=== PATIENT | male | born 1955 | race Caucasian/White ===

== ENCOUNTER 2023-01-31 19:34 | Emergency (ER) | payer MEDICARE, OTHER, SELFPAY ==
[2023-01-31] VITALS (37 sets, daily range): BP systolic 128–192; BP diastolic 78–111; PULSE 66–100; RESP 10–28; O2SAT 94–98; BMI 28.9
--- NOTE | 2023-01-31 19:53 | XR_ITS ---
The [address] [address] Patient Name: TRAVIS CANALES MRN: [id number] date: 1955 Sex: M Assigned Patient Location: ER Current Patient Location: ED.MAIN Accession/Order Number: [id number] Exam Date: 01/31/2023 20:02 Report Date: 01/31/2023 20:52 At the request of: MAHESH MCRAE Procedure: XR chest 1V EXAM: XR chest 1V TECHNIQUE: Single AP view chest HISTORY: CP COMPARISON: None. FINDINGS: The heart and mediastinum are unremarkable. The lung roe are clear of any acute infiltrate, effusion or mass. No acute bony abnormality. XR/XR chest 1V IMPRESSION: No acute pulmonary disease. Electronically authenticated by: ROBERT BEAR Date: 01/31/2023 20:52
--- NOTE | 2023-01-31 19:53 | ECG_ITS ---
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
--- NOTE | 2023-01-31 19:54 | ED_ITS ---
HPI - Chest Pain General Chief Complaint: Chest Pain Stated Complaint: hypertension Time Seen by Provider: 01/31/23 19:39 Mode of arrival: walk-in History of Present Illness HPI narrative: 67-year-old male presents for tightness in his chest. He's had this for the past day or two and it comes and goes. He seems to worry about it and that makes it worse and when he stops thinking about it seems to go away. He Was at home but it didn't help and he takes an aspirin every day which he has already taken today. No trauma or fever complaints of shortness of breath. 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 Related Data Home Medications Medication Instructions Recorded Confirmed benazepril 20 mg tablet 20 mg PO DAILY 01/31/23 01/31/23 ezetimibe 10 mg tablet 10 mg PO BEDTIME 01/31/23 01/31/23 magnesium oxide 400 mg (241.3 mg 400 mg PO BID 01/31/23 01/31/23 magnesium) tablet metoprolol succinate 50 mg 50 mg PO DAILY 01/31/23 01/31/23 tablet,extended release 24 hr nitroglycerin 0.4 mg sublingual mg 01/31/23 tablet pantoprazole 20 mg tablet,delayed 20 mg PO DAILY 01/31/23 01/31/23 release pravastatin 40 mg tablet 40 mg PO DAILY 01/31/23 01/31/23 Allergies Allergy/AdvReac Type Severity Reaction Status Date / Time Mssmnkw-PWH-KtG Reductase Allergy Unknown Verified 01/31/23 19:47 Inhibitor Review of Systems ROS Narrative A ten point review of systems is negative except as noted above. PFSH PFSH Social History Smoking status: Never smoker Exam Narrative Exam Narrative: Nurses note and vital signs reviewed and patient is not hypoxic. General: The patient appears well and in no apparent distress. Patient is resting comfortably on cart. Skin: Warm, dry, no pallor noted. There is no rash noted. Head: Normocephalic, atraumatic Eye: Normal conjunctiva, no drainage Ears, Nose, Mouth, and Throat: oral mucosa is moist. Nares patent. Cardiovascular: Regular Rate and Rhythm; well healed sternotomy scar present. Respiratory: Patient is in no distress, no accessory muscle use, lungs are cl ear to auscultation, no wheezing, rales or rhonchi Back: non-tender GI: soft and nontender Musculoskeletal: The patient has no evidence of calf tenderness, no pitting edema, symmetrical pulses noted bilaterally Neurological: A&O, normal speech Psychiatric: Cooperative Constitutional Vital Signs, click to edit/add: Last Vital Signs Pulse 85 02/01/23 00:00 Resp 29 H 02/01/23 00:00 BP 137/82 02/01/23 00:00 Pulse Ox 96 02/01/23 00:00 O2 Del Method Room Air 01/31/23 19:40 Course Vital Signs Vital signs: Vital Signs Pulse Rate 73 01/31/23 19:40 Respiratory Rate 18 01/31/23 19:40 Blood Pressure 185/104 H 01/31/23 19:40 Pulse Oximetry 98 01/31/23 19:40 Oxygen Delivery Method Room Air 01/31/23 19:40 Pulse Rate 85 02/01/23 00:00 Respiratory Rate 29 H 02/01/23 00:00 Blood Pressure 137/82 02/01/23 00:00 Pulse Oximetry 96 02/01/23 00:00 Oxygen Delivery Method Room Air 01/31/23 19:40 MDM - Chest Pain MDM Narrative Medical decision making narrative: The patient presented with elevated blood pressure. He was given IV hydralazine without change and then he was given IV labetalol with appropriate decrease and he feels improved and is able to be discharged home. Two troponins were un changed. I've no clinical suspicion of acute coronary syndrome. 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 Treatment diagnosis and follow-up were discussed thoroughly with the patient and his . Differential Diagnosis Differential diagnosis: Likely pneumothorax, unstable angina pectoris, atypical chest pain, st elevation myocardial infarction, chest pain and other (hypertension) Lab Data Attestation: I reviewed the patient's lab results. Labs: Lab Results 01/31/23 01/31/23 Range/Units 19:51 21:49 WBC 8.2 (4.0-11.0) 10^3/uL RBC 4.72 (4.70-6.10) 10^6/uL Hgb 13.8 L (14.0-18.0) g/dL Hct 42.3 (42.0-54.0) % MCV 89.6 (80.0-94.0) fL MCH 29.2 (25.9-34.0) pg MCHC 32.6 (29.9-35.2) g/dL RDW 13.2 (11.0-15.0) % Plt Count 279 (150-450) 10^3/uL MPV 9.8 (9.5-13.5) fL Neut % (Auto) 64.3 (43.0-75.0) % Lymph % (Auto) 20.8 (20.5-60.0) % [place] % (Auto) 10.7 (1.7-12.0) % Eos % (Auto) 3.5 (0.9-7.0) % Baso % (Auto) 0.5 (0.2-2.0) % Neut # (Auto) 5.3 (1.4-6.5) 10^3/uL Lymph # (Auto) 1.7 (1.2-3.8) 10^3/uL [place] # (Auto) 0.9 H (0.3-0.8) 10^3/uL Eos # (Auto) 0.3 (0.0-0.7) 10^3/uL Baso # (Auto) 0.0 (0.0-0.1) 10^3/uL Abs Immat Gran (auto) 0.02 (0.00-0.03) 10^3/uL Imm/Tot Granulo (auto) 0.2 (0.0-0.5) % Sodium 139 (136-145) mmol/L Potassium 3.8 (3.5-5.1) mmol/L Chloride 103 (98-107) mmol/L Carbon Dioxide 26.0 (21.0-32.0) mmol/L Anion Gap 13.8 BUN 16.0 (7.0-18.0) mg/dL Creatinine 0.93 (0.70-1.30) mg/dL Est GFR ( Amer) >60 (>=60) Est GFR (Non-Af Amer) >60 (>=60) BUN/Creatinine Ratio 17.2 Glucose 106 (74-106) mg/dL Calcium 9.4 (8.5-10.1) mg/dL Troponin I High Sens 24.1 24.3 (4.0-76.1) pg/mL Imaging Data Chest x-ray: Radiologist's impression: Procedure: XR chest 1V EXAM: XR chest 1V TECHNIQUE: Single AP view chest HISTORY: CP COMPARISON: None. FINDINGS: The heart and mediastinum are unremarkable. The lung roe are clear of any acute infiltrate, effusion or mass. No acute bony abnormality. IMPRESSION: No acute pulmonary disease. Electronically authenticated by: ROBERT EBAR Date: 01/31/2023 20:52 ECG Data Attestation: I personally reviewed and interpreted this ECG as follows: (EKG on my interpretation shows normal sinus rhythm without acute ST segment change. Rate is 81.) Heart Score History: Slightly/Non-Suspicious ECG: Normal Age: >65 years Risk Factors: >3 Risk Factors/ HX of CAD:2 Troponin: <Normal Limit Total Heart Score Recommendations & Risks:: 4 Discharge Plan Discharge Chief Complaint: Chest Pain Clinical Impression: Hypertension Patient Disposition: Home, Self-Care Time of Disposition Decision: 00:06 Condition: Good Mode of Transportation: Private Vehicle Prescriptions / Home Meds: No Action benazepril 20 mg tablet 20 mg PO DAILY ezetimibe 10 mg tablet 10 mg PO BEDTIME magnesium oxide 400 mg (241.3 mg magnesium) tablet 400 mg PO BID metoprolol succinate 50 mg tablet extended release 24 hr 50 mg PO DAILY pantoprazole 20 mg tablet,delayed release (DR/EC) 20 mg PO DAILY nitroglycerin 0.4 mg tablet, sublingual pravastatin 40 mg tablet 40 mg PO DAILY Instructions: Hypertension (ED) Additional Instructions: call your watch hairspring assembler in the morning Stand Alone Forms: Portal Instructions Referrals: Margaret Harden MD [Primary Care Provider] - 1 week
[2023-01-31 20:15] LABS: Basophils Percent Auto 0.5 % (0.2-2.0); Eosinophils Absolute Auto 0.3 10^3/uL (0.0-0.7); Eosinophils Percent Auto 3.5 % (0.9-7.0); Hematocrit 42.3 % (42.0-54.0); Hemoglobin 13.8 g/dL (14.0-18.0); Immature Granulocytes Abs Auto 0.02 10^3/uL (0.00-0.03); Immature Granulocytes Pct Auto 0.2 % (0.0-0.5); Lymphocytes Absolute Auto 1.7 10^3/uL (1.2-3.8); Lymphocytes Percent Auto 20.8 % (20.5-60.0); Mean Corpuscular HGB Conc 32.6 g/dL (29.9-35.2); Mean Corpuscular Hemoglobin 29.2 pg (25.9-34.0); Mean Corpuscular Volume 89.6 fL (80.0-94.0); Mean Platelet Volume 9.8 fL (9.5-13.5); Monocytes Absolute Auto 0.9 10^3/uL (0.3-0.8); Monocytes Percent Auto 10.7 % (1.7-12.0); Neutrophils Absolute Auto 5.3 10^3/uL (1.4-6.5); Neutrophils Percent Auto 64.3 % (43.0-75.0); Platelet Count 279 10^3/uL (150-450); Red Blood Count 4.72 10^6/uL (4.70-6.10); Red Cell Distribution Width 13.2 % (11.0-15.0); White Blood Count 8.2 10^3/uL (4.0-11.0)
[2023-01-31 21:04] LABS: Anion Gap 13.8; BUN Creatinine Ratio 17.2; Calcium 9.4 mg/dL (8.5-10.1); Chloride 103 mmol/L (98-107); Estimated GFR (African America >60 (>=60); Estimated GFR (Non-African Ame >60 (>=60); Glucose 106 mg/dL (74-106); Potassium 3.8 mmol/L (3.5-5.1); Sodium 139 mmol/L (136-145); Troponin I High Sensitivity 24.1 pg/mL (4.0-76.1)
[2023-01-31] MEDS: HYDRALAZINE HCL 20 MG/ML VIAL 10 MG IVP ×2 (21:06→22:25)
[2023-01-31 22:11] LABS: Troponin I High Sensitivity 24.3 pg/mL (4.0-76.1)
[2023-01-31] MEDS: LABETALOL HCL 20 MG/4 ML SYRINGE 10 MG IVP (23:42)
[2023-02-01] VITALS: BP 137/82; PULSE 85; RESP 29; O2SAT 96
== END 2023-02-01 00:20 | disposition home or self-care (01) ==
PROVIDERS: Emergency Provider Emergency Medicine; PCP Family Medicine
DX: I10 Essential (primary) hypertension (principal); Z95.1 Presence of aortocoronary bypass graft; Z79.82 Long term (current) use of aspirin; Z79.899 Other long term (current) drug therapy
CPT/HCPCS: 36415; 71045; 80048; 84484; 85025; 93005; 96374; 96375; 96376; 99285

== ENCOUNTER 2023-02-15 09:20 | Emergency (ER) | payer MEDICARE, OTHER, SELFPAY ==
[2023-02-15 09:27] VITALS: BP 130/90; PULSE 108; RESP 20; TEMP 36.4; O2SAT 96; BMI 28.9
--- NOTE | 2023-02-15 09:33 | XR_ITS ---
The [address] [address] Patient Name: TRAVIS CANALES MRN: [id number] date: 1955 Sex: M Assigned Patient Location: ER Current Patient Location: ER Accession/Order Number: [id number] Exam Date: 02/15/2023 09:55 Report Date: 02/15/2023 10:46 At the request of: IAN PETIT Procedure: XR foot RT min 3V PROCEDURE: XR foot RT min 3V HISTORY: foot pain , gout COMPARISON: None. FINDINGS: BONES:Mild narrowing of the first metatarsophalangeal joint space; no bone erosions or significant marginal osteophytes. Degenerative enthesopathic spurring of the calcaneus. No fracture or dislocation. SOFT TISSUES:No visible soft tissue swelling. EFFUSION:None visible. OTHER: Negative. XR/XR foot RT min 3V IMPRESSION: 1. Mild degenerative changes at the first metatarsophalangeal joint, but no specific findings suggestive of advanced gout. Electronically authenticated by: BRYAN MEDINA Date: 02/15/2023 10:46
[2023-02-15 09:50] LABS: Basophils Percent Auto 0.2 % (0.2-2.0); Eosinophils Absolute Auto 0.1 10^3/uL (0.0-0.7); Hematocrit 44.4 % (42.0-54.0); Hemoglobin 14.7 g/dL (14.0-18.0); Immature Granulocytes Abs Auto 0.04 10^3/uL (0.00-0.03); Immature Granulocytes Pct Auto 0.4 % (0.0-0.5); Lymphocytes Absolute Auto 0.7 10^3/uL (1.2-3.8); Lymphocytes Percent Auto 7.4 % (20.5-60.0); Mean Corpuscular HGB Conc 33.1 g/dL (29.9-35.2); Mean Corpuscular Hemoglobin 29.4 pg (25.9-34.0); Mean Corpuscular Volume 88.8 fL (80.0-94.0); Mean Platelet Volume 9.9 fL (9.5-13.5); Monocytes Absolute Auto 0.9 10^3/uL (0.3-0.8); Monocytes Percent Auto 9.3 % (1.7-12.0); Neutrophils Absolute Auto 7.6 10^3/uL (1.4-6.5); Neutrophils Percent Auto 81.7 % (43.0-75.0); Platelet Count 242 10^3/uL (150-450); Red Cell Distribution Width 13.6 % (11.0-15.0); White Blood Count 9.3 10^3/uL (4.0-11.0)
[2023-02-15 09:55] LABS: Erythrocyte Sedimentation Rate 66 mm/hr (<=20)
[2023-02-15] MEDS: METHYLPREDNISOLONE SOD SUCC PF 125 MG/2 ML VIAL IM (10:05)
[2023-02-15 10:07] LABS: C Reactive Protein 2.4 mg/dL (<=1.0); Uric Acid 7.4 mg/dL (3.5-7.2)
--- NOTE | 2023-02-15 10:50 | ED.EXTPRO1 ---
HPI - Extremity Problem General Chief complaint: Extremity Problem, Nontraumatic Stated complaint: lower extremity pain right Time Seen by Provider: 02/15/23 09:33 Source: patient Mode of arrival: walk-in Limitations: no limitations History of Present Illness HPI Narrative: Patient with history of gout presents with pain, redness and swelling to the right 1st and 2nd toes and 1st MTP. No known injury. No systemic symptoms such as fever or chills, vomiting. Patient was supposed to be placed on allopurinol for prevention but his PCP has not called that in for him yet. He previously received Indocin for his last gout flare and it shot my blood pressure through the roof . Related Data Home Medications Medication Instructions Recorded Confirmed benazepril 20 mg tablet 40 mg PO DAILY 01/31/23 02/15/23 ezetimibe 10 mg tablet 10 mg PO BEDTIME 01/31/23 02/15/23 magnesium oxide 400 mg (241.3 mg 400 mg PO BID 01/31/23 02/15/23 magnesium) tablet metoprolol succinate 50 mg 100 mg PO DAILY 01/31/23 02/15/23 tablet,extended release 24 hr nitroglycerin 0.4 mg sublingual 0.4 mg sublingual Q5M PRN chest 01/31/23 02/15/23 tablet pain pantoprazole 20 mg tablet,delayed 20 mg PO DAILY 01/31/23 02/15/23 release pravastatin 40 mg tablet 40 mg PO DAILY 01/31/23 02/15/23 doxazosin 2 mg tablet 2 mg PO BEDTIME 02/15/23 02/15/23 Previous Rx's Medication Instructions Recorded probenecid 500 mg-colchicine 0.5 1 tab PO BID PRN gout #20 tabs 02/15/23 mg tablet Allergies Allergy/AdvReac Type Severity Reaction Status Date / Time Spymffi-UMT-KeT Reductase Allergy Unknown Verified 01/31/23 19:47 Inhibitor PFSH PFSH Social History Smoking status: Never smoker Exam Narrative Exam Narrative: Nurses notes and vital signs reviewed and patient is not hypoxic. afebrile General: Well-appearing and in no apparent distress. Skin: Warm, dry, no pallor noted. Cardiovascular: normal peripheral perfusion. Respiratory: No accessory muscle use or respiratory distress. Musculoskeletal: right foot: tenderness, swelling and erythema noted to the right 1st and 2nd toes and the 1st MTP joint. Right foot and ankle with normal ROM, no calf or popliteal tenderness, no lower leg edema/swelling, no right heel tenderness and no tenderness along the right 5th metatarsal or midfoot. Neurological: A&O x4. No cranial nerve dysfunction observed. No truncal ataxia. Moves all extremities. Sensation intact. Psychiatric: Cooperative and interactive. Normal mood and affect. Constitutional Vital Signs, click to edit/add: Last Vital Signs Temp 97.6 F 02/15/23 09:27 Pulse 108 H 02/15/23 09:27 Resp 20 02/15/23 09:27 BP 130/90 02/15/23 09:27 Pulse Ox 96 02/15/23 09:27 O2 Del Method Room Air 02/15/23 09:27 Course Vital Signs Vital signs: Vital Signs Temperature 97.6 F 02/15/23 09:27 Pulse Rate 108 H 02/15/23 09:27 Respiratory Rate 20 02/15/23 09:27 Blood Pressure 130/90 02/15/23 09:27 Pulse Oximetry 96 02/15/23 09:27 Oxygen Delivery Method Room Air 02/15/23 09:27 Temperature 97.6 F 02/15/23 09:27 Pulse Rate 108 H 02/15/23 09:27 Respiratory Rate 20 02/15/23 09:27 Blood Pressure 130/90 02/15/23 09:27 Pulse Oximetry 96 02/15/23 09:27 Oxygen Delivery Method Room Air 02/15/23 09:27 MDM - Extremity (Nontraumatic) MDM Narrative Medical decision making narrative: blood drawn and sent for testing including CRP, sedimentation rate and uric acid. X-rays of the right foot were obtained. With blood cell count is normal. Sedimentation rate, CRP and uric acid are all elevated. X-ray showed degenerative changes but no osteomyelitis or other worrisome findings including advanced gout. Patient received IM Cipro. He'll be discharged home with a combination colchicine and probenecid to take at home. I advised him that if his prescription for allopurinol is sent he is not to take that during an acute gout flare. Instead he will take that once this flareup settles. I recommended that he see his PCP for follow up. Lab Data Attestation: I reviewed the patient's lab results. Labs: Lab Results 02/15/23 Range/Units 09:42 WBC 9.3 (4.0-11.0) 10^3/uL RBC 5.00 (4.70-6.10) 10^6/uL Hgb 14.7 (14.0-18.0) g/dL Hct 44.4 (42.0-54.0) % MCV 88.8 (80.0-94.0) fL MCH 29.4 (25.9-34.0) pg MCHC 33.1 (29.9-35.2) g/dL RDW 13.6 (11.0-15.0) % Plt Count 242 (150-450) 10^3/uL MPV 9.9 (9.5-13.5) fL Neut % (Auto) 81.7 H (43.0-75.0) % Lymph % (Auto) 7.4 L (20.5-60.0) % [place] % (Auto) 9.3 (1.7-12.0) % Eos % (Auto) 1.0 (0.9-7.0) % Baso % (Auto) 0.2 (0.2-2.0) % Neut # (Auto) 7.6 H (1.4-6.5) 10^3/uL Lymph # (Auto) 0.7 L (1.2-3.8) 10^3/uL [place] # (Auto) 0.9 H (0.3-0.8) 10^3/uL Eos # (Auto) 0.1 (0.0-0.7) 10^3/uL Baso # (Auto) 0.0 (0.0-0.1) 10^3/uL Abs Immat Gran (auto) 0.04 H (0.00-0.03) 10^3/uL Imm/Tot Granulo (auto) 0.4 (0.0-0.5) % ESR 66 H (<=20) mm/hr Uric Acid 7.4 H (3.5-7.2) mg/dL C-Reactive Protein 2.4 H (<=1.0) mg/dL Imaging Data xr foot: Radiologist's impression: Patient Name: TRAVIS CANALES MRN: [id number] date: 1955 Sex: M Assigned Patient Location: ER Current Patient Location: ER Accession/Order Number: [id number] Exam Date: 02/15/2023 09:55 Report Date: 02/15/2023 10:46 At the request of: IAN PETIT Procedure: XR foot RT min 3V PROCEDURE: XR foot RT min 3V HISTORY: foot pain , gout COMPARISON: None. FINDINGS: BONES:Mild narrowing of the first metatarsophalangeal joint space; no bone erosions or significant marginal osteophytes. Degenerative enthesopathic spurring of the calcaneus. No fracture or dislocation. SOFT TISSUES:No visible soft tissue swelling. EFFUSION:None visible. OTHER: Negative. IMPRESSION: 1. Mild degenerative changes at the first metatarsophalangeal joint, but no specific findings suggestive of advanced gout. Electronically authenticated by: BRYAN MEDINA Date: 02/15/2023 10:46 Discharge Plan Discharge Chief Complaint: Extremity Problem, Nontraumatic Clinical Impression: Gout Patient Disposition: Home, Self-Care Time of Disposition Decision: 10:55 Prescriptions / Home Meds: New probenecid-colchicine 500-0.5 mg tablet 1 tab PO BID PRN (Reason: gout) Qty: 20 0RF No Action benazepril 20 mg tablet 40 mg PO DAILY ezetimibe 10 mg tablet 10 mg PO BEDTIME magnesium oxide 400 mg (241.3 mg magnesium) tablet 400 mg PO BID metoprolol succinate 50 mg tablet extended release 24 hr 100 mg PO DAILY pantoprazole 20 mg tablet,delayed release (DR/EC) 20 mg PO DAILY nitroglycerin 0.4 mg tablet, sublingual 0.4 mg sublingual Q5M PRN (Reason: chest pain) pravastatin 40 mg tablet 40 mg PO DAILY doxazosin 2 mg tablet 2 mg PO BEDTIME Instructions: Gout (ED) Stand Alone Forms: Portal Instructions Referrals: Margaret Harden MD [Primary Care Provider] - 1 week
[2023-02-15 11:21] VITALS: BP 111/74; PULSE 80; RESP 18; O2SAT 94
== END 2023-02-15 11:24 | disposition home or self-care (01) ==
PROVIDERS: Emergency Provider Emergency Medicine; PCP Family Medicine
DX: M10.9 Gout, unspecified (principal); Z79.899 Other long term (current) drug therapy
CPT/HCPCS: 36415; 73630; 84550; 85025; 85652; 86140; 96372; 99284; J2930

== ENCOUNTER 2023-03-11 14:59 | Outpatient (RCR) | payer MEDICARE, OTHER, SELFPAY ==
--- NOTE | 2022-12-08 15:20 | CR1_ITS ---
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
--- NOTE | 2023-01-04 14:29 | CR1_ITS ---
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
--- NOTE | 2023-01-31 15:27 | CR1_ITS ---
The 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
--- NOTE | 2023-03-02 12:31 | CR1_ITS ---
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
== END 2023-03-14 12:34 | disposition home or self-care (01) ==
LOC: CR 14:59
PROVIDERS: PCP Family Medicine; Visit Provider Internal Medicine Cardiovascular Disease
DX: I25.10 Atherosclerotic heart disease of native coronary artery without angina pectoris (principal); Z95.1 Presence of aortocoronary bypass graft
CPT/HCPCS: 93797; 93798

== ENCOUNTER 2023-07-27 12:53 | Outpatient (OUT) | payer MEDICARE, OTHER, SELFPAY ==
--- NOTE | 2023-07-27 13:02 | XR_ITS ---
The [address] [address] Patient Name: TRAVIS CANALES MRN: [id number] date: 1955 Sex: M Assigned Patient Location: [facility] Current Patient Location: Accession/Order Number: [id number] Exam Date: 07/27/2023 13:14 Report Date: 07/28/2023 07:06 At the request of: FARSHAD CAMARILLO Procedure: XR knee RT 4V PROCEDURE: XR tibia fibula RT 2V, XR knee RT 4V HISTORY: knee pain, lower leg pain COMPARISON: None. FINDINGS: BONES:No fracture, dislocation, bone lesion. Tiny degenerative osteophytes along the articular margins of all 3 compartments of the knee. Large calcaneal plantar spur. SOFT TISSUES:No visible soft tissue swelling. EFFUSION:None visible. OTHER: Negative. XR/XR knee RT 4V IMPRESSION: 1. No acute bone abnormality or specific findings to account for patient's symptoms. 2. Minimal degenerative changes. Electronically authenticated by: BRYAN MEDINA Date: 07/28/2023 07:06
--- NOTE | 2023-07-27 13:03 | XR_ITS ---
The [address] [address] Patient Name: TRAVIS CANALES MRN: [id number] date: 1955 Sex: M Assigned Patient Location: [facility] Current Patient Location: Accession/Order Number: [id number] Exam Date: 07/27/2023 13:14 Report Date: 07/28/2023 07:06 At the request of: FARSHAD CAMARILLO Procedure: XR tibia fibula RT 2V PROCEDURE: XR tibia fibula RT 2V, XR knee RT 4V HISTORY: knee pain, lower leg pain COMPARISON: None. FINDINGS: BONES:No fracture, dislocation, bone lesion. Tiny degenerative osteophytes along the articular margins of all 3 compartments of the knee. Large calcaneal plantar spur. SOFT TISSUES:No visible soft tissue swelling. EFFUSION:None visible. OTHER: Negative. XR/XR tibia fibula RT 2V IMPRESSION: 1. No acute bone abnormality or specific findings to account for patient's symptoms. 2. Minimal degenerative changes. Electronically authenticated by: BRYAN MEDINA Date: 07/28/2023 07:06
== END 2023-07-27 12:54 | disposition home or self-care (01) ==
LOC: RAD 12:56
PROVIDERS: PCP Family Medicine; Visit Provider Internal Medicine Rheumatology
DX: M79.604 Pain in right leg (principal); M25.561 Pain in right knee
CPT/HCPCS: 73564; 73590

== ENCOUNTER 2023-11-23 09:21 | Outpatient (OUT) | payer MEDICARE, OTHER, SELFPAY ==
--- NOTE | 2023-11-23 09:24 | VEIN_ITS ---
Patient Name: TRAVIS CANALES MR#: [id number] : 1955 Exam Date: 11/23/2023 Ordering Doctor: FLOR MONTENEGRO M.D. RADIOLOGY REPORT PROCEDURE: VC EXT VENOUS REFLUX SEVERIANO LMTD COMPARISON: None. INDICATIONS: M79.604 Right leg pain, M79.605 Left leg pain TECHNIQUE: Duplex imaging of the lower extremity to assess the deep and superficial venous system for the presence of deep or superficial venous incompetence and to document the location and severity of disease. The study includes evaluation of the great saphenous vein (GSV), anterior accessory saphenous vein (AASV) and small saphenous vein (SSV). Patient scanned in reverse Trendelenburg and standing. FINDINGS: RIGHT LOWER EXTREMITY: Saphenofemoral Junction Reflux: Yes 11.1mm 3.1 sec GSV: Diam (mm) Reflux/ Time (sec) Proximal Thigh 8.0 Yes 0.3 Mid Thigh N/A Distal Thigh 4.5 Yes 0.9 Prox Calf 4.8 Yes 3.6 Mid Calf 4.2 Yes 0.6 Saphenopopliteal Junction Reflux: 5.6mm Yes 2.7 SSV: Proximal Calf 5.5 Yes 0.8 Mid Calf 5.3 Yes 0.5 AASV: Proximal Thigh 4.4 Yes 0.5 Mid Thigh 3.5 Yes 0.6 Distal Thigh Thrombi: No acute or chronic thrombus. Compressibility: Normal. Flow: Minimal deep venous reflux. Preforator: Distal medial lower leg 3.5 mm with 4.4s reflux. Tech Note: Segment of right GSV previously removed for heart surgery. Fluid collection medial popliteal fossa measures 5.2 x 2.5 x 2.1 cm. Incompetent varicose vein distal medial lower leg measures 3.4 mm with 1.1s reflux. LEFT LOWER EXTREMITY: Saphenofemoral Junction Reflux: Yes 8.8 mm 0.8 sec GSV: Diam (mm) Reflux/Time (sec) Proximal Thigh 11.1 Yes 3.0 Mid Thigh 7.1 Yes 1.0 Distal Thigh 5.7 Yes 0.6 Prox Calf 4.4 Yes 2.1 Mid Calf 3.0 Yes 1.8 Saphenopopliteal Junction Relux: 3.4 mm Yes 0.3 SSV: Proximal Calf 3.4 Yes 4.8 Mid Calf 3.7 Yes 0.5 AASV: Proximal Thigh 3.6 Yes 0.3 Mid Thigh 2.6 No Distal Thigh Thrombi: No acute or chronic thrombus. Compressibility: Normal. Flow: Minimal deep venous reflux. Computer Tester: Distal medial lower leg 5.8 mm with 0.4s reflux. Tech Note: SSV has connection to GSV proximal/medial calf. Incompetent varicose vein distal medial lower leg measures 3.0 mm with 0.6s reflux. Varicose vein proximal medial lower leg measures 3.5 mm with 2.6s reflux. CONCLUSION: 1. Moderate to severe bilateral great saphenous vein venous insufficiency with dilatation and saphenofemoral junction reflux 2. Moderate right and severe left small saphenous vein venous insufficiency. There is dilatation of the right but not of the left 3. Mild venous insufficiency right anterior accessory saphenous vein 4. Minimal bilateral deep vein reflux 5. Bilateral incompetent varicose veins Dictated by: Riley Duran MD on 11/23/2023 at 11:11 Approved by: Riley Duran MD on 11/23/2023 at 11:42
--- OUTSIDE RECORDS SUMMARY | 2023-11-23 09:44 | XMS_ITS | CCD ---
Author Organization [facility] Care Team Providers Care Supervisor Gate Services Name Role Phone DR JOSELINE ALCAZAR Primary Care Unavailable DALY MOON Admitting Unavailable DALY MOON Consulting Unavailable DALY MOON Attending Unavailable SHAIKH Geri MARSH Admitting Unavailable SHAIKH Geri MARSH Attending Unavailable CAROL, DR BRYAN [place] Consulting Unavailable INGE, DR JOSELINE Martínez Primary Care Unavailable DALY MOON Consulting Unavailable SHAIKH Geri MARSH Consulting Unavailable SKINNER, MONSE Consulting Unavailable DEVAUGHN JASSO Consulting Unavailable INGE, DR JOSELINE Martínez Primary Care Unavailable MARISABEL, DR SOSA Admitting Unavailable HAY, DR SOSA Consulting Unavailable HAY, DR SOSA Attending Unavailable SINTIA, DR TOVAR Primary Care Unavailable HAY, DR SOSA Admitting Unavailable HAY, DR SOSA Consulting Unavailable HAY, DR SOSA Attending Unavailable BETTY MUHAMMAD Attending Unavailable DUANE SIMMONS Attending Unavailable Joseline Alcazar Unavailable Joseline Alcazar Unavailable Unavailable Unavailable Joseline Alcazar Unavailable Abiose, Juan Unavailable Carson Lane Unavailable Unavailable Jenna Saavedra Unavailable Unavailable Kristen Alegria Unavailable Sondra Elaine Unavailable Unavailable Catracho Garcia Unavailable Dr. Jenna Saavedra Attending Un available Inge, Dr. Joseline De Leon Primary Care Unav maidaable Inge, Dr. Joseline De Leon Primary Care Unav ailDr. Jenna Rivera Attending Un available Dr. Kristen Alegria Attending Unavailable Inge, Dr. Joseline De Leon Primary Care Unav KATIE Morales Attending Angélica Alcazar, Dr. Joseline De Leon Primary Care Unav ailable Alcazar, Dr. Joseline De Leon Attending Unav ailable Alcazar, Dr. Joseline De Leon Primary Care Unav ailable Raji, Dr. Peterson Admitting Unavailable Alegria, Dr. Peterson Attending Unavailable Alegria, Dr. Peterson Referring Unavailable Alcazar, Dr. Joseline De Leon Primary Care Unav ailable Alcazar, Dr. Joseline De Leon Primary Care Unav ailable Ruda Jessica, Dr. Jenna Elaine Admitting Un available Ruda Jessica, Dr. Jenna Elaine Attending Un available Alcazar, Dr. Joseline De Leon Referring Unav ailable Alcazar, Dr. Joseline De Leon Primary Care Unav ailable Raji, Dr. Peterson Attending Unavailable Alcazar, Dr. Joseline De Leon Primary Care Unav ailable Raji, Dr. Peterson Referring Unavailable Alcazar, Dr. Joseline De Leon Primary Care Unav ailable Alegria, Dr. Peterson Attending Unavailable Alegria, Dr. Peterson Referring Unavailable Alegria, Dr. Peterson Attending Unavailable Alcazar, Dr. Joseline De Leon Primary Care Unav ailable Alegria, Dr. Peterson Referring Unavailable Alegria, Dr. Peterson Attending Unavailable Alcazar, Dr. Joseline De Leon Primary Care Unav ailable Raji, Dr. Peterson Referring Unavailable MD Joseline Alcazar Primary Care Provider DO Brett Amanda Emergency Provider Joseline Alcazar MD Primary Care Provider Joseline Alcazar MD Primary Care Provider Unavailable Joseline Alcazar MD Primary Care Provider Kristen Alegria MD Unavailable KRISTEN ALEGRIA Attending Unavailable KRISTEN ALEGRIA Referring Unavailable JOSELINE ALCAZAR Primary Care Unavailable KRISTEN ALEGRIA Attending Unavailable KRISTEN ALEGRIA Referring Unavailable JOSELINE ALCAZAR Primary Care Unavailable Brett Amanda Attending Unavailable Brett Amanda Admitting Unavailable Joseline Alcazar Primary Care Unavailable FLOR MONTENEGRO Attending Unavailable BRUNO SCHMITZ Referring Unavailable BRUNO SCHMITZ Primary Care Unavailable Allergies Allergy Classification Reported Allergen(s) Allergy Type Date of Onset Reaction(s) Facility (7 sources) rosuvastatin; Translations: [ROSUVASTATIN] Drug Allergy 3 Headache, Myalgia [facility] Repository Comment on above: HEADACHES JOINT PAIN (8 sources) rosuvastatin Drug Allergy Myalgia, Headache [facility] 300 DO Work Phone: (9 sources) traMADol; Translations: [tramadol] Drug Allergy 3 Hallucinations [facility] 250 DO Work Phone: (4 sources) Doxazosin; Translations: [DOXAZOSIN] Drug Allergy 3 [facility] Work Phone: (1 source) traMADol Drug Allergy 3 [facility] Repository Medications Current Medications Medication Drug Class(es) Dates Sig (Normalized) Sig (Original) acetaminophen 325 mg oral tablet (4 sources) Start: 11-07-2022 take 2 tablets by mouth every six hours acetaminophen 325 mg oral tablet ; 2 tab(s) orally every 6 hours as needed for pain Quantity: 0 Refills: 0 Ordered: 07-Nov-2022 Calvin Escamilla Start: 07-Nov-2022 Generic Substitution Allowed take 1-2 tablets by mouth every six hours as needed Acetaminophen 325 MG Oral Tablet TAKE 1 TO 2 TABLETS EVERY 6 HOURS NEEDED. Quantity: 0 Refills: 0 Ordered: 09-Nov-2022 DO Active Acidophilus Probiotic 10 MG (4 sources) Acidophilus Prob iotic 10 MG as directed Orally Active allopurinol 100 mg oral tablet (6 sources) Xanthine Oxidase Inhibitor End: 4 take 1 tablet by mouth once daily allopurinol (Zyloprim) 100 mg tablet Take 1 tablet (100 mg) by mouth once daily. 0 05/30/2023 Discontinued (Dose adjustment) take 1 tablet by mouth once mansoor y allopurinol (Zyloprim) 300 mg tablet Take 1 tablet (300 mg) by mouth once daily. 0 Active amLODIPine 2.5 mg oral tablet (13 sources) Dihydropyridine Calcium Channel Mir Start: 09-28-2022 take 1 tablet by mouth once daily amLODIPine Besylate 5 MG Oral Tablet TAKE 1 TABLET DAILY. Quantity: 90 Refills: 1 Ordered: 28-Sep-2022 Kristen Alegria MD Start : 28-Sep-2022 Active Start: 06-28-2022 End: 05-29-2024 take 1 tablet by mouth once daily amLODIPine (Norvasc) 2.5 mg tablet Indications: S/P CABG x 3 , Status post coronary artery bypass graft , Resistant hypertension Take 1 tablet (2.5 mg) by mouth once daily. 90 tablet 3 05/30/2023 05/29/2024 Active aspirin 81 mg chewable tablet (17 sources) Platelet Aggregation Inhibitor, Nonsteroidal Anti-inflammatory Drug Start: 2022 aspirin 81 mg chewable tablet Chew 1 tablet (81 mg) once daily. 0 2022 Active Aspirin Adult Lo w Dose Not-Taking/PRN Aspirin Adult Lo w Dose Not-Taking take 1 tablet by mouth once aspi rin 81 mg oral delayed release tablet ; 1 tab(s) orally once a day(stopping as directed) Quantity: 0 Refills: 0 Ordered: 07-Oct-2022 Corinna Lizama Generic Substitution Allowed Aspirin Adult Lo w Dose Active benazepril hydrochloride 40 mg oral tablet (18 sources) Angiotensin Converting Enzyme Inhibitor Start: 05-30-2023 take 1 tablet by mouth once daily benazepril (Lotensin) 40 mg tablet Indications: Hypertensive heart disease with diastolic congestive heart failure, NYHA class 2 (CMS/HCC) Take 1 tablet (40 mg) by mouth once daily. 90 tablet 3 05/30/2023 Active Start: 02-03-2023 End: 05-30-2023 take 1 tablet by mouth once daily benazepril (Lotensin) 40 mg tablet Indications: Hypertensive heart disease with diastolic congestive heart failure, NYHA class 2 (CMS/HCC) Take 1 tablet (40 mg) by mouth once daily. 90 tablet 0 02/03/2023 05/30/2023 Discontinued (Reorder) Start: 2022 take 1 tablet by allison once daily Benazepril HCl - 20 MG Oral Tablet TAKE 1 TABLET DAILY. Quantity: 90 Refills: 3 Ordered: 29-Nov-2022 Kristen Alegria MD Start : 29-Nov-2022 Active new chondroitin sulfates 200 mg / glucosamine hydrochloride 250 mg oral tablet (16 sources) Start: 02-07-2023 take 2 tablets by mouth once daily Glucosamine-Chondroitin (Osteo Bi-Flex) 250-200 mg Tablet Active 2 TAB PO Daily February 07, 2023 12:00am Glucosamine-Tyrone droitin - as directed Orally Active take 1 tablet by mouth once mansoor y Osteo Bi-Flex 250 mg-200 mg oral tablet ; 1 tab(s) orally once a day Quantity: 0 Refills: 0 Ordered: 07-Oct-2022 Corinna Lizama Generic Substitution Allowed Osteo Bi-Flex On e Per Day TABS TAKE 1 TAB DAILY Quantity: 0 Refills: 0 Ordered: 28-Sep-2022 DO Active Osteo Bi-Flex On e Per Day TABS Quantity: 0 Refills: 0 Ordered: 13-Sep-2022 DO Active colchicine 0.6 mg oral tablet (2 sources) take 1 tablet by mouth twice daily as needed Colchicine 0.6 MG 1 tablet Orally bid prn for 15 days Active colchicine 0.5 mg / probenecid 500 mg oral tablet (4 sources) take 1 tablet by mouth twice daily probenecid-colchicine 500-0.5 mg tablet Take 1 tablet by mouth 2 times a day. 0 Active CoQ10 100 MG (4 sources) CoQ10 100 MG as directed Orally Active docusate sodium 100 mg oral capsule (6 sources) Start: 11-07-2022 take 1 capsule by mouth three times daily after mealtime docusate sodium 100 mg oral capsule ; 1 cap(s) orally 3 times a day (after meals) Quantity: 0 Refills: 0 Ordered: 07-Nov-2022 Calvin Escamilla Start: 07-Nov-2022 Generic Substitution Allowed Docusate Sodium 100 MG TABS TAKE 1 TABLET DAILY DIRECTED. Quantity: 0 Refills: 0 Ordered: 09-Nov-2022 DO Active doxazosin 2 mg oral tablet (4 sources) alpha-Adrenergic Mir Start: 02-10-2023 End: 02-10-2024 take 1 tablet by mouth once daily at bedtime doxazosin (Cardura) 2 mg tablet Indications: Hypertensive heart disease with diastolic congestive heart failure, NYHA class 2 (CMS/HCC) , Resistant hypertension Take 1 tablet (2 mg) by mouth once daily at bedtime. May take 1 extra tablet daily if BP running above 150 systolic 135 tablet 3 02/10/2023 05/30/2023 Discontinued (Side effects) doxylamine succinate 25 mg oral tablet (1 source) doxylamine (Unisom) 25 mg tablet Take 1 tablet (25 mg) by mouth as needed at bedtime for sleep. 0 Active ezetimibe 10 mg oral tablet (19 sources) Dietary Cholesterol Absorption Inhibitor Start: 11-07-2022 take 1 tablet by mouth once daily ezetimibe (Zetia) 10 mg tablet Take 1 tablet (10 mg) by mouth once daily. 0 01/17/2023 Active glucosamine/chondr shepherd A sod (OSTEO BI-FLEX ORAL) (2 sources) take 1 tablet by mouth once daily glucosamine/chond r shepherd A sod (OSTEO BI-FLEX ORAL) Take 1 tablet by mouth once daily. 0 Active indomethacin 50 mg oral capsule (6 sources) Nonsteroidal Anti-inflammatory Drug Start: 01-04-2023 End: 03-14-2023 take 1 capsule by mouth once daily indomethacin (Indocin) 50 mg capsule Take 1 capsule (50 mg) by mouth once daily. 0 01/04/2023 03/14/2023 Discontinued (Therapy completed) Start: 01-04-2023 take 1 capsule by mo [facility] every twelve hours Indomethacin 50 MG 1 capsule with food or milk Orally Twice a day for 30 day(s) Dec, Active Start: 12-02-2022 End: 12-06-2022 take 1 capsule by mouth three times daily at mealtime indomethacin 50 mg oral capsule ; 1 cap(s) orally 3 times a day Quantity: 15 Refills: 0 Ordered: 02-Dec-2022 Catracho Garcia Start: 02-Dec-2022 End: 06-Dec-2022 Generic Substitution Allowed Comments: Do not take aspirin or aspirin containing products without knowledge and consent of your physician.It is very important that you take or use this exactly as directed. Do not skip doses or discontinue unless directed by your doctor.May cause drowsiness or dizziness.Obtain medical advice before taking any non-prescription drugs as some may affect the action of this medication.Take with food or milk. take 1 capsule by mo uth once daily Indomethacin 25 MG Oral Capsule TAKE 1 CAPSULE Daily for gout flare Quantity: 0 Refills: 0 Ordered: 16-Dec-2022 DO Active Comment on above: Do not take aspirin or aspirin containing products without knowledge and consent of your physician.It is very important that you take or use this exactly as directed. Do not skip doses or discontinue unless directed by your doctor.May cause drowsiness or dizziness.Obtain medical advice before taking any non-prescription drugs as some may affect the action of this medication.Take with food or milk. Lactobacillus acidophilus (13 sources) End: 05-30-2023 Lactobacillus acidophilus (PROBIOTIC ACIDOPHILUS ORAL) Take by mouth. Take as directed 0 05/30/2023 Discontinued (Therapy completed) Lactobacillus ac idophilus (PROBIOTIC ACIDOPHILUS ORAL) Take by mouth. Take as directed 0 Active Acidophilus Prob iotic 10 MG Oral Capsule TAKE DIRECTED. Quantity: 0 Refills: 0 Ordered: 13-Sep-2022 DO Active take 1 capsule by mouth once kehinde ly Acidophilus oral capsule ; 1 cap(s) orally once a day Quantity: 0 Refills: 0 Ordered: 07-Oct-2022 Corinna Lizama Generic Substitution Allowed magnesium oxide 400 mg oral tablet (9 sources) Start: 12-16-2022 take 1 tablet by mouth twice daily magnesium oxide (Mag-Ox) 400 mg (241.3 mg magnesium) tablet Take 1 tablet (400 mg) by mouth 2 times a day. 0 12/21/2022 Active 24 hr metoprolol succinate 100 mg extended release oral tablet (20 sources) beta-Adrenergic Mir Start: 02-04-2023 End: 05-29-2024 take 1 tablet by mouth once daily metoprolol succinate XL (Toprol-XL) 100 mg 24 hr tablet Indications: Hypertensive heart disease with diastolic congestive heart failure, NYHA class 2 ([facility]) Take 1 tablet (100 mg) by mouth once daily. Do not crush or chew. 90 tablet 1 05/30/2023 05/29/2024 Active Start: 11-07-2022 End: 06-04-2023 take 1 tablet by mouth once daily Metoprolol Succinate ER 50 mg oral tablet, extended release ; 1 tab(s) orally once a day (pateint to take mornin of procedure with a sip of water) Quantity: 30 Refills: 6 Ordered: 07-Nov-2022 Calvin Escamilla Start: 07-Nov-2022 End: 04-Jun-2023 Generic Substitution Allowed take 1 tablet by allison th every twenty-four hours Metoprolol Succinate ER 25 MG 1 tablet Orally Once a day Active multivit-min/ferrous fumarat e (MULTI VITAMIN ORAL) (2 sources) take 1 tablet by mouth once daily multivit-min/ferrous fumarate (MULTI VITAMIN ORAL) Take 1 tablet by mouth once daily. 0 Active Multivitamin preparation (7 sources) Start: take 1 tablet by mouth once daily Multivitamin Active 1 TAB PO Daily February 07, 2023 12:00am take 1 tablet by mouth once mansoor y Multivitamin - 1 tablet Orally Once a day Active take 1 tablet by mouth once mansoor y Multiple Vitamins oral tablet ; 1 tab(s) orally once a day Quantity: 0 Refills: 0 Ordered: 07-Oct-2022 Corinna Lizama Generic Substitution Allowed nitroglycerin 0.4 mg sublingual tablet (2 sources) Nitrate Vasodilator Start: 10-08-2022 nitroglycerin (Nitrostat) 0.4 mg SL tablet DISSOLVE 1 TABLET UNDER THE TONGUE NEEDED FOR CHEST PAIN- MAY REPEAT EVERY 5 MINUTES IF NEEDED ( MAX 3 DOSES.- IF NO RELIEF CALL 911) 0 10/08/2022 Active pantoprazole 40 mg delayed release oral tablet (9 sources) Proton Pump Inhibitor Start: 02-07-2023 take 1 tablet by mouth once daily Pantoprazole (Protonix) 40 mg Tablet,Delayed Release (Dr/Ec) Active 40 MG PO Daily February 07, 2023 12:00am Start: 12-16-2022 End: 05-30-2023 take 1 tablet by mouth once daily pantoprazole (ProtoNix) 20 mg EC tablet Take 1 tablet (20 mg) by mouth once daily. 0 12/21/2022 05/30/2023 Discontinued (Therapy completed) polyethylene glycol 3350 82903 mg powder for oral solution (3 sources) Osmotic Laxative Start: 11-07-2022 polyethylene glycol 3350 oral powder for reconstitution ; 17 gram(s) orally 2 times a day Quantity: 0 Refills: 0 Ordered: 07-Nov-2022 Calvin Escamilla Start: 07-Nov-2022 Generic Substitution Allowed MiraLax 17 GM Or al Packet MIX 1 PACKET IN 8 OUNCES OF LIQUID AND DRINK TWICE DAILY. Quantity: 60 Refills: 3 Ordered: 09-Nov-2022 DO Active pravastatin sodium 40 mg oral tablet (18 sources) HMG-CoA Reductase Inhibitor Start: 09-27-2022 End: 05-29-2024 take 1 tablet by mouth once daily at bedtime pravastatin (Pravachol) 40 mg tablet Indications: Mixed hyperlipidemia Take 1 tablet (40 mg) by mouth once daily at bedtime. 90 tablet 3 05/30/2023 05/29/2024 Active predniSONE 50 mg oral tablet (1 source) Start: 12-02-2022 End: 12-06-2022 take 1 tablet by mouth once daily at mealtime predniSONE 50 mg oral tablet ; 1 tab(s) orally once a day Quantity: 5 Refills: 0 Ordered: 02-Dec-2022 Catracho Garcia Start: 02-Dec-2022 End: 06-Dec-2022 Generic Substitution Allowed Comments: It is very important that you take or use this exactly as directed. Do not skip doses or discontinue unless directed by your doctor.Obtain medical advice before taking any non-prescription drugs as some may affect the action of this medication.Take with food or milk. Comment on above: It is very important that you take or use this exactly as directed. Do not skip doses or discontinue unless directed by your doctor.Obtain medical advice before taking any non-prescription drugs as some may affect the action of this medication.Take with food or milk. ubiquinol 100 mg oral capsule (1 source) Start: 02-07-2023 take 100 mg by mouth once daily Coq10 (Ubiquinol) Active 100 MG PO Daily February 07, 2023 12:00am Completed/Discontinued Medications Medication Drug Class(es) Dates Sig (Normalized) Sig (Original) apixaban 5 mg oral tablet (2 sources) Factor Xa Inhibitor Start: 12-16-2022 take 1 tablet by mouth twice daily Eliquis 5 MG Oral Tablet Take 1 tablet twice daily Quantity: 90 Refills: 3 Ordered: 16-Dec-2022 Kristen Alegria MD Start : 16-Dec-2022 Active new start hydroCHLOROthiazide 25 mg / triamterene 37.5 mg oral tablet (6 sources) Potassium-spari ng Diuretic, Thiazide Diuretic Start: 09-13-2022 take 0.5 tablet by mouth once daily Triamterene-HCTZ 37.5-25 MG Oral Tablet TAKE 1/2 TABLET DAILY. Quantity: 45 Refills: 3 Ordered: 13-Sep-2022 Kristen Alegria MD Start : 13-Sep-2022 Active Multi Vitamin Oral Tablet (9 sources) take 1 tablet by mouth once daily Multi Vitamin Oral Tablet TAKE 1 TABLET DAILY. Quantity: 0 Refills: 0 Ordered: 13-Sep-2022 DO Active ondansetron 4 mg disintegrating oral tablet (3 sources) Serotonin-3 Receptor Antagonist Start: 11-07-2022 End: 11-13-2022 take 1 tablet by mouth every eight hours ondansetron 4 mg oral tablet, disintegrating ; 1 tab(s) orally every 8 hours Quantity: 21 Refills: 0 Ordered: 07-Nov-2022 Calvin Escamilla Start: 07-Nov-2022 End: 13-Nov-2022 Generic Substitution Allowed rosuvastatin calcium 20 mg oral tablet (1 source) HMG-CoA Reductase Inhibitor take 1 tablet by mouth once daily Rosuvastatin Calcium 20 MG Oral Tablet TAKE 1 TABLET DAILY. Quantity: 0 Refills: 0 Ordered: 13-Sep-2022 DO Active traMADol hydrochloride 50 mg oral tablet (3 sources) Opioid Agonist Start: 11-07-2022 End: 11-17-2022 take 1 tablet by mouth every six hours as needed traMADol 50 mg oral tablet ; 1 tab(s) orally every 6 hours, As needed, Pain - Mod (4-6) Quantity: 28 Refills: 0 Ordered: 11-Nov-2022 Calvin Escamilla Start: 11-Nov-2022 End: 17-Nov-2022 Generic Substitution Allowed ubidecarenone 100 mg oral capsule (12 sources) Start: 09-27-2022 take 1 capsule by mouth once daily Co Q-10 100 MG Oral Capsule TAKE 1 CAPSULE Daily Quantity: 1 Refills: 0 Ordered: 27-Sep-2022 Kristen Alegria MD Start : 27-Sep-2022 Active take 2 capsules by mouth once da [place] co-enzyme Q-10 50 mg capsule Take 2 capsules (100 mg) by mouth once daily. 0 Active Problems Active Problems Problem Classification Problem Date Documented Date Episodic/Chronic Acute posthemorrhagic anemia (1 source) Acute posthemorrhagic anemia; Translations: [Acute posthemorrhagic anemia] Onset: 07-16-202 3 Episodic Administrative/social admission (8 sources) Follow-up status; Translations: [Other specified counseling] Episodic Anxiety disorders (5 sources) Generalized anxiety disorder; Translations: [Generalized anxiety disorder] Chronic Aortic; peripheral; and visceral artery aneurysms (1 source) Aneurysm of ascending aorta; Translations: [Thoracic aneurysm without mention of rupture] Onset: 3 11-03-2022 Chronic Cardiac dysrhythmias (10 sources) Ventricular premature depolarization; Translations: [Unspecified atrial fibrillation] Onset: 2 03-14-2023 Chronic Coagulation and hemorrhagic disorders (1 source) Other secondary thrombocytopenia; Translations: [Other secondary thrombocytopenia] Onset: 3 Episodic Complication of device; implant or graft (3 sources) Arteriosclerosis of coronary artery bypass graft; Translations: [Atherosclerosis of coronary artery bypass graft(s) without angina pectoris] Onset: 3 05-30-2023 Chronic Conditions associated with dizziness or vertigo (9 sources) Dizziness and giddiness; Translations: [Benign paroxysmal positional vertigo] Onset: 2 Episodic Conduction disorders (1 source) Unspecified right bundle-branch block; Translations: [Unspecified right bundle-branch block] Onset: 3 Chronic Congestive heart failure; nonhypertensive (5 sources) Chronic diastolic (congestive) heart failure; Translations: [Unspecified diastolic (congestive) heart failure] Onset: 3 10-12-2022 Chronic Coronary atherosclerosis and other heart disease (20 sources) Angina pectoris; Translations: [Other and unspecified angina pectoris] Onset: 3 Chronic Coronary atherosclerosis and other heart disease (3 sources) Presence of aortocoronary bypass graft; Translations: [Presence of aortocoronary bypass graft] Onset: 3 Episodic Disorders of lipid metabolism (20 sources) Hyperlipidemia, unspecified; Translations: [Mixed hyperlipidemia] Onset: 2 Chronic Esophageal disorders (5 sources) Gastroesophageal reflux disease; Translations: [Esophageal reflux] Onset: 3 01-31-2023 Chronic Essential hypertension (20 sources) Essential (primary) hypertension; Translations: [Essential hypertension] Onset: 2 Chronic Gout and other crystal arthropathies (13 sources) Acute gout; Translations: [Acute gouty arthropathy] Onset: 3 12-02-2022 Chronic Hypertension with complications and secondary hypertension (17 sources) Hypertensive heart disease with congestive heart failure; Translations: [Unspecified hypertensive heart disease with heart failure] Onset: 3 Resolved: 4 03-14-2023 Chronic Nonspecific chest pain (9 sources) Chest pain, unspecified; Translations: [Chest pain] Onset: 2 Episodic Occlusion or stenosis of precerebral arteries (2 sources) Occlusion and stenosis of bilateral carotid arteries; Translations: [Bilateral carotid artery occlusion] Onset: 3 10-15-2022 Chronic Other aftercare (2 sources) extermination supervisor (current) use of aspirin; Translations: [GROUP HOME CURRENT USE OF ASPIRIN] Onset: 2 Episodic Other aftercare (4 sources) 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; Translations: [OTH RESEARCH HOME ECONOMIST CURRENT DRUG THERAPY] Onset: 2 Episodic Other aftercare (9 sources) Treatment changed; Translations: [Long-term (current) use of other medications] Episodic Other aftercare (2 sources) Drug therapy finding; Translations: [Long-term (current) use of other medications] Episodic Other aftercare (1 source) Long-term current use of aspirin; Translations: [extermination supervisor (current) use of aspirin] 10-12-2022 Episodic Other circulatory disease (1 source) Hypotension, unspecified; Translations: [Hypotension, unspecified] Onset: 3 Episodic Other circulatory disease (1 source) Elevated blood pressure; Translations: [Elevated blood-pressure reading, without diagnosis of hypertension] 02-07-2023 Episodic Other connective tissue disease (1 source) Other specified soft tissue disorders; Translations: [Other specified soft tissue disorders] Onset: 3 Episodic Other connective tissue disease (1 source) Pain in right foot; Translations: [Pain in right foot] Onset: 3 Episodic Other ear and sense organ disorders (3 sources) Unspecified hearing loss, left ear; Translations: [UNSPECIFIED HEARING LOSS LEFT EAR] Onset: 2 Chronic Other ear and sense organ disorders (1 source) Impacted cerumen, left ear; Translations: [IMPACTED CERUMEN LEFT EAR] Onset: 2 Episodic Other inflammatory condition of skin (1 source) Erythematous condition, unspecified; Translations: [Erythematous condition, unspecified] Onset: 3 Episodic Other lower respiratory disease (1 source) Hypoxemia; Translations: [Hypoxemia] Onset: 3 Episodic Other lower respiratory disease (1 source) Other abnormalities of breathing; Translations: [Other abnormalities of breathing] Onset: 3 Episodic Other non-traumatic joint disorders (5 sources) Arthralgia of the lower leg; Translations: [Pain in right knee] Episodic Other non-traumatic joint disorders (5 sources) Shoulder joint pain; Translations: [Pain in right shoulder] Episodic Other non-traumatic joint disorders (1 source) Pain in right knee Episodic Other nutritional; endocrine; and metabolic disorders (7 sources) Obesity; Translations: [Obesity, unspecified] 10-12-2022 Chronic Other nutritional; endocrine; and metabolic disorders (3 sources) Obesity, unspecified; Translations: [Obesity, unspecified] Onset: 3 Chronic Other nutritional; endocrine; and metabolic disorders (1 source) Body mass index (BMI) 30.0-30.9, adult; Translations: [Body mass index [BMI] 30.0-30.9, adult] Onset: 3 Chronic Other nutritional; endocrine; and metabolic disorders (1 source) Body mass index 30+ - obesity; Translations: [Body mass index (BMI) 30.0-30.9, adult] 10-12-2022 Chronic Other nutritional; endocrine; and metabolic disorders (2 sources) Obese class I; Translations: [Obesity, unspecified] Onset: 4 05-30-2023 Chronic Other screening for suspected conditions (not mental disorders or infectious disease) (20 sources) Electrocardiogram abnormal; Translations: [Abnormal electrocardiogram [ECG] [EKG]] Onset: 3 03-14-2023 Episodic [place]-; endo-; and myocarditis; cardiomyopathy (except that caused by tuberculosis or sexually transmitted disease) (1 source) Disease of pericardium, unspecified; Translations: [Disease of pericardium, unspecified] Onset: 3 Episodic Residual codes; unclassified (11 sources) Sleep apnea; Translations: [Unspecified sleep apnea] Onset: 3 01-31-2023 Chronic Residual codes; unclassified (3 sources) Obstructive sleep apnea (adult) (pediatric); Translations: [Obstructive sleep apnea (adult) (pediatric)] Onset: 3 Chronic Residual codes; unclassified (2 sources) Obstructive sleep apnea syndrome; Translations: [Obstructive sleep apnea (adult) (pediatric)] Onset: 3 05-30-2023 Chronic Residual codes; unclassified (5 sources) Tobacco user; Translations: [Tobacco use] Episodic Residual codes; unclassified (13 sources) Other specified health status; Translations: [Statin intolerance] Onset: 4 Resolved: 3 05-30-2023 Episodic Respiratory failure; insufficiency; arrest (adult) (2 sources) Acute respiratory failure; Translations: [Acute respiratory failure] 11-03-2022 Episodic Unclassified (1 source) CONTACT W/AND (SUSP) EXPOS COVID-19; Translations: [CONTACT W/AND (SUSP) EXPOS COVID-19] Onset: 2 Unclassified (2 sources) CORONARY ARTERY DISEASE ICD-10 ATHSCL HEART DISEASE OF [place] CORONARY ARTERY W/O ANG P/SEE SOARIAN 10-15-2022 Comment on above: CORONARY ARTERY DISE ASE ICD-10 ATHSCL HEART DISEASE OF [place] CORONARY ARTERY W/O ANG P/SEE SOARIAN Unclassified (2 sources) Primary hypertension 11-02-2022 Unclassified (1 source) 3M 09-13-2022 Comment on above: 3M Unclassified (1 source) POST OP CABG-NURSE VISIT 11-03-2022 Comment on above: POST OP CABG-NURSE V ISIT Unclassified (1 source) POST OP MIN8I CABG-NURSE VISIT 11-03-2022 Comment on above: POST OP MIN8I CABG-N URSE VISIT Unclassified (1 source) S/P CABG (coronary artery bypass graft) 11-02-2022 Unclassified (1 source) Ascending aortic aneurysm 11-03-2022 Unclassified (2 sources) RT FOOT GOUT LIKE PAIN 12-02-2022 Comment on above: RT FOOT GOUT LIKE PA IN Unclassified (1 source) 6M 2022 Comment on above: 6M Unclassified (1 source) S/P CABG-DOCTOR VISIT 12-02-2022 Comment on above: S/P CABG-DOCTOR VISI T Unclassified (1 source) Acute gout 12-02-2022 Unclassified (1 source) Aneurysm of the ascending aorta, without rupture; Translations: [Aneurysm of the ascending aorta, without rupture] Onset: 3 Unclassified (1 source) Resistant hypertension; Translations: [Resistant hypertension] Onset: 3 Past or Other Problems Problem Classification Problem Date Documented Date Episodic/Chronic Cancer of testis (1 source) Personal history of malignant neoplasm of testis; Translations: [PERSONAL HX MALIG NEOPLASM TESTIS] Onset: 2 Episodic E Codes: Adverse effects of medical drugs (11 sources) Adverse reaction caused by rosuvastatin; Translations: [Antilipemic and antiarteriosclerotic drugs causing adverse effects in therapeutic use] Onset: 3 01-31-2023 Episodic Other aftercare (4 sources) Taking high risk medication; Translations: [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] Onset: 3 Resolved: 4 03-14-2023 Episodic Other circulatory disease (3 sources) H/O: angina pectoris; Translations: [Personal history of other diseases of circulatory system] Resolved: 3 Episodic Other nutritional; endocrine; and metabolic disorders (6 sources) Overweight in adulthood with body mass index of 25 or more but less than 30; Translations: [Overweight] Onset: 3 Resolved: 4 02-09-2023 Episodic Residual codes; unclassified (4 sources) Contact with and (suspected) exposure to other hazardous, chiefly nonmedicinal, chemicals; Translations: [CONTACT AND EXPOS OTH HAZ NONMED CHEM] Onset: 2 Episodic Residual codes; unclassified (2 sources) Other specified personal risk factors, not elsewhere classified; Translations: [Other specified personal risk factors, not elsewhere classified] Onset: 2 Episodic Unclassified (9 sources) Patient status finding; Translations: [Patient new to provider] Unclassified (9 sources) Never smoked tobacco; Translations: [Never a smoker] Unclassified (2 sources) Onset: 3 Resolved: 4 02-10-2023 Unclassified (1 source) Resistant hypertension; Translations: [Resistant hypertension] Onset: 3 Results Test Name Value Interpretation Reference Range Facility Alanine aminotransferase [En zymatic activity/volume] in Serum or PlasmaOrdered By: Brett Amanda on 02-07-2023 ALT [Catalytic activity/Vol] 26 U/L 7-52 [facility] Albumin [Mass/volume] in Ser um or Plasma by Bromocresol green (BCG) dye binding methoOrdered By: Brett Amanda on 02-07-2023 Albumin BCG dye [Mass/Vol] 4.4 g/dL 3.5-5.7 [facility] Alkaline phosphatase [Enzyma tic activity/volume] in Serum or PlasmaOrdered By: Brett Amanda on 02-07-2023 ALP [Catalytic activity/Vol] 72 U/L 34-104 [facility] Aspartate aminotransferase [ Enzymatic activity/volume] in Serum or PlasmaOrdered By: Brett Amanda on 02-07-2023 AST [Catalytic activity/Vol] 29 U/L 13-39 [facility] Basophils Auto (Bld) [#/Vol] Ordered By: Brett Amanda on 02-07-2023 Basophils (Bld) [#/Vol] 0.0 10*3/uL 0.0-0.2 [facility] Basophils/100 WBC Auto (Bld) Ordered By: Brett Amanda on 02-07-2023 Basophils/100 WBC (Bld) 0.6 % . [facility] Bilirubin.total [Mass/volume ] in Serum or PlasmaOrdered By: Brett Amanda on 02-07-2023 Bilirubin [Mass/Vol] 0.4 mg/dL 0.3-1.0 [facility] Calcium [Mass/volume] in Ser um or PlasmaOrdered By: Brett Amanda on 02-07-2023 Calcium [Mass/Vol] 9.5 mg/dL 8.6-10.3 [facility] Carbon dioxide, total [Moles /volume] in Serum or PlasmaOrdered By: Brett Amanda on 02-07-2023 CO2 [Moles/Vol] 28.2 mmol/L 21.0-31.0 [facility] Chloride [Moles/volume] in S inocente or PlasmaOrdered By: Brett Amanda on 02-07-2023 Chloride [Moles/Vol] 105 mmol/L 98-107 [facility] Complete Blood Count Auto Di ffon 02-07-2023 Basophils (Bld) [#/Vol] 0.0 10*3/uL Normal 0.0-0.2 [facility] Comment on above: Result Comment: PERF ORMED BY: [place] [address] PATHOLOGIST RN ALLERGY JOHN HANSON M.D. Performed By: #### H S TROP, CBC, CMP #### [facility] [address] [place] [address] [place] Basophils/100 WBC (Bld) 0.6 % Normal . [facility] Comment on above: Performed By: #### H S TROP, CBC, CMP #### [facility] [address] [place] [address] [place] Eosinophils (Bld) [#/Vol] 0.2 10*3/uL Normal 0.0-0.45 [facility] Comment on above: Performed By: #### H S TROP, CBC, CMP #### [facility] [address] [place] [address] [place] Eosinophils/100 WBC (Bld) 2.8 % Normal . [facility] Comment on above: Performed By: #### H S TROP, CBC, CMP #### [facility] [address] [place] [address] Erythrocyte distribution width (RBC) [Ratio] 14.4 % Normal 12.0-14.8 [facility] Comment on above: Performed By: #### H S TROP, CBC, CMP #### [facility] [address] Hematocrit (Bld) [Volume fraction] 43.4 % Normal 38.8-50.0 [facility] Comment on above: Performed By: #### H S TROP, CBC, CMP #### [facility] [address] [place] [address] Hemoglobin (Bld) [Mass/Vol] 14.5 g/dL Normal 13.0-17.0 [facility] Comment on above: Performed By: #### H S TROP, CBC, CMP #### [address] Lymphocytes (Bld) [#/Vol] 1.3 10*3/uL Normal 1.00-4.8 [facility] Comment on above: Performed By: #### H S TROP, CBC, CMP #### [address] Lymphocytes/100 WBC (Bld) 16.6 % Normal . [facility] Comment on above: Performed By: #### H S TROP, CBC, CMP #### [address] MCH (RBC) [Entitic mass] 29.3 pg Normal 27.5-35.2 [facility] Comment on above: Performed By: #### H S TROP, CBC, CMP #### [address] MCV (RBC) [Entitic vol] 87.6 fL Normal 83.5-101 [facility] Comment on above: Performed By: #### H S TROP, CBC, CMP #### [address] Mean Corpuscular HGB Conc 33.4 g/dL Normal 32.5-35.6 [facility] Comment on above: Performed By: #### H S TROP, CBC, CMP #### [address] Monocytes (Bld) [#/Vol] 0.9 10*3/uL High 0.0-0.8 [facility] Comment on above: Performed By: #### H S TROP, CBC, CMP #### [address] Monocytes/100 WBC (Bld) 19.78 % Normal 0.00-20.00 [facility] Comment on above: Performed By: #### H S TROP, CBC, CMP #### [place] [id number] [place] Monocytes/100 WBC (Bld) 11.8 % Normal . [facility] Comment on above: Performed By: #### H S TROP, CBC, CMP #### [facility] [address] Neutrophils (Bld) [#/Vol] 5.4 10*3/uL Normal 1.8-7.7 [facility] Comment on above: Performed By: #### H S TROP, CBC, CMP #### [facility] [address] Neutrophils/100 WBC (Bld) 68.2 % Normal . [facility] Comment on above: Performed By: #### H S TROP, CBC, CMP #### [address] NRBC% 0.1 /100{WBC} Normal 0-0.5 [facility] Comment on above: Performed By: #### H S TROP, CBC, CMP #### [address] Platelet mean volume (Bld) [Entitic vol] 7.9 fL Normal 6.6-10.1 [facility] Comment on above: Performed By: #### H S TROP, CBC, CMP #### [address] Platelets (Bld) [#/Vol] 256 10*3/uL Normal 150-450 [facility] Comment on above: Performed By: #### H S TROP, CBC, CMP #### [place] [address] [place] RBC (Bld) [#/Vol] 4.96 10*6/uL Normal 3.90-5.60 [facility] Comment on above: Performed By: #### H S TROP, CBC, CMP #### [place] [address] [place] WBC (Bld) [#/Vol] 7.8 10*3/uL Normal 4.1-10.5 [facility] Comment on above: Performed By: #### H S TROP, CBC, CMP #### [facility] [address] Comprehensive Metabolic Pane lizbet 02-07-2023 Albumin [Mass/Vol] 4.4 g/dL Normal 3.5-5.7 [facility] Comment on above: Performed By: #### H S TROP, CBC, CMP #### [facility] [address] Albumin/Globulin [Mass ratio] 1.4 {ratio} Normal [facility] Comment on above: Performed By: #### H S TROP, CBC, CMP #### [facility] [address] ALP [Catalytic activity/Vol] 72 U/L Normal 34-104 [facility] Comment on above: Performed By: #### H S TROP, CBC, CMP #### [facility] [address] ALT [Catalytic activity/Vol] 26 U/L Normal 7-52 [facility] Comment on above: Performed By: #### H S TROP, CBC, CMP #### [facility] [address] Anion gap [Moles/Vol] 10.9 mmol/L Normal 6.0-15.0 [facility] Comment on above: Performed By: #### H S TROP, CBC, CMP #### [facility] [address] AST [Catalytic activity/Vol] 29 U/L Normal 13-39 [facility] Comment on above: Performed By: #### H S TROP, CBC, CMP #### [facility] [address] [place] [address] [place] Bilirubin [Mass/Vol] 0.4 mg/dL Normal 0.3-1.0 [facility] Comment on above: Performed By: #### H S TROP, CBC, CMP #### [facility] [address] Calcium [Mass/Vol] 9.5 mg/dL Normal 8.6-10.3 [facility] Comment on above: Performed By: #### H S TROP, CBC, CMP #### [facility] [address] [place] [address] [place] Chloride [Moles/Vol] 105 mmol/L Normal 98-107 [facility] Comment on above: Performed By: #### H S TROP, CBC, CMP #### [facility] [address] [place] [address] [place] CO2 [Moles/Vol] 28.2 mmol/L Normal 21.0-31.0 [facility] Comment on above: Performed By: #### H S TROP, CBC, CMP #### [facility] [address] Creatinine [Mass/Vol] 0.89 mg/dL Normal 0.70-1.30 [facility] Comment on above: Performed By: #### H S TROP, CBC, CMP #### [facility] [address] [place] [address] [place] Creatinine Clr Calc Pharmacy 108.13 Normal [facility] Comment on above: Result Comment: PERF ORMED BY: [place] [address] PATHOLOGIST RN ALLERGY JOHN HANSON M.D. Performed By: #### H S TROP, CBC, CMP #### [facility] [address] [place] [address] [place] GFR/1.73 sq M.predicted MDRD (S/P/Bld) [Vol rate/Area] mL/min/{1.73_m2} Normal [facility] Comment on above: Performed By: #### H S TROP, CBC, CMP #### [facility] [address] [place] [address] [place] Globulin (S) [Mass/Vol] 3.1 g/dL Normal [facility] Comment on above: Performed By: #### H S TROP, CBC, CMP #### [facility] [address] [place] [address] [place] Glucose [Mass/Vol] 95 mg/dL Normal 70-100 [facility] Comment on above: Result Comment: [place] Glucose Reference Range is dependent on time and content of last meal. Glucose of more than 200 mg/dL in a nonstressed, ambulatory subject supports the diagnosis of Diabetes Mellitus. ADA recommended reference range Performed By: #### H S TROP, CBC, CMP #### [facility] [address] Potassium [Moles/Vol] 4.1 mmol/L Normal 3.5-5.1 [facility] Comment on above: Performed By: #### H S TROP, CBC, CMP #### [facility] [address] [place] [address] [place] Protein [Mass/Vol] 7.5 g/dL Normal 6.4-8.9 [facility] Comment on above: Performed By: #### H S TROP, CBC, CMP #### [facility] [address] Sodium [Moles/Vol] 140 mmol/L Normal 136-145 [facility] Comment on above: Performed By: #### H S TROP, CBC, CMP #### [facility] [address] [place] [address] [place] Urea nitrogen [Mass/Vol] 13 mg/dL Normal 7-25 [facility] Comment on above: Performed By: #### H S TROP, CBC, CMP #### [facility] [address] [place] [id number] [place] Creatinine [Mass/volume] in Serum or PlasmaOrdered By: Brett Amanda on 02-07-2023 Creatinine [Mass/Vol] 0.89 mg/dL 0.70-1.30 [facility] ECG 12 lead ECGon 02-07-2023 ECG 12 lead ECG [facility] [place] [address] [place] [address] Electrocardiograph Report Signed Patient: Jose Canales MR#: [id number] 507 : 1955 Acct:[id number] Age/Sex: 67 / M ADM Date: 02/07/23 Loc: ER Room: Type: [facility] ER Attending Dr: Ordering Provider: Brett Amanda DO Date of Service: 02/07/23 ECG/ECG 12 lead ECG: Recheck/Abnormal Lab/Rx Copies to: Test Reason : Blood Pressure : / mmHG Vent. Rate : 073 BPM Atrial Rate : 073 BPM P-R Int : 164 ms QRS Dur : 110 ms QT Int : 434 ms P-R-T Axes : 062 069 045 degrees QTc Int : 478 ms Sinus rhythm with occasional premature ventricular complexes Incomplete right bundle branch block Borderline ECG No previous ECGs available Confirmed by MARIA OLSON MD ([id number]) on 02/08/2023 3:01:21 PM Referred By: Electronically Signed By:MARIA OLSON MD Transcribed By: MUS Signed By Maria Olson MD 02/08/23 1501 Normal [facility] Eosinophils Auto (Bld) [#/Vo l]Ordered By: Brett Amanda on 02-07-2023 Eosinophils (Bld) [#/Vol] 0.2 10*3/uL 0.0-0.45 [facility] Eosinophils/100 WBC Auto (Bl d)Ordered By: Brett Amanda on 02-07-2023 Eosinophils/100 WBC (Bld) 2.8 % . [facility] Erythrocyte distribution wid th Auto (RBC) [Ratio]Ordered By: Brett Amanda on 02-07-2023 Erythrocyte distribution width (RBC) [Ratio] 14.4 % 12.0-14.8 [facility] Globulin Calc (S) [Mass/Vol] Ordered By: Brett Amanda on 02-07-2023 Globulin (S) [Mass/Vol] 3.1 g/dL [facility] Glucose [Mass/volume] in Ser um or PlasmaOrdered By: Brett Amanda on 02-07-2023 Glucose [Mass/Vol] 95 mg/dL 70-100 [facility] Comment on above: ADA recommended refe rence rangeRandom Glucose Reference Range is dependent on time and content of last meal. Glucose of more than 200 mg/dL in a nonstressed, ambulatory subject supports the diagnosis of Diabetes Mellitus. Hematocrit Auto (Bld) [Volum e fraction]Ordered By: Brett Amanda on 02-07-2023 Hematocrit (Bld) [Volume fraction] 43.4 % 38.8-50.0 [facility] Hemoglobin [Mass/volume] in BloodOrdered By: Brett Amanda on 02-07-2023 Hemoglobin (Bld) [Mass/Vol] 14.5 g/dL 13.0-17.0 [facility] Leukocytes [#/volume] correc chapo for nucleated erythrocytes in Blood by Automated counOrdered By: Brett Amanda on 02-07-2023 WBC corrected for nucl RBC Auto (Bld) [#/Vol] 7.8 10*3/uL 4.1-10.5 [facility] Lymphocytes Auto (Bld) [#/Vo l]Ordered By: Brett Amanda on 02-07-2023 Lymphocytes (Bld) [#/Vol] 1.3 10*3/uL 1.00-4.8 [facility] Lymphocytes/100 WBC Auto (Bl d)Ordered By: Brett Amanda on 02-07-2023 Lymphocytes/100 WBC (Bld) 16.6 % . [facility] MCH Auto (RBC) [Entitic mass ]Ordered By: Brett Amanda on 02-07-2023 MCH (RBC) [Entitic mass] 29.3 pg 27.5-35.2 [facility] MCHC Auto (RBC) [Mass/Vol]Or dered By: Brett Amanda on 02-07-2023 MCHC (RBC) [Mass/Vol] 33.4 g/dL 32.5-35.6 [facility] MCV Auto (RBC) [Entitic vol] Ordered By: Brett Amanda on 02-07-2023 MCV (RBC) [Entitic vol] 87.6 fL 83.5-101 [facility] Monocyte distribution width [Entitic volume] in Blood by AutomatedOrdered By: Brett Amanda on 02-07-2023 Monocyte distribution width Auto (Bld) [Entitic vol] 19.78 % 0.00-20.00 [facility] Monocytes Auto (Bld) [#/Vol] Ordered By: Brett Amanda on 02-07-2023 Monocytes (Bld) [#/Vol] 0.9 10*3/uL 0.0-0.8 [facility] Monocytes/100 WBC Auto (Bld) Ordered By: Brett Amanda on 02-07-2023 Monocytes/100 WBC (Bld) 11.8 % . [facility] Neutrophils Auto (Bld) [#/Vo l]Ordered By: Brett Amanda on 02-07-2023 Neutrophils (Bld) [#/Vol] 5.4 10*3/uL 1.8-7.7 [facility] Neutrophils/100 WBC Auto (Bl d)Ordered By: Brett Amanda on 02-07-2023 Neutrophils/100 WBC (Bld) 68.2 % . [facility] No Panel InformationOrdered By: Brett Amanda on 02-07-2023 Estimated GFR (CKD-EPI) > 60.0 mL/Min [facility] Creatinine Clearance (Chem 108.13 [facility] Nucleated erythrocytes [Pres ence] in Blood by Automated countOrdered By: Brett Amanda on 02-07-2023 Nucleated RBC Auto Ql (Bld) 0.1 /100{WBC} 0-0.5 [facility] Platelet mean volume Auto (B ld) [Entitic vol]Ordered By: Brett Amanda on 02-07-2023 Platelet mean volume (Bld) [Entitic vol] 7.9 fL 6.6-10.1 [facility] Platelets Auto (Bld) [#/Vol] Ordered By: Brett Amanda on 02-07-2023 Platelets (Bld) [#/Vol] 256 10*3/uL 150-450 [facility] Potassium [Moles/volume] in Serum or PlasmaOrdered By: Brett Amanda on 02-07-2023 Potassium [Moles/Vol] 4.1 mmol/L 3.5-5.1 [facility] Protein [Mass/volume] in Ser um or PlasmaOrdered By: Brett Amanda on 02-07-2023 Protein [Mass/Vol] 7.5 g/dL 6.4-8.9 [facility] RBC Auto (Bld) [#/Vol]Ordere d By: Brett Amanda on 02-07-2023 RBC (Bld) [#/Vol] 4.96 10*6/uL 3.90-5.60 [facility] Serum or plasma albumin/glob ulin mass ratioOrdered By: Brett Amanda on 02-07-2023 Albumin/Globulin [Mass ratio] 1.4 {ratio} [facility] Serum or plasma anion gap de terminationOrdered By: Brett Amanda on 02-07-2023 Anion gap [Moles/Vol] 10.9 mmol/L 6.0-15.0 [facility] Sodium [Moles/volume] in Ser um or PlasmaOrdered By: Brett Amanda on 02-07-2023 Sodium [Moles/Vol] 140 mmol/L 136-145 [facility] Troponin I High Sensitivityo n 02-07-2023 Troponin I High Sensitivity 15.1 pg/mL Normal 0.0-20.0 [facility] Comment on above: Result Comment: PERF ORMED BY: [place] [address] PATHOLOGIST RN ALLERGY JOHN HANSON M.D. Performed By: #### H S TROP, CBC, CMP #### [address] Troponin I.cardiac [Mass/vol ume] in Serum or Plasma by Detection limit <= 0.01 ng/Ordered By: Brett Amanda on 02-07-2023 Troponin I.cardiac DL <= 0.01 ng/mL [Mass/Vol] 15.1 pg/mL 0.0-20.0 [facility] Urea nitrogen [Mass/volume] in Serum or PlasmaOrdered By: Brett Amanda on 02-07-2023 Urea nitrogen [Mass/Vol] 13 mg/dL 7-25 [facility] WBC Auto (Bld) [#/Vol]Ordere d By: Brett Amanda on 02-07-2023 WBC (Bld) [#/Vol] 7.8 10*3/uL 4.1-10.5 [facility] XR chest 2V*on 02-07-2023 XR chest 2V* [facility] [place] [address] [place] [address] XRay Report Signed Patient: Jose Canales MR#: [id number] 507 : 1955 Acct:[id number] Age/Sex: 67 / M ADM Date: 02/07/23 Loc: ER Room: Type: PRE ER Attending Dr: Copies to: TEMP, PROVIDER Ordering Provider: ASCENCION ZUNIGA Date of Service: 02/07/23 XR/XR chest 2V*: Recheck/Abnormal Lab/Rx PA AND LATERAL CHEST: CLINICAL HISTORY: Hypertension COMPARISON: None Median sternotomy wires are present. There is no focal parenchymal consolidation, effusion or pneumothorax. The cardiac, hilar and mediastinal silhouettes are within normal limits. There is no vascular congestion. The visualized bony thorax is intact. Endplate spurring is seen. XR/XR chest 2V* IMPRESSION: NO ACUTE CARDIOPULMONARY ABNORMALITY. Impression dictated by: Shaista Ramirez M.D.02/07/2023 3:45 PM Dictation Location: [place] [address] Transcribed By: [facility] 02/07/23 154 Dictated By: Shaista Ramirez MD 02/07/23 1544 Signed By: 02/07/23 1545 [facility] Office Visit (Cardiology)on 12-16-2022 Follow-up visit Diagnoses/Problems Assessed Overweight with body mass index (BMI) of 29 to 29.9 in adult (278.02,V85.25) (E66.3,Z68.29) Never a smoker Elevated blood pressure reading in office with white coat syndrome, with diagnosis of hypertension (401.9) (I10) Encounter to discuss test results (V65.49) (Z71.2) Hypertensive heart disease with diastolic congestive heart failure, NYHA class 2 (402.91,428.30) (I11.0,I50.30) Medication course changed (V58.69) (Z79.899) S/P CABG x 3 (V45.81) (Z95.1) Adverse effect of rosuvastatin (E942.2) (T46.6X5A) Arrhythmia, atrial (427.9) (I49.8) High risk medication use (V58.69) (Z79.899) Orders Health Maintenance, GERD (gastroesophageal reflux disease) Start: Pantoprazole Sodium 20 MG Oral Tablet Delayed Release (Protonix); Take 1 tablet daily Hypertension, Hypertensive heart disease with diastolic congestive heart failure, NYHA class 2 Start: Magnesium Oxide 400 MG Oral Tablet; TAKE 1 TABLET TWICE DAILY Hypertensive heart disease with diastolic congestive heart failure, NYHA class 2, S/P CABG x 3 Start: Eliquis 5 MG Oral Tablet; Take 1 tablet twice daily Overweight with body mass index (BMI) of 29 to 29.9 in adult Healthy Weight Tips; Status:Complete - Retrospective Authorization; Done: 16Dec2022 Some eating tips that can help you lose weight.; Status:Complete - Retrospective Authorization; Done: 16Dec2022 SocHx: Never a smoker Tobacco Use Screening; Status:Complete; Done: 16Dec2022 Patient Instructions Please bring all medicines, vitamins, and herbal supplements with you when you come to the office. Prescriptions will not be filled unless you are compliant with your follow up appointments or have a follow up appointment scheduled as per instruction of your physician. Refills should be requested at the time of your visit. Aspirin D/C magnesium OX 400 mg start Eliquis 5mg start Protonix 20mg start Follow up in 2 months Chief Complaint JOSE CANALES is being seen for Sooner OV per Dr. Kristen Alegria MD. History of Present Illness Accompanied by to the office. I most recently saw patient on 2022. Seen in the emergency department December 02, 2022 and I reviewed notes. The ER visit was for gout exacerbation. He is finishing up indomethacin now. His gout involves the first metatarsophalangeal joint of the right foot. Venous duplex did not reveal DVT Participates in cardiac rehabilitation regularly Does admit to occasional palpitations, flip-flopping sensation. No lightheadedness presyncope or syncope. Reviewed detailed notes from cardiac rehabilitation. There have been isolated ventricular premature beats, and a short burst of what looks more like atrial flutter with 221 conduction, cannot completely exclude the possibility of an atrial arrhythmia. History so far : 1. Hypertension 2. Whitecoat hypertension 3. Nosebleeds, resolved 4. Intolerance to rosuvastatin-muscle cramping 5. Probable obstructive sleep apnea-not interested in testing because he does not think he will tolerate the CPAP mask. 6. Lexiscan Myoview February 2022-no ischemia, preserved LV systolic function 7. Echocardiogram February 2022-LV wall thickness is reported to be normal, LV end-systolic dimension 3.9 cm left atrial dimension 5.12 cm aortic root 3.71 cm no aortic stenosis, LVEF 55 to 60% mild left ventricular hypertrophy normal diastolic function no pericardial effusion, normal RV size and systolic function 8. Left atrial dilatation noted on echo of February 2022, without gross valvular abnormality.? Elevated left atrial pressure from hypertension 9. Coronary calcium score August 2022-left main 394 LAD 757 left circumflex 23 RCA thousand 170, total score 2344, 97th percentile for age gender and race 10. Dilatation of the ascending thoracic aorta-4.4 cm, incidental finding on coronary calcium score from 09/22/2022. Dedicated CT of the chest September 2022-ascending thoracic aorta 4.6 cm 11. Cardiac catheterization September 2022-right dominant, extensively calcified right coronary artery with 90% ostial stenosis, diffuse ectasia, 40% proximal stenosis, 75% mid stenosis, large PDA less than 20% stenosis, smaller posterolateral ventricular branch, left main trifurcates into the LAD ramus and circumflex, there is complex plaque involving the trifurcation point of the distal left main, involving the origin of the left anterior descending artery, relatively small left circumflex continues as a major obtuse marginal branch, probable ostial disease in the left circumflex distribution, large ramus branch, bifurcates into 2 secondary branches, ostial and proximal disease noted, probably 70% angiographically, eccentric, there is also overlap of vessels. LAD with heavy calcification. Ostial LAD with angiographically significant disease LVEF 55 to 60% LVEDP 10 to 15 mmHg. 12. Echocardiogram September 2022-LVEF 60 to 65% impaired relaxation pattern of LV diastolic filling normal RV size and function mild tricuspid reg (more content not included)... Normal [facility] Tobacco Screening.on 023 Fall risk assessment a) No falls within the last year [facility] [employer] [place] [address] DO Work Phone: Tobacco use status [facility] b) No M [facility] Work Phone: Provider Note - ED v3on 11-23 Provider Note - ED v3 Normal [facility] Radiologyon 12-02-2022 XR Ankle 3 Views Normal [facility] DO Work Phone: [phone] XR Chest 2 Views Normal [facility] DO Work Phone: [phone] XR Foot 3 Views Normal [facility] DO Work Phone: US.doppler Lower extremity vein - right Normal [facility] DO Work Phone: Risk Screen - Adult Emergenc yon 12-02-2022 Risk Screen - Adult Emergency Normal [facility] Office Visit (Cardiology)on 2022 Follow-up visit Diagnoses/Problems Assessed CAD (coronary artery disease) (414.00) (I25.10) S/P CABG x 3 (V45.81) (Z95.1) Hypertension (401.9) (I10) Mixed hyperlipidemia (272.2) (E78.2) Never a smoker Overweight with body mass index (BMI) of 29 to 29.9 in adult (278.02,V85.25) (E66.3,Z68.29) Adverse effect of rosuvastatin (E942.2) (T46.6X5A) Orders CAD (coronary artery disease) Renew: Aspirin 81 MG Oral Tablet Chewable; 1 TAB DAILY CAD (coronary artery disease), Hypertension, Mixed hyperlipidemia, S/P CABG x 3 Lipid Panel; Status:Active; Requested for:[id number]; CAD (coronary artery disease), Hypertension, S/P CABG x 3 Start: Benazepril HCl - 20 MG Oral Tablet; TAKE 1 TABLET DAILY Comprehensive Metabolic Panel; Status:Active; Requested for:[id number]; CAD (coronary artery disease), S/P CABG x 3 Cardiac Rehab Referral Evaluation and Treatment Evaluate AND Treat Status: Hold For - Scheduling Requested for: [id number] Agreement : I agree to have my patient participate in the phase III outpatient cardiac rehabilitation program after completion of the phase II program. Consent : I consent to have my patient participate in the cardiac rehabilitation program. I will continue regular medical care of my patient throughout his/her participation in the program. Individualized Treatment Plan and Exercise Prescription : Request the Rag Cutting Machine Tender to share responsibility for developing an ITP and exercise prescription for your patient only during enrollment in the phase II program I authorize the Cardiac Rehabilitation Department to : Current lab values are helpful in order to assess the lipid status and individualize diet therapy. A venous blood sample will be drawn and lipids analyzed at the laboratory I authorize the Cardiac Rehabilitation Department to : Schedule a symptom limited graded exercise test with 12 lead ECG prior to starting cardiac rehabilitation and at discharge, if needed. SocHx: Never a smoker Tobacco Use Screening; Status:Complete; Done: [id number] Patient Instructions Please bring all medicines, vitamins, and herbal supplements with you when you come to the office. Prescriptions will not be filled unless you are compliant with your follow up appointments or have a follow up appointment scheduled as per instruction of your physician. Refills should be requested at the time of your visit. Cardiac [facility] [place] Follow up in 6 months with lab Benazepril 20 mg daily Chief Complaint JOSE CANALES is being seen for a 3 month follow-up of s/p x3 CABG with Dr. Judith Jessica. History of Present Illness Accompanied by to the office. Underwent coronary artery bypass graft x3 Cardiac catheterization identified critical disease-please refer to the cardiac catheterization report. Coronary artery bypass graft was done November 02, 2022 Blood pressure is slowly creeping up. Patient has benazepril left, from a previous prescription, dose was 40 mg daily then Has lost weight. We talked about cardiac rehabilitation We reviewed recent blood work to include basic metabolic profile, also reviewed lipid profile from October 2022, LDL is at target, HDL has a tendency to remain low. Patient and are agreeing to cardiac rehabilitation. Driving restrictions will be directed by CT surgery, patient has upcoming appointment soon. The anterior sternal scar is well-healed, sternum appears stable. There is a tiny incision right lower inner thigh which is also healing. History so far : 1. Hypertension-, patient reports that his blood pressure has been trending up slowly. 2. Whitecoat hypertension 3. Nosebleeds, resolved 4. Intolerance to rosuvastatin-muscle cramping 5. Probable obstructive sleep apnea-not interested in testing because he does not think he will tolerate the CPAP mask. 6. Lexiscan Myoview February 2022-no ischemia, preserved LV systolic function 7. Echocardiogram February 2022-LV wall thickness is reported to be normal, LV end-systolic dimension 3.9 cm left atrial dimension 5.12 cm aortic root 3.71 cm no aortic stenosis, LVEF 55 to 60% mild left ventricular hypertrophy normal diastolic function no pericardial effusion, normal RV size and systolic function 8. Left atrial dilatation noted on echo of February 2022, without gross valvular abnormality.? Elevated left atrial pressure from hypertension 9. Coronary calcium score August 2022-left main 394 LAD 757 left circumflex 23 RCA thousand 170, total score 2344, 97th percentile for age gender and race 10. Dilatation of the ascending thoracic aorta-4.4 cm, incidental finding on coronary calcium score from 09/22/2022. Dedicated CT of the chest September 2022-ascending thoracic aorta 4.6 cm 11. Cardiac catheterization September 2022-right dominant, extensively calcified right coronary artery with 90% ostial stenosis, diffuse ectasia, 40% proximal stenosis, 75% mid stenosis, large PDA less than 20% stenosis, smaller posterolateral ventricular branch, left main tr (more content not included)... Normal [employer] Tobacco Screening.on 023 Fall risk assessment a) No falls within the last year [facility] [address] DO Work Phone: Tobacco use status CP b) No M [facility] [address] DO Work Phone: CALCIUM, IONIZEDon CALCIUM,IONIZED 1.15 mmol/L Normal 1.10 - 1.33 [facility] Comment on above: Performed By: #### I ONC1 ####[facility] [place], [place] [id number] Tobacco Screening.on 023 Fall risk assessment a) No falls within the last year [facility] [address] Work Phone: Tobacco use status [facility] b) No M [facility] 101 Work Phone: BASIC METABOLIC PANELon 10-23 Anion gap [Moles/Vol] 10 mmol/L Normal 10 - 20 [facility] Comment on above: Performed By: #### B MP ####[facility] [place], [place] [id number] Calcium [Mass/Vol] 9.1 mg/dL Normal 8.6 - 10.3 [facility] Comment on above: Performed By: #### B MP ####[facility] [place], [place] [id number] Chloride [Moles/Vol] 98 mmol/L Normal 98 - 107 [facility] Comment on above: Performed By: #### B MP ####[address] [id number] Creatinine [Mass/Vol] 0.78 mg/dL Normal 0.50 - 1.30 [facility] Comment on above: Performed By: #### B MP ####[address] [id number] eGFR MALE >90 Normal >90 [facility] Comment on above: Result Comment: CALC ULATIONS OF ESTIMATED GFR ARE PERFORMED USING THE 2020 CKD-EPI STUDY REFIT EQUATION WITHOUT THE RACE VARIABLE FOR THE IDMS-TRACEABLE CREATININE METHODS.https://jasn.asnjournals.org/content/early// ASN.7220213721 Performed By: #### B MP ####[address] [id number] Glucose [Mass/Vol] 115 mg/dL High 74 - 99 [facility] Comment on above: Performed By: #### B MP ####[address] [id number] HCO3 (Bld) [Moles/Vol] 33 mmol/L High 21 - 32 [facility] Comment on above: Performed By: #### B MP ####[address] [id number] Potassium [Moles/Vol] 4.0 mmol/L Normal 3.5 - 5.3 [facility] Comment on above: Performed By: #### B MP ####[address] [id number] Sodium [Moles/Vol] 137 mmol/L Normal 136 - 145 [facility] Comment on above: Performed By: #### B MP ####[address] [id number] Urea nitrogen [Mass/Vol] 18 mg/dL Normal 6 - 23 [facility] Comment on above: Performed By: #### B MP ####[facility] [place], [place] [id number] CBCon 11-07-2022 Erythrocyte distribution width (RBC) [Ratio] 13.0 % Normal 11.5 - 14.5 [facility] Comment on above: Performed By: #### C BC ####[facility] [place], [place] [id number] Hematocrit (Bld) [Volume fraction] 33.4 % Low 41.0 - 52.0 [facility] Comment on above: Performed By: #### C BC ####[place] [address] [place], [place] [id number] Hemoglobin (Bld) [Mass/Vol] 11.2 g/dL Low 13.5 - 17.5 [facility] Comment on above: Performed By: #### C BC ####[address] [id number] MCHC (RBC) [Mass/Vol] 33.5 g/dL Normal 32.0 - 36.0 [facility] Comment on above: Performed By: #### C BC ####[address] [id number] MCV (RBC) [Entitic vol] 94 fL Normal 80 - [address] [facility] Comment on above: Performed By: #### C BC ####[address] [id number] Platelets (Bld) [#/Vol] 213 10*3/uL Normal 150 - 450 [facility] Comment on above: Performed By: #### C BC ####[address] [id number] RBC 3.56 x10E12/L Low 4.50 - 5.90 [facility] Comment on above: Performed By: #### C BC ####[address] [id number] WBC (Bld) [#/Vol] 7.6 10*3/uL Normal 4.4 - 11.3 [facility] Comment on above: Performed By: #### C BC ####[facility] [place], [place] [id number] Calcium, Ionized Levelon Calcium, Ionized Level 1.15 mmol/L See Below M [facility] [address] DO Work Phone: Comment on above: Reference Range: 1.1 0 - 1.33 Daily Progress Note-Cardiolo gyon 11-07-2022 Daily Progress Note-Cardiology Normal [facility] Laboratory - Chemistry and C hemistry - challengeon 11-07-2022 Anion gap [Moles/Vol] 10 mmol/L 10 - 20 [facility] y-[place] [address] Work Phone: Calcium [Mass/Vol] 9.1 mg/dL 8.6 - 10.3 [facility] di[facility] y-[place] [address] Work Phone: Chloride [Moles/Vol] 98 mmol/L 98 - 107 [facility] ardiolog y-[place] [address] Work Phone: CO2 [Moles/Vol] 33 mmol/L above high threshold 21 - 32 [facility] [address] Work Phone: Creatinine [Mass/Vol] 0.78 mg/dL See Below [facility]-[place] [address] Work Phone: Comment on above: Reference Range: 0.5 0 - 1.30 Glucose [Mass/Vol] 115 mg/dL above high threshold 74 - 99 [facility] [address] Work Phone: Potassium [Moles/Vol] 4.0 mmol/L 3.5 - 5.3 [facility] [address] Work Phone: Sodium [Moles/Vol] 137 mmol/L 136 - 145 [facility] [address] Work Phone: Urea nitrogen [Mass/Vol] 18 mg/dL 6 - 23 [facility] [address] Work Phone: Laboratory - Hematology and Cell countson 11-07-2022 Erythrocyte distribution width (RBC) [Ratio] 13.0 % See Below [facility] [address] Work Phone: Comment on above: Reference Range: 11. 5 - 14.5 Hematocrit (Bld) [Volume fraction] 33.4 % below low threshold See Below [facility] [address] Work Phone: Comment on above: Reference Range: 41. 0 - 52.0 Hemoglobin (Bld) [Mass/Vol] 11.2 g/dL below low threshold See Below [facility] [address] Work Phone: Comment on above: Reference Range: 13. 5 - 17.5 MCHC (RBC) [Mass/Vol] 33.5 g/dL See Below [facility] [address] Work Phone: Comment on above: Reference Range: 32. 0 - 36.0 MCV (RBC) [Entitic vol] 94 fL 80 - 100 M [facility]-[place] [address] Work Phone: Platelets (Bld) [#/Vol] 213 10*3/uL 150 - 450 [facility] [address] Work Phone: RBC (Bld) [#/Vol] 3.56 {x10E12/L} below low threshold See Below [facility] [address] Work Phone: Comment on above: Reference Range: 4.5 0 - 5.90 WBC (Bld) [#/Vol] 7.6 10*3/uL 4.4 - 11.3 [facility]-[place] [address] Work Phone: MAGNESIUMon 11-07-2022 Magnesium [Mass/Vol] 2.01 mg/dL Normal 1.60 - 2.40 [facility] Comment on above: Performed By: #### M G ####[facility] [place], [place] [id number] Magnesium, Serumon 3 Magnesium [Mass/Vol] 2.01 mg/dL See Below MG-[facility] ardiolog y-[place] [address] Work Phone: Comment on above: Reference Range: 1.6 0 - 2.40 No Panel Informationon 11-07 >90 >90 [facility] [address] Work Phone: Comment on above: CALCULATIONS OF PARADISE MATED GFR ARE PERFORMED USING THE 2020 CKD-EPI STUDY REFIT EQUATION WITHOUT THE RACE VARIABLE FOR THE IDMS-TRACEABLE CREATININE METHODS.https://jasn.asnjournals.org/content// ASN.3833483390 Order Reconciliationon 11-07 Order Reconciliation Normal [facility] Rehab Note-attempted - PT Tx on 11-07-2022 Rehab Note-attempted - PT Tx Normal [facility] BASIC METABOLIC PANELon 10-23 Anion gap [Moles/Vol] 11 mmol/L Normal 10 - 20 [facility] Comment on above: Performed By: #### B MP ####[facility] [place], [place] [id number] Calcium [Mass/Vol] 8.4 mg/dL Low 8.6 - 10.3 [facility] Comment on above: Performed By: #### B MP ####[facility] [place], [place] [id number] Chloride [Moles/Vol] 98 mmol/L Normal 98 - 107 [facility] Comment on above: Performed By: #### B MP ####[facility] [place], [place] [id number] Creatinine [Mass/Vol] 0.84 mg/dL Normal 0.50 - 1.30 [facility] Comment on above: Performed By: #### B MP ####[facility] [place], [place] [id number] eGFR MALE >90 Normal >90 [facility] Comment on above: Result Comment: CALC ULATIONS OF ESTIMATED GFR ARE PERFORMED USING THE 2020 CKD-EPI STUDY REFIT EQUATION WITHOUT THE RACE VARIABLE FOR THE IDMS-TRACEABLE CREATININE METHODS.https://jasn.asnjournals.org/content// ASN.9628374632 Performed By: #### B MP ####[address] [id number] Glucose [Mass/Vol] 118 mg/dL High 74 - 99 [facility] Comment on above: Performed By: #### B MP ####[address] [id number] HCO3 (Bld) [Moles/Vol] 31 mmol/L Normal 21 - 32 [facility] Comment on above: Performed By: #### B MP ####[address] [id number] Potassium [Moles/Vol] 4.1 mmol/L Normal 3.5 - 5.3 [facility] Comment on above: Performed By: #### B MP ####[address] [id number] Sodium [Moles/Vol] 136 mmol/L Normal 136 - 145 [facility] Comment on above: Performed By: #### B MP ####[address] [id number] Urea nitrogen [Mass/Vol] 18 mg/dL Normal 6 - 23 [facility] Comment on above: Performed By: #### B MP ####[address] [id number] CBCon 11-06-2022 Erythrocyte distribution width (RBC) [Ratio] 13.2 % Normal 11.5 - 14.5 [facility] Comment on above: Performed By: #### C BC ####[address] [id number] Hematocrit (Bld) [Volume fraction] 32.3 % Low 41.0 - 52.0 [facility] Comment on above: Performed By: #### C BC ####[facility] [place], [place] [id number] Hemoglobin (Bld) [Mass/Vol] 10.7 g/dL Low 13.5 - 17.5 [facility] Comment on above: Performed By: #### C BC ####[facility] [place], [place] [id number] MCHC (RBC) [Mass/Vol] 33.1 g/dL Normal 32.0 - 36.0 [facility] Comment on above: Performed By: #### C BC ####[facility] [place], [place] [phone] MCV (RBC) [Entitic vol] 94 fL Normal 80 - 100 [facility] Comment on above: Performed By: #### C BC ####[facility] [place], [place] [id number] Platelets (Bld) [#/Vol] 166 10*3/uL Normal 150 - 450 [facility] Comment on above: Performed By: #### C BC ####[facility] [place], [place] [id number] RBC 3.43 x10E12/L Low 4.50 - 5.90 [facility] Comment on above: Performed By: #### C BC ####[facility] [place], [place] [id number] WBC (Bld) [#/Vol] 8.0 10*3/uL Normal 4.4 - 11.3 [facility] Comment on above: Performed By: #### C BC ####[facility] [place] [id number] Daily Progress Note-Cardiac Surgeryon 11-06-2022 Daily Progress Note-Cardiac Surgery Normal [facility] Daily Progress Note-Cardiolo gyon 11-06-2022 Daily Progress Note-Cardiology Normal [facility] Electrocardiogram 12 Leadon 11-06-2022 Electrocardiogram 12 Lead Ventricular Rate 70 Atrial Rate 70 P-R Interval 178 QRS Duration 112 Q-T Interval 446 QTC Calculation(Bazett) 481 P Levasy 53 R Levasy 30 T Levasy 5 QRS Count 12 Q Onset 218 P Onset 129 P Offset 185 T Offset 441 QTC Fredericia 469 Diagnosis Class Abnormal Diagnosis Sinus rhythm with occasional premature ventricular complexes RSR' or QR pattern in V1 suggests right ventricular conduction delay Nonspecific ST and T wave abnormality Prolonged QT Abnormal ECG When compared with ECG of 05-NOV-2022 06:35, premature ventricular complexes are now present RSR' pattern in V1 is now present Confirmed by Radha Kwan ([id number]) on 11/06/2022 8:02:10 AM Normal [facility] Laboratory - Chemistry and C hemistry - challengeon 11-06-2022 Anion gap [Moles/Vol] 11 mmol/L 10 - 20 [facility] [address] Work Phone: Calcium [Mass/Vol] 8.4 mg/dL below low threshold 8.6 - 10.3 [facility] [address] Work Phone: Chloride [Moles/Vol] 98 mmol/L 98 - 107 [facility] [address] Work Phone: CO2 [Moles/Vol] 31 mmol/L 21 - 32 [facility] log [facility]-[place] [address] Work Phone: Creatinine [Mass/Vol] 0.84 mg/dL See Below [facility] [address] Work Phone: Comment on above: Reference Range: 0.5 0 - 1.30 Glucose [Mass/Vol] 118 mg/dL above high threshold 74 - 99 [facility] [address] Work Phone: Potassium [Moles/Vol] 4.1 mmol/L 3.5 - 5.3 [facility] [address] Work Phone: Sodium [Moles/Vol] 136 mmol/L 136 - 145 [facility] [address] Work Phone: Urea nitrogen [Mass/Vol] 18 mg/dL 6 - 23 [facility] [address] Work Phone: Laboratory - Hematology and Cell countson 11-06-2022 Erythrocyte distribution width (RBC) [Ratio] 13.2 % See Below [facility] [address] Work Phone: Comment on above: Reference Range: 11. 5 - 14.5 Hematocrit (Bld) [Volume fraction] 32.3 % below low threshold See Below [facility] [address] Work Phone: Comment on above: Reference Range: 41. 0 - 52.0 Hemoglobin (Bld) [Mass/Vol] 10.7 g/dL below low threshold See Below [facility] [address] Work Phone: Comment on above: Reference Range: 13. 5 - 17.5 MCHC (RBC) [Mass/Vol] 33.1 g/dL See Below [facility] [address] Work Phone: Comment on above: Reference Range: 32. 0 - 36.0 MCV (RBC) [Entitic vol] 94 fL 80 - 100 M [facility] [address] Work Phone: Platelets (Bld) [#/Vol] 166 10*3/uL 150 - 450 [facility] [address] Work Phone: RBC (Bld) [#/Vol] 3.43 {x10E12/L} below low threshold See Below [facility] [address] Work Phone: Comment on above: Reference Range: 4.5 0 - 5.90 WBC (Bld) [#/Vol] 8.0 10*3/uL 4.4 - 11.3 [facility] [address] Work Phone: MAGNESIUMon 11-06-2022 Magnesium [Mass/Vol] 2.14 mg/dL Normal 1.60 - 2.40 [facility] Comment on above: Performed By: #### M G ####[facility] [place], [place] [id number] Magnesium, Serumon 07-15-202 3 Magnesium [Mass/Vol] 2.14 mg/dL See Below [facility] [address] Work Phone: Comment on above: Reference Range: 1.6 0 - 2.40 No Panel Informationon 11-06 [email or web address]?[email or web address] yDateTime?PatientID=[id number]&Date= 3&Time=05%3a03%3a48%3a 00&TestType=ECG&Site=1 1&OutputType=PDF&Ext=P DF [facility] [facility] Work Phone: Sinus rhythm with occasional premature ventricular complexes [facility] [facility] Work Phone: Abnormal [facility] [facility] Work Phone: [phone] [facility] [facility] Work Phone: [phone] [facility] [facility] Work Phone: 185 1 [facility] [facility] Work Phone: 129 1 [facility] [facility] Work Phone: 218 1 [facility] [facility] Work Phone: 12 1 [facility] [facility] Work Phone: 5 1 [facility] [facility] Work Phone: 30 1 [facility] [facility] Work Phone: 53 1 [facility] [facility] Work Phone: 481 1 [facility] [facility] Work Phone: 446 1 [facility] [facility] Work Phone: 112 1 [facility] [facility] Work Phone: 178 1 [facility] [facility] Work Phone: 70 1 [facility] [facility] Work Phone: >90 >90 [facility] [facility] Work Phone: Comment on above: CALCULATIONS OF PARADISE MATED GFR ARE PERFORMED USING THE 2020 CKD-EPI STUDY REFIT EQUATION WITHOUT THE RACE VARIABLE FOR THE IDMS-TRACEABLE CREATININE METHODS.https://jasn.asnjournals.org/content/early/ ASN.4432715884 Radiologyon 11-06-2022 XR Chest Single view Normal [facility] [address] Work Phone: BASIC METABOLIC PANELon 10-23 Anion gap [Moles/Vol] 8 mmol/L Low 10 - 20 [facility] Comment on above: Performed By: #### B MP ####[facility] [place], [place] [id number] Calcium [Mass/Vol] 8.3 mg/dL Low 8.6 - 10.3 [facility] Comment on above: Performed By: #### B MP ####[facility] [place], [place] [id number] Chloride [Moles/Vol] 98 mmol/L Normal 98 - 107 [facility] Comment on above: Performed By: #### B MP ####[facility] [place], [place] [id number] Creatinine [Mass/Vol] 0.86 mg/dL Normal 0.50 - 1.30 [facility] Comment on above: Performed By: #### B MP ####[address] [place], [place] [id number] eGFR MALE >90 Normal >90 [facility] Comment on above: Result Comment: CALC ULATIONS OF ESTIMATED GFR ARE PERFORMED USING THE 2020 CKD-EPI STUDY REFIT EQUATION WITHOUT THE RACE VARIABLE FOR THE IDMS-TRACEABLE CREATININE METHODS.https://jasn.asnjournals.org/content// ASN.7678262875 Performed By: #### B MP ####[address] [id number] Glucose [Mass/Vol] 107 mg/dL High 74 - 99 [facility] Comment on above: Performed By: #### B MP ####[address] [id number] HCO3 (Bld) [Moles/Vol] 34 mmol/L High 21 - 32 [facility] Comment on above: Performed By: #### B MP ####[address] [id number] Potassium [Moles/Vol] 4.2 mmol/L Normal 3.5 - 5.3 [facility] Comment on above: Performed By: #### B MP ####[address] [id number] Sodium [Moles/Vol] 136 mmol/L Normal 136 - 145 [facility] Comment on above: Performed By: #### B MP ####[address] [id number] Urea nitrogen [Mass/Vol] 20 mg/dL Normal 6 - 23 [facility] Comment on above: Performed By: #### B MP ####[address] [id number] CBCon 11-05-2022 Erythrocyte distribution width (RBC) [Ratio] 12.8 % Normal 11.5 - 14.5 [facility] Comment on above: Performed By: #### C BC ####[address] [id number] Hematocrit (Bld) [Volume fraction] 31.8 % Low 41.0 - 52.0 [facility] Comment on above: Performed By: #### C BC ####[address] [id number] Hemoglobin (Bld) [Mass/Vol] 10.6 g/dL Low 13.5 - 17.5 [facility] Comment on above: Performed By: #### C BC ####[facility] [place], [place] [id number] MCHC (RBC) [Mass/Vol] 33.3 g/dL Normal 32.0 - 36.0 [facility] Comment on above: Performed By: #### C BC ####[facility] [place], [place] [id number] MCV (RBC) [Entitic vol] 93 fL Normal 80 - 100 [facility] Comment on above: Performed By: #### C BC ####[facility] [place], [place] [id number] Platelets (Bld) [#/Vol] 125 10*3/uL Low 150 - 450 [facility] Comment on above: Performed By: #### C BC ####[facility] [place], [place] [id number] RBC 3.41 x10E12/L Low 4.50 - 5.90 [facility] Comment on above: Performed By: #### C BC ####[facility] [place], [place] [id number] WBC (Bld) [#/Vol] 9.4 10*3/uL Normal 4.4 - 11.3 [facility] Comment on above: Performed By: #### C BC ####[facility] [place], [place] [id number] Daily Progress Note-Cardiac Surgeryon 11-05-2022 Daily Progress Note-Cardiac Surgery Normal [facility] Daily Progress Note-Cardiolo gyon 11-05-2022 Daily Progress Note-Cardiology Normal [facility] Electrocardiogram 12 Leadon 11-05-2022 Electrocardiogram 12 Lead Ventricular Rate 73 Atrial Rate 73 P-R Interval 172 QRS Duration 110 Q-T Interval 434 QTC Calculation(Bazett) 478 P Levasy 26 R Levasy -4 T Levasy 1 QRS Count 12 Q Onset 218 P Onset 132 P Offset 190 T Offset 435 QTC Fredericia 463 Diagnosis Class Abnormal Diagnosis Normal sinus rhythm ST elevation, consider early repolarization, pericarditis, or injury Nonspecific ST and T wave abnormality Prolonged QT Abnormal ECG When compared with ECG of 04-NOV-2022 06:51, premature atrial complexes are no longer present Confirmed by Radha Kwan ([id number]) on 11/05/2022 6:52:13 PM Normal [facility] GLUCOSE-POCTon 11-05-2022 Glucose [Mass/Vol] 119 mg/dL High 74 - 99 [facility] Comment on above: Performed By: #### G NGUYỄN ####[facility] [place], [place] [id number] Laboratory - Chemistry and C hemistry - challengeon 11-05-2022 Glucose [Mass/Vol] 119 mg/dL above high threshold 74 - 99 [facility] [facility] Work Phone: Anion gap [Moles/Vol] 8 mmol/L below low threshold 10 - 20 [facility] [facility] Work Phone: Calcium [Mass/Vol] 8.3 mg/dL below low threshold 8.6 - 10.3 [facility] [facility] Work Phone: Chloride [Moles/Vol] 98 mmol/L 98 - 107 [facility] [facility] Work Phone: CO2 [Moles/Vol] 34 mmol/L above high threshold 21 - 32 [facility] [facility] Work Phone: Creatinine [Mass/Vol] 0.86 mg/dL See Below [facility] [facility] Work Phone: Comment on above: Reference Range: 0.5 0 - 1.30 Glucose [Mass/Vol] 107 mg/dL above high threshold 74 - 99 [facility] [facility] Work Phone: Potassium [Moles/Vol] 4.2 mmol/L 3.5 - 5.3 [facility] [facility] Work Phone: [phone] Sodium [Moles/Vol] 136 mmol/L 136 - 145 [facility] [facility] Work Phone: Urea nitrogen [Mass/Vol] 20 mg/dL 6 - 23 [facility] [facility] Work Phone: Laboratory - Hematology and Cell countson 11-05-2022 Erythrocyte distribution width (RBC) [Ratio] 12.8 % See Below [facility] [facility] Work Phone: Comment on above: Reference Range: 11. 5 - 14.5 Hematocrit (Bld) [Volume fraction] 31.8 % below low threshold See Below [facility] [facility] Work Phone: Comment on above: Reference Range: 41. 0 - 52.0 Hemoglobin (Bld) [Mass/Vol] 10.6 g/dL below low threshold See Below [facility] [facility] Work Phone: Comment on above: Reference Range: 13. 5 - 17.5 MCHC (RBC) [Mass/Vol] 33.3 g/dL See Below [facility] [facility] Work Phone: Comment on above: Reference Range: 32. 0 - 36.0 MCV (RBC) [Entitic vol] 93 fL 80 - 100 [facility] [facility] Work Phone: Platelets (Bld) [#/Vol] 125 10*3/uL below lo w threshold 150 - 450 [facility] [facility] Work Phone: RBC (Bld) [#/Vol] 3.41 {x10E12/L} below low threshold See Below [facility] [facility] Work Phone: Comment on above: Reference Range: 4.5 0 - 5.90 WBC (Bld) [#/Vol] 9.4 10*3/uL 4.4 - 11.3 [facility] [facility] Work Phone: MAGNESIUMon 11-05-2022 Magnesium [Mass/Vol] 2.22 mg/dL Normal 1.60 - 2.40 [facility] Comment on above: Performed By: #### M G ####[facility] [place], [place] [id number] Magnesium, Serumon 3 Magnesium [Mass/Vol] 2.22 mg/dL See Below [facility] [facility] Work Phone: Comment on above: Reference Range: 1.6 0 - 2.40 No Panel Informationon 11-05 [email or web address]?[email or web address] yDateTime?PatientID=[id number]&Date= 3&Time=06%3a35%3a39%3a 00&TestType=ECG&Site=1 1&OutputType=PDF&Ext=P DF [facility] [facility] Work Phone: Normal sinus rhythm [facility] [facility] Work Phone: Abnormal [facility] [facility] Work Phone: [phone] [facility] [facility] Work Phone: [phone] [facility] [facility] Work Phone: [phone] [facility] [facility] Work Phone: 132 1 [facility] [facility] Work Phone: [phone] [facility] [facility] Work Phone: 12 1 [facility] [facility] Work Phone: 1 1 [facility] [facility] Work Phone: -4 1 [facility] [facility] Work Phone: 26 1 [facility] [facility] Work Phone: [phone] [facility] [facility] Work Phone: [phone] [facility] [facility] Work Phone: 110 1 [facility] [facility] Work Phone: [phone] [facility] [facility] Work Phone: 73 1 [facility] [facility] Work Phone: >90 >90 [facility] [facility] Work Phone: Comment on above: CALCULATIONS OF PARADISE MATED GFR ARE PERFORMED USING THE 2020 CKD-EPI STUDY REFIT EQUATION WITHOUT THE RACE VARIABLE FOR THE IDMS-TRACEABLE CREATININE METHODS.https://jasn.asnjournals.org/content/early/ ASN.8654027988 Radiologyon 11-05-2022 XR Chest Single view Normal [facility] [facility] Work Phone: Rehab Note-attemptedon 11-05 Rehab Note-attempted Normal [facility] Rehab Note-physical therapyo n 11-05-2022 Rehab Note-physical therapy Normal [facility] CALCIUM, IONIZEDon 3 CALCIUM,IONIZED Canceled Normal [facility] Comment on above: Order Comment: TEST CALCIUM, IONIZED WAS CANCELLED, 11/04/2022 20:53 NO SPECIMEN RECEIVED INLAB 11/04/2022 20:53. Performed By: #### I ONC1 ####[facility] [place], [place] [id number] CALCIUM,IONIZED 1.16 mmol/L Normal 1.10 - 1.33 [facility] Comment on above: Performed By: #### I ONC1 ####[facility] [place], [place] [id number] CALCIUM,IONIZED Canceled Normal [facility] Comment on above: Order Comment: TEST CALCIUM, IONIZED WAS CANCELLED, 11/04/2022 04:36 Specimen not on ice.Reordering.. Performed By: #### I ONC1 ####[address] [id number] CBCon 11-04-2022 Erythrocyte distribution width (RBC) [Ratio] 13.0 % Normal 11.5 - 14.5 [facility] Comment on above: Performed By: #### C BC ####[address] [id number] Hematocrit (Bld) [Volume fraction] 32.4 % Low 41.0 - 52.0 [facility] Comment on above: Performed By: #### C BC ####[address] [id number] Hemoglobin (Bld) [Mass/Vol] 10.6 g/dL Low 13.5 - 17.5 [facility] Comment on above: Performed By: #### C BC ####[address] [id number] MCHC (RBC) [Mass/Vol] 32.7 g/dL Normal 32.0 - 36.0 [facility] Comment on above: Performed By: #### C BC ####[address] [id number] MCV (RBC) [Entitic vol] 94 fL Normal 80 - [address] [facility] Comment on above: Performed By: #### C BC ####[address] [id number] Platelets (Bld) [#/Vol] 105 10*3/uL Low 150 - 450 [facility] Comment on above: Performed By: #### C BC ####[address] [id number] RBC 3.46 x10E12/L Low 4.50 - 5.90 [facility] Comment on above: Performed By: #### C BC ####[facility] [place], [place] [id number] WBC (Bld) [#/Vol] 11.9 10*3/uL High 4.4 - 11.3 [facility] Comment on above: Performed By: #### C BC ####[facility] [place], [place] [id number] Calcium, Ionized Levelon Calcium, Ionized Level 1.16 mmol/L See Below [facility] Work Phone: Comment on above: Reference Range: 1.1 0 - 1.33 Calcium, Ionized Level Canceled [facility] 101 Work Phone: Calcium, Ionized Level Canceled [facility] [address] Work Phone: Daily Progress Note - Critic al Care-SICUon 11-04-2022 Daily Progress Note - Critical Care-SICU Normal [facility] Daily Progress Note-Cardiac Surgeryon 11-04-2022 Daily Progress Note-Cardiac Surgery Normal [facility] Daily Progress Note-Cardiolo gyon 11-04-2022 Daily Progress Note-Cardiology Normal [facility] Electrocardiogram 12 Leadon 11-04-2022 Electrocardiogram 12 Lead Ventricular Rate 75 Atrial Rate 75 P-R Interval 168 QRS Duration 112 Q-T Interval 406 QTC Calculation(Bazett) 453 P Levasy 44 R Levasy -1 T Levasy -4 QRS Count 12 Q Onset 218 P Onset 134 P Offset 193 T Offset 421 QTC Fredericia 437 Diagnosis Class Abnormal Diagnosis Sinus rhythm with premature atrial complexes ST elevation, consider early repolarization, pericarditis, or injury Nonspecific ST and T wave abnormality Abnormal ECG When compared with ECG of 03-NOV-2022 07:27, premature atrial complexes are now present Minimal criteria for Inferior infarct are no longer present Confirmed by Devaughn Sanchez ([id number]) on 11/04/2022 10:33:52 AM Normal [facility] GLUCOSE-POCTon 11-04-2022 Glucose [Mass/Vol] 147 mg/dL High 74 - 99 [facility] Comment on above: Performed By: #### G NGUYỄN ####[facility] [place], [place] [id number] Glucose [Mass/Vol] 112 mg/dL High 74 - 99 [facility] Comment on above: Performed By: #### G NGUYỄN ####[facility] [place], [place] [id number] Laboratory - Chemistry and C hemistry - challengeon 11-04-2022 Glucose [Mass/Vol] 147 mg/dL above high threshold 74 - 99 [facility] [facility] Work Phone: Glucose [Mass/Vol] 112 mg/dL above high threshold 74 - 99 [facility] [facility] Work Phone: Laboratory - Hematology and Cell countson 11-04-2022 Erythrocyte distribution width (RBC) [Ratio] 13.0 % See Below [facility] [facility] Work Phone: Comment on above: Reference Range: 11. 5 - 14.5 Hematocrit (Bld) [Volume fraction] 32.4 % below low threshold See Below [facility] [facility] Work Phone: Comment on above: Reference Range: 41. 0 - 52.0 Hemoglobin (Bld) [Mass/Vol] 10.6 g/dL below low threshold See Below [facility] [facility] Work Phone: Comment on above: Reference Range: 13. 5 - 17.5 MCHC (RBC) [Mass/Vol] 32.7 g/dL See Below [facility] [facility] Work Phone: Comment on above: Reference Range: 32. 0 - 36.0 MCV (RBC) [Entitic vol] 94 fL 80 - 100 [facility] [facility] Work Phone: Platelets (Bld) [#/Vol] 105 10*3/uL below lo w threshold 150 - 450 [facility] [facility] Work Phone: RBC (Bld) [#/Vol] 3.46 {x10E12/L} below low threshold See Below [facility] [facility] Work Phone: Comment on above: Reference Range: 4.5 0 - 5.90 WBC (Bld) [#/Vol] 11.9 10*3/uL above high threshold 4.4 - 11.3 [facility] [facility] Work Phone: MAGNESIUMon 11-04-2022 Magnesium [Mass/Vol] 1.91 mg/dL Normal 1.60 - 2.40 [facility] Comment on above: Performed By: #### M G ####[facility] [place], [place] [id number] Magnesium, Serumon 3 Magnesium [Mass/Vol] 1.91 mg/dL See Below [facility] [facility] Work Phone: Comment on above: Reference Range: 1.6 0 - 2.40 No Panel Informationon 11-04 [email or web address] [email or web address] 1:[email or web address]?[email or web address] yDateTime?PatientID=[id number]&Date= 3&Time=06%3a51%3a04%3a 00&TestType=ECG&Site=1 1&OutputType=PDF&Ext=P DF [facility] [facility] Work Phone: Sinus rhythm with premature atrial complexes [facility] [facility] Work Phone: Abnormal [facility] [facility] Work Phone: [phone] [facility] [facility] Work Phone: [phone] [facility] [facility] Work Phone: [phone] [facility] [facility] Work Phone: 134 1 [facility] [facility] Work Phone: [phone] [facility] [facility] Work Phone: 12 1 [facility] [facility] Work Phone: -4 1 [facility] [facility] Work Phone: -1 1 [facility] [facility] Work Phone: 44 1 [facility] [facility] Work Phone: [phone] [facility] [facility] Work Phone: [phone] [facility] [facility] Work Phone: 112 1 [facility] [facility] Work Phone: [phone] [facility] [facility] Work Phone: 75 1 [facility] [facility] Work Phone: RENAL FUNCTION PANELon 11-04 Albumin [Mass/Vol] 3.7 g/dL Normal 3.4 - 5.0 [facility] Comment on above: Performed By: #### R ENAL ####[address] [id number] Anion gap [Moles/Vol] 8 mmol/L Low 10 - 20 [facility] Comment on above: Performed By: #### R ENAL ####[address] [id number] Calcium [Mass/Vol] 8.4 mg/dL Low 8.6 - 10.3 [facility] Comment on above: Performed By: #### R ENAL ####[address] [id number] Chloride [Moles/Vol] 98 mmol/L Normal 98 - 107 [facility] Comment on above: Performed By: #### R ENAL ####[address] [id number] Creatinine [Mass/Vol] 0.82 mg/dL Normal 0.50 - 1.30 [facility] Comment on above: Performed By: #### R ENAL ####[address] [id number] eGFR MALE >90 Normal >90 [facility] Comment on above: Result Comment: CALC ULATIONS OF ESTIMATED GFR ARE PERFORMED USING THE 2020 CKD-EPI STUDY REFIT EQUATION WITHOUT THE RACE VARIABLE FOR THE IDMS-TRACEABLE CREATININE METHODS.https://jasn.asnjournals.org/content/early// ASN.6932850018 Performed By: #### R ENAL ####[address] [id number] Glucose [Mass/Vol] 118 mg/dL High 74 - 99 [facility] Comment on above: Performed By: #### R ENAL ####[address] [id number] HCO3 (Bld) [Moles/Vol] 33 mmol/L High 21 - 32 [facility] Comment on above: Performed By: #### R ENAL ####[address] [id number] Phosphate [Mass/Vol] 2.3 mg/dL Low 2.5 - 4.9 [facility] Comment on above: Result Comment: The performance characteristics of phosphorus testing in heparinized plasma have been validated by the individual laboratory site where testing is performed. Testing on heparinized plasma is not approved by the FDA; however, such approval is not necessary. Performed By: #### R ENAL ####[address] [id number] Potassium [Moles/Vol] 3.8 mmol/L Normal 3.5 - 5.3 [facility] Comment on above: Performed By: #### R ENAL ####[address] [id number] Sodium [Moles/Vol] 135 mmol/L Low 136 - 145 [facility] Comment on above: Performed By: #### R ENAL ####[facility] [place], [place] [id number] Urea nitrogen [Mass/Vol] 20 mg/dL Normal 6 - 23 [facility] Comment on above: Performed By: #### R ENAL ####[facility] [place], [place] [id number] Radiologyon 11-04-2022 XR Chest Single view Normal [facility] [facility] Work Phone: Rehab Note-physical therapyo n 11-04-2022 Rehab Note-physical therapy Normal [facility] Renal Function Panelon 11-04 Albumin BCP dye [Mass/Vol] 3.7 g/dL 3.4 - 5.0 [facility] [facility] Work Phone: Anion gap [Moles/Vol] 8 mmol/L below low threshold 10 - 20 [facility] [facility] Work Phone: Calcium [Mass/Vol] 8.4 mg/dL below low threshold 8.6 - 10.3 [facility] [facility] Work Phone: Chloride [Moles/Vol] 98 mmol/L 98 - 107 [facility] [facility] Work Phone: CO2 [Moles/Vol] 33 mmol/L above high threshold 21 - 32 [facility] [facility] Work Phone: Creatinine [Mass/Vol] 0.82 mg/dL See Below [facility] [facility] Work Phone: Comment on above: Reference Range: 0.5 0 - 1.30 Glucose [Mass/Vol] 118 mg/dL above high threshold 74 - 99 [facility] [facility] Work Phone: Phosphate [Mass/Vol] 2.3 mg/dL below low threshold 2.5 - 4.9 [facility] [facility] Work Phone: Comment on above: The performance kirsten acteristics of phosphorus testing in heparinized plasma have been validated by the individual laboratory site where testing is performed. Testing on heparinized plasma is not approved by the FDA; however, such approval is not necessary. Potassium [Moles/Vol] 3.8 mmol/L 3.5 - 5.3 [facility] Work Phone: Sodium [Moles/Vol] 135 mmol/L below low threshold 136 - 145 [facility] 101 Work Phone: Urea nitrogen [Mass/Vol] 20 mg/dL 6 - 23 [facility] 101 Work Phone: Renal Function Panel >90 >90 [facility] ardi[facility] 101 Work Phone: Comment on above: CALCULATIONS OF PARADISE MATED GFR ARE PERFORMED USING THE 2020 CKD-EPI STUDY REFIT EQUATION WITHOUT THE RACE VARIABLE FOR THE IDMS-TRACEABLE CREATININE METHODS.https://jasn.asnjournals.org/content/early// ASN.8712846606 ARTERIAL FULL PANELon 2022 MARK'S TEST[COLLATERAL CIRCULATION] N/A Normal [facility] Comment on above: Performed By: #### A FPA4 ####[address] [place], [place] [id number] Anion gap [Moles/Vol] 10 mmol/L Normal 10 - 25 [facility] Comment on above: Performed By: #### A FPA4 ####[facility] [place], [place] [id number] APPARATUS 2L NC Normal [facility] Comment on above: Performed By: #### A FPA4 ####[address] [place], [place] [id number] BASE EXCESS-BLOOD 1.1 mmol/L Normal -2.0 - 3.0 [facility] Comment on above: Performed By: #### A FPA4 ####[address] [id number] BICARB, CALCULATED 26.6 mmol/L High 22.0 - 26.0 [facility] Comment on above: Performed By: #### A FPA4 ####[address] [place], [place] [id number] CALCIUM,IONIZED 1.14 mmol/L Normal 1.10 - 1.33 [facility] Comment on above: Performed By: #### A FPA4 ####[address] [place], [place] [id number] Chloride [Moles/Vol] 104 mmol/L Normal 98 - 107 [facility] Comment on above: Performed By: #### A FPA4 ####[address] [id number] Glucose [Mass/Vol] 158 mg/dL High 74 - 99 [facility] Comment on above: Performed By: #### A FPA4 ####[address] [place], [place] [id number] Hematocrit (Bld) [Volume fraction] 34.0 % Low 41.0 - 52.0 [facility] Comment on above: Performed By: #### A FPA4 ####[address] [id number] Hemoglobin (Bld) [Mass/Vol] 11.3 g/dL Low 13.5 - 17.5 [facility] Comment on above: Performed By: #### A FPA4 ####[address] [id number] Lactate [Moles/Vol] 2.0 mmol/L Normal 0.4 - 2.0 [facility] Comment on above: Performed By: #### A FPA4 ####[address] [id number] OXY HGB 95.4 % Normal 94.0 - 98.0 [facility] Comment on above: Performed By: #### A FPA4 ####[address], [place] [id number] Oxygen (Bld) [Partial pressure] 79 mm[Hg] Low 85 - 95 [facility] Comment on above: Performed By: #### A FPA4 ####[address] [id number] PCO2 45 mmHg High 38 - 42 [facility] Comment on above: Performed By: #### A FPA4 ####[address] [id number] pH (Bld) 7.38 [pH] Normal 7.38 - 7.42 [facility] Comment on above: Performed By: #### A FPA4 ####[address] [id number] Potassium [Moles/Vol] 4.2 mmol/L Normal 3.5 - 5.3 [facility] Comment on above: Performed By: #### A FPA4 ####[address] [id number] SITE OF ARTERIAL PUNCTURE A-LINE Normal [facility] Comment on above: Performed By: #### A FPA4 ####[address] [id number] SO2 98 % Normal 94 - 100 [facility] Comment on above: Performed By: #### A FPA4 ####[address] [id number] Sodium [Moles/Vol] 136 mmol/L Normal 136 - 145 [facility] Comment on above: Performed By: #### A FPA4 ####[address] [id number] CALCIUM, IONIZEDon 3 CALCIUM,IONIZED Canceled Normal [facility] Comment on above: Order Comment: TEST CALCIUM, IONIZED WAS CANCELLED, 11/03/2022 02:15 Performed By: #### I ONC1 ####[address] [id number] CBCon 11-03-2022 Erythrocyte distribution width (RBC) [Ratio] 13.0 % Normal 11.5 - 14.5 [facility] Comment on above: Performed By: #### C BC ####[facility] [place], [place] [id number] Hematocrit (Bld) [Volume fraction] 34.4 % Low 41.0 - 52.0 [facility] Comment on above: Performed By: #### C BC ####[facility] [place], [place] [id number] Hemoglobin (Bld) [Mass/Vol] 11.6 g/dL Low 13.5 - 17.5 [facility] Comment on above: Performed By: #### C BC ####[address] [place], [place] [id number] MCHC (RBC) [Mass/Vol] 33.7 g/dL Normal 32.0 - 36.0 [facility] Comment on above: Performed By: #### C BC ####[address] [id number] MCV (RBC) [Entitic vol] 92 fL Normal 80 - [address] [facility] Comment on above: Performed By: #### C BC ####[address] [id number] Platelets (Bld) [#/Vol] 137 10*3/uL Low 150 - 450 [facility] Comment on above: Performed By: #### C BC ####[facility] [place], [place] [id number] RBC 3.73 x10E12/L Low 4.50 - 5.90 [facility] Comment on above: Performed By: #### C BC ####[address] [id number] WBC (Bld) [#/Vol] 13.3 10*3/uL High 4.4 - 11.3 [facility] Comment on above: Performed By: #### C BC ####[address] [address] [place], [place] [phone] HCT Canceled Normal [facility] Comment on above: Order Comment: TEST CBC WAS CANCELLED, 11/03/2022 02:15 Performed By: #### C BC ####[address] [id number] HGB Canceled Normal [facility] Comment on above: Order Comment: TEST CBC WAS CANCELLED, 11/03/2022 02:15 Performed By: #### C BC ####[address] [id number] MCHC Canceled Normal [facility] Comment on above: Order Comment: TEST CBC WAS CANCELLED, 11/03/2022 02:15 Performed By: #### C BC ####[address] [id number] MCV Canceled Normal [facility] Comment on above: Order Comment: TEST CBC WAS CANCELLED, 11/03/2022 02:15 Performed By: #### C BC ####[address] [id number] NUCLEATED RBC Canceled Normal [facility] Comment on above: Order Comment: TEST CBC WAS CANCELLED, 11/03/2022 02:15 Performed By: #### C BC ####[address] [id number] PLT Canceled Normal [facility] Comment on above: Order Comment: TEST CBC WAS CANCELLED, 11/03/2022 02:15 Performed By: #### C BC ####[address] [id number] RBC Canceled Normal [facility] Comment on above: Order Comment: TEST CBC WAS CANCELLED, 11/03/2022 02:15 Performed By: #### C BC ####[address] [id number] RDW-CV Canceled Normal [facility] Comment on above: Order Comment: TEST CBC WAS CANCELLED, 11/03/2022 02:15 Performed By: #### C BC ####[address] [id number] WBC Canceled Normal [facility] Comment on above: Order Comment: TEST CBC WAS CANCELLED, 11/03/2022 02:15 Performed By: #### C BC ####[address] [id number] COAGULATION SCREENon 023 aPTT Coag (Bld) [Time] 26 s Low 27 - 38 [facility] Comment on above: Result Comment: Note new reference range as of 10/12/2022 at 10:00am. Performed By: #### C OAGS ####[address] [id number] PT Coag (PPP) [Time] 14.7 s High 9.8 - 12.8 [facility] Comment on above: Result Comment: Note new reference range as of 10/12/2022 at 10:00am. Performed By: #### C OAGS ####[address] [id number] PT, INR 1.3 High 0.9 - 1.1 [facility] Comment on above: Performed By: #### C OAGS ####[address] [id number] COMPREHENSIVE PANELon [address] [facility] Comment on above: Order Comment: TEST COMPREHENSIVE PANEL WAS CANCELLED, 11/03/2022 02:15 Performed By: #### C MP ####[address] [phone] ALKALINE PHOSPHATASE Canceled Normal [facility] Comment on above: Order Comment: TEST COMPREHENSIVE PANEL WAS CANCELLED, 11/03/2022 02:15 Performed By: #### C MP ####[address] [id number] ALT Canceled Normal [facility] Comment on above: Order Comment: TEST COMPREHENSIVE PANEL WAS CANCELLED, 11/03/2022 02:15 Result Comment: Martita ents treated with Sulfasalazine may generate falsely decreased results for ALT. Performed By: #### C MP ####[address] [id number] ANION GAP Canceled Normal [facility] Comment on above: Order Comment: TEST COMPREHENSIVE PANEL WAS CANCELLED, 11/03/2022 02:15 Performed By: #### C MP ####[address] [id number] AST Canceled Normal [facility] Comment on above: Order Comment: TEST COMPREHENSIVE PANEL WAS CANCELLED, 11/03/2022 02:15 Performed By: #### C MP ####[address] [id number] BICARBONATE Canceled Normal [facility] Comment on above: Order Comment: TEST COMPREHENSIVE PANEL WAS CANCELLED, 11/03/2022 02:15 Performed By: #### C MP ####[address] [id number] BILIRUBIN,TOTAL Canceled Normal [facility] Comment on above: Order Comment: TEST COMPREHENSIVE PANEL WAS CANCELLED, 11/03/2022 02:15 Performed By: #### C MP ####[address] [id number] CALCIUM Canceled Normal [facility] Comment on above: Order Comment: TEST COMPREHENSIVE PANEL WAS CANCELLED, 11/03/2022 02:15 Performed By: #### C MP ####[address] [id number] CHLORIDE Canceled Normal [facility] Comment on above: Order Comment: TEST COMPREHENSIVE PANEL WAS CANCELLED, 11/03/2022 02:15 Performed By: #### C MP ####[address] [id number] CREATININE Canceled Normal [facility] Comment on above: Order Comment: TEST COMPREHENSIVE PANEL WAS CANCELLED, 11/03/2022 02:15 Performed By: #### C MP ####[address] [place], [place] [id number] eGFR FEMALE Canceled Normal [facility] Comment on above: Order Comment: TEST COMPREHENSIVE PANEL WAS CANCELLED, 11/03/2022 02:15 Result Comment: CALC ULATIONS OF ESTIMATED GFR ARE PERFORMED USING THE 2020 CKD-EPI STUDY REFIT EQUATION WITHOUT THE RACE VARIABLE FOR THE IDMS-TRACEABLE CREATININE METHODS.https://jasn.asnjournals.org/content/early/ ASN.3067006074 Performed By: #### C MP ####[address] [id number] eGFR MALE Canceled Normal [facility] Comment on above: Order Comment: TEST COMPREHENSIVE PANEL WAS CANCELLED, 11/03/2022 02:15 Result Comment: CALC ULATIONS OF ESTIMATED GFR ARE PERFORMED USING THE 2020 CKD-EPI STUDY REFIT EQUATION WITHOUT THE RACE VARIABLE FOR THE IDMS-TRACEABLE CREATININE METHODS.https://jasn.asnjournals.org/content/early/ ASN.6136969923 Performed By: #### C MP ####[address] [id number] GLUCOSE Canceled Normal [facility] Comment on above: Order Comment: TEST COMPREHENSIVE PANEL WAS CANCELLED, 11/03/2022 02:15 Performed By: #### C MP ####[address] [place], [place] [phone] POTASSIUM Canceled Normal [facility] Comment on above: Order Comment: TEST COMPREHENSIVE PANEL WAS CANCELLED, 11/03/2022 02:15 Performed By: #### C MP ####[address] [id number] SODIUM Canceled Normal [facility] Comment on above: Order Comment: TEST COMPREHENSIVE PANEL WAS CANCELLED, 11/03/2022 02:15 Performed By: #### C MP ####[facility] [place], [place] [id number] TOTAL PROTEIN Canceled Normal [facility] Comment on above: Order Comment: TEST COMPREHENSIVE PANEL WAS CANCELLED, 11/03/2022 02:15 Performed By: #### C MP ####[facility] [place], [place] [id number] UREA NITROGEN Canceled Normal [facility] Comment on above: Order Comment: TEST COMPREHENSIVE PANEL WAS CANCELLED, 11/03/2022 02:15 Performed By: #### C MP ####[facility] [place], [place] [phone] Consult-Cardiologyon 023 Consult-Cardiology Normal [facility] Daily Progress Note - Critic al Care-SICUon 11-03-2022 Daily Progress Note - Critical Care-SICU Normal [facility] Daily Progress Note-Cardiac Surgeryon 11-03-2022 Daily Progress Note-Cardiac Surgery Normal [facility] Discharge Planning [id number] 0 11-03-2022 Discharge Planning Note2 Normal [facility] Discharge [id number] Discharge Profile2 Normal [facility] Electrocardiogram 12 Leadon 11-03-2022 Electrocardiogram 12 Lead Ventricular Rate 73 Atrial Rate 73 P-R Interval 158 QRS Duration 106 Q-T Interval 404 QTC Calculation(Bazett) 445 P Levasy 51 R Levasy 23 T Levasy -2 QRS Count 13 Q Onset 202 P Onset 123 P Offset 177 T Offset 404 QTC Fredericia 431 Diagnosis Class Abnormal Diagnosis Normal sinus rhythm Cannot rule out Inferior infarct , age undetermined Abnormal ECG When compared with ECG of 02-NOV-2022 13:35, Right bundle branch block is no longer present Minimal criteria for Inferior infarct are now present Confirmed by Devaughn Sanchez ([id number]) on 11/03/2022 9:26:20 AM Normal [facility] GLUCOSE-POCTon 11-03-2022 Glucose [Mass/Vol] 158 mg/dL High 74 - 99 [facility] Comment on above: Performed By: #### G NGUYỄN ####[facility] [place], [place] [phone] Laboratory - Chemistry and C hemistry - challengeon 11-03-2022 Anion gap 4 (BldA) [Moles/Vol] 10 mmol/L 10 - 25 [facility] [facility] Work Phone: Base excess Calc (Bld) [Moles/Vol] 1.1 mmol/L -2.0 - 3.0 [facility] [facility] Work Phone: Calcium.ionized (BldA) [Moles/Vol] 1.14 mmol/L See Below [facility] [facility] Work Phone: Comment on above: Reference Range: 1.1 0 - 1.33 Chloride (BldA) [Moles/Vol] 104 mmol/L 98 - 107 [facility] [facility] Work Phone: CO2 (Bld) [Partial pressure] 45 mm[Hg] above high threshold 38 - 42 [facility] [facility] Work Phone: Glucose [Mass/Vol] 158 mg/dL above high threshold 74 - 99 [facility] [facility] Work Phone: HCO3 (Bld) [Moles/Vol] 26.6 mmol/L above hig h threshold See Below [facility] [facility] Work Phone: Comment on above: Reference Range: 22. 0 - 26.0 Lactate (BldA) [Moles/Vol] 2.0 mmol/L 0.4 - 2.0 [facility] [facility] Work Phone: Oxygen (Bld) [Partial pressure] 79 mm[Hg] below low threshold 85 - 95 [facility] [facility] Work Phone: Oxyhemoglobin (BldA) [Mass fraction] 95.4 % See Below [facility] [facility] Work Phone: Comment on above: Reference Range: 94. 0 - 98.0 pH (Bld) 7.38 [pH] See Below [facility] [facility] Work Phone: Comment on above: Reference Range: 7.3 8 - 7.42 Potassium (BldA) [Moles/Vol] 4.2 mmol/L 3.5 - 5.3 [facility] [facility] Work Phone: Sodium (BldA) [Moles/Vol] 136 mmol/L 136 - 145 [facility] [facility] Work Phone: Laboratory - Coagulationon 0 11-03-2022 aPTT Coag (PPP) [Time] 26 s below low threshold 27 - 38 [facility] [facility] Work Phone: Comment on above: Note new reference r liliana as of 10/12/2022 at 10:00am. INR Coag (PPP) [Relative time] 1.3 {INR} above high threshold 0.9 - 1.1 [facility] [facility] Work Phone: PT Coag (PPP) [Time] 14.7 s above high threshold 9.8 - 12.8 [facility] [facility] Work Phone: Comment on above: Note new reference r liliana as of 10/12/2022 at 10:00am. Laboratory - Hematology and Cell countson 11-03-2022 Hematocrit Est (Bld) [Volume fraction] 34.0 % below low threshold See Below [facility] [facility] Work Phone: Comment on above: Reference Range: 41. 0 - 52.0 Hemoglobin (Bld) [Mass/Vol] 11.3 g/dL below low threshold See Below [facility] [facility] Work Phone: Comment on above: Reference Range: 13. 5 - 17.5 Erythrocyte distribution width (RBC) [Ratio] 13.0 % See Below [facility] [facility] Work Phone: Comment on above: Reference Range: 11. 5 - 14.5 Hematocrit (Bld) [Volume fraction] 34.4 % below low threshold See Below [facility] [facility] Work Phone: Comment on above: Reference Range: 41. 0 - 52.0 Hemoglobin (Bld) [Mass/Vol] 11.6 g/dL below low threshold See Below [facility] [facility] Work Phone: Comment on above: Reference Range: 13. 5 - 17.5 MCHC (RBC) [Mass/Vol] 33.7 g/dL See Below [facility] [facility] Work Phone: Comment on above: Reference Range: 32. 0 - 36.0 MCV (RBC) [Entitic vol] 92 fL 80 - 100 [facility] [facility] Work Phone: Platelets (Bld) [#/Vol] 137 10*3/uL below lo w threshold 150 - 450 [facility] [facility] Work Phone: RBC (Bld) [#/Vol] 3.73 {x10E12/L} below low threshold See Below [facility] [facility] Work Phone: Comment on above: Reference Range: 4.5 0 - 5.90 WBC (Bld) [#/Vol] 13.3 10*3/uL above high threshold 4.4 - 11.3 [facility] [facility] Work Phone: MAGNESIUMon 11-03-2022 Magnesium [Mass/Vol] 1.72 mg/dL Normal 1.60 - 2.40 [facility] Comment on above: Performed By: #### M G ####[facility] [place], [place] [id number] Magnesium, Serumon Magnesium [Mass/Vol] 1.72 mg/dL See Below [facility] [facility] Work Phone: Comment on above: Reference Range: 1.6 0 - 2.40 No Panel Informationon 11-03 [email or web address] [email or web address]?PatientID=[id number]&Date= 3&Time=07%3a27%3a20%3a 00&TestType=ECG&Site=1 1&OutputType=PDF&Ext=P DF [facility] [facility] Work Phone: Normal sinus rhythm [facility] [facility] Work Phone: Abnormal [facility] [facility] Work Phone: [phone] [facility] [facility] Work Phone: 404 1 [facility] [facility] Work Phone: 177 1 [facility] [facility] Work Phone: 123 1 [facility] [facility] Work Phone: 202 1 [facility] [facility] Work Phone: 13 1 [facility] [facility] Work Phone: -2 1 [facility] [facility] Work Phone: 23 1 [facility] [facility] Work Phone: 51 1 [facility] [facility] Work Phone: 445 1 [facility] [facility] Work Phone: 106 1 [facility] [facility] Work Phone: 158 1 [facility] [facility] Work Phone: 73 1 [facility] [facility] Work Phone: Arterial patency Wrist artery --pre arterial puncture N/A [facility] [facility] Work Phone: 2L NC [facility] [facility] Work Phone: A-LINE [facility] [facility] Work Phone: Nutrition Therapy-Educationo n 11-03-2022 Nutrition Therapy-Education Normal [facility] OT Evaluation v2-occupationa l therapyon 11-03-2022 OT Evaluation v2-occupational therapy Normal [facility] PT Evaluation v2-physical th erapyon 11-03-2022 PT Evaluation v2-physical therapy Normal [facility] RENAL FUNCTION PANELon 11-03 Albumin [Mass/Vol] 4.0 g/dL Normal 3.4 - 5.0 [facility] Comment on above: Performed By: #### R ENAL ####[address] [place], [place] [phone] Anion gap [Moles/Vol] 12 mmol/L Normal 10 - 20 [facility] Comment on above: Performed By: #### R ENAL ####[address] [place], [place] [phone] Calcium [Mass/Vol] 8.6 mg/dL Normal 8.6 - 10.3 [facility] Comment on above: Performed By: #### R ENAL ####[address] [place], [place] [id number] Chloride [Moles/Vol] 103 mmol/L Normal 98 - 107 [facility] Comment on above: Performed By: #### R ENAL ####[address] [place], [place] [id number] Creatinine [Mass/Vol] 0.85 mg/dL Normal 0.50 - 1.30 [facility] Comment on above: Performed By: #### R ENAL ####[address] [place], [place] [id number] eGFR MALE >90 Normal >90 [facility] Comment on above: Result Comment: CALC ULATIONS OF ESTIMATED GFR ARE PERFORMED USING THE 2020 CKD-EPI STUDY REFIT EQUATION WITHOUT THE RACE VARIABLE FOR THE IDMS-TRACEABLE CREATININE METHODS.https://jasn.asnjournals.org/content// ASN.3591186308 Performed By: #### R ENAL ####[address] [id number] Glucose [Mass/Vol] 156 mg/dL High 74 - 99 [facility] Comment on above: Performed By: #### R ENAL ####[address] [id number] HCO3 (Bld) [Moles/Vol] 27 mmol/L Normal 21 - 32 [facility] Comment on above: Performed By: #### R ENAL ####[address] [id number] Phosphate [Mass/Vol] 2.9 mg/dL Normal 2.5 - 4.9 [facility] Comment on above: Result Comment: The performance characteristics of phosphorus testing in heparinized plasma have been validated by the individual laboratory site where testing is performed. Testing on heparinized plasma is not approved by the FDA; however, such approval is not necessary. Performed By: #### R ENAL ####[address] [id number] Potassium [Moles/Vol] 4.1 mmol/L Normal 3.5 - 5.3 [facility] Comment on above: Performed By: #### R ENAL ####[address] [id number] Sodium [Moles/Vol] 138 mmol/L Normal 136 - 145 [facility] Comment on above: Performed By: #### R ENAL ####[address] [id number] Urea nitrogen [Mass/Vol] 20 mg/dL Normal 6 - 23 [facility] Comment on above: Performed By: #### R ENAL ####[address] [id number] Radiologyon 07-12-2023 XR Chest Single view Normal [facility] [facility] Work Phone: XR Chest Single view Normal [facility] [facility] Work Phone: Renal Function Panelon 11-03 Albumin BCP dye [Mass/Vol] 4.0 g/dL 3.4 - 5.0 [facility] [facility] Work Phone: Anion gap [Moles/Vol] 12 mmol/L 10 - 20 [facility] [facility] Work Phone: Calcium [Mass/Vol] 8.6 mg/dL 8.6 - 10.3 [facility] [facility] Work Phone: Chloride [Moles/Vol] 103 mmol/L 98 - 107 [facility] [facility] Work Phone: CO2 [Moles/Vol] 27 mmol/L 21 - 32 [facility] [facility] Work Phone: Creatinine [Mass/Vol] 0.85 mg/dL See Below [facility] [facility] Work Phone: Comment on above: Reference Range: 0.5 0 - 1.30 Glucose [Mass/Vol] 156 mg/dL above high threshold 74 - 99 [facility] [facility] Work Phone: Phosphate [Mass/Vol] 2.9 mg/dL 2.5 - 4.9 [facility] [facility] Work Phone: Comment on above: The performance kirsten acteristics of phosphorus testing in heparinized plasma have been validated by the individual laboratory site where testing is performed. Testing on heparinized plasma is not approved by the FDA; however, such approval is not necessary. Potassium [Moles/Vol] 4.1 mmol/L 3.5 - 5.3 [facility] [facility] Work Phone: Sodium [Moles/Vol] 138 mmol/L 136 - 145 [facility] [address] Work Phone: Urea nitrogen [Mass/Vol] 20 mg/dL 6 - 23 [facility] Work Phone: Renal Function Panel >90 >90 [facility] [address] Work Phone: Comment on above: CALCULATIONS OF PARADISE MATED GFR ARE PERFORMED USING THE 2020 CKD-EPI STUDY REFIT EQUATION WITHOUT THE RACE VARIABLE FOR THE IDMS-TRACEABLE CREATININE METHODS.https://jasn.asnjournals.org/content/early/ ASN.0324473935 ABO/RH GROUP TESTon 11-03-19 [address] A [address] [facility] Comment on above: Performed By: #### V ERAB ####[address] [id number] RH TYPE Positive Normal [facility] Comment on above: Performed By: #### V ERAB ####[address] [id number] ACT-HIGH RANGEon 11-02-2022 ACT-HIGH RANGE 106 SECONDS Normal 96 - 152 [facility] Comment on above: Result Comment: Note new reference range as of 07/28/2018. Target ACT range will vary based on the patient population, clinical status, and surgical intervention occurring. Performed By: #### A CTP ####[address] [id number] ACT-HIGH RANGE 440 SECONDS High 96 - 152 [facility] Comment on above: Result Comment: Note new reference range as of 07/28/2018. Target ACT range will vary based on the patient population, clinical status, and surgical intervention occurring. Performed By: #### A CTP ####[address] [id number] ACT-HIGH RANGE 452 SECONDS High 96 - 152 [facility] Comment on above: Result Comment: Note new reference range as of 07/28/2018. Target ACT range will vary based on the patient population, clinical status, and surgical intervention occurring. Performed By: #### A CTP ####[address] [id number] ACT-HIGH RANGE 462 SECONDS High 96 - 152 [facility] Comment on above: Result Comment: Note new reference range as of 07/28/2018. Target ACT range will vary based on the patient population, clinical status, and surgical intervention occurring. Performed By: #### A CTP ####[address] [id number] ACT-HIGH RANGE 546 SECONDS High 96 - 152 [facility] Comment on above: Result Comment: Note new reference range as of 07/28/2018. Target ACT range will vary based on the patient population, clinical status, and surgical intervention occurring. Performed By: #### A CTP ####[address] [id number] ACT-HIGH RANGE 103 SECONDS Normal 96 - 152 [facility] Comment on above: Result Comment: Note new reference range as of 07/28/2018. Target ACT range will vary based on the patient population, clinical status, and surgical intervention occurring. Performed By: #### A CTP ####[address] [id number] ARTERIAL FULL PANELon 2022 MARK'S TEST[COLLATERAL CIRCULATION] Normal [facility] Comment on above: Performed By: #### A FPA4 ####[address] [id number] Anion gap [Moles/Vol] 13 mmol/L Normal 10 - 25 [facility] Comment on above: Performed By: #### A FPA4 ####[address] [id number] APPARATUS Cannula Normal [facility] Comment on above: Performed By: #### A FPA4 ####[address] [id number] BASE EXCESS-BLOOD -3.3 mmol/L Low -2.0 - 3.0 [facility] Comment on above: Performed By: #### A FPA4 ####[facility] [place], [place] [id number] BICARB, CALCULATED 22.1 mmol/L Normal 22.0 - 26.0 [facility] Comment on above: Performed By: #### A FPA4 ####[address] [id number] CALCIUM,IONIZED 1.11 mmol/L Normal 1.10 - 1.33 [facility] Comment on above: Performed By: #### A FPA4 ####[address] [id number] Chloride [Moles/Vol] 109 mmol/L High 98 - 107 [facility] Comment on above: Performed By: #### A FPA4 ####[address] [id number] FIO2 28 % Normal [facility] Comment on above: Performed By: #### A FPA4 ####[address] [id number] Glucose [Mass/Vol] 159 mg/dL High 74 - 99 [facility] Comment on above: Performed By: #### A FPA4 ####[address] [id number] Hematocrit (Bld) [Volume fraction] 35.0 % Low 41.0 - 52.0 [facility] Comment on above: Performed By: #### A FPA4 ####[address] [id number] Hemoglobin (Bld) [Mass/Vol] 11.5 g/dL Low 13.5 - 17.5 [facility] Comment on above: Performed By: #### A FPA4 ####[address] [id number] Lactate [Moles/Vol] 2.3 mmol/L High 0.4 - 2.0 [facility] Comment on above: Performed By: #### A FPA4 ####[address] [id number] OXY HGB 94.2 % Normal 94.0 - 98.0 [facility] Comment on above: Performed By: #### A FPA4 ####[address] [place], [place] [id number] Oxygen (Bld) [Partial pressure] 75 mm[Hg] Low 85 - 95 [facility] Comment on above: Performed By: #### A FPA4 ####[address] [id number] PCO2 40 mmHg Normal 38 - 42 [facility] Comment on above: Performed By: #### A FPA4 ####[address] [id number] pH (Bld) 7.35 [pH] Low 7.38 - 7.42 [facility] Comment on above: Performed By: #### A FPA4 ####[address] [id number] Potassium [Moles/Vol] 4.2 mmol/L Normal 3.5 - 5.3 [facility] Comment on above: Performed By: #### A FPA4 ####[address] [id number] SITE OF ARTERIAL PUNCTURE A LINE Normal [facility] Comment on above: Performed By: #### A FPA4 ####[address] [id number] SO2 97 % Normal 94 - 100 [facility] Comment on above: Performed By: #### A FPA4 ####[address] [id number] Sodium [Moles/Vol] 140 mmol/L Normal 136 - 145 [facility] Comment on above: Performed By: #### A FPA4 ####[address] [id number] BASE EXCESS-BLOOD -3.5 mmol/L Low -2.0 - 3.0 [facility] Comment on above: Performed By: #### A FPA4 ####[address] [id number] CALCIUM,IONIZED 1.10 mmol/L Normal 1.10 - 1.33 [facility] Comment on above: Performed By: #### A FPA4 ####[address] [id number] Chloride [Moles/Vol] 111 mmol/L High 98 - 107 [facility] Comment on above: Performed By: #### A FPA4 ####[address] [id number] FIO2 50 % Normal [facility] Comment on above: Performed By: #### A FPA4 ####[address] [id number] Hematocrit (Bld) [Volume fraction] 34.0 % Low 41.0 - 52.0 [facility] Comment on above: Performed By: #### A FPA4 ####[address] [id number] Potassium [Moles/Vol] 4.1 mmol/L Normal 3.5 - 5.3 [facility] Comment on above: Performed By: #### A FPA4 ####[address] [id number] PRESSURE SUPPORT 7 cm H2O Normal [facility] Comment on above: Performed By: #### A FPA4 ####[address] [id number] VENTILATOR MODE CPAP Normal [facility] Comment on above: Performed By: #### A FPA4 ####[address] [id number] Glucose [Mass/Vol] 154 mg/dL High 74 - 99 [facility] Work Phone: Comment on above: Performed By: #### A FPA4 ####[address] [id number] Hemoglobin (Bld) [Mass/Vol] 11.2 g/dL Low 13.5 - 17.5 -Cardiolog [facility] 101 Work Phone: Comment on above: Reference Range: 13. 5 - 17.5 Performed By: #### A FPA4 ####[address] [id number] Oxygen (Bld) [Partial pressure] 99 mm[Hg] High 85 - 95 [facility] [address] Work Phone: Comment on above: Performed By: #### A FPA4 ####[address] [id number] MARK'S TEST[COLLATERAL CIRCULATION] Normal [facility] Comment on above: Performed By: #### A FPA4 ####[address] [id number] Anion gap [Moles/Vol] 13 mmol/L Normal 10 - 25 [facility] Comment on above: Performed By: #### A FPA4 ####[address] [id number] APPARATUS Vent Normal [facility] Comment on above: Performed By: #### A FPA4 ####[address] [id number] BASE EXCESS-BLOOD -1.7 mmol/L Normal -2.0 - 3.0 [facility] Comment on above: Performed By: #### A FPA4 ####[address] [id number] BICARB, CALCULATED 24.3 mmol/L Normal 22.0 - 26.0 [facility] Comment on above: Performed By: #### A FPA4 ####[address] [id number] CALCIUM,IONIZED 1.31 mmol/L Normal 1.10 - 1.33 [facility] Comment on above: Performed By: #### A FPA4 ####[facility] [place], [place] [id number] Chloride [Moles/Vol] 106 mmol/L Normal 98 - 107 [facility] Comment on above: Performed By: #### A FPA4 ####[facility] [place], [place] [id number] FIO2 60 % Normal [facility] Comment on above: Performed By: #### A FPA4 ####[address] [id number] Glucose [Mass/Vol] 132 mg/dL High 74 - 99 [facility] Comment on above: Performed By: #### A FPA4 ####[address] [id number] Hematocrit (Bld) [Volume fraction] 39.0 % Low 41.0 - 52.0 [facility] Comment on above: Performed By: #### A FPA4 ####[address] [id number] Hemoglobin (Bld) [Mass/Vol] 13.1 g/dL Low 13.5 - 17.5 [facility] Comment on above: Performed By: #### A FPA4 ####[address] [id number] Lactate [Moles/Vol] 2.6 mmol/L High 0.4 - 2.0 [facility] Comment on above: Performed By: #### A FPA4 ####[address] [id number] OXY HGB 96.7 % Normal 94.0 - 98.0 [facility] Comment on above: Performed By: #### A FPA4 ####[address] [id number] Oxygen (Bld) [Partial pressure] 94 mm[Hg] Normal 85 - 95 [facility] Comment on above: Performed By: #### A FPA4 ####[facility] [place], [place] [id number] PCO2 45 mmHg High 38 - 42 [facility] Comment on above: Performed By: #### A FPA4 ####[address] [id number] PEEP CMH2O 5.[address] [facility] Comment on above: Performed By: #### A FPA4 ####[address] [id number] Potassium [Moles/Vol] 4.7 mmol/L Normal 3.5 - 5.3 [facility] Comment on above: Performed By: #### A FPA4 ####[address] [id number] SITE OF ARTERIAL PUNCTURE MIMA Normal [facility] Comment on above: Performed By: #### A FPA4 ####[address] [id number] SO2 99 % Normal 94 - 100 [facility] Comment on above: Performed By: #### A FPA4 ####[address] [id number] Sodium [Moles/Vol] 139 mmol/L Normal 136 - 145 [facility] Comment on above: Performed By: #### A FPA4 ####[address] [id number] TIDAL VOLUME [address] [facility] Comment on above: Performed By: #### A FPA4 ####[address] [id number] VENTILATOR MODE A/C Normal [facility] Comment on above: Performed By: #### A FPA4 ####[address] [id number] VENTILATOR RATE [address] [facility] Comment on above: Performed By: #### A FPA4 ####[address] [id number] Anion gap [Moles/Vol] 10 mmol/L Normal 10 - 25 [facility] Comment on above: Performed By: #### A FPA4 ####[address] [id number] BASE EXCESS-BLOOD 0.5 mmol/L Normal -2.0 - 3.0 [facility] Comment on above: Performed By: #### A FPA4 ####[address] [id number] BICARB, CALCULATED 25.4 mmol/L Normal 22.0 - 26.0 [facility] Comment on above: Performed By: #### A FPA4 ####[address] [id number] CALCIUM,IONIZED 1.38 mmol/L High 1.10 - 1.33 [facility] Comment on above: Performed By: #### A FPA4 ####[address] [id number] Chloride [Moles/Vol] 106 mmol/L Normal 98 - 107 [facility] Comment on above: Performed By: #### A FPA4 ####[address] [id number] FIO2 100 % Normal [facility] Comment on above: Performed By: #### A FPA4 ####[address] [id number] Glucose [Mass/Vol] 157 mg/dL High 74 - 99 [facility] Comment on above: Performed By: #### A FPA4 ####[address] [id number] Hematocrit (Bld) [Volume fraction] 35.0 % Low 41.0 - 52.0 [facility] Comment on above: Performed By: #### A FPA4 ####[address] [id number] Hemoglobin (Bld) [Mass/Vol] 11.8 g/dL Low 13.5 - 17.5 [facility] Comment on above: Performed By: #### A FPA4 ####[address] [id number] Performed By: #### C OXA1 ####[address] [id number] Lactate [Moles/Vol] 2.5 mmol/L High 0.4 - 2.0 [facility] Comment on above: Performed By: #### A FPA4 ####[address] [id number] OXY HGB 97.2 % Normal 94.0 - 98.0 [facility] Comment on above: Performed By: #### A FPA4 ####[address] [id number] Performed By: #### C OXA1 ####[address] [id number] Oxygen (Bld) [Partial pressure] 207 mm[Hg] High 85 - 95 [facility] Comment on above: Performed By: #### A FPA4 ####[address] [id number] PCO2 41 mmHg Normal 38 - 42 [facility] Comment on above: Performed By: #### A FPA4 ####[address] [id number] pH (Bld) 7.40 [pH] Normal 7.38 - 7.42 [facility] Comment on above: Performed By: #### A FPA4 ####[address] [id number] Potassium [Moles/Vol] 5.2 mmol/L Normal 3.5 - 5.3 [facility] Comment on above: Performed By: #### A FPA4 ####[address] [id number] SO2 100 % Normal 94 - 100 [facility] Comment on above: Performed By: #### A FPA4 ####[address] [id number] Sodium [Moles/Vol] 136 mmol/L Normal 136 - 145 [facility] Comment on above: Performed By: #### A FPA4 ####[address] [id number] pH (Bld) 7.34 [pH] Normal [facility] [facility] Work Phone: Comment on above: Reference Range: 7.3 8 - 7.42 Performed By: #### A FPA4 ####[address] [id number] Performed By: #### V FPA4 ####[address] [id number] Performed By: #### Mer VPA4 ####[address] [id number] Anion gap [Moles/Vol] 9 mmol/L Low 10 - 25 [facility] Comment on above: Performed By: #### A FPA4 ####[address] [id number] BASE EXCESS-BLOOD 5.7 mmol/L High -2.0 - 3.0 [facility] Comment on above: Performed By: #### A FPA4 ####[address] [id number] BICARB, CALCULATED 31.1 mmol/L High 22.0 - 26.0 [facility] Comment on above: Performed By: #### A FPA4 ####[address] [id number] CALCIUM,IONIZED 1.09 mmol/L Low 1.10 - 1.33 [facility] Comment on above: Performed By: #### A FPA4 ####[address] [id number] Chloride [Moles/Vol] 104 mmol/L Normal 98 - 107 [facility] Comment on above: Performed By: #### A FPA4 ####[address] [id number] FIO2 75 % Normal [facility] Comment on above: Performed By: #### A FPA4 ####[address] [id number] Glucose [Mass/Vol] 172 mg/dL High 74 - 99 [facility] Comment on above: Performed By: #### A FPA4 ####[address] [id number] Hematocrit (Bld) [Volume fraction] 35.0 % Low 41.0 - 52.0 [facility] Comment on above: Performed By: #### A FPA4 ####[address] [id number] Hemoglobin (Bld) [Mass/Vol] 11.8 g/dL Low 13.5 - 17.5 [facility] Comment on above: Performed By: #### A FPA4 ####[address] [id number] Performed By: #### C OXA1 ####[address] [id number] Lactate [Moles/Vol] 2.1 mmol/L High 0.4 - 2.0 [facility] Comment on above: Performed By: #### A FPA4 ####[address] [id number] OXY HGB 97.5 % Normal 94.0 - 98.0 [facility] Comment on above: Performed By: #### A FPA4 ####[address] [id number] Performed By: #### C OXA1 ####[address] [id number] Oxygen (Bld) [Partial pressure] 315 mm[Hg] High 85 - 95 [facility] Comment on above: Performed By: #### A FPA4 ####[facility] [place], [place] [id number] PCO2 48 mmHg High 38 - 42 [facility] Comment on above: Performed By: #### A FPA4 ####[facility] [place], [place] [id number] pH (Bld) 7.42 [pH] Normal 7.38 - 7.42 [facility] Comment on above: Performed By: #### A FPA4 ####[address] [place], [place] [id number] Potassium [Moles/Vol] 5.5 mmol/L High 3.5 - 5.3 [facility] Comment on above: Performed By: #### A FPA4 ####[address] [id number] SO2 100 % Normal 94 - 100 [facility] Comment on above: Performed By: #### A FPA4 ####[address] [id number] Sodium [Moles/Vol] 139 mmol/L Normal 136 - 145 [facility] Comment on above: Performed By: #### A FPA4 ####[address] [id number] Anion gap [Moles/Vol] 12 mmol/L Normal 10 - 25 [facility] Comment on above: Performed By: #### A FPA4 ####[address] [id number] BASE EXCESS-BLOOD -0.8 mmol/L Normal -2.0 - 3.0 [facility] Comment on above: Performed By: #### A FPA4 ####[address] [id number] BICARB, CALCULATED 24.3 mmol/L Normal 22.0 - 26.0 [facility] Comment on above: Performed By: #### A FPA4 ####[address] [place], [place] [id number] CALCIUM,IONIZED 1.11 mmol/L Normal 1.10 - 1.33 [facility] Comment on above: Performed By: #### A FPA4 ####[address] [place], [place] [id number] Chloride [Moles/Vol] 104 mmol/L Normal 98 - 107 [facility] Comment on above: Performed By: #### A FPA4 ####[address] [id number] FIO2 70 % Normal [facility] Comment on above: Performed By: #### A FPA4 ####[address] [id number] Glucose [Mass/Vol] 176 mg/dL High 74 - 99 [facility] Comment on above: Performed By: #### A FPA4 ####[address] [id number] Hematocrit (Bld) [Volume fraction] 35.0 % Low 41.0 - 52.0 [facility] Comment on above: Performed By: #### A FPA4 ####[address] [id number] Hemoglobin (Bld) [Mass/Vol] 11.8 g/dL Low 13.5 - 17.5 [facility] Comment on above: Performed By: #### A FPA4 ####[address] [id number] Performed By: #### C OXA1 ####[address] [id number] Lactate [Moles/Vol] 2.0 mmol/L Normal 0.4 - 2.0 [facility] Comment on above: Performed By: #### A FPA4 ####[address] [id number] OXY HGB 97.5 % Normal 94.0 - 98.0 [facility] Comment on above: Performed By: #### A FPA4 ####[address] [id number] Performed By: #### Vickie OXA1 ####[address] [id number] Oxygen (Bld) [Partial pressure] 286 mm[Hg] High 85 - 95 [facility] Comment on above: Performed By: #### A FPA4 ####[address] [id number] pH (Bld) 7.38 [pH] Normal 7.38 - 7.42 [facility] Comment on above: Performed By: #### A FPA4 ####[address] [id number] Potassium [Moles/Vol] 5.2 mmol/L Normal 3.5 - 5.3 [facility] Comment on above: Performed By: #### A FPA4 ####[address] [id number] SO2 100 % Normal 94 - 100 [facility] Comment on above: Performed By: #### A FPA4 ####[address] [id number] Sodium [Moles/Vol] 135 mmol/L Low 136 - 145 [facility] Comment on above: Performed By: #### A FPA4 ####[address] [id number] Anion gap [Moles/Vol] 11 mmol/L Normal 10 - 25 [facility] Comment on above: Performed By: #### A FPA4 ####[address] [id number] Performed By: #### V FPA4 ####[address] [id number] Anion gap [Moles/Vol] 13 mmol/L Normal 10 - 25 [facility] Comment on above: Performed By: #### A FPA4 ####[facility] [place], [place] [id number] BASE EXCESS-BLOOD -2.0 mmol/L Normal -2.0 - 3.0 [facility] Comment on above: Performed By: #### A FPA4 ####[facility] [place], [place] [id number] BICARB, CALCULATED 24.7 mmol/L Normal 22.0 - 26.0 [facility] Comment on above: Performed By: #### A FPA4 ####[address] [id number] CALCIUM,IONIZED 1.06 mmol/L Low 1.10 - 1.33 [facility] Comment on above: Performed By: #### A FPA4 ####[address] [id number] Chloride [Moles/Vol] 103 mmol/L Normal 98 - 107 [facility] Comment on above: Performed By: #### A FPA4 ####[address] [id number] FIO2 80 % Normal [facility] Comment on above: Performed By: #### A FPA4 ####[address] [id number] Glucose [Mass/Vol] 147 mg/dL High 74 - 99 [facility] Comment on above: Performed By: #### A FPA4 ####[address] [id number] Hematocrit (Bld) [Volume fraction] 36.0 % Low 41.0 - 52.0 [facility] Comment on above: Performed By: #### A FPA4 ####[address] [id number] Lactate [Moles/Vol] 1.8 mmol/L Normal 0.4 - 2.0 [facility] Comment on above: Performed By: #### A FPA4 ####[address], [place] [address] Oxygen (Bld) [Partial pressure] 362 mm[Hg] High 85 - 95 [facility] Comment on above: Performed By: #### A FPA4 ####[address] [id number] PCO2 49 mmHg High 38 - 42 [facility] Comment on above: Performed By: #### A FPA4 ####[address] [id number] pH (Bld) 7.31 [pH] Low 7.38 - 7.42 [facility] Comment on above: Performed By: #### A FPA4 ####[address] [id number] Potassium [Moles/Vol] 4.6 mmol/L Normal 3.5 - 5.3 [facility] Comment on above: Performed By: #### A FPA4 ####[address] [id number] SO2 100 % Normal 94 - 100 [facility] Comment on above: Performed By: #### A FPA4 ####[address] [id number] Sodium [Moles/Vol] 136 mmol/L Normal 136 - 145 [facility] Comment on above: Performed By: #### A FPA4 ####[address] [id number] Anion gap [Moles/Vol] 9 mmol/L Low 10 - 25 [facility] Comment on above: Performed By: #### A FPA4 ####[address] [id number] BASE EXCESS-BLOOD 0.8 mmol/L Normal -2.0 - 3.0 [facility] Comment on above: Performed By: #### A FPA4 ####[address] [id number] BICARB, CALCULATED 27.5 mmol/L High 22.0 - 26.0 [facility] Comment on above: Performed By: #### A FPA4 ####[address] [id number] CALCIUM,IONIZED 1.16 mmol/L Normal 1.10 - 1.33 [facility] Comment on above: Performed By: #### A FPA4 ####[address] [id number] Chloride [Moles/Vol] 104 mmol/L Normal 98 - 107 [facility] Comment on above: Performed By: #### A FPA4 ####[address] [id number] FIO2 100 % Normal [facility] Comment on above: Performed By: #### A FPA4 ####[address] [id number] Glucose [Mass/Vol] 148 mg/dL High 74 - 99 [facility] Comment on above: Performed By: #### A FPA4 ####[address] [id number] Hematocrit (Bld) [Volume fraction] 42.0 % Normal 41.0 - 52.0 [facility] Comment on above: Performed By: #### A FPA4 ####[address] [id number] Hemoglobin (Bld) [Mass/Vol] 13.9 g/dL Normal 13.5 - 17.5 [facility] Comment on above: Performed By: #### A FPA4 ####[address] [id number] Performed By: #### C OXA1 ####[address] [id number] Lactate [Moles/Vol] 1.9 mmol/L Normal 0.4 - 2.0 [facility] Comment on above: Performed By: #### A FPA4 ####[address] [id number] OXY HGB 97.4 % Normal 94.0 - 98.0 [facility] Comment on above: Performed By: #### A FPA4 ####[address] [id number] Performed By: #### C OXA1 ####[address] [id number] Oxygen (Bld) [Partial pressure] 269 mm[Hg] High 85 - 95 [facility] Comment on above: Performed By: #### A FPA4 ####[address] [id number] PCO2 51 mmHg High 38 - 42 [facility] Comment on above: Performed By: #### A FPA4 ####[address] [id number] Potassium [Moles/Vol] 4.4 mmol/L Normal 3.5 - 5.3 [facility] Comment on above: Performed By: #### A FPA4 ####[address] [id number] SO2 100 % Normal 94 - 100 [facility] Comment on above: Performed By: #### A FPA4 ####[address] [id number] Sodium [Moles/Vol] 136 mmol/L Normal 136 - 145 [facility] Comment on above: Performed By: #### A FPA4 ####[address] [id number] BASE EXCESS-BLOOD 3.3 mmol/L High -2.0 - 3.0 [facility] Comment on above: Performed By: #### A FPA4 ####[address] [id number] BICARB, CALCULATED 27.8 mmol/L High 22.0 - 26.0 [facility] Comment on above: Performed By: #### A FPA4 ####[address] [id number] CALCIUM,IONIZED 1.22 mmol/L Normal 1.10 - 1.33 [facility] Comment on above: Performed By: #### A FPA4 ####[address] [place], [place] [id number] Chloride [Moles/Vol] 103 mmol/L Normal 98 - 107 [facility] Comment on above: Performed By: #### A FPA4 ####[address] [id number] FIO2 21 % Normal [facility] Comment on above: Performed By: #### A FPA4 ####[address] [id number] Glucose [Mass/Vol] 116 mg/dL High 74 - 99 [facility] Comment on above: Performed By: #### A FPA4 ####[address] [id number] Hematocrit (Bld) [Volume fraction] 42.0 % Normal 41.0 - 52.0 [facility] Comment on above: Performed By: #### A FPA4 ####[address] [id number] Lactate [Moles/Vol] 1.8 mmol/L Normal 0.4 - 2.0 [facility] Comment on above: Performed By: #### A FPA4 ####[address] [id number] Oxygen (Bld) [Partial pressure] 83 mm[Hg] Low 85 - 95 [facility] Comment on above: Performed By: #### A FPA4 ####[address] [id number] pH (Bld) 7.44 [pH] High 7.38 - 7.42 [facility] Comment on above: Performed By: #### A FPA4 ####[address] [id number] Potassium [Moles/Vol] 3.9 mmol/L Normal 3.5 - 5.3 [facility] Comment on above: Performed By: #### A FPA4 ####[address] [place], [place] [id number] Sodium [Moles/Vol] 138 mmol/L Normal 136 - 145 [facility] Comment on above: Performed By: #### A FPA4 ####[address] [id number] CBCon 11-02-[address] [facility] Comment on above: Order Comment: TEST CBC WAS CANCELLED, 11/02/2022 21:00 Performed By: #### C BC ####[address] [id number] HGB Canceled Normal [facility] Comment on above: Order Comment: TEST CBC WAS CANCELLED, 11/02/2022 21:00 Performed By: #### C BC ####[address] [id number] MCHC Canceled Normal [facility] Comment on above: Order Comment: TEST CBC WAS CANCELLED, 11/02/2022 21:00 Performed By: #### C BC ####[address] [id number] MCV Canceled Normal [facility] Comment on above: Order Comment: TEST CBC WAS CANCELLED, 11/02/2022 21:00 Performed By: #### C BC ####[address] [id number] NUCLEATED RBC Canceled Normal [facility] Comment on above: Order Comment: TEST CBC WAS CANCELLED, 11/02/2022 21:00 Performed By: #### C BC ####[address] [id number] PLT Canceled Normal [facility] Comment on above: Order Comment: TEST CBC WAS CANCELLED, 11/02/2022 21:00 Performed By: #### C BC ####[facility] [place], [place] [id number] RBC Canceled Normal [facility] Comment on above: Order Comment: TEST CBC WAS CANCELLED, 11/02/2022 21:00 Performed By: #### C BC ####[address] [id number] RDW-CV Canceled Normal [facility] Comment on above: Order Comment: TEST CBC WAS CANCELLED, 11/02/2022 21:00 Performed By: #### C BC ####[address] [id number] WBC Canceled Normal [facility] Comment on above: Order Comment: TEST CBC WAS CANCELLED, 11/02/2022 21:00 Performed By: #### C BC ####[address] [id number] Erythrocyte distribution width (RBC) [Ratio] 12.8 % Normal 11.5 - 14.5 [facility] Comment on above: Performed By: #### C BC ####[address] [id number] Hematocrit (Bld) [Volume fraction] 36.5 % Low 41.0 - 52.0 [facility] Comment on above: Performed By: #### C BC ####[address] [id number] Hemoglobin (Bld) [Mass/Vol] 12.5 g/dL Low 13.5 - 17.5 [facility] Comment on above: Performed By: #### C BC ####[address] [id number] MCHC (RBC) [Mass/Vol] 34.2 g/dL Normal 32.0 - 36.0 [facility] Comment on above: Performed By: #### C BC ####[address] [id number] MCV (RBC) [Entitic vol] 92 fL Normal 80 - 100 [facility] Comment on above: Performed By: #### C BC ####[facility] [place] [address] [id number] Platelets (Bld) [#/Vol] 144 10*3/uL Low 150 - 450 [facility] Comment on above: Performed By: #### C BC ####[address] [id number] RBC 3.95 x10E12/L Low 4.50 - 5.90 [facility] Comment on above: Performed By: #### C BC ####[address] [id number] WBC (Bld) [#/Vol] 17.0 10*3/uL High 4.4 - 11.3 [facility] Comment on above: Performed By: #### C BC ####[address] [id number] COMPREHENSIVE PANELon 2022 Albumin [Mass/Vol] 3.3 g/dL Low 3.4 - 5.0 [facility] Comment on above: Performed By: #### C MP ####[address] [id number] ALP [Catalytic activity/Vol] 32 U/L Low 33 - 136 [facility] Comment on above: Performed By: #### C MP ####[address] [id number] ALT [Catalytic activity/Vol] 23 U/L Normal 10 - 52 [facility] Comment on above: Result Comment: Martita ents treated with Sulfasalazine may generate falsely decreased results for ALT. Performed By: #### C MP ####[address] [id number] Anion gap [Moles/Vol] 12 mmol/L Normal 10 - 20 [facility] Comment on above: Performed By: #### C MP ####[address] [id number] AST [Catalytic activity/Vol] 35 U/L Normal 9 - 39 [facility] Comment on above: Result Comment: MILD HEMOLYSIS DETECTED. The result may be falsely elevated due tohemolysis or other interferents. Clinical correlation is recommended.Repeat testing may be considered. Performed By: #### C MP ####[facility] [place], [place] [id number] Bilirubin [Mass/Vol] 0.7 mg/dL Normal 0.0 - 1.2 [facility] Comment on above: Performed By: #### C MP ####[address] [id number] Calcium [Mass/Vol] 8.5 mg/dL Low 8.6 - 10.3 [facility] Comment on above: Performed By: #### C MP ####[address] [id number] Chloride [Moles/Vol] 108 mmol/L High 98 - 107 [facility] Comment on above: Performed By: #### C MP ####[address] [id number] Creatinine [Mass/Vol] 0.93 mg/dL Normal 0.50 - 1.30 [facility] Comment on above: Performed By: #### C MP ####[address] [id number] GFR/1.73 sq M.predicted among non-blacks MDRD (S/P/Bld) [Vol rate/Area] 90 mL/min/{1.73_m2} Normal >90 [facility] Comment on above: Result Comment: CALC ULATIONS OF ESTIMATED GFR ARE PERFORMED USING THE 2020 CKD-EPI STUDY REFIT EQUATION WITHOUT THE RACE VARIABLE FOR THE IDMS-TRACEABLE CREATININE METHODS.https://jasn.asnjournals.org/content/early/ ASN.0753101257 Performed By: #### C MP ####[address] [id number] Glucose [Mass/Vol] 130 mg/dL High 74 - 99 [facility] Comment on above: Performed By: #### C MP ####[address] [id number] HCO3 (Bld) [Moles/Vol] 25 mmol/L Normal 21 - 32 [facility] Comment on above: Performed By: #### C MP ####[address] [id number] Potassium [Moles/Vol] 4.4 mmol/L Normal 3.5 - 5.3 [facility] Comment on above: Result Comment: MILD HEMOLYSIS DETECTED. The result may be falsely elevated due tohemolysis or other interferents. Clinical correlation is recommended.Repeat testing may be considered. Performed By: #### C MP ####[address] [id number] Protein [Mass/Vol] 5.5 g/dL Low 6.4 - 8.2 [facility] Comment on above: Performed By: #### C MP ####[address] [id number] Sodium [Moles/Vol] 141 mmol/L Normal 136 - 145 [facility] Comment on above: Performed By: #### C MP ####[address] [id number] Urea nitrogen [Mass/Vol] 18 mg/dL Normal 6 - 23 [facility] Comment on above: Performed By: #### C MP ####[address] [id number] COOX PANEL, ARTERIALon 11-02 CO HGB 1.5 % Normal [facility] Comment on above: Result Comment: REF VALUESNONSMOKERS 0.5-1.5%SMOKERS 0.5-10.0% Performed By: #### C OXA1 ####[address] [id number] DEOXY HGB 0.3 % Normal 0.0 - 5.0 [facility] Comment on above: Performed By: #### C OXA1 ####[address] [place], [place] [id number] MET HGB 1.1 % Normal 0.0 - 1.5 [facility] Comment on above: Performed By: #### C OXA1 ####[address] [id number] CO HGB 1.7 % Abnormal [facility] Comment on above: Result Comment: REF VALUESNONSMOKERS 0.5-1.5%SMOKERS 0.5-10.0% Performed By: #### C OXA1 ####[address] [id number] DEOXY HGB 0.0 % Normal 0.0 - 5.0 [facility] Comment on above: Performed By: #### C OXA1 ####[address] [id number] MET HGB 0.7 % Normal 0.0 - 1.5 [facility] Comment on above: Performed By: #### C OXA1 ####[address] [id number] CO HGB 1.4 % Normal [facility] Comment on above: Result Comment: REF VALUESNONSMOKERS 0.5-1.5%SMOKERS 0.5-10.0% Performed By: #### C OXA1 ####[address] [id number] DEOXY HGB 0.1 % Normal 0.0 - 5.0 [facility] Comment on above: Performed By: #### C OXA1 ####[address] [id number] MET HGB 1.0 % Normal 0.0 - 1.5 [facility] Comment on above: Performed By: #### C OXA1 ####[address] [id number] CO HGB 1.4 % Normal [facility] Comment on above: Result Comment: REF VALUESNONSMOKERS 0.5-1.5%SMOKERS 0.5-10.0% Performed By: #### C OXA1 ####[address] [id number] DEOXY HGB 0.0 % Normal 0.0 - 5.0 [facility] Comment on above: Performed By: #### C OXA1 ####[address] [id number] Hemoglobin (Bld) [Mass/Vol] 12.1 g/dL Low 13.5 - 17.5 [facility] Comment on above: Performed By: #### C OXA1 ####[address] [id number] Performed By: #### A FPA4 ####[address] [id number] MET HGB 1.1 % Normal 0.0 - 1.5 [facility] Comment on above: Performed By: #### C OXA1 ####[address] [id number] OXY HGB 97.5 % Normal 94.0 - 98.0 [facility] Comment on above: Performed By: #### C OXA1 ####[address] [id number] Performed By: #### A FPA4 ####[address] [id number] CO HGB 1.7 % Abnormal [facility] Comment on above: Result Comment: REF VALUESNONSMOKERS 0.5-1.5%SMOKERS 0.5-10.0% Performed By: #### C OXA1 ####[address] [id number] DEOXY HGB 0.0 % Normal 0.0 - 5.0 [facility] Comment on above: Performed By: #### C OXA1 ####[id number] [place], [place] [id number] MET HGB 0.9 % Normal 0.0 - 1.5 [facility] Comment on above: Performed By: #### C OXA1 ####[address] [id number] CO HGB 1.9 % Abnormal [facility] Comment on above: Result Comment: REF VALUESNONSMOKERS 0.5-1.5%SMOKERS 0.5-10.0% Performed By: #### C OXA1 ####[address] [id number] DEOXY HGB 1.1 % Normal 0.0 - 5.0 [facility] Comment on above: Performed By: #### C OXA1 ####[address] [id number] Hemoglobin (Bld) [Mass/Vol] 14.1 g/dL Normal 13.5 - 17.5 [facility] Comment on above: Performed By: #### C OXA1 ####[address] [id number] Performed By: #### A FPA4 ####[address] [id number] MET HGB 0.7 % Normal 0.0 - 1.5 [facility] Comment on above: Performed By: #### C OXA1 ####[address] [id number] OXY HGB 96.3 % Normal 94.0 - 98.0 [facility] Comment on above: Performed By: #### C OXA1 ####[address] [id number] Performed By: #### A FPA4 ####[address] [id number] COOX PANEL,VENOUSon 11-03-19 23 CO HGB 1.8 % Abnormal [facility] Comment on above: Result Comment: REF VALUESNONSMOKERS 0.5-1.5%SMOKERS 0.5-10.0% Performed By: #### C OXV1 ####[facility] [place], [place] [id number] MET HGB 0.6 % Normal 0.0 - 1.5 [facility] Comment on above: Performed By: #### C OXV1 ####[facility] [place], [place] [id number] Electrocardiogram 12 Leadon 11-02-2022 Electrocardiogram 12 Lead Ventricular Rate 57 Atrial Rate 57 P-R Interval 194 QRS Duration 134 Q-T Interval 490 QTC Calculation(Bazett) 476 P Levasy 69 R Levasy 34 T Levasy -14 QRS Count 10 Q Onset 224 P Onset 127 P Offset 181 T Offset 469 QTC Fredericia 481 Diagnosis Class Abnormal Diagnosis Sinus bradycardia Right bundle branch block T wave abnormality, consider inferior ischemia Abnormal ECG When compared with ECG of 08-OCT-2022 08:26, Right bundle branch block is now present Confirmed by Devaughn Sanchez ([id number]) on 11/03/2022 9:26:30 AM Normal [facility] GLUCOSE-POCTon 11-02-2022 Glucose [Mass/Vol] 131 mg/dL High 74 - 99 [facility] Comment on above: Performed By: #### G NGUYỄN ####[address] [id number] Glucose [Mass/Vol] 132 mg/dL High 74 - 99 [facility] Comment on above: Performed By: #### G NGUYỄN ####[address] [id number] Intraoperative Transesophage al Echoon 11-02-2022 Intraoperative Transesophageal Echo Normal [facility] Laboratory - Blood bankon ABO group Nom (Bld) A MG-Ca rdiolog [facility] 101 Work Phone: Rh immune globulin screen (Bld) [Interp] Positive MG-Cardiol og [facility] 101 Work Phone: Laboratory - Chemistry and C hemistry - challengeon 11-02-2022 Glucose [Mass/Vol] 158 mg/dL above high threshold 74 - 99 [facility] [facility] Work Phone: Anion gap 4 (BldA) [Moles/Vol] 13 mmol/L 10 - 25 [facility] 101 Work Phone: Base excess Calc (Bld) [Moles/Vol] -3.3000 mmol/L below low threshold -2.0 - 3.0 [facility] 101 Work Phone: Calcium.ionized (BldA) [Moles/Vol] 1.11 mmol/L See Below [facility] 101 Work Phone: Comment on above: Reference Range: 1.1 0 - 1.33 Chloride (BldA) [Moles/Vol] 109 mmol/L above high threshold 98 - 107 [facility] 101 Work Phone: CO2 (Bld) [Partial pressure] 40 mm[Hg] 38 - 42 [facility] [facility] Work Phone: Glucose [Mass/Vol] 159 mg/dL above high threshold 74 - 99 [facility] 101 Work Phone: HCO3 (Bld) [Moles/Vol] 22.1 mmol/L See Below [facility] 101 Work Phone: Comment on above: Reference Range: 22. 0 - 26.0 Lactate (BldA) [Moles/Vol] 2.3 mmol/L above high threshold 0.4 - 2.0 [facility] [facility] Work Phone: Oxygen (Bld) [Partial pressure] 75 mm[Hg] below low threshold 85 - 95 [facility] 101 Work Phone: Oxyhemoglobin (BldA) [Mass fraction] 94.2 % See Below [facility] 101 Work Phone: Comment on above: Reference Range: 94. 0 - 98.0 pH (Bld) 7.35 [pH] below low threshold See Below [facility] [facility] Work Phone: Comment on above: Reference Range: 7.3 8 - 7.42 Potassium (BldA) [Moles/Vol] 4.2 mmol/L 3.5 - 5.3 [facility] [facility] Work Phone: Sodium (BldA) [Moles/Vol] 140 mmol/L 136 - 145 [facility] 101 Work Phone: Base excess Calc (Bld) [Moles/Vol] -3.5000 mmol/L below low threshold -2.0 - 3.0 [facility] 101 Work Phone: Calcium.ionized (BldA) [Moles/Vol] 1.10 mmol/L See Below [facility] 101 Work Phone: Comment on above: Reference Range: 1.1 0 - 1.33 Chloride (BldA) [Moles/Vol] 111 mmol/L above high threshold 98 - 107 [facility] 101 Work Phone: Potassium (BldA) [Moles/Vol] 4.1 mmol/L 3.5 - 5.3 [facility] 101 Work Phone: Potassium [Moles/Vol] 4.6 mmol/L 3.5 - 5.3 [facility] 101 Work Phone: Potassium [Moles/Vol] 4.6 mmol/L 3.5 - 5.3 [facility] 101 Work Phone: Glucose [Mass/Vol] 131 mg/dL above high threshold 74 - 99 [facility] 101 Work Phone: Anion gap 4 (BldV) [Moles/Vol] 9 mmol/L below low threshold 10 - 25 [facility] 101 Work Phone: Base excess Calc (BldV) [Moles/Vol] -1.2000 mmol/L -2.0 - 3.0 [facility] 101 Work Phone: Calcium.ionized (BldV) [Moles/Vol] 1.23 mmol/L See Below [facility] 101 Work Phone: Comment on above: Reference Range: 1.1 0 - 1.33 Chloride (BldV) [Moles/Vol] 109 mmol/L above high threshold 98 - 107 [facility] [facility] Work Phone: CO2 (BldV) [Partial pressure] 46 mm[Hg] 41 - 51 [facility] [facility] Work Phone: Glucose [Mass/Vol] 125 mg/dL above high threshold 74 - 99 [facility] 101 Work Phone: HCO3 (Bld) [Moles/Vol] 24.8 mmol/L See Below [facility] 101 Work Phone: Comment on above: Reference Range: 22. 0 - 26.0 Lactate (BldV) [Moles/Vol] 2.7 mmol/L above high threshold 0.4 - 2.0 [facility] 101 Work Phone: Oxygen (BldV) [Partial pressure] 44 mm[Hg] 35 - 45 [facility] [facility] Work Phone: Oxyhemoglobin (BldV) [Mass fraction] 70.0 % See Below [facility] 101 Work Phone: Comment on above: Reference Range: 45. 0 - 75.0 pH (BldV) 7.34 [pH] See Below [facility] [facility] Work Phone: Comment on above: Reference Range: 7.3 3 - 7.43 Potassium (BldV) [Moles/Vol] 4.6 mmol/L 3.5 - 5.3 [facility] [facility] Work Phone: Sodium (BldV) [Moles/Vol] 138 mmol/L 136 - 145 [facility] 101 Work Phone: Anion gap 4 (BldA) [Moles/Vol] 13 mmol/L 10 - 25 [facility] 101 Work Phone: Base excess Calc (Bld) [Moles/Vol] -1.7000 mmol/L -2.0 - 3.0 [facility] 101 Work Phone: Calcium.ionized (BldA) [Moles/Vol] 1.31 mmol/L See Below [facility] [facility] Work Phone: Comment on above: Reference Range: 1.1 0 - 1.33 Chloride (BldA) [Moles/Vol] 106 mmol/L 98 - 107 [facility] [facility] Work Phone: CO2 (Bld) [Partial pressure] 45 mm[Hg] above high threshold 38 - 42 [facility] [facility] Work Phone: Glucose [Mass/Vol] 132 mg/dL above high threshold 74 - 99 [facility] 101 Work Phone: HCO3 (Bld) [Moles/Vol] 24.3 mmol/L See Below [facility] 101 Work Phone: Comment on above: Reference Range: 22. 0 - 26.0 Lactate (BldA) [Moles/Vol] 2.6 mmol/L above high threshold 0.4 - 2.0 [facility] [facility] Work Phone: Oxygen (Bld) [Partial pressure] 94 mm[Hg] 85 - 95 [facility] 101 Work Phone: Oxyhemoglobin (BldA) [Mass fraction] 96.7 % See Below [facility] 101 Work Phone: Comment on above: Reference Range: 94. 0 - 98.0 Potassium (BldA) [Moles/Vol] 4.7 mmol/L 3.5 - 5.3 [facility] [facility] Work Phone: Sodium (BldA) [Moles/Vol] 139 mmol/L 136 - 145 [facility] 101 Work Phone: Albumin BCP dye [Mass/Vol] 3.3 g/dL below low threshold 3.4 - 5.0 [facility] 101 Work Phone: ALP [Catalytic activity/Vol] 32 U/L below low threshold 33 - 136 [facility] [facility] Work Phone: ALT With P-5'-P [Catalytic activity/Vol] 23 U/L 10 - 52 [facility] 101 Work Phone: Comment on above: Patients treated wit h Sulfasalazine may generate falsely decreased results for ALT. Anion gap [Moles/Vol] 12 mmol/L 10 - 20 [facility] [facility] Work Phone: AST With P-5'-P [Catalytic activity/Vol] 35 U/L 9 - 39 [facility] [facility] Work Phone: Comment on above: MILD HEMOLYSIS DETEC CHAPO. The result may be falsely elevated due tohemolysis or other interferents. Clinical correlation is recommended.Repeat testing may be considered. Bilirubin [Mass/Vol] 0.7 mg/dL 0.0 - 1.2 [facility] [facility] Work Phone: Calcium [Mass/Vol] 8.5 mg/dL below low threshold 8.6 - 10.3 [facility] [facility] Work Phone: Chloride [Moles/Vol] 108 mmol/L above high threshold 98 - 107 [facility] [facility] Work Phone: CO2 [Moles/Vol] 25 mmol/L 21 - 32 [facility] 101 Work Phone: Creatinine [Mass/Vol] 0.93 mg/dL See Below [facility] 101 Work Phone: Comment on above: Reference Range: 0.5 0 - 1.30 Glucose [Mass/Vol] 130 mg/dL above high threshold 74 - 99 [facility] [facility] Work Phone: Potassium [Moles/Vol] 4.4 mmol/L 3.5 - 5.3 [facility] 101 Work Phone: Comment on above: MILD HEMOLYSIS DETEC CHAPO. The result may be falsely elevated due tohemolysis or other interferents. Clinical correlation is recommended.Repeat testing may be considered. Protein [Mass/Vol] 5.5 g/dL below low threshold 6.4 - 8.2 [facility] 101 Work Phone: Sodium [Moles/Vol] 141 mmol/L 136 - 145 [facility]Car di[facility] 101 Work Phone: Urea nitrogen [Mass/Vol] 18 mg/dL 6 - 23 [facility] [facility] Work Phone: Glucose [Mass/Vol] 132 mg/dL above high threshold 74 - 99 [facility] [facility] Work Phone: Anion gap 4 (BldA) [Moles/Vol] 10 mmol/L 10 - 25 [facility] [facility] Work Phone: Base excess Calc (Bld) [Moles/Vol] 0.5 mmol/L -2.0 - 3.0 [facility] 101 Work Phone: Calcium.ionized (BldA) [Moles/Vol] 1.38 mmol/L above high threshold See Below [facility] 101 Work Phone: Comment on above: Reference Range: 1.1 0 - 1.33 Carboxyhemoglobin (BldA) [Mass fraction] 1.5 % [facility] 101 Work Phone: Comment on above: REF VALUESNONSMOKERS 0.5-1.5%SMOKERS 0.5-10.0% Chloride (BldA) [Moles/Vol] 106 mmol/L 98 - 107 [facility] 101 Work Phone: CO2 (Bld) [Partial pressure] 41 mm[Hg] 38 - 42 [facility] 101 Work Phone: Glucose [Mass/Vol] 157 mg/dL above high threshold 74 - 99 [facility] 101 Work Phone: HCO3 (Bld) [Moles/Vol] 25.4 mmol/L See Below [facility] 101 Work Phone: Comment on above: Reference Range: 22. 0 - 26.0 Lactate (BldA) [Moles/Vol] 2.5 mmol/L above high threshold 0.4 - 2.0 [facility] 101 Work Phone: Methemoglobin (BldA) [Mass fraction] 1.1 % 0.0 - 1.5 [facility] 101 Work Phone: Oxygen (Bld) [Partial pressure] 207 mm[Hg] above high threshold 85 - 95 [facility] 101 Work Phone: Oxyhemoglobin (BldA) [Mass fraction] 97.2 % See Below [facility] 101 Work Phone: Comment on above: Reference Range: 94. 0 - 98.0 pH (Bld) 7.40 [pH] See Below [facility] 101 Work Phone: Comment on above: Reference Range: 7.3 8 - 7.42 Potassium (BldA) [Moles/Vol] 5.2 mmol/L 3.5 - 5.3 [facility] 101 Work Phone: Sodium (BldA) [Moles/Vol] 136 mmol/L 136 - 145 [facility] 101 Work Phone: Anion gap 4 (BldA) [Moles/Vol] 9 mmol/L below low threshold 10 - 25 [facility] 101 Work Phone: Base excess Calc (Bld) [Moles/Vol] 5.7 mmol/L above high threshold -2.0 - 3.0 [facility] 101 Work Phone: Calcium.ionized (BldA) [Moles/Vol] 1.09 mmol/L below low threshold See Below [facility] 101 Work Phone: Comment on above: Reference Range: 1.1 0 - 1.33 Carboxyhemoglobin (BldA) [Mass fraction] 1.7 % Abnormal [facility] 101 Work Phone: Comment on above: REF VALUESNONSMOKERS 0.5-1.5%SMOKERS 0.5-10.0% Chloride (BldA) [Moles/Vol] 104 mmol/L 98 - 107 [facility] 101 Work Phone: CO2 (Bld) [Partial pressure] 48 mm[Hg] above high threshold 38 - 42 [facility] 101 Work Phone: Glucose [Mass/Vol] 172 mg/dL above high threshold 74 - 99 [facility] 101 Work Phone: HCO3 (Bld) [Moles/Vol] 31.1 mmol/L above hig h threshold See Below [facility] 101 Work Phone: Comment on above: Reference Range: 22. 0 - 26.0 Lactate (BldA) [Moles/Vol] 2.1 mmol/L above high threshold 0.4 - 2.0 [facility] 101 Work Phone: Methemoglobin (BldA) [Mass fraction] 0.7 % 0.0 - 1.5 [facility] 101 Work Phone: Oxygen (Bld) [Partial pressure] 315 mm[Hg] above high threshold 85 - 95 [facility] 101 Work Phone: Oxyhemoglobin (BldA) [Mass fraction] 97.5 % See Below [facility] 101 Work Phone: Comment on above: Reference Range: 94. 0 - 98.0 pH (Bld) 7.42 [pH] See Below [facility] 101 Work Phone: Comment on above: Reference Range: 7.3 8 - 7.42 Potassium (BldA) [Moles/Vol] 5.5 mmol/L above high threshold 3.5 - 5.3 [facility] 101 Work Phone: Sodium (BldA) [Moles/Vol] 139 mmol/L 136 - 145 [facility] [facility] Work Phone: Anion gap 4 (BldA) [Moles/Vol] 12 mmol/L 10 - 25 [facility] [facility] Work Phone: Base excess Calc (Bld) [Moles/Vol] -0.8000 mmol/L -2.0 - 3.0 [facility] 101 Work Phone: Calcium.ionized (BldA) [Moles/Vol] 1.11 mmol/L See Below [facility] 101 Work Phone: Comment on above: Reference Range: 1.1 0 - 1.33 Carboxyhemoglobin (BldA) [Mass fraction] 1.4 % [facility] 101 Work Phone: Comment on above: REF VALUESNONSMOKERS 0.5-1.5%SMOKERS 0.5-10.0% Chloride (BldA) [Moles/Vol] 104 mmol/L 98 - 107 [facility] 101 Work Phone: Glucose [Mass/Vol] 176 mg/dL above high threshold 74 - 99 [facility] 101 Work Phone: HCO3 (Bld) [Moles/Vol] 24.3 mmol/L See Below [facility] Work Phone: Comment on above: Reference Range: 22. 0 - 26.0 Lactate (BldA) [Moles/Vol] 2.0 mmol/L 0.4 - 2.0 [facility] 101 Work Phone: Methemoglobin (BldA) [Mass fraction] 1.0 % 0.0 - 1.5 [facility] 101 Work Phone: Oxygen (Bld) [Partial pressure] 286 mm[Hg] above high threshold 85 - 95 [facility] 101 Work Phone: Oxyhemoglobin (BldA) [Mass fraction] 97.5 % See Below [facility] 101 Work Phone: Comment on above: Reference Range: 94. 0 - 98.0 pH (Bld) 7.38 [pH] See Below [facility] 101 Work Phone: Comment on above: Reference Range: 7.3 8 - 7.42 Potassium (BldA) [Moles/Vol] 5.2 mmol/L 3.5 - 5.3 [facility] [facility] Work Phone: Sodium (BldA) [Moles/Vol] 135 mmol/L below low threshold 136 - 145 [facility] [facility] Work Phone: Anion gap 4 (BldV) [Moles/Vol] 11 mmol/L 10 - 25 [facility] 101 Work Phone: Base excess Calc (BldV) [Moles/Vol] -0.8000 mmol/L -2.0 - 3.0 [facility] Work Phone: Calcium.ionized (BldV) [Moles/Vol] 1.12 mmol/L See Below [facility] 101 Work Phone: Comment on above: Reference Range: 1.1 0 - 1.33 Carboxyhemoglobin (BldV) [Mass fraction] 1.8 % Abnormal [facility] Work Phone: Comment on above: REF VALUESNONSMOKERS 0.5-1.5%SMOKERS 0.5-10.0% Chloride (BldV) [Moles/Vol] 104 mmol/L 98 - 107 [facility] Work Phone: CO2 (BldV) [Partial pressure] 50 mm[Hg] 41 - 51 [facility] Work Phone: Glucose [Mass/Vol] 172 mg/dL above high threshold 74 - 99 [facility] 101 Work Phone: HCO3 (Bld) [Moles/Vol] 25.8 mmol/L See Below [facility] Work Phone: Comment on above: Reference Range: 22. 0 - 26.0 Lactate (BldV) [Moles/Vol] 2.0 mmol/L 0.4 - 2.0 [facility] 101 Work Phone: Methemoglobin (BldV) [Mass fraction] 0.6 % 0.0 - 1.5 [facility] Work Phone: Oxygen (BldV) [Partial pressure] 55 mm[Hg] above high threshold 35 - 45 [facility] 101 Work Phone: Oxyhemoglobin (BldV) [Mass fraction] 86.7 % above high threshold See Below [facility] [facility] Work Phone: Comment on above: Reference Range: 45. 0 - 75.0 pH (BldV) 7.32 [pH] below low threshold See Below [facility] 101 Work Phone: Comment on above: Reference Range: 7.3 3 - 7.43 Potassium (BldV) [Moles/Vol] 5.0 mmol/L 3.5 - 5.3 [facility] Work Phone: Sodium (BldV) [Moles/Vol] 136 mmol/L 136 - 145 [facility] Work Phone: Anion gap 4 (BldA) [Moles/Vol] 13 mmol/L 10 - 25 [facility] Work Phone: Base excess Calc (Bld) [Moles/Vol] -2.0000 mmol/L -2.0 - 3.0 [facility] Work Phone: Calcium.ionized (BldA) [Moles/Vol] 1.06 mmol/L below low threshold See Below [facility] Work Phone: Comment on above: Reference Range: 1.1 0 - 1.33 Carboxyhemoglobin (BldA) [Mass fraction] 1.4 % [facility] Work Phone: Comment on above: REF VALUESNONSMOKERS 0.5-1.5%SMOKERS 0.5-10.0% Chloride (BldA) [Moles/Vol] 103 mmol/L 98 - 107 [facility] Work Phone: CO2 (Bld) [Partial pressure] 49 mm[Hg] above high threshold 38 - 42 [facility] [facility] Work Phone: Glucose [Mass/Vol] 147 mg/dL above high threshold 74 - 99 [facility] 101 Work Phone: HCO3 (Bld) [Moles/Vol] 24.7 mmol/L See Below [facility] 101 Work Phone: Comment on above: Reference Range: 22. 0 - 26.0 Lactate (BldA) [Moles/Vol] 1.8 mmol/L 0.4 - 2.0 [facility] 101 Work Phone: Methemoglobin (BldA) [Mass fraction] 1.1 % 0.0 - 1.5 [facility] 101 Work Phone: Oxygen (Bld) [Partial pressure] 362 mm[Hg] above high threshold 85 - 95 [facility] 101 Work Phone: Oxyhemoglobin (BldA) [Mass fraction] 97.5 % See Below [facility] 101 Work Phone: Comment on above: Reference Range: 94. 0 - 98.0 pH (Bld) 7.31 [pH] below low threshold See Below [facility] 101 Work Phone: Comment on above: Reference Range: 7.3 8 - 7.42 Potassium (BldA) [Moles/Vol] 4.6 mmol/L 3.5 - 5.3 [facility] 101 Work Phone: Sodium (BldA) [Moles/Vol] 136 mmol/L 136 - 145 [facility] [facility] Work Phone: Anion gap 4 (BldA) [Moles/Vol] 9 mmol/L below low threshold 10 - 25 [facility] 101 Work Phone: Base excess Calc (Bld) [Moles/Vol] 0.8 mmol/L -2.0 - 3.0 [facility] 101 Work Phone: Calcium.ionized (BldA) [Moles/Vol] 1.16 mmol/L See Below [facility] 101 Work Phone: Comment on above: Reference Range: 1.1 0 - 1.33 Carboxyhemoglobin (BldA) [Mass fraction] 1.7 % Abnormal [facility] [facility] Work Phone: Comment on above: REF VALUESNONSMOKERS 0.5-1.5%SMOKERS 0.5-10.0% Chloride (BldA) [Moles/Vol] 104 mmol/L 98 - 107 [facility] [facility] Work Phone: CO2 (Bld) [Partial pressure] 51 mm[Hg] above high threshold 38 - 42 [facility] [facility] Work Phone: Glucose [Mass/Vol] 148 mg/dL above high threshold 74 - 99 [facility] [facility] Work Phone: HCO3 (Bld) [Moles/Vol] 27.5 mmol/L above hig h threshold See Below [facility] [facility] Work Phone: Comment on above: Reference Range: 22. 0 - 26.0 Lactate (BldA) [Moles/Vol] 1.9 mmol/L 0.4 - 2.0 [facility] [facility] Work Phone: Methemoglobin (BldA) [Mass fraction] 0.9 % 0.0 - 1.5 [facility] [facility] Work Phone: Oxygen (Bld) [Partial pressure] 269 mm[Hg] above high threshold 85 - 95 [facility] [facility] Work Phone: Oxyhemoglobin (BldA) [Mass fraction] 97.4 % See Below [facility] [facility] Work Phone: Comment on above: Reference Range: 94. 0 - 98.0 Potassium (BldA) [Moles/Vol] 4.4 mmol/L 3.5 - 5.3 [facility] [facility] Work Phone: Sodium (BldA) [Moles/Vol] 136 mmol/L 136 - 145 [facility] [facility] Work Phone: Anion gap 4 (BldMV) [Moles/Vol] 9 mmol/L below low threshold 10 - 25 [facility] [facility] Work Phone: Base excess Calc (BldMV) [Moles/Vol] 1.7 mmol/L [facility] [facility] Work Phone: Calcium.ionized (BldMV) [Moles/Vol] 1.19 mmol/L See Below [facility] [facility] Work Phone: Comment on above: Reference Range: 1.1 0 - 1.33 Chloride [Moles/Vol] 103 mmol/L 98 - 107 [facility] [facility] Work Phone: CO2 (BldMV) [Partial pressure] 53 {mmHg} [facility] [facility] Work Phone: Glucose [Mass/Vol] 120 mg/dL above high threshold 74 - 99 [facility] [facility] Work Phone: HCO3 (BldMV) [Moles/Vol] 28.6 mmol/L [facility] [facility] Work Phone: Lactate (BldMV) [Moles/Vol] 1.8 mmol/L 0.4 - 2.0 [facility] [facility] Work Phone: Oxygen (BldMV) [Partial pressure] 60 {mmHg} [facility] [facility] Work Phone: Oxyhemoglobin (BldMV) [Mass fraction] 88.3 % above high threshold See Below [facility] [facility] Work Phone: Comment on above: Reference Range: 45. 0 - 75.0 pH (BldMV) 7.34 1 [facility] Work Phone: Potassium (BldMV) [Moles/Vol] 4.0 mmol/L 3.5 - 5.3 [facility] Work Phone: Sodium (BldMV) [Moles/Vol] 137 mmol/L 136 - 145 [facility] Work Phone: Anion gap 4 (BldA) [Moles/Vol] 11 mmol/L 10 - 25 [facility] Work Phone: Base excess Calc (Bld) [Moles/Vol] 3.3 mmol/L above high threshold -2.0 - 3.0 [facility] Work Phone: Calcium.ionized (BldA) [Moles/Vol] 1.22 mmol/L See Below [facility] Work Phone: Comment on above: Reference Range: 1.1 0 - 1.33 Carboxyhemoglobin (BldA) [Mass fraction] 1.9 % Abnormal [facility] Work Phone: Comment on above: REF VALUESNONSMOKERS 0.5-1.5%SMOKERS 0.5-10.0% Chloride (BldA) [Moles/Vol] 103 mmol/L 98 - 107 [facility] Work Phone: Glucose [Mass/Vol] 116 mg/dL above high threshold 74 - 99 [facility] Work Phone: HCO3 (Bld) [Moles/Vol] 27.8 mmol/L above hig h threshold See Below [facility] Work Phone: Comment on above: Reference Range: 22. 0 - 26.0 Lactate (BldA) [Moles/Vol] 1.8 mmol/L 0.4 - 2.0 [facility] Work Phone: Methemoglobin (BldA) [Mass fraction] 0.7 % 0.0 - 1.5 [facility] Work Phone: Oxygen (Bld) [Partial pressure] 83 mm[Hg] below low threshold 85 - 95 [facility] Work Phone: Oxyhemoglobin (BldA) [Mass fraction] 96.3 % See Below [facility] Work Phone: Comment on above: Reference Range: 94. 0 - 98.0 pH (Bld) 7.44 [pH] above high threshold See Below [facility] Work Phone: Comment on above: Reference Range: 7.3 8 - 7.42 Potassium (BldA) [Moles/Vol] 3.9 mmol/L 3.5 - 5.3 [facility] Work Phone: Sodium (BldA) [Moles/Vol] 138 mmol/L 136 - 145 [facility] [facility] Work Phone: Laboratory - Hematology and Cell countson 11-02-2022 Hematocrit Est (Bld) [Volume fraction] 35.0 % below low threshold See Below [facility] Work Phone: Comment on above: Reference Range: 41. 0 - 52.0 Hemoglobin (Bld) [Mass/Vol] 11.5 g/dL below low threshold See Below [facility] Work Phone: Comment on above: Reference Range: 13. 5 - 17.5 Hematocrit Est (Bld) [Volume fraction] 34.0 % below low threshold See Below [facility] [facility] Work Phone: Comment on above: Reference Range: 41. 0 - 52.0 Hematocrit (Bld) [Volume fraction] Canceled [facility] [facility] Work Phone: Hemoglobin (Bld) [Mass/Vol] Canceled [facility] [facility] Work Phone: Platelets (Bld) [#/Vol] Canceled [facility] [facility] Work Phone: RBC (Bld) [#/Vol] Canceled [facility] [facility] Work Phone: Hematocrit Est (Bld) [Volume fraction] 35.0 % below low threshold See Below [facility] [facility] Work Phone: Comment on above: Reference Range: 41. 0 - 52.0 Hemoglobin (Bld) [Mass/Vol] 11.8 g/dL below low threshold See Below [facility] [facility] Work Phone: Comment on above: Reference Range: 13. 5 - 17.5 Hematocrit Est (Bld) [Volume fraction] 39.0 % below low threshold See Below [facility] [facility] Work Phone: Comment on above: Reference Range: 41. 0 - 52.0 Hemoglobin (Bld) [Mass/Vol] 13.1 g/dL below low threshold See Below [facility] [facility] Work Phone: Comment on above: Reference Range: 13. 5 - 17.5 Erythrocyte distribution width (RBC) [Ratio] 12.8 % See Below [facility] [facility] Work Phone: Comment on above: Reference Range: 11. 5 - 14.5 Hematocrit (Bld) [Volume fraction] 36.5 % below low threshold See Below [facility] [facility] Work Phone: Comment on above: Reference Range: 41. 0 - 52.0 Hemoglobin (Bld) [Mass/Vol] 12.5 g/dL below low threshold See Below [facility] [facility] Work Phone: Comment on above: Reference Range: 13. 5 - 17.5 MCHC (RBC) [Mass/Vol] 34.2 g/dL See Below [facility] [facility] Work Phone: Comment on above: Reference Range: 32. 0 - 36.0 MCV (RBC) [Entitic vol] 92 fL 80 - 100 [facility] [facility] Work Phone: Platelets (Bld) [#/Vol] 144 10*3/uL below lo w threshold 150 - 450 [facility] [facility] Work Phone: RBC (Bld) [#/Vol] 3.95 {x10E12/L} below low threshold See Below [facility] [facility] Work Phone: Comment on above: Reference Range: 4.5 0 - 5.90 WBC (Bld) [#/Vol] 17.0 10*3/uL above high threshold 4.4 - 11.3 [facility] [facility] Work Phone: Deoxyhemoglobin (BldA) [Mass fraction] 0.3 % 0.0 - 5.0 [facility] [facility] Work Phone: Hematocrit Est (Bld) [Volume fraction] 35.0 % below low threshold See Below [facility] [facility] Work Phone: Comment on above: Reference Range: 41. 0 - 52.0 Hemoglobin (Bld) [Mass/Vol] 11.8 g/dL below low threshold See Below [facility] [facility] Work Phone: Comment on above: Reference Range: 13. 5 - 17.5 Deoxyhemoglobin (BldA) [Mass fraction] 0.0 % 0.0 - 5.0 [facility] [facility] Work Phone: Hematocrit Est (Bld) [Volume fraction] 35.0 % below low threshold See Below [facility] [facility] Work Phone: Comment on above: Reference Range: 41. 0 - 52.0 Hemoglobin (Bld) [Mass/Vol] 11.8 g/dL below low threshold See Below [facility] [facility] Work Phone: Comment on above: Reference Range: 13. 5 - 17.5 Deoxyhemoglobin (BldA) [Mass fraction] 0.1 % 0.0 - 5.0 [facility] [facility] Work Phone: Hematocrit Est (Bld) [Volume fraction] 35.0 % below low threshold See Below [facility] [facility] Work Phone: Comment on above: Reference Range: 41. 0 - 52.0 Hemoglobin (Bld) [Mass/Vol] 11.8 g/dL below low threshold See Below [facility] [facility] Work Phone: Comment on above: Reference Range: 13. 5 - 17.5 Hematocrit Est (Bld) [Volume fraction] 35.0 % below low threshold See Below [facility] [facility] Work Phone: Comment on above: Reference Range: 41. 0 - 52.0 Hemoglobin (Bld) [Mass/Vol] 11.7 g/dL below low threshold See Below [facility] [facility] Work Phone: Comment on above: Reference Range: 13. 5 - 17.5 Deoxyhemoglobin (BldA) [Mass fraction] 0.0 % 0.0 - 5.0 [facility] [facility] Work Phone: Hematocrit Est (Bld) [Volume fraction] 36.0 % below low threshold See Below [facility] [facility] Work Phone: Comment on above: Reference Range: 41. 0 - 52.0 Hemoglobin (Bld) [Mass/Vol] 12.1 g/dL below low threshold [facility] Work [facility]: Comment on above: Reference Range: 13. 5 - 17.5 Deoxyhemoglobin (BldA) [Mass fraction] 0.0 % 0.0 - 5.0 [facility] Work Phone: Hematocrit Est (Bld) [Volume fraction] 42.0 % See Below [facility] Work Phone: Comment on above: Reference Range: 41. 0 - 52.0 Hemoglobin (Bld) [Mass/Vol] 13.9 g/dL See Below [facility] Work Phone: Comment on above: Reference Range: 13. 5 - 17.5 Hematocrit Est (Bld) [Volume fraction] 42.0 % See Below [place] [address] Work Phone: Comment on above: Reference Range: 41. 0 - 52.0 Hemoglobin (Bld) [Mass/Vol] 14.1 g/dL See Below [place] [address] Work Phone: Comment on above: Reference Range: 13. 5 - 17.5 Deoxyhemoglobin (BldA) [Mass fraction] 1.1 % 0.0 - 5.0 [place] [address] Work Phone: Hematocrit Est (Bld) [Volume fraction] 42.0 % See Below [facility] Work Phone: Comment on above: Reference Range: 41. 0 - 52.0 Hemoglobin (Bld) [Mass/Vol] 14.1 g/dL See Below [place] [address] Work Phone: Comment on above: Reference Range: 13. 5 - 17.5 MAGNESIUMon 11-02-[address] [facility] Comment on above: Order Comment: TEST MAGNESIUM WAS CANCELLED, 11/02/2022 15:19 NOT NEEDED AT THIS TIME, PERS.TAYLOR MATTSON @1519 11/02/2022. Performed By: #### M G ####[address] [id number] Magnesium [Mass/Vol] 2.44 mg/dL High 1.60 - 2.40 [facility] Comment on above: Performed By: #### M G ####[address] [id number] MV FULL PANELon 11-02-2022 Anion gap [Moles/Vol] 9 mmol/L Low 10 - 25 [facility] Comment on above: Performed By: #### M VPA4 ####[address] [id number] BASE EXCESS-BLOOD 1.7 mmol/L Normal [facility] Comment on above: Performed By: #### M VPA4 ####[address] [id number] BICARB, CALCULATED 28.6 mmol/L Normal [facility] Comment on above: Performed By: #### M VPA4 ####[address] [id number] CALCIUM,IONIZED 1.19 mmol/L Normal 1.10 - 1.33 [facility] Comment on above: Performed By: #### M VPA4 ####[address] [id number] Chloride [Moles/Vol] 103 mmol/L Normal 98 - 107 [facility] Comment on above: Performed By: #### M VPA4 ####[address] [id number] FIO2 100 % Normal [facility] Comment on above: Performed By: #### M VPA4 ####[address] [id number] Glucose [Mass/Vol] 120 mg/dL High 74 - 99 [facility] Comment on above: Performed By: #### M VPA4 ####[address] [id number] Hematocrit (Bld) [Volume fraction] 42.0 % Normal 41.0 - 52.0 [facility] Comment on above: Performed By: #### M VPA4 ####[address] [id number] Hemoglobin (Bld) [Mass/Vol] 14.1 g/dL Normal 13.5 - 17.5 [facility] Comment on above: Performed By: #### M VPA4 ####[address] [id number] Lactate [Moles/Vol] 1.8 mmol/L Normal 0.4 - 2.0 [facility] Comment on above: Performed By: #### M VPA4 ####[address] [id number] OXY HGB 88.3 % High 45.0 - 75.0 [facility] Comment on above: Performed By: #### M VPA4 ####[address] [id number] Oxygen (Bld) [Partial pressure] 60 mm[Hg] Normal [facility] Comment on above: Performed By: #### M VPA4 ####[address] [id number] PCO2 [address] [facility] Comment on above: Performed By: #### M VPA4 ####[address] [id number] Potassium [Moles/Vol] 4.0 mmol/L Normal 3.5 - 5.3 [facility] Comment on above: Performed By: #### M VPA4 ####[address] [id number] SO2 91 % Normal [facility] Comment on above: Performed By: #### M VPA4 ####[address] [id number] Sodium [Moles/Vol] 137 mmol/L Normal 136 - 145 [facility] Comment on above: Performed By: #### M VPA4 ####[facility] [place], [place] [id number] Magnesium, Serumon 3 Magnesium [Mass/Vol] Canceled [facility] [facility] Work Phone: Magnesium [Mass/Vol] 2.44 mg/dL above high threshold See Below [facility] [facility] Work Phone: Comment on above: Reference Range: 1.6 0 - 2.40 No Panel Informationon 11-02 Arterial patency Wrist artery --pre arterial puncture [facility] [facility] Work Phone: Inhaled oxygen concentration 28 % [facility] [facility] Work Phone: Cannula [facility] [facility] Work Phone: A LINE [facility] [facility] Work Phone: Inhaled oxygen concentration 50 % [facility] [facility] Work Phone: 7 {cm_H2O} [facility] [facility] Work Phone: CPAP [facility] [facility] Work Phone: [email or web address] [email or web address]?[email or web address] yDateTime?PatientID=[id number]&Date= 3&Time=13%3a35%3a18%3a 00&TestType=ECG&Site=1 1&OutputType=PDF&Ext=P DF [facility] [facility] Work Phone: Sinus bradycardia [facility] [facility] Work Phone: Abnormal [facility] [facility] Work Phone: [phone] 1 [facility] [facility] Work Phone: 469 1 [facility] [facility] Work Phone: 181 1 [facility] [facility] Work Phone: 127 1 [facility] [facility] Work Phone: 224 1 [facility] [facility] Work Phone: 10 1 [facility] [facility] Work Phone: -14 1 [facility] [facility] Work Phone: 34 1 [facility] [facility] Work Phone: 69 1 [facility] [facility] Work Phone: 476 1 [facility] [facility] Work Phone: 490 1 [facility] [facility] Work Phone: 134 1 [facility] [facility] Work Phone: 194 1 [facility] [facility] Work Phone: 57 1 [facility] [facility] Work Phone: Arterial patency Wrist artery --pre arterial puncture [facility] [facility] Work Phone: Inhaled oxygen concentration 60 % [facility] [facility] Work Phone: 5.0 {cm_H2O} [facility] [facility] Work Phone: 550 mL [facility] [facility] Work Phone: 16 {bpm} [facility] [facility] Work Phone: A/C [facility] [facility] Work Phone: Vent [facility] [facility] Work Phone: MIMA [facility] [facility] Work Phone: 90 {mL/min/1.73m2} >90 [facility] [facility] Work Phone: Comment on above: CALCULATIONS OF PARADISE MATED GFR ARE PERFORMED USING THE 2020 CKD-EPI STUDY REFIT EQUATION WITHOUT THE RACE VARIABLE FOR THE IDMS-TRACEABLE CREATININE METHODS.https://jasn.asnjournals.org/content/early/ ASN.4991082453 Inhaled oxygen concentration 100 % [facility] [facility] Work Phone: 106 {SECONDS} 96 - 152 [facility] [facility] Work Phone: Comment on above: Note new reference r liliana as of 07/28/2018. Target ACT range will vary based on the patient population, clinical status, and surgical intervention occurring. Inhaled oxygen concentration 75 % [facility] [facility] Work Phone: 440 {SECONDS} above high threshold 96 - 152 [facility] [facility] Work Phone: Comment on above: Note new reference r liliana as of 07/28/2018. Target ACT range will vary based on the patient population, clinical status, and surgical intervention occurring. Inhaled oxygen concentration 70 % [facility] [facility] Work Phone: 452 {SECONDS} above high threshold 96 - 152 [facility] [facility] Work Phone: Comment on above: Note new reference r liliana as of 07/28/2018. Target ACT range will vary based on the patient population, clinical status, and surgical intervention occurring. Inhaled oxygen concentration 65 % [facility] [facility] Work Phone: Inhaled oxygen concentration 80 % [facility] [facility] Work Phone: 462 {SECONDS} above high threshold 96 - 152 [facility] [facility] Work Phone: Comment on above: Note new reference r liliana as of 07/28/2018. Target ACT range will vary based on the patient population, clinical status, and surgical intervention occurring. Inhaled oxygen concentration 100 % [facility] [facility] Work Phone: [phone] {SECONDS} above high threshold 96 - 152 [facility] [facility] Work Phone: Comment on above: Note new reference r liliana as of 07/28/2018. Target ACT range will vary based on the patient population, clinical status, and surgical intervention occurring. 91 % [facility] [facility] Work Phone: 100 % [facility] [facility] Work Phone: Inhaled oxygen concentration 21 % [facility] [facility] Work Phone: 103 {SECONDS} 96 - 152 [facility] [facility] Work Phone: Comment on above: Note new reference r liliana as of 07/28/2018. Target ACT range will vary based on the patient population, clinical status, and surgical intervention occurring. [facility] [facility] Work Phone: Operative Reports - Elyriaon 11-02-2022 Operative Reports - [place] Normal [facility] Order Reconciliationon 11-02 Order Reconciliation Normal [facility] PHOSPHORUSon 11-02-2022 Phosphate [Mass/Vol] 3.3 mg/dL Normal 2.5 - 4.9 [facility] Comment on above: Result Comment: The performance characteristics of phosphorus testing in heparinized plasma have been validated by the individual laboratory site where testing is performed. Testing on heparinized plasma is not approved by the FDA; however, such approval is not necessary.MILD HEMOLYSIS DETECTED. The result may be falsely elevated due tohemolysis or other interferents. Clinical correlation is recommended.Repeat testing may be considered. Performed By: #### P HOS ####[facility] [place], [place] [id number] POTASSIUMon 11-02-2022 Potassium [Moles/Vol] 4.6 mmol/L Normal 3.5 - 5.3 [facility] Comment on above: Performed By: #### K ####[facility] [place], [place] [id number] Potassium [Moles/Vol] 4.6 mmol/L Normal 3.5 - 5.3 [facility] Comment on above: Performed By: #### K ####[address] [id number] Phosphorus, Serumon 11-03-19 23 Phosphate [Mass/Vol] 3.3 mg/dL 2.5 - 4.9 [facility] [facility] Work Phone: Comment on above: The performance kirsten acteristics of phosphorus testing in heparinized plasma have been validated by the individual laboratory site where testing is performed. Testing on heparinized plasma is not approved by the FDA; however, such approval is not necessary.MILD HEMOLYSIS DETECTED. The result may be falsely elevated due tohemolysis or other interferents. Clinical correlation is recommended.Repeat testing may be considered. RENAL FUNCTION PANELon 11-[address] [facility] Comment on above: Order Comment: TEST RENAL FUNCTION PANEL WAS CANCELLED, 11/02/2022 15:19 NOT NEEDED AT THISTIME, PER AYSE RN @1519 11/02/2022. Performed By: #### R ENAL ####[address] [id number] ANION GAP Canceled Normal [facility] Comment on above: Order Comment: TEST RENAL FUNCTION PANEL WAS CANCELLED, 11/02/2022 15:19 NOT NEEDED AT THISTIME, PER AYSE RN @1519 11/02/2022. Performed By: #### R ENAL ####[address] [id number] BICARBONATE Canceled Normal [facility] Comment on above: Order Comment: TEST RENAL FUNCTION PANEL WAS CANCELLED, 11/02/2022 15:19 NOT NEEDED AT THISTIME, PER AYSE RN @1519 11/02/2022. Performed By: #### R ENAL ####[facility] [place], [place] [id number] CALCIUM Canceled Normal [facility] Comment on above: Order Comment: TEST RENAL FUNCTION PANEL WAS CANCELLED, 11/02/2022 15:19 NOT NEEDED AT THISTIME, PER Freddie.TAYLOR RN @1519 11/02/2022. Performed By: #### R ENAL ####[address] [id number] CHLORIDE Canceled Normal [facility] Comment on above: Order Comment: TEST RENAL FUNCTION PANEL WAS CANCELLED, 11/02/2022 15:19 NOT NEEDED AT THISTIME, PER AYSE RN @1519 11/02/2022. Performed By: #### R ENAL ####[address] [id number] CREATININE Canceled Normal [facility] Comment on above: Order Comment: TEST RENAL FUNCTION PANEL WAS CANCELLED, 11/02/2022 15:19 NOT NEEDED AT THISTIME, PER AYSE RN @1519 11/02/2022. Performed By: #### R ENAL ####[address] [id number] eGFR FEMALE Canceled Normal [facility] Comment on above: Order Comment: TEST RENAL FUNCTION PANEL WAS CANCELLED, 11/02/2022 15:19 NOT NEEDED AT THISTIME, PER AYSE RN @1519 11/02/2022. Result Comment: CALC ULATIONS OF ESTIMATED GFR ARE PERFORMED USING THE 2020 CKD-EPI STUDY REFIT EQUATION WITHOUT THE RACE VARIABLE FOR THE IDMS-TRACEABLE CREATININE METHODS.https://jasn.asnjournals.org/content// ASN.7801049937 Performed By: #### R ENAL ####[place] [id number] [place], [place] [id number] eGFR MALE Canceled Normal [facility] Comment on above: Order Comment: TEST RENAL FUNCTION PANEL WAS CANCELLED, 11/02/2022 15:19 NOT NEEDED AT THISTIME, PER Freddie.TAYLOR RN @1519 11/02/2022. Result Comment: CALC ULATIONS OF ESTIMATED GFR ARE PERFORMED USING THE 2020 CKD-EPI STUDY REFIT EQUATION WITHOUT THE RACE VARIABLE FOR THE IDMS-TRACEABLE CREATININE METHODS.https://jasn.asnjournals.org/content/early// ASN.7587881671 Performed By: #### R ENAL ####[address] [id number] GLUCOSE Canceled Normal [facility] Comment on above: Order Comment: TEST RENAL FUNCTION PANEL WAS CANCELLED, 11/02/2022 15:19 NOT NEEDED AT THISTIME, PER AYSE RN @1519 11/02/2022. Performed By: #### R ENAL ####[address] [id number] PHOSPHORUS Canceled Normal [facility] Comment on above: Order Comment: TEST RENAL FUNCTION PANEL WAS CANCELLED, 11/02/2022 15:19 NOT NEEDED AT THISTIME, PER AYSE RN @1519 11/02/2022. Result Comment: The performance characteristics of phosphorus testing in heparinized plasma have been validated by the individual laboratory site where testing is performed. Testing on heparinized plasma is not approved by the FDA; however, such approval is not necessary. Performed By: #### R ENAL ####[address] [id number] POTASSIUM Canceled Normal [facility] Comment on above: Order Comment: TEST RENAL FUNCTION PANEL WAS CANCELLED, 11/02/2022 15:19 NOT NEEDED AT THISTIME, PER S.TAYLOR RN @1519 11/02/2022. Performed By: #### R ENAL ####[address] [id number] SODIUM Canceled Normal [facility] Comment on above: Order Comment: TEST RENAL FUNCTION PANEL WAS CANCELLED, 11/02/2022 15:19 NOT NEEDED AT THISTIME, PER AYSE RN @1519 11/02/2022. Performed By: #### R ENAL ####[facility] [place], [place] [id number] UREA NITROGEN Canceled Normal [facility] Comment on above: Order Comment: TEST RENAL FUNCTION PANEL WAS CANCELLED, 11/02/2022 15:19 NOT NEEDED AT THISTIME, PER AYSE RN @1519 11/02/2022. Performed By: #### R ENAL ####[facility] [place], [place] [id number] Radiologyon 11-02-2022 XR Chest Single view Normal [facility] [facility] Work Phone: XR Chest Single view Normal [facility] [facility] Work Phone: Renal Function Panelon 11-02 Albumin BCP dye [Mass/Vol] Canceled [facility] [facility] Work Phone: Calcium [Mass/Vol] Canceled [facility] [facility] Work Phone: Chloride [Moles/Vol] Canceled [facility] [facility] Work Phone: CO2 [Moles/Vol] Canceled [facility] [facility] Work Phone: Creatinine [Mass/Vol] Canceled [facility] [facility] Work Phone: Glucose [Mass/Vol] Canceled [facility] [facility] Work Phone: Phosphate [Mass/Vol] Canceled [facility] [facility] Work Phone: Comment on above: The performance kirsten acteristics of phosphorus testing in heparinized plasma have been validated by the individual laboratory site where testing is performed. Testing on heparinized plasma is not approved by the FDA; however, such approval is not necessary. Potassium [Moles/Vol] Canceled [facility] [facility] Work Phone: Sodium [Moles/Vol] Canceled [facility] [facility] Work Phone: Urea nitrogen [Mass/Vol] Canceled [facility] [facility] Work Phone: Renal Function Panel Canceled [facility] [facility] Work Phone: Comment on above: CALCULATIONS OF PARADISE MATED GFR ARE PERFORMED USING THE 2020 CKD-EPI STUDY REFIT EQUATION WITHOUT THE RACE VARIABLE FOR THE IDMS-TRACEABLE CREATININE METHODS.https://jasn.asnjournals.org/content// ASN.5902424969 TROPONIN I, HIGH SENSITIVITY on 11-02-2022 TROPONIN I, HIGH SENSITIVITY 2086 ng/L Critically high 0 - 20 [facility] Comment on above: Order Comment: [facility] Called- RB to THERESE DAMON, 11/02/2022 13:47 Result Comment: .Les s than 99th percentile of normal range cutoff-Female and children under 18 years old <14 ng/L; Male <21 ng/L: NegativeRepeat testing should be performed if clinically indicated..Female and children under 18 years old 14-50 ng/L; Male 21-50 ng/L:Consistent with possible cardiac damage and possible increased clinicalrisk. Serial measurements may help to assess extent of myocardial damage..>50 ng/L: Consistent with cardiac damage, increased clinical risk andmyocardial infarction. Serial measurements may help assess extent ofmyocardial damage..NOTE: Children less than 1 year old may have higher baseline troponinlevels and results should be interpreted in conjunction with the overallclinical context..NOTE: Troponin I testing is performed using a differenttesting methodology at [facility] than at [facility]. Direct result comparisons should onlybe made within the same method.[facility] Called- RB to THERESE DAMON, 11/02/2022 13:47 Performed By: #### T [facility] ####[facility] [place], [place] [phone] TROPONIN I, HIGH SENSITIVITY Canceled Normal [facility] Comment on above: Order Comment: TEST TROPONIN I, HIGH SENSITIVITY WAS CANCELLED, 11/02/2022 12:46 added toother labs 11/02/2022 12:46. Result Comment: .Les s than 99th percentile of normal range cutoff-Female and children under 18 years old <14 ng/L; Male <21 ng/L: NegativeRepeat testing should be performed if clinically indicated..Female and children under 18 years old 14-50 ng/L; Male 21-50 ng/L:Consistent with possible cardiac damage and possible increased clinicalrisk. Serial measurements may help to assess extent of myocardial damage..>50 ng/L: Consistent with cardiac damage, increased clinical risk andmyocardial infarction. Serial measurements may help assess extent ofmyocardial damage..NOTE: Children less than 1 year old may have higher baseline troponinlevels and results should be interpreted in conjunction with the overallclinical context..NOTE: Troponin I testing is performed using a differenttesting methodology at [facility] than at [facility]. Direct result comparisons should onlybe made within the same method. Performed By: #### T [facility] ####[facility] [place], [place] [id number] Tropinin I.cardiac panel High sensitivity method 2086 ng/L Critically high 0 - 20 [facility] [address] Work Phone: Comment on above: .Less than 99th perc entile of normal range cutoff-Female and children under 18 years old <14 ng/L; Male <21 ng/L: NegativeRepeat testing should be performed if clinically indicated. .Female and children under 18 years old 14-50 ng/L; Male 21-50 ng/L:Consistent with possible cardiac damage and possible increased clinical risk. Serial measurements may help to assess extent of myocardial damage. .>50 ng/L: Consistent with cardiac damage, increased clinical risk andmyocardial infarction. Serial measurements may help assess extent of myocardial damage. . NOTE: Children less than 1 year old may have higher baseline troponin levels and results should be interpreted in conjunction with the overall clinical context. .NOTE: Troponin I testing is performed using a different testing methodology at [facility] than at other [facility]. Direct result comparisons should only be made within the same method.[facility] Called- RB to THERESE DAMON, 11/02/2022 13:47 [facility] Surgical Pathology Depar tmenton 11-02-2022 [facility] Surgical Pathology Department Name JOSE CANALES Pathologist: MURPHY MAURER MD Date of Procedure: 11/02/2022 Date Received: 11/02/2022 Date Reported 11/24/2022 Submitting Physician: JENNA JESSICA MD Location: [address] Copy To/Referring/Attending : JOSELINE ALCAZAR MD Other External # FINAL DIAGNOSIS A. ASCENDING AORTA: --PORTION OF AORTA WITH DEGENERATIVE CHANGES. Electronically Signed Out By MURPHY MAURER MD/MRG1 By the signature on this report, the individual or group listed as making the Final Interpretation/Diagnos is certifies that they have reviewed this case. Diagnostic interpretation performed at [facility] [address] [place] [address] Clinical History: Physician Contact Number: [id number] Fixative (A): Formalin Clinical Diagnosis History ASCENDING AORTA ANEURYSM Specimens Submitted As: A: ASCENDING AORTA Gross Description: Received in formalin, labeled with the patient's name and hospital number and A ascending aorta , is a open segment of aorta measuring 4.2 cm in length x 4.5 cm in diameter. The wall measures 0.3 cm in thickness. A dissection plane is not grossly identified. Medial Hemorrhage is noted. The intimal surface does not demonstrate calcific atherosclerosis. The adventitial surface demonstrates focal hemorrhage. Commercial Shrimping Captain sections are submitted in one cassette. MJR mjr/11/18/2022 [facility] Department of Pathology [address] [place] [address] Normal [facility] Comment on above: Performed By: #### [facility] #### [facility] Surgical Pathology Department [id number] [place], [place] [id number] VENOUS FULL PANELon 11-03-19 23 Anion gap [Moles/Vol] 9 mmol/L Low 10 - 25 [facility] Comment on above: Performed By: #### V FPA4 ####[facility] [place], [place] [id number] BASE EXCESS-BLOOD -1.2 mmol/L Normal -2.0 - 3.0 [facility] Comment on above: Performed By: #### V FPA4 ####[facility] [place], [place] [id number] BICARB, CALCULATED 24.8 mmol/L Normal 22.0 - 26.0 [facility] Comment on above: Performed By: #### V FPA4 ####[address] [place], [place] [id number] CALCIUM,IONIZED 1.23 mmol/L Normal 1.10 - 1.33 [facility] Comment on above: Performed By: #### V FPA4 ####[address] [id number] Chloride [Moles/Vol] 109 mmol/L High 98 - 107 [facility] Comment on above: Performed By: #### V FPA4 ####[address] [id number] Glucose [Mass/Vol] 125 mg/dL High 74 - 99 [facility] Comment on above: Performed By: #### V FPA4 ####[address] [id number] Hematocrit (Bld) [Volume fraction] 35.0 % Low 41.0 - 52.0 [facility] Comment on above: Performed By: #### V FPA4 ####[address] [id number] Hemoglobin (Bld) [Mass/Vol] 11.8 g/dL Low 13.5 - 17.5 [facility] Comment on above: Performed By: #### V FPA4 ####[address] [id number] Lactate [Moles/Vol] 2.7 mmol/L High 0.4 - 2.0 [facility] Comment on above: Performed By: #### V FPA4 ####[address] [id number] OXY HGB 70.0 % Normal 45.0 - 75.0 [facility] Comment on above: Performed By: #### V FPA4 ####[address] [id number] Oxygen (Bld) [Partial pressure] 44 mm[Hg] Normal 35 - 45 [facility] Comment on above: Performed By: #### V FPA4 ####[address] [id number] PCO2 46 mmHg Normal 41 - 51 [facility] Comment on above: Performed By: #### V FPA4 ####[address] [id number] Potassium [Moles/Vol] 4.6 mmol/L Normal 3.5 - 5.3 [facility] Comment on above: Performed By: #### V FPA4 ####[address] [id number] SO2 71 % Normal 45 - 75 [facility] Comment on above: Performed By: #### V FPA4 ####[address] [id number] Sodium [Moles/Vol] 138 mmol/L Normal 136 - 145 [facility] Comment on above: Performed By: #### V FPA4 ####[address] [id number] BASE EXCESS-BLOOD -0.8 mmol/L Normal -2.0 - 3.0 [facility] Comment on above: Performed By: #### V FPA4 ####[address] [id number] BICARB, CALCULATED 25.8 mmol/L Normal 22.0 - 26.0 [facility] Comment on above: Performed By: #### V FPA4 ####[address] [id number] CALCIUM,IONIZED 1.12 mmol/L Normal 1.10 - 1.33 [facility] Comment on above: Performed By: #### V FPA4 ####[address] [id number] Chloride [Moles/Vol] 104 mmol/L Normal 98 - 107 [facility] Comment on above: Performed By: #### V FPA4 ####[address] [id number] FIO2 65 % Normal [facility] Comment on above: Performed By: #### V FPA4 ####[address] [id number] Glucose [Mass/Vol] 172 mg/dL High 74 - 99 [facility] Comment on above: Performed By: #### V FPA4 ####[address] [id number] Hematocrit (Bld) [Volume fraction] 35.0 % Low 41.0 - 52.0 [facility] Comment on above: Performed By: #### V FPA4 ####[address] [id number] Hemoglobin (Bld) [Mass/Vol] 11.7 g/dL Low 13.5 - 17.5 [facility] Comment on above: Performed By: #### V FPA4 ####[address] [id number] Lactate [Moles/Vol] 2.0 mmol/L Normal 0.4 - 2.0 [facility] Comment on above: Performed By: #### V FPA4 ####[address] [id number] OXY HGB 86.7 % High 45.0 - 75.0 [facility] Comment on above: Performed By: #### V FPA4 ####[address] [id number] Oxygen (Bld) [Partial pressure] 55 mm[Hg] High 35 - 45 [facility] Comment on above: Performed By: #### V FPA4 ####[facility] [place], [place] [id number] PCO2 50 mmHg Normal 41 - 51 [facility] Comment on above: Performed By: #### V FPA4 ####[address] [id number] pH (Bld) 7.32 [pH] Low 7.33 - 7.43 [facility] Comment on above: Performed By: #### V FPA4 ####[address] [id number] Potassium [Moles/Vol] 5.0 mmol/L Normal 3.5 - 5.3 [facility] Comment on above: Performed By: #### V FPA4 ####[address] [id number] SO2 89 % High 45 - 75 [facility] Comment on above: Performed By: #### V FPA4 ####[address] [id number] Sodium [Moles/Vol] 136 mmol/L Normal 136 - 145 [facility] Comment on above: Performed By: #### V FPA4 ####[address] [id number] Vital signson 11-02-2022 Oxygen saturation in Venous blood 71 % 45 - 75 [facility] 101 Work Phone: Oxygen saturation in Venous blood 89 % above high threshold 45 - 75 [facility] 101 Work Phone: APTTon 10-29-2022 aPTT Coag (Bld) [Time] 30 s Normal 27 - 38 [facility] Comment on above: Result Comment: Note new reference range as of 10/12/2022 at 10:00am. Performed By: #### A PTT ####[address] [id number] Activated Partial Thrombopla stin Timeon 10-29-2022 aPTT Coag (PPP) [Time] 30 s 27 - 38 [facility] [facility] Work Phone: Comment on above: Note new reference nay ford as of 10/12/2022 at 10:00am. CBC AND DIFFERENTIALon 10-29 % AUTOMATED IMMATURE GRAN 0.3 % Normal 0.0 - 0.9 [facility] Comment on above: Result Comment: Bianca ture Granulocyte Count (IG) includes promyelocytes, myelocytes and metamyelocytes but does not include bands. Percent differential counts (%) should be interpreted in the context of the absolute cell counts (cells/L). Performed By: #### C BCDF ####[address] [place], [place] [id number] Basophils (Bld) [#/Vol] 0.05 10*3/uL Normal 0.00 - 0.[address] [facility] Comment on above: Performed By: #### C BCDF ####[address] [place], [place] [id number] Basophils/100 WBC (Bld) 0.6 % Normal 0.0 - 2.0 [facility] Comment on above: Performed By: #### C BCDF ####[address] [id number] Eosinophils (Bld) [#/Vol] 0.26 10*3/uL Normal 0.00 - 0.70 [facility] Comment on above: Performed By: #### C BCDF ####[address] [id number] Eosinophils/100 WBC (Bld) 3.3 % Normal 0.0 - 6.0 [facility] Comment on above: Performed By: #### C BCDF ####[address] [id number] Erythrocyte distribution width (RBC) [Ratio] 13.2 % Normal 11.5 - 14.5 [facility] Comment on above: Performed By: #### C BCDF ####[address] [id number] Hematocrit (Bld) [Volume fraction] 45.9 % Normal 41.0 - 52.0 [facility] Comment on above: Performed By: #### C BCDF ####[address] [id number] Hemoglobin (Bld) [Mass/Vol] 15.4 g/dL Normal 13.5 - 17.5 [facility] Comment on above: Performed By: #### C BCDF ####[address] [id number] Lymphocytes (Bld) [#/Vol] 1.35 10*3/uL Normal 1.20 - 4.80 [facility] Comment on above: Performed By: #### C BCDF ####[address] [id number] Lymphocytes/100 WBC (Bld) 17.2 % Normal 13.0 - 44.0 [facility] Comment on above: Performed By: #### C BCDF ####[address] [id number] MCHC (RBC) [Mass/Vol] 33.6 g/dL Normal 32.0 - 36.0 [facility] Comment on above: Performed By: #### C BCDF ####[address] [id number] MCV (RBC) [Entitic vol] 93 fL Normal 80 - [address] [facility] Comment on above: Performed By: #### C BCDF ####[address] [id number] Monocytes (Bld) [#/Vol] 0.72 10*3/uL Normal 0.10 - 1.[address] [facility] Comment on above: Performed By: #### C BCDF ####[address] [id number] Monocytes/100 WBC (Bld) 9.2 % Normal 2.0 - 10.[address] [facility] Comment on above: Performed By: #### C BCDF ####[address] [place], [place] [id number] Neutrophils (Bld) [#/Vol] 5.43 10*3/uL Normal 1.20 - 7.70 [facility] Comment on above: Performed By: #### C BCDF ####[address] [place], [place] [id number] Neutrophils/100 WBC (Bld) 69.4 % Normal 40.0 - 80.0 [facility] Comment on above: Performed By: #### C BCDF ####[address] [id number] Platelets (Bld) [#/Vol] 259 10*3/uL Normal 150 - 450 [facility] Comment on above: Performed By: #### C BCDF ####[address] [id number] RBC 4.96 x10E12/L Normal 4.50 - 5.90 [facility] Comment on above: Performed By: #### C BCDF ####[address] [id number] WBC (Bld) [#/Vol] 7.8 10*3/uL Normal 4.4 - 11.3 [facility] Comment on above: Performed By: #### C BCDF ####[address] [id number] COMPREHENSIVE PANELon 2022 Albumin [Mass/Vol] 4.5 g/dL Normal 3.4 - 5.0 [facility] Comment on above: Performed By: #### C MP ####[address] [id number] ALP [Catalytic activity/Vol] 57 U/L Normal 33 - 136 [facility] Comment on above: Performed By: #### C MP ####[facility] [place], [place] [id number] ALT [Catalytic activity/Vol] 31 U/L Normal 10 - 52 [facility] Comment on above: Result Comment: Martita ents treated with Sulfasalazine may generate falsely decreased results for ALT. Performed By: #### C MP ####[facility] [place] [address] [phone] Anion gap [Moles/Vol] 12 mmol/L Normal 10 - 20 [facility] Comment on above: Performed By: #### C MP ####[address] [id number] AST [Catalytic activity/Vol] 29 U/L Normal 9 - 39 [facility] Comment on above: Performed By: #### C MP ####[address] [id number] Bilirubin [Mass/Vol] 0.8 mg/dL Normal 0.0 - 1.2 [facility] Comment on above: Performed By: #### C MP ####[address] [id number] Calcium [Mass/Vol] 9.9 mg/dL Normal 8.6 - 10.3 [facility] Comment on above: Performed By: #### C MP ####[address] [id number] Chloride [Moles/Vol] 103 mmol/L Normal 98 - 107 [facility] Comment on above: Performed By: #### C MP ####[address] [id number] Creatinine [Mass/Vol] 1.06 mg/dL Normal 0.50 - 1.30 [facility] Comment on above: Performed By: #### C MP ####[address] [id number] GFR/1.73 sq M.predicted among non-blacks MDRD (S/P/Bld) [Vol rate/Area] 77 mL/min/{1.73_m2} Normal >90 [facility] Comment on above: Result Comment: CALC ULATIONS OF ESTIMATED GFR ARE PERFORMED USING THE 2020 CKD-EPI STUDY REFIT EQUATION WITHOUT THE RACE VARIABLE FOR THE IDMS-TRACEABLE CREATININE METHODS.https://jasn.asnjournals.org/content// ASN.1457639260 Performed By: #### C MP ####[address] [id number] Glucose [Mass/Vol] 104 mg/dL High 74 - 99 [facility] Comment on above: Performed By: #### C MP ####[address] [id number] HCO3 (Bld) [Moles/Vol] 31 mmol/L Normal 21 - 32 [facility] Comment on above: Performed By: #### C MP ####[address] [id number] Potassium [Moles/Vol] 4.7 mmol/L Normal 3.5 - 5.3 [facility] Comment on above: Performed By: #### C MP ####[address] [id number] Protein [Mass/Vol] 8.1 g/dL Normal 6.4 - 8.2 [facility] Comment on above: Performed By: #### C MP ####[address] [id number] Sodium [Moles/Vol] 141 mmol/L Normal 136 - 145 [facility] Comment on above: Performed By: #### C MP ####[address] [id number] Urea nitrogen [Mass/Vol] 19 mg/dL Normal 6 - 23 [facility] Comment on above: Performed By: #### C MP ####[address] [id number] Complete Blood Count + Diffe melina 10-29-2022 Basophils/100 WBC (Bld) 0.6 % 0.0 - 2.0 [facility] [facility] Work Phone: Erythrocyte distribution width (RBC) [Ratio] 13.2 % See Below -[facility] [facility] Work Phone: Comment on above: Reference Range: 11. 5 - 14.5 Hematocrit (Bld) [Volume fraction] 45.9 % See Below [facility] [facility] Work Phone: Comment on above: Reference Range: 41. 0 - 52.0 Hemoglobin (Bld) [Mass/Vol] 15.4 g/dL See Below [facility] [facility] Work Phone: Comment on above: Reference Range: 13. 5 - 17.5 Lymphocytes/100 WBC (Bld) 17.2 % See Below [facility] [facility] Work Phone: Comment on above: Reference Range: 13. 0 - 44.0 MCHC (RBC) [Mass/Vol] 33.6 g/dL See Below [facility] [facility] Work Phone: Comment on above: Reference Range: 32. 0 - 36.0 MCV (RBC) [Entitic vol] 93 fL 80 - 100 [facility] [facility] Work Phone: Monocytes/100 WBC (Bld) 9.2 % 2.0 - 10.0 [facility] [facility] Work Phone: Neutrophils/100 WBC (Bld) 69.4 % See Below -[facility] [facility] Work Phone: Comment on above: Reference Range: 40. 0 - 80.0 Platelets (Bld) [#/Vol] 259 10*3/uL 150 - 450 [facility] [facility] Work Phone: RBC (Bld) [#/Vol] 4.96 {x10E12/L} See Below [facility] [facility] Work Phone: Comment on above: Reference Range: 4.5 0 - 5.90 WBC (Bld) [#/Vol] 7.8 10*3/uL 4.4 - 11.3 [facility] [facility] Work Phone: Complete Blood Count + Differential 0.05 {x10E9/L} See Below [facility] [facility] Work Phone: Comment on above: Reference Range: 0.0 0 - 0.10 Complete Blood Count + Differential 0.26 {x10E9/L} See Below [facility] [facility] Work Phone: Comment on above: Reference Range: 0.0 0 - 0.70 Complete Blood Count + Differential 0.72 {x10E9/L} See Below [facility] [facility] Work Phone: Comment on above: Reference Range: 0.1 0 - 1.00 Complete Blood Count + Differential 1.35 {x10E9/L} See Below [facility] [facility] Work Phone: Comment on above: Reference Range: 1.2 0 - 4.80 Complete Blood Count + Differential 5.43 {x10E9/L} See Below [facility] [facility] Work Phone: Comment on above: Reference Range: 1.2 0 - 7.70 Complete Blood Count + Differential 3.3 % 0.0 - 6.0 [facility] [facility] Work Phone: Complete Blood Count + Differential 0.3 % 0.0 - 0.9 [facility] [facility] Work Phone: Comment on above: Immature Granulocyte Count (IG) includes promyelocytes, myelocytes and metamyelocytes but does not include bands. Percent differential counts (%) should be interpreted in the context of the absolute cell counts (cells/L). HEMOGLOBIN A1Con 07-07-2023 Glucose [Mass/Vol] 131 mg/dL Normal [facility] Comment on above: Performed By: #### H BA1E ####[id number] [place] [address] HbA1c (Bld) [Mass fraction] 6.2 % Abnormal [facility] Comment on above: Result Comment: Diag nosis of Diabetes-Adults Non-Diabetic: < or = 5.6% Increased risk for developing diabetes: 5.7-6.4% Diagnostic of diabetes: > or = 6.5%. Monitoring of Diabetes Age (y) Therapeutic Goal (%) Adults: >18 <7.0 Pediatrics: 13-18 <7.5 7-12 <8.0 0- 6 7.5-8.5 [place] [employer]. Diabetes Care 33(S1), Apr 2009. Performed By: #### H BA1E ####[id number] [place] [address] Hemoglobin A1Con 10-29-2022 Glucose [Mass/Vol] 131 mg/dL MG-Car diolog [facility] [employer] Work Phone: HbA1c (Bld) [Mass fraction] 6.2 % Abnormal -Cardiolog [facility] 101 Work Phone: Comment on above: Diagnosis of Diabete s-Adults Non-Diabetic: < or = 5.6% Increased risk for developing diabetes: 5.7-6.4% Diagnostic of diabetes: > or = 6.5%. Monitoring of Diabetes Age (y) Therapeutic Goal (%) Adults: >18 <7.0 Pediatrics: 13-18 <7.5 7-12 <8.0 0- 6 7.5-8.5 [place] [employer]. Diabetes Care 33(S1), Apr 2009. LIPID PANEL (CORONARY RISK 2 )on 10-29-2022 Cholesterol [Mass/Vol] 137 mg/dL Normal 0 - 199 [facility] Comment on above: Result Comment: . AG E DESIRABLE BORDERLINE HIGH HIGH 0-19 Y 0 - 169 170 - 199 >/= 200 20-24 Y 0 - 189 190 - 224 >/= 225 >24 Y 0 - 199 200 - 239 >/= 240 All ranges are based on fasting samples. Specific therapeutic targets will vary based on patient-specific cardiac risk.. Pediatric guidelines reference:Pediatrics 2011, 128(S5). Adult guidelines reference: NCEP ATPIII Guidelines, DENISSE 2001, 258:2486-97. Venipuncture immediately after or during the administration of Metamizole may lead to falsely low results. Testing should be performed immediately prior to Metamizole dosing. Performed By: #### L IPID ####[address] [place], [place] [id number] Cholesterol in HDL [Mass/Vol] 35.7 mg/dL Abnormal [facility] Comment on above: Result Comment: . AG E VERY LOW LOW NORMAL HIGH 0-19 Y < 35 < 40 40-45 ---- 20-24 Y ---- < 40 >45 ---- >24 Y ---- < 40 40-60 >60. Performed By: #### L IPID ####[address] [place], [place] [id number] Cholesterol in LDL [Mass/Vol] 77 mg/dL Normal 0 - 99 [facility] Comment on above: Result Comment: . PATTI QUAN AGE DESIRABLE OPTIMAL HIGH HIGH VERY HIGH 0-19 Y 0 - 109 --- 110-129 >/= 130 ---- 20-24 Y 0 - 119 --- 120-159 >/= 160 ---- >24 Y 0 - 99 100-129 130-159 160-189 >/=190. Performed By: #### L IPID ####[address] [place], [place] [id number] Cholesterol in VLDL [Mass/Vol] 24 mg/dL Normal 0 - 40 [facility] Comment on above: Performed By: #### L IPID ####[address] [place], [place] [id number] Cholesterol.total/Candace sterol in HDL [Mass ratio] 3.8 {ratio} Normal [facility] Comment on above: Result Comment: REF VALUESDESIRABLE < 3.4HIGH RISK > 5.0 Performed By: #### L IPID ####[address] [id number] Triglyceride [Mass/Vol] 122 mg/dL Normal 0 - 149 [facility] Comment on above: Result Comment: . AG E DESIRABLE BORDERLINE HIGH HIGH VERY HIGH 0 D-90 D 19 - 174 ---- ---- ----91 D- 9 Y 0 - 74 75 - 99 >/= 100 ---- 10-19 Y 0 - 89 90 - 129 >/= 130 ---- 20-24 Y 0 - 114 115 - 149 >/= 150 ---- >24 Y 0 - 149 150 - 199 200- 499 >/= 500. Venipuncture immediately after or during the administration of Metamizole may lead to falsely low results. Testing should be performed immediately prior to Metamizole dosing. Performed By: #### L IPID ####[facility] [place], [place] [id number] Laboratory - Blood bankon ABO group Nom (Bld) A [facility]Ca rdiolog [place] [address] Work Phone: Comment on above: No previous history found to confirm this result.If transfusion of RBC's or FFP is requested, a second sample must be collected at a separate phlebotomy to confirm the ABORH. Confirmatory ABORH can only be ordered by Lab [employer]. 10/29/2022 Blood group antibody screen Ql Negative [facility] [facility] Work Phone: Rh immune globulin screen (Bld) [Interp] Positive [facility] og [facility] [facility] Work Phone: Laboratory - Chemistry and C hemistry - challengeon 10-29-2022 Albumin BCP dye [Mass/Vol] 4.5 g/dL 3.4 - 5.0 [facility] [facility] Work Phone: ALP [Catalytic activity/Vol] 57 U/L 33 - 136 [facility] [facility] Work Phone: ALT With P-5'-P [Catalytic activity/Vol] 31 U/L 10 - 52 [facility] [facility] Work Phone: Comment on above: Patients treated wit h Sulfasalazine may generate falsely decreased results for ALT. Anion gap [Moles/Vol] 12 mmol/L 10 - 20 [facility] [facility] Work Phone: AST With P-5'-P [Catalytic activity/Vol] 29 U/L 9 - 39 [facility] [facility] Work Phone: Bilirubin [Mass/Vol] 0.8 mg/dL 0.0 - 1.2 MG[facility] ardiolog [facility] [facility] Work Phone: Calcium [Mass/Vol] 9.9 mg/dL 8.6 - 10.3 [facility] [facility] Work Phone: Chloride [Moles/Vol] 103 mmol/L 98 - 107 [facility] [facility] Work Phone: CO2 [Moles/Vol] 31 mmol/L 21 - 32 [facility]io log [facility] [facility] Work Phone: Creatinine [Mass/Vol] 1.06 mg/dL See Below [facility] [facility] Work Phone: Comment on above: Reference Range: 0.5 0 - 1.30 Glucose [Mass/Vol] 104 mg/dL above high threshold 74 - 99 [facility] [facility] Work Phone: Potassium [Moles/Vol] 4.7 mmol/L 3.5 - 5.3 [facility] [facility] Work Phone: Protein [Mass/Vol] 8.1 g/dL 6.4 - 8.2 [facility] [facility] Work Phone: Sodium [Moles/Vol] 141 mmol/L 136 - 145 [facility] [facility] Work Phone: Urea nitrogen [Mass/Vol] 19 mg/dL 6 - 23 [facility] [facility] Work Phone: Laboratory - Coagulationon 0 10-29-2022 INR Coag (PPP) [Relative time] 1.1 {INR} 0.9 - 1.1 [facility] Work Phone: PT Coag (PPP) [Time] 11.9 s 9.8 - 12.8 [facility] [place] Work Phone: Comment on above: Note new reference r liliana as of 10/12/2022 at 10:00am. Lipid Panelon 10-29-2022 Cholesterol [Mass/Vol] 137 mg/dL 0 - 199 [facility] Work Phone: Comment on above: . AGE DESIRABLE BORD MARIO HIGH HIGH 0-19 Y 0 - 169 170 - 199 >/= 200 20-24 Y 0 - 189 190 - 224 >/= 225 >24 Y 0 - 199 200 - 239 >/= 240 All ranges are based on fasting samples. Specific therapeutic targets will vary based on patient-specific cardiac risk.. Pediatric guidelines reference:Pediatrics 2011, 128(S5). Adult guidelines reference: NCEP ATPIII Guidelines, DENISSE 2001, 258:2486-97. Venipuncture immediately after or during the administration of Metamizole may lead to falsely low results. Testing should be performed immediately prior to Metamizole dosing. Cholesterol in HDL [Mass/Vol] 35.7 mg/dL Abnormal [facility] Work Phone: Comment on above: . AGE VERY LOW LOW N ORMAL HIGH 0-19 Y < 35 < 40 40-45 ---- 20-24 Y ---- < 40 >45 ---- >24 Y ---- < 40 40-60 >60. Cholesterol in LDL [Mass/Vol] 77 mg/dL 0 - 99 [facility] [facility] Work Phone: Comment on above: . NEAR BORD AGE BRUNO RABLE OPTIMAL HIGH HIGH VERY HIGH 0-19 Y 0 - 109 --- 110-129 >/= 130 ---- 20-24 Y 0 - 119 --- 120-159 >/= 160 ---- >24 Y 0 - 99 100-129 130-159 160-189 >/=190. Cholesterol.total/Candace sterol in HDL [Mass ratio] 3.8 {ratio} [facility] [facility] Work Phone: Comment on above: REF VALUESDESIRABLE < 3.4HIGH RISK > 5.0 Triglyceride [Mass/Vol] 122 mg/dL 0 - 149 [facility] [facility] Work Phone: Comment on above: . AGE DESIRABLE BORD MARIO HIGH HIGH VERY HIGH 0 D-90 D 19 - 174 ---- ---- ----91 D- 9 Y 0 - 74 75 - 99 >/= 100 ---- 10-19 Y 0 - 89 90 - 129 >/= 130 ---- 20-24 Y 0 - 114 115 - 149 >/= 150 ---- >24 Y 0 - 149 150 - 199 200- 499 >/= 500. Venipuncture immediately after or during the administration of Metamizole may lead to falsely low results. Testing should be performed immediately prior to Metamizole dosing. Lipid Panel 24 mg/dL 0 - 40 [facility] [facility] Work Phone: No Panel Informationon 10-29 77 {mL/min/1.73m2} >90 [facility] [facility] Work Phone: Comment on above: CALCULATIONS OF PARADISE MATED GFR ARE PERFORMED USING THE 2020 CKD-EPI STUDY REFIT EQUATION WITHOUT THE RACE VARIABLE FOR THE IDMS-TRACEABLE CREATININE METHODS.https://jasn.asnjournals.org/content// ASN.3036763629 ORDER RECD [facility] [facility] Work Phone: PT/INRon 10-29-2022 PT Coag (PPP) [Time] 11.9 s Normal 9.8 - 12.8 [facility] Comment on above: Result Comment: Note new reference range as of 10/12/2022 at 10:00am. Performed By: #### P TINR ####[address] [id number] PT, INR 1.1 Normal 0.9 - 1.1 [facility] Comment on above: Performed By: #### P TINR ####[address] [id number] REQUEST-LEUKOREDUCED RED ALTAF LSon 10-29-2022 REQUEST-LEUKOREDUCED RED CELLS ORDER RECD Normal [facility] Comment on above: Performed By: #### O COURT REGISTRY OFFICER ####[address] [id number] TSHon 10-29-2022 TSH Qn 1.56 m[IU]/L Normal 0.44 - 3.98 [facility] Comment on above: Result Comment: TSH testing is performed using different testing methodology at [facility] than at other [facility]. Direct result comparisons should only be made within the same method. Performed By: #### T SH2 ####[address] [id number] TSH - Thyroid Stimulating Ho rmone, Serumon 10-29-2022 TSH Qn 1.56 m[IU]/L See Below [facility] [address] Work Phone: Comment on above: Reference Range: 0.4 4 - 3.98 TSH testing is performed using different testing methodology at [facility] than at other [facility]. Direct result comparisons should only be made within the same method. TYPE + SCREENon 10-29-[address] [facility] Comment on above: Result Comment: No p revious history found to confirm this result.If transfusion of RBC's or FFP is requested, a second sample must becollected at a separate phlebotomy to confirm the ABORH. Confirmatory ABORHcan only be ordered by Lab Heavy Mobile Equipment Repairer. 10/29/2022 Performed By: #### T +S ####[address] [id number] RH TYPE Positive Normal [facility] Comment on above: Performed By: #### T +S ####[address] [id number] URINALYSIS WITH CULTURE IF I NDICATEDon 10-29-2022 Appearance (U) CLEAR Normal CLEAR [facility] Comment on above: Performed By: #### U ARFX ####[address] [id number] Bilirubin Ql (U) Negative Normal NEGATIVE [facility] Comment on above: Performed By: #### U ARFX ####[address] [id number] Color (U) YELLOW Normal STRAW,YELLO W [facility] Comment on above: Performed By: #### U ARFX ####[address] [id number] Glucose Ql (U) Negative Normal NEGATIVE [facility] Comment on above: Performed By: #### U ARFX ####[address] [id number] Hemoglobin Ql (U) Negative Normal NEGATIVE [facility] Comment on above: Performed By: #### U ARFX ####[address] [id number] Ketones Ql (U) Negative Normal NEGATIVE [facility] Comment on above: Performed By: #### U ARFX ####[address] [id number] Leukocyte esterase Test strip Ql (U) Negative Normal NEGATIVE [facility] Comment on above: Performed By: #### U ARFX ####[address] [id number] Nitrite Ql (U) Negative Normal NEGATIVE [facility] Comment on above: Performed By: #### U ARFX ####[address] [id number] pH (U) 6.0 [pH] Normal 5.0 - 8.0 [facility] Comment on above: Performed By: #### U ARFX ####[facility] [place], [place] [id number] Protein Ql (U) Negative Normal NEGATIVE [facility] Comment on above: Performed By: #### U ARFX ####[facility] [place], [place] [id number] Specific gravity (U) [Rel density] 1.017 Normal 1.005 - 1.035 [facility] Comment on above: Performed By: #### U ARFX ####[facility] [place], [place] [id number] Urobilinogen (U) [Mass/Vol] mg/dL Normal 0.0 - 1.9 [facility] Comment on above: Performed By: #### U ARFX ####[facility] [place], [place] [id number] Color (U) YELLOW See Below [facility] [facility] Work Phone: Comment on above: Reference Range: STR AW,YELLOW Glucose Ql (U) Negative NEGATIVE [facility] [facility] Work Phone: Ketones Ql (U) Negative NEGATIVE [facility] [facility] Work Phone: Leukocyte esterase Test strip Ql (U) Negative NEGATIVE [facility] [facility] Work Phone: pH (U) 6.0 [pH] 5.0 - 8.0 [facility] [facility] Work Phone: Protein (U) [Mass/Vol] Negative NEGATIVE [facility] [facility] Work Phone: RBC (U) [#/Vol] Negative NEGATIVE [facility] [facility] Work Phone: Specific gravity (U) [Rel density] 1.017 1 See Below [facility] [address] Work Phone: Comment on above: Reference Range: 1.0 05 - 1.035 URINALYSIS WITH CULTURE IF INDICATED Negative NEGATIVE [facility] [facility] Work Phone: URINALYSIS WITH CULTURE IF INDICATED <2.0 0.0 - 1.9 [facility] [facility] Work Phone: URINALYSIS WITH CULTURE IF INDICATED CLEAR CLEAR [facility] [facility] Work Phone: Patient Profile - Preop v3on 10-27-2022 Patient Profile - Preop v3 Normal [facility] Office Visit (Cardiac Surger y)on 10-14-2022 Follow-up visit Provider Impressions Jose is a 66-year-old male with several risk factor for coronary artery disease with a little symptomatic triple-vessel disease and an ascending aortic aneurysm measuring 4.6 cm. I think that the patient have indication for coronary artery bypass surgery and concomitant treatment of his ascending aorta. We extensively discussed with the patient and his in terms of risk of the surgery and prognosis of the coronary artery disease and his aneurysm. We will do the surgery at the beginning of October after he complete the preop test. Chief Complaint Pt is here for a new pt office visit History of Present IllnessMr. Jose Canales is a 66-year-old man with several risk factor for coronary artery disease. He was sent to our outpatient clinic by Dr. Alegria after being diagnosed with triple-vessel disease and an ascending aortic aneurysm of 4.5 cm. The patient complained of unspecific symptoms like tiredness may be some shortness of breath. He was seen in our side hospital with very difficult to control hypertension, service factor from coronary disease, and calcium score was performed that was positive and then followed by a left heart cath. I personally review all his studies. Review of Systems Constitutional: not feeling tired. Eyes: no eyesight problems. ENT: no hearing loss and no nosebleeds. Cardiovascular: no intermittent leg claudication and as noted in HPI. Respiratory: no chronic cough and no shortness of breath. Gastrointestinal: no change in bowel habits and no blood in stools. Genitourinary: no urinary frequency and no hematuria. Skin: no skin rashes. Neurological: no seizures and no frequent falls. Psychiatric: no depression and not suicidal. All other systems have been reviewed and are negative for complaint. Constitutional: not feeling tired. Cardiovascular: no intermittent leg claudication and as noted in HPI. Respiratory: no cough and no shortness of breath. Gastrointestinal: no change in bowel habits and no blood in stools. Integumentary: no skin rashes. Neurological: no seizures and no frequent falls. All other systems have been reviewed and are negative for complaint. Active Problems Problems Adverse effect of rosuvastatin (E942.2) (T46.6X5A) Agatston coronary artery calcium score greater than 400 (793.2) (R93.1) Angina pectoris (413.9) (I20.9) Class 1 obesity with body mass index (BMI) of 30.0 to 30.9 in adult (278.00,V85.30) (E66.9,Z68.30) Elevated blood pressure reading in office with white coat syndrome, with diagnosis of hypertension (401.9) (I10) Encounter to discuss test results (V65.49) (Z71.2) Hypertension (401.9) (I10) Hypertensive heart disease with diastolic congestive heart failure, NYHA class 2 (402.91,428.30) (I11.0,I50.30) Medication course changed (V58.69) (Z79.899) Mixed hyperlipidemia (272.2) (E78.2) Never a smoker Patient new to provider Sleep apnea (780.57) (G47.30) Past Medical History Problems History of Statin intolerance (995.27) (Z78.9) Resolved Date: 28 Sep 2022 Surgical History Problems History of Retinal detachment repair History of Testicular surgery Family History Mother Family history of Heart problem Social History Problems Never a smoker No alcohol use No caffeine use No illicit drug use Allergies Medication Rosuvastatin Calcium TABS Adverse Reaction; intolerance;disabling myalgias; Headache; Myalgia; Updated By: Deneen Cano; 09/27/2022 3:51:09 PM Current Meds Medication NameInstruction Acidophilus Probiotic 10 MG Oral CapsuleTAKE DIRECTED. amLODIPine Besylate 5 MG Oral TabletTAKE 1 TABLET DAILY. Aspirin Adult Low Dose 81 MG Oral Tablet Delayed ReleaseTAKE 1 TABLET DAILY. Benazepril HCl - 40 MG Oral TabletTAKE 1 TABLET DAILY. Co Q-10 100 MG Oral CapsuleTAKE 1 CAPSULE Daily Metoprolol Succinate ER 50 MG Oral Tablet Extended Release 24 HourTAKE 1 TABLET DAILY. Multi Vitamin Oral TabletTAKE 1 TABLET DAILY. Osteo Bi-Flex One Per Day TABSTAKE 1 TAB DAILY Pravastatin Sodium 40 MG Oral TabletTAKE 1 TABLET AT BEDTIME Triamterene-HCTZ 37.5-25 MG Oral TabletTAKE 1/2 TABLET DAILY. Zetia 10 MG Oral TabletTAKE 1 TABLET AT BEDTIME. Vitals Vital Signs Recorded: 14Oct2022 02:43PMRecorded: 14Oct2022 02:42PM Ojmbjwsv896, LUE, Mijozle84, RUE, Sitting Qwolziagf53, LUE, Nrxrydt97, RUE, Sitting Bpixpthcfmc00.5 F Heart Rate65 Wnaeazvzpzk33 Height6 ft 2 in Oevoyt337 lb BMI Kbzlveavuw16.56 kg/m2 BSA Calculated2.34 Tobacco Useb) No Falls Screening (Age 18+)a) No falls within the last year O2 Ymlcaowvqm93, RA Physical Exam Constitutional: alert and in no acute distress. Neck: neck is supple, symmetric, trachea midline, no masses and no thyromegaly . Pulmonary: no increased work of breathing or signs of respiratory distress and lungs clear to auscultation. Cardiovascular: carotid pulses 2+ bilaterally with no bruit , JVP was normal, no thrills , regular rhythm, andrew (more content not included)... Normal [place] Tobacco Screening.on 023 Fall risk assessment a) No falls within the last year [facility] [facility] Work Phone: Tobacco use status [facility] b) No M G[facility]Surgery[facility] [facility] [address] Work Phone: CT Chest WO contraston 10-10 1. Nonspecific mild faint ground-glass opacities in the bilateral upper lobes. Differential considerations include but are not limited to mild acute or chronic infection or hypersensitivity pneumonitis. A high-resolution CT chest may be obtained for further evaluation for determination of air trapping if clinically warranted. 2. Dilatation of the ascending thoracic aorta measuring up to 4.6 cm. Mild scattered calcifications throughout the arch and arch vessels as described above. 3. Hepatic steatosis. I personally reviewed the images/study and I agree with the findings as stated by resident physician Dr. Shamar Zavala. [facility] Interpreted By: DIPIKA GARCIA MD and HERZOG SHAMAR LEBLANC Patient Name: JOSE CANALES STUDY: CT CHEST WO CONTRAST; 10/08/2022 3:45 pm INDICATION: pre op cardiac surgery . Preop cardiac surgery. Patient is a never smoker. COMPARISON: CT cardiac scoring 09/22/2022. ACCESSION NUMBER(S): [id number] ORDERING CLINICIAN: AZALIA ESCAMILLA TECHNIQUE: Contiguous axial images of the chest and upper abdomen were obtained without contrast. Coronal and sagittal reformatted images were reconstructed from the axial data. FINDINGS: MEDIASTINUM AND LYMPH NODES: No enlarged intrathoracic or axillary lymph nodes. The thyroid gland and esophagus are unremarkable. VESSELS: The ascending thoracic aorta is dilated, up to 4.6 cm at the mid ascending level. The aortic arch and descending thoracic aorta are nonaneurysmal. There is focal atherosclerotic calcification seen in the aortic arch near the left common carotid artery origin and within the proximal descending thoracic aorta. Few additional foci of atherosclerotic calcification are seen in the distal descending thoracic aorta. Focal atherosclerotic calcification also seen at the bifurcation of the right brachiocephalic artery, and within bilateral subclavian arteries near the vertebral artery origins. No calcification of either axillary artery. HEART: Normal in size. Severe coronary artery calcifications. No significant pericardial effusion. The anterior margin of the right ventricle is 1.1 cm from the posterior margin of the sternum. LUNG, AIRWAYS, AND PLEURA: The trachea and central airways are patent. There are faint and ill-defined ground-glass opacities in the central portions of bilateral upper lobes as well as the left lower lobe posterior segment (images 70, 80, 89 for example. There is subpleural atelectasis/scarring the lower lobes inferiorly and the lingula of the left upper lobe.No dense consolidation, pleural effusion, or pneumothorax. OSSEOUS STRUCTURES/CHEST WALL: Mild bilateral gynecomastia noted. No suspicious osseous lesions or acute osseous abnormality. UPPER ABDOMEN/OTHER: Diffuse hypo-attenuation of the liver is consistent with steatosis. [facility] Dipika Garcia MD - 10/10/2022 Interpreted By: DIPIKA GARCIA MD and HERZOG SHAMAR LEBLANC Patient Name: JOSE CANALES STUDY: CT CHEST WO CONTRAST; 10/08/2022 3:45 pm INDICATION: pre op cardiac surgery . Preop cardiac surgery. Patient is a never smoker. COMPARISON: CT cardiac scoring 09/22/2022. ACCESSION NUMBER(S): [id number] ORDERING CLINICIAN: AZALIA ESCAMILLA TECHNIQUE: Contiguous axial images of the chest and upper abdomen were obtained without contrast. Coronal and sagittal reformatted images were reconstructed from the axial data. FINDINGS: MEDIASTINUM AND LYMPH NODES: No enlarged intrathoracic or axillary lymph nodes. The thyroid gland and esophagus are unremarkable. VESSELS: The ascending thoracic aorta is dilated, up to 4.6 cm at the mid ascending level. The aortic arch and descending thoracic aorta are nonaneurysmal. There is focal atherosclerotic calcification seen in the aortic arch near the left common carotid artery origin and within the proximal descending thoracic aorta. Few additional foci of atherosclerotic calcification are seen in the distal descending thoracic aorta. Focal atherosclerotic calcification also seen at the bifurcation of the right brachiocephalic artery, and within bilateral subclavian arteries near the vertebral artery origins. No calcification of either axillary artery. HEART: Normal in size. Severe coronary artery calcifications. No significant pericardial effusion. The anterior margin of the right ventricle is 1.1 cm from the posterior margin of the sternum. LUNG, AIRWAYS, AND PLEURA: The trachea and central airways are patent. There are faint and ill-defined ground-glass opacities in the central portions of bilateral upper lobes as well as the left lower lobe posterior segment (images 70, 80, 89 for example. There is subpleural atelectasis/scarring the lower lobes inferiorly and the lingula of the left upper lobe.No dense consolidation, pleural effusion, or pneumothorax. OSSEOUS STRUCTURES/CHEST WALL: Mild bilateral gynecomastia noted. No suspicious osseous lesions or acute osseous abnormality. UPPER ABDOMEN/OTHER: Diffuse hypo-attenuation of the liver is consistent with steatosis. IMPRESSION: 1. Nonspecific mild faint ground-glass opacities in the bilateral upper lobes. Differential considerations include but are not limited to mild acute or chronic infection or hypersensitivity pneumonitis. A high-resolution CT chest may be obtained for further evaluation for determination of air trapping if clinically warranted. 2. Dilatation of the ascending thoracic aorta measuring up to 4.6 cm. Mild scattered calcifications throughout the arch and arch vessels as described above. 3. Hepatic steatosis. I personally reviewed the images/study and I agree with the findings as stated by resident physician Dr. Shamar Zavala. [facility] Work Phone: CT Chest WO contrastOrdered By: Dipika Garcia on 10-10-2022 [facility] Work Phone: CONV vascular historical pro cedureson 10-09-2022 Patent right forearm arteries with size in velocity measurements as above. I personally reviewed the images/study and I agree with the findings as stated by resident physician Dr. Shamar Zavala. [facility] [employer] [facility] Interpreted By: DIPIKA GARCIA MD and HERZOG SHAMAR LEBLANC Patient Name: JOSE CANALES STUDY: DUPLX UPPER EXTREMITY UNILATERAL; 10/08/2022 3:52 pm INDICATION: Preop cardiac surgery. COMPARISON: None. ACCESSION NUMBER(S): [id number] ORDERING CLINICIAN: AZALIA ESCAMILLA TECHNIQUE: Targeted evaluation of the right brachial and radial arteries was performed. FINDINGS: Right brachial artery is widely patent with peak systolic velocity of 59 cm/sec and measures 0.4 x 0.4 cm. Right radial artery is widely patent with peak systolic velocity of 62 cm/sec at the proximal forearm, 60 cm/sec in the midforearm, and 89 cm/sec at the wrist. Right radial artery measures 0.4 x 0.3 cm in the proximal forearm, 0.3 x 0.3 cm in the mid forearm, and 0.3 x 0.2 cm at the wrist. The ulnar artery is patent with peak systolic velocity of 72 cm/sec. Ulnar artery measures 0.2 x 0.2 cm in the mid forearm. [facility] [employer] [facility] [employer] [facility] Dipika Garcia MD - 10/09/2022 Interpreted By: DIPIKA GARCIA MD and HERZOG SHAMAR LEBLANC Patient Name: JOSE CANALES STUDY: DUPLX UPPER EXTREMITY UNILATERAL; 10/08/2022 3:52 pm INDICATION: Preop cardiac surgery. COMPARISON: None. ACCESSION NUMBER(S): [id number] ORDERING CLINICIAN: AZALIA ESCAMILLA TECHNIQUE: Targeted evaluation of the right brachial and radial arteries was performed. FINDINGS: Right brachial artery is widely patent with peak systolic velocity of 59 cm/sec and measures 0.4 x 0.4 cm. Right radial artery is widely patent with peak systolic velocity of 62 cm/sec at the proximal forearm, 60 cm/sec in the midforearm, and 89 cm/sec at the wrist. Right radial artery measures 0.4 x 0.3 cm in the proximal forearm, 0.3 x 0.3 cm in the mid forearm, and 0.3 x 0.2 cm at the wrist. The ulnar artery is patent with peak systolic velocity of 72 cm/sec. Ulnar artery measures 0.2 x 0.2 cm in the mid forearm. IMPRESSION: Patent right forearm arteries with size in velocity measurements as above. I personally reviewed the images/study and I agree with the findings as stated by resident physician Dr. Shamar Zavala. [facility] Work Phone: [facility] Work Phone: Cardiac echo study Procedure on 10-09-2022 [place] [id number] TRANSTHORACIC ECHOCARDIOGRAM REPORT Patient Name: JOSE Arroyo ALLY Reading Physician: [id number] Anjel Last MD, [facility] Study Date: 10/08/2022 Referring Physician: ROMANA MC MRN/PID: [id number] PCP: Accession/Order#: [id number] Department Location: [facility] Echo Lab Date of : 1955 Fellow: Gender: M Nurse: Admit Date: 10/08/2022 Blue Leather Sorter: Rosa Montoya [facility] Admission Status: Outpatient Additional Staff: Height: 188.00 cm CC Report to: Weight: 108.00 kg Study Type: Echocardiogram BSA: 2.34 m2 Blood Pressure: 153 /90 mmHg Diagnosis/ICD: Z01.810-Encounter for preprocedural cardiovascular examination Indication: PRE-OP CABG Procedure/CPT: Echo Complete w Full Doppler-[id number] Patient History: Pertinent History: HTN, Hyperlipidemia, CAD and Chest Pain. Study Detail: The following Echo studies were performed: 2D, M-Mode, Doppler and color flow. Definity used as a contrast agent for endocardial border definition. Total contrast used for this procedure was 2 mL via IV push. The patient was awake. PHYSICIAN INTERPRETATION: Left Ventricle: Left ventricular systolic function is normal, with an estimated ejection fraction of 60-65%. There are no regional wall motion abnormalities. The left ventricular cavity size is normal. The left ventricular septal wall thickness is mildly increased. There is mildly increased left ventricular posterior wall thickness. Spectral Doppler shows an impaired relaxation pattern of left ventricular diastolic filling. Left Atrium: The left atrium is normal in size. Left atrial volume index 23.6 ml/m2. Right Ventricle: The right ventricle is normal in size. There is normal right ventricular global systolic function. Normal right ventricular size and function. Right Atrium: The right atrium is normal in size. Aortic Valve: The aortic valve is trileaflet. There is mild aortic valve regurgitation. The peak instantaneous gradient of the aortic valve is 6.0 mmHg. The mean gradient of the aortic valve is 3.0 mmHg. Mitral Valve: The mitral valve is normal in structure. There is trace mitral valve regurgitation. Tricuspid Valve: The tricuspid valve is structurally normal. There is mild tricuspid regurgitation. Mild tricuspid regurgitation with estimated RVSP 20.3 mmHg. Pulmonic Valve: The pulmonic valve is structurally normal. There is no indication of pulmonic valve regurgitation. Pericardium: There is a trivial pericardial effusion. The effusion is circumferential. Aorta: The aortic root is abnormal. There is moderate dilatation of the ascending aorta. There is mild dilatation of the aortic root. Ascending aorta measures 4.4 cm. Aortic root measures 3.8 cm. Systemic Veins: The inferior vena cava appears to be of normal size. There is IVC inspiratory collapse greater than 50%. CONCLUSIONS: 1. Left ventricular systolic function is normal with a 60-65% estimated ejection fraction. 2. Spectral Doppler shows an impaired relaxation pattern of left ventricular diastolic filling. 3. Normal right ventricular size and function. 4. Mild tricuspid regurgitation with estimated RVSP 20.3 mmHg. 5. Mild aortic valve regurgitation. 6. Ascending aorta measures 4.4 cm. Aortic root measures 3.8 cm. 7. No previous available for comparison. 8. There is moderate dilatation of the ascending aorta. QUANTITATIVE DATA SUMMARY: 2D MEASUREMENTS: Normal Ranges: Ao Root d: 3.80 cm (2.0-3.7cm) LAs: 4.90 cm (2.7-4.0cm) IVSd: 1.31 cm (0.6-1.1cm) LVPWd: 1.30 cm (0.6-1.1cm) LVIDd: 4.87 cm (3.9-5.9cm) LVIDs: 3.23 cm LV Mass Index: 108.0 g/m2 LV % FS 33.7 % LA VOLUME: Normal Ranges: LA Vol A4C: 50.5 ml (22+/-6mL/m2) LA Vol A2C: 55.3 ml LA Vol BP: 54.2 ml LA Vol Index A4C: 21.6ml/m2 LA Vol Index A2C: 23.6 ml/m2 LA Vol Index BP: 23.2 ml/m2 LA Area A4C: 17.8 cm2 LA Area A2C: 19.1 cm2 LA Major Levasy A4C: 5.3 cm LA Major Levasy A2C: 5.6 cm LA Volume Index: 21.8 ml/m2 LA Vol A4C: 47.0 ml LA Vol A2C: 51.0 ml RA VOLUME BY A/L METHOD: Normal Ranges: RA Vol A4C: 60.4 ml (8.3-19.5ml) RA Vol Index A4C: 25.8 ml/m2 RA Area A4C: 18.3 cm2 RA Major Levasy A4C: 4.7 cm AORTA MEASUREMENTS: Normal Ranges: Asc Ao, d: 4.40 cm (2.1-3.4cm) LV SYSTOLIC FUNCTION BY 2D PLANIMETRY (MOD): Normal Ranges: EF-A4C View: 63.5 % (>=55%) EF-A2C View: 62.9 % EF-Biplane: 63.8 % LV DIASTOLIC FUNCTION: Normal Ranges: MV Peak E: 0.59 m/s (0.7-1.2 m/s) MV Peak A: 0.86 m/s (0.42-0.7 m/s) E/A Ratio: 0.68 (1.0-2.2) MV lateral e' 0.10 m/s MV medial e' 0.06 (more content not included)... Anjel Rudd MD - 10/09/2022 [place] [id number] TRANSTHORACIC ECHOCARDIOGRAM REPORT Patient Name: JOSE Arroyo ALLY Reading Physician: [id number] Anjel Last MD, [facility] Study Date: 10/08/2022 Referring Physician: ROMANA MC MRN/PID: [id number] PCP: Accession/Order#: [id number] Department Location: [facility] Echo Lab Date of : 1955 Fellow: Gender: M Nurse: Admit Date: 10/08/2022 Blue Leather Sorter: Rosa Montoya [facility] Admission Status: Outpatient Additional Staff: Height: 188.00 cm CC Report to: Weight: 108.00 kg Study Type: Echocardiogram BSA: 2.34 m2 Blood Pressure: 153 /90 mmHg Diagnosis/ICD: Z01.810-Encounter for preprocedural cardiovascular examination Indication: PRE-OP CABG Procedure/CPT: Echo Complete w Full Doppler-[id number] Patient History: Pertinent History: HTN, Hyperlipidemia, CAD and Chest Pain. Study Detail: The following Echo studies were performed: 2D, M-Mode, Doppler and color flow. Definity used as a contrast agent for endocardial border definition. Total contrast used for this procedure was 2 mL via IV push. The patient was awake. PHYSICIAN INTERPRETATION: Left Ventricle: Left ventricular systolic function is normal, with an estimated ejection fraction of 60-65%. There are no regional wall motion abnormalities. The left ventricular cavity size is normal. The left ventricular septal wall thickness is mildly increased. There is mildly increased left ventricular posterior wall thickness. Spectral Doppler shows an impaired relaxation pattern of left ventricular diastolic filling. Left Atrium: The left atrium is normal in size. Left atrial volume index 23.6 ml/m2. Right Ventricle: The right ventricle is normal in size. There is normal right ventricular global systolic function. Normal right ventricular size and function. Right Atrium: The right atrium is normal in size. Aortic Valve: The aortic valve is trileaflet. There is mild aortic valve regurgitation. The peak instantaneous gradient of the aortic valve is 6.0 mmHg. The mean gradient of the aortic valve is 3.0 mmHg. Mitral Valve: The mitral valve is normal in structure. There is trace mitral valve regurgitation. Tricuspid Valve: The tricuspid valve is structurally normal. There is mild tricuspid regurgitation. Mild tricuspid regurgitation with estimated RVSP 20.3 mmHg. Pulmonic Valve: The pulmonic valve is structurally normal. There is no indication of pulmonic valve regurgitation. Pericardium: There is a trivial pericardial effusion. The effusion is circumferential. Aorta: The aortic root is abnormal. There is moderate dilatation of the ascending aorta. There is mild dilatation of the aortic root. Ascending aorta measures 4.4 cm. Aortic root measures 3.8 cm. Systemic Veins: The inferior vena cava appears to be of normal size. There is IVC inspiratory collapse greater than 50%. CONCLUSIONS: 1. Left ventricular systolic function is normal with a 60-65% estimated ejection fraction. 2. Spectral Doppler shows an impaired relaxation pattern of left ventricular diastolic filling. 3. Normal right ventricular size and function. 4. Mild tricuspid regurgitation with estimated RVSP 20.3 mmHg. 5. Mild aortic valve regurgitation. 6. Ascending aorta measures 4.4 cm. Aortic root measures 3.8 cm. 7. No previous available for comparison. 8. There is moderate dilatation of the ascending aorta. QUANTITATIVE DATA SUMMARY: 2D MEASUREMENTS: Normal Ranges: Ao Root d: 3.80 cm (2.0-3.7cm) LAs: 4.90 cm (2.7-4.0cm) IVSd: 1.31 cm (0.6-1.1cm) LVPWd: 1.30 cm (0.6-1.1cm) LVIDd: 4.87 cm (3.9-5.9cm) LVIDs: 3.23 cm LV Mass Index: 108.0 g/m2 LV % FS 33.7 % LA VOLUME: Normal Ranges: LA Vol A4C: 50.5 ml (22+/-6mL/m2) LA Vol A2C: 55.3 ml LA Vol BP: 54.2 ml LA Vol Index A4C: 21.6ml/m2 LA Vol Index A2C: 23.6 ml/m2 LA Vol Index BP: 23.2 ml/m2 LA Area A4C: 17.8 cm2 LA Area A2C: 19.1 cm2 LA Major Levasy A4C: 5.3 cm LA Major Levasy A2C: 5.6 cm LA Volume Index: 21.8 ml/m2 LA Vol A4C: 47.0 ml LA Vol A2C: 51.0 ml RA VOLUME BY A/L METHOD: Normal Ranges: RA Vol A4C: 60.4 ml (8.3-19.5ml) RA Vol Index A4C: 25.8 ml/m2 RA Area A4C: 18.3 cm2 RA Major Levasy A4C: 4.7 cm AORTA MEASUREMENTS: Normal Ranges: Asc Ao, d: 4.40 cm (2.1-3.4cm) LV SYSTOLIC FUNCTION BY 2D PLANIMETRY (MOD): Normal Ranges: EF-A4C View: 63.5 % (>=55%) EF-A2C View: 62.9 % EF-Biplane: 63.8 % LV DIASTOLIC FUNCTION: Normal Ranges: MV Peak E: 0.59 m/s (0.7-1.2 m/s) MV Peak A: 0.86 m/s (0.42-0.7 m/s) E/A Ratio: 0.68 (1.0-2.2) MV lateral e' 0.10 m/s MV medial e' 0.06 m/s E/e' Ratio: 5.70 (<8.0) MITRAL VALVE: Normal Ranges: MV Vmax: 0.72 m/s (<=1.3m/s) MV peak P.1 mmHg (<5mmHg) MV DT: 283 msec (150-240msec) AORTIC VALVE: Normal Ranges: AoV Vmax: 1.22 m/s (<=1.7m/s) Ao (more content not included)... [facility] Work Phone: Cardiac echo study Procedure Ordered By: Anjel Last on 10-09-2022 [facility] Work Phone: US.doppler Carotid arteries - bilateralon 10-09-2022 Mild atherosclerotic plaque at both carotid bulbs and proximal internal carotid arteries. No evidence of hemodynamically significant stenosis by velocity criteria. I personally reviewed the images/study and I agree with the findings as stated by resident physician Dr. Shamar Zavala. The velocity criteria are extrapolated from diameter data as defined by the Society of Radiologists in Ultrasound Consensus Conference Radiology 2003; 229;340-346. [facility] Interpreted By: DIPIKA GARCIA MD and HERZOG SHAMAR LEBLANC Patient Name: JOSE CANALES STUDY: US CAROTID BILATERAL DUPLEX; 10/08/2022 3:52 pm INDICATION: Preop cardiac surgery. COMPARISON: None. ACCESSION NUMBER(S): [id number] ORDERING CLINICIAN: AZALIA ESCAMILLA TECHNIQUE: Vascular ultrasound of the extracranial carotid system was performed bilaterally. Sanders scale, color Doppler and spectral Doppler waveform analysis was performed. FINDINGS: RIGHT: On the right there is a mild amount of echogenic plaque at the carotid bulb and proximal internal carotid artery which causes at most mild luminal narrowing visually. The peak systolic velocities are as follows: RIGHT SIDE PEAK SYSTOLIC VELOCITY TABLE: CCA 112 cm/sec. ICA 98 cm/sec. ECA 128 cm/sec. The ratio of the peak systolic velocity of the right ICA/CCA is 0.9. RIGHT VERTEBRAL ARTERY: The right vertebral artery demonstrates proximal normal anterograde flow LEFT: On the left there is a small amount of eccentric echogenic plaque at the carotid bulb and proximal internal carotid artery that causes at most mild luminal narrowing visually.. The peak systolic velocities are as follows: LEFT SIDE PEAK SYSTOLIC VELOCITY TABLE: CCA 90 cm/sec. ICA 96 cm/sec. ECA 120 cm/sec. The ratio of the peak systolic velocity of the left ICA/CCA is 1.1. LEFT VERTEBRAL ARTERY: The left vertebral artery demonstrates proximal normal anterograde flow [facility] Dipika Garcia MD - 10/09/2022 Interpreted By: DIPIKA GARCIA MD and HERZOG SHAMAR LEBLANC Patient Name: JOSE CANALES STUDY: US CAROTID BILATERAL DUPLEX; 10/08/2022 3:52 pm INDICATION: Preop cardiac surgery. COMPARISON: None. ACCESSION NUMBER(S): [id number] ORDERING CLINICIAN: AZALIA ESCAMILLA TECHNIQUE: Vascular ultrasound of the extracranial carotid system was performed bilaterally. Sanders scale, color Doppler and spectral Doppler waveform analysis was performed. FINDINGS: RIGHT: On the right there is a mild amount of echogenic plaque at the carotid bulb and proximal internal carotid artery which causes at most mild luminal narrowing visually. The peak systolic velocities are as follows: RIGHT SIDE PEAK SYSTOLIC VELOCITY TABLE: CCA 112 cm/sec. ICA 98 cm/sec. ECA 128 cm/sec. The ratio of the peak systolic velocity of the right ICA/CCA is 0.9. RIGHT VERTEBRAL ARTERY: The right vertebral artery demonstrates proximal normal anterograde flow LEFT: On the left there is a small amount of eccentric echogenic plaque at the carotid bulb and proximal internal carotid artery that causes at most mild luminal narrowing visually.. The peak systolic velocities are as follows: LEFT SIDE PEAK SYSTOLIC VELOCITY TABLE: CCA 90 cm/sec. ICA 96 cm/sec. ECA 120 cm/sec. The ratio of the peak systolic velocity of the left ICA/CCA is 1.1. LEFT VERTEBRAL ARTERY: The left vertebral artery demonstrates proximal normal anterograde flow IMPRESSION: Mild atherosclerotic plaque at both carotid bulbs and proximal internal carotid arteries. No evidence of hemodynamically significant stenosis by velocity criteria. I personally reviewed the images/study and I agree with the findings as stated by resident physician Dr. Shamar Zavala. The velocity criteria are extrapolated from diameter data as defined by the Society of Radiologists in Ultrasound Consensus Conference Radiology 2003; 229;340-346. [facility] Work Phone: [facility] Work Phone: US.doppler Lower extremity v ein - bilateralon 10-09-2022 Measurements of bilateral greater and lesser saphenous veins as above. I personally reviewed the images/study and I agree with the findings as stated by resident physician Dr. Shamar Zavala. [facility] Interpreted By: DIPIKA GARCIA MD and HERZOG SHAMAR LEBLANC Patient Name: JOSE CANALES STUDY: DUPLEX LOWER EXTREMITY VEINS, BILATERAL; 10/08/2022 3:52 pm INDICATION: pre op cardiac surgery . COMPARISON: None. ACCESSION NUMBER(S): [id number] ORDERING CLINICIAN: AZALIA ESCAMILLA TECHNIQUE: Targeted sonographic evaluation of bilateral greater saphenous veins was performed. FINDINGS: Right greater saphenous vein measurements: Above the knee: Proximal = 0.7 x 0.6 cm. Mid = 0.4 x 0.4 cm. Distal = 0.3 x 0.2 cm. Below the knee: Proximal = 0.3 x 0.3 cm. Mid = 0.2 x 0.2 cm. Distal = 0.3 x 0.2 cm. Right lesser saphenous vein measurements: Proximal = 0.2 x 0.2 cm. Mid = 0.2 x 0.2 cm. Distal = 0.2 x 0.2 cm. Left greater saphenous vein measurements: Above the knee: Proximal = 0.6 x 0.6 cm. Mid = 0.4 x 0.4 cm. Distal = 0.4 x 0.4 cm. Below the knee: Proximal = 0.4 x 0.4 cm. Mid = 0.3 x 0.2 cm. Distal = 0.3 x 0.3 cm. Left lesser saphenous vein measurements: Proximal = 0.2 x 0.3 cm. Mid = 0.3 x 0.2 cm. Distal = 0.3 x 0.2 cm. [facility] Dipika Garcia MD - 10/09/2022 Interpreted By: DIPIKA GARCIA MD and HERZOG SHAMAR LEBLANC Patient Name: JOSE CANALES STUDY: DUPLEX LOWER EXTREMITY VEINS, BILATERAL; 10/08/2022 3:52 pm INDICATION: pre op cardiac surgery . COMPARISON: None. ACCESSION NUMBER(S): [id number] ORDERING CLINICIAN: AZALIA ESCAMILLA TECHNIQUE: Targeted sonographic evaluation of bilateral greater saphenous veins was performed. FINDINGS: Right greater saphenous vein measurements: Above the knee: Proximal = 0.7 x 0.6 cm. Mid = 0.4 x 0.4 cm. Distal = 0.3 x 0.2 cm. Below the knee: Proximal = 0.3 x 0.3 cm. Mid = 0.2 x 0.2 cm. Distal = 0.3 x 0.2 cm. Right lesser saphenous vein measurements: Proximal = 0.2 x 0.2 cm. Mid = 0.2 x 0.2 cm. Distal = 0.2 x 0.2 cm. Left greater saphenous vein measurements: Above the knee: Proximal = 0.6 x 0.6 cm. Mid = 0.4 x 0.4 cm. Distal = 0.4 x 0.4 cm. Below the knee: Proximal = 0.4 x 0.4 cm. Mid = 0.3 x 0.2 cm. Distal = 0.3 x 0.3 cm. Left lesser saphenous vein measurements: Proximal = 0.2 x 0.3 cm. Mid = 0.3 x 0.2 cm. Distal = 0.3 x 0.2 cm. IMPRESSION: Measurements of bilateral greater and lesser saphenous veins as above. I personally reviewed the images/study and I agree with the findings as stated by resident physician Dr. Shamar Zavala. [facility] Work Phone: [facility] Work Phone: Adult Cathon 10-08-2022 [facility], [employer] Supervisor [address] [place] [id number] Cardiovascular Catheterization Report Patient Name: JOSE CANALES Performing Physician: Nola Alegria MD Study Date: 10/08/2022 Verifying Physician: Nola Alegria MD MRN/PID: [id number] Deputy Administrator: Accession/Order#: [id number] Referring Physician: Joseline Alcazar Date of : 1955 Referring Physician: Gender: M Referring Physician: Nola Alegria MD Study: Left Heart Catheterization Indications: JOSE CANALES is a 67 year old male who presents with dyslipidemia, hypertension, obesity and a chest pain assessment of typical angina. New onset angina <=2 months and suspected coronary artery disease. Stress test performed: Yes. Stress test type: Exercise Stress. Stress result: Negative. CTA performed: No. Agatston accessed: Yes. Agatston Score: greater than 2000. LVEF Assessed: Yes. LVEF = greater than 60%%. Cardiac arrest: No. Frailty status of patient entering lab: 3 = Active patient. Procedure Description: After infiltration with 2% Lidocaine, the right femoral artery was cannulated with a modified Seldinger technique. Subsequently a 5 Burundian sheath was placed in the right femoral artery. Multiple injections of contrast were made into the left and right coronary arteries with angiograms recorded in multiple projections. Retrograde left heart catheterizion was accomplished with a 5 Fr. pigtail catheter. A single plane left ventriculogram was recorded in the 30 degree DAVIDSON projection. The contrast dose was 20 ml injected at 10 ml/sec. The catheter was then withdrawn across the aortic valve under continuous pressure monitoring and removed. After completion of the procedure, femoral artery angiography was performed. This demonstrated a common femoral artery puncture appropriate for closure. An Angio-Seal Evolution 6F ([employer]) vascular closure device was placed per protocol. Coronary Angiography: The coronary circulation is right dominant. Additional Findings: In summary this patient has extensive coronary calcification, triple-vessel disease involving ostial and mid RCA, distal left main and its trifurcation into LAD ramus and circumflex and preserved LV systolic function. Left internal mammary artery is tortuous Large-caliber, left subclavian artery does not have any stenosis. CT surgery consultation was initiated and work-up has begun. Hemo Personnel: + + + Name Duty + + + Kristen Alegria MD PROC 1 + + + Denilson Wooten RT PROC SCRUB 1 + + + Luis A Angel RN PROC CIRC 1 + + + Kailyn Harrell RN PROC CIRC 2 + + + Harmony Bolanos RN PROC RECORD 1 + + + Therese Anguiano RT PROC RECORD 2 + + + Latoya Stewart RN PROC NURSE 1 + + + Corinna Lizama RN PROC NURSE 2 + + + Equipment Used: + + + Date/Time Description + + + 10/08/2022 10:55:14 AM {5 Fr Catheter} - 5F Pigtail Angled 145 Infiniti - Qty: 1 Each Part #: 47 + + + 10/08/2022 11:02:01 AM {Sheath} - 5F Cartwright Sheath w/ Wire - Qty: 1 Each Part #: 1401 + + + 10/08/2022 11:02:13 AM {Sheath} - 5F Merit Micropuncture Kit BX/10 - Qty: 1 Each Part #: 1392 + + + 10/08/2022 11:07:08 AM {5 Fr Catheter} - 5F JL4 Infiniti - Qty: 1 Each Part #: 35 + + + 10/08/2022 11:07:16 AM {5 Fr Catheter} - 5F 3DRC - Qty: 1 Each Part #: 24 + + + 10/08/2022 11:12:21 AM {5 Fr Catheter} - 5F JL5 Infiniti - Qty: 1 Each Part #: 37 + + + 10/08/2022 11:31:10 AM {Closure Devic (more content not included)... Kristen Stein MD - 10/08/2022 [facility], [employer] Processing Supervisor [address] [place] [address] Cardiovascular Catheterization Report Patient Name: JOSE CANALES Performing Physician: [id number] Alegria MD Study Date: 10/08/2022 Verifying Physician: Nola Alegria MD MRN/PID: [id number] Deputy Administrator: Accession/Order#: [id number] Referring Physician: Joseline Alcazar Date of : 1955 Referring Physician: Gender: M Referring Physician: Nola Alegria MD Study: Left Heart Catheterization Indications: JOSE CANALES is a 67 year old male who presents with dyslipidemia, hypertension, obesity and a chest pain assessment of typical angina. New onset angina <=2 months and suspected coronary artery disease. Stress test performed: Yes. Stress test type: Exercise Stress. Stress result: Negative. CTA performed: No. Agatston accessed: Yes. Agatston Score: greater than 2000. LVEF Assessed: Yes. LVEF = greater than 60%%. Cardiac arrest: No. Frailty status of patient entering lab: 3 = Active patient. Procedure Description: After infiltration with 2% Lidocaine, the right femoral artery was cannulated with a modified Seldinger technique. Subsequently a 5 Burundian sheath was placed in the right femoral artery. Multiple injections of contrast were made into the left and right coronary arteries with angiograms recorded in multiple projections. Retrograde left heart catheterizion was accomplished with a 5 Fr. pigtail catheter. A single plane left ventriculogram was recorded in the 30 degree DAVIDSON projection. The contrast dose was 20 ml injected at 10 ml/sec. The catheter was then withdrawn across the aortic valve under continuous pressure monitoring and removed. After completion of the procedure, femoral artery angiography was performed. This demonstrated a common femoral artery puncture appropriate for closure. An Angio-Seal Evolution 6F ([employer]) vascular closure device was placed per protocol. Coronary Angiography: The coronary circulation is right dominant. Additional Findings: In summary this patient has extensive coronary calcification, triple-vessel disease involving ostial and mid RCA, distal left main and its trifurcation into LAD ramus and circumflex and preserved LV systolic function. Left internal mammary artery is tortuous Large-caliber, left subclavian artery does not have any stenosis. CT surgery consultation was initiated and work-up has begun. Hemo Personnel: + + + Name Duty + + + Kristen Alegria MD PROC 1 + + + Denilson Wooten RT PROC SCRUB 1 + + + Angel, Luis A J RN PROC CIRC 1 + + + Kailyn Harrell RN PROC CIRC 2 + + + Harmony Bolanos RN PROC RECORD 1 + + + Therese Anguiano RT PROC RECORD 2 + + + Latoya Stewart RN PROC NURSE 1 + + + Corinna Lizama RN PROC NURSE 2 + + + Equipment Used: + + --------- ----+ Date/Time Description + + --------- ----+ 10/08/2022 10:55:14 AM {5 Fr Catheter} - 5F Pigtail Angled 145 Infiniti - Qty: 1 Each Part #: 47 + + --------- ----+ 10/08/2022 11:02:01 AM {Sheath} - 5F Cartwright Sheath w/ Wire - Qty: 1 Each Part #: 1401 + + --------- ----+ 10/08/2022 11:02:13 AM {Sheath} - 5F Merit Micropuncture Kit /10 - Qty: 1 Each Part #: 1392 + + --------- ----+ 10/08/2022 11:07:08 AM {5 Fr Catheter} - 5F JL4 Infiniti - Qty: 1 Each Part #: 35 + + --------- ----+ 10/08/2022 11:07:16 AM {5 Fr Catheter} - 5F 3DRC - Qty: 1 Each Part #: 24 + + --------- ----+ 10/08/2022 11:12:21 AM {5 Fr Catheter} - 5F JL5 Infiniti - Qty: 1 Each Part #: 37 + + --------- ----+ 10/08/2022 11:31:10 AM {Closure Device} - Angio-Seal 6F Closure VIP Plus - Qty: 1 Each Part #: 395 + + --------- ----+ Fluoroscopy Time: + -----+--------+ X-Ray Summary Fluoro Time: 6.40 min + -----+--------+ + +---------+ Contrast: Dose: + +---------+ Omnipaque: 115.00 ml + +---------+ H (more content not included)... [facility] Work Phone: [facility] Work Phone: BASIC METABOLIC PANELon - Anion gap [Moles/Vol] 12 mmol/L Normal 10 - 20 [facility] Comment on above: Performed By: #### B ####[place] [address] [place] [id number] Calcium [Mass/Vol] 9.6 mg/dL Normal 8.6 - 10.3 [facility] Comment on above: Performed By: #### B MP ####[place] [address] [place], [place] [id number] Chloride [Moles/Vol] 103 mmol/L Normal 98 - 107 [facility] Comment on above: Performed By: #### B MP ####[address] [id number] Creatinine [Mass/Vol] 0.91 mg/dL Normal 0.50 - 1.30 [facility] Comment on above: Performed By: #### B MP ####[address] [id number] eGFR MALE >90 Normal >90 [facility] Comment on above: Result Comment: CALC ULATIONS OF ESTIMATED GFR ARE PERFORMED USING THE 2020 CKD-EPI STUDY REFIT EQUATION WITHOUT THE RACE VARIABLE FOR THE IDMS-TRACEABLE CREATININE METHODS.https://jasn.asnjournals.org/content/early/ ASN.0867487879 Performed By: #### B MP ####[address] [id number] Glucose [Mass/Vol] 105 mg/dL High 74 - 99 [facility] Comment on above: Performed By: #### B MP ####[address] [id number] HCO3 (Bld) [Moles/Vol] 28 mmol/L Normal 21 - 32 [facility] Comment on above: Performed By: #### B MP ####[address] [id number] Potassium [Moles/Vol] 4.2 mmol/L Normal 3.5 - 5.3 [facility] Comment on above: Performed By: #### B MP ####[address] [id number] Sodium [Moles/Vol] 139 mmol/L Normal 136 - 145 [facility] Comment on above: Performed By: #### B MP ####[facility] [place], [place] [id number] Urea nitrogen [Mass/Vol] 18 mg/dL Normal 6 - 23 [facility] Comment on above: Performed By: #### B MP ####[facility] [place], [place] [id number] Basic metabolic 2000 panelon 10-08-2022 Anion gap [Moles/Vol] 12 mmol/L 10 - 2 0 mmol/L [facility] Calcium [Mass/Vol] 9.6 mg/dL 8.6 - 10. 3 mg/dL [facility] Chloride [Moles/Vol] 103 mmol/L 98 - 10 7 mmol/L [facility] CO2 [Moles/Vol] 28 mmol/L 21 - 32 mmol/L [facility] Creatinine [Mass/Vol] 0.91 mg/dL 0.50 - 1.30 mg/dL [facility] GFR MALE >90 - PINF [facility] Comment on above: CALCULATIONS OF PARADISE MATED GFR ARE PERFORMED USING THE 2020 CKD-EPI STUDY REFIT EQUATION WITHOUT THE RACE VARIABLE FOR THE IDMS-TRACEABLE CREATININE METHODS. https://jasn.asnjournals.org/content/early//ASN.2020 835279 Glucose [Mass/Vol] 105 mg/dL High 74 - 99 mg/dL [facility] Interpretation and review of laboratory results Abnormal [facility] Potassium [Moles/Vol] 4.2 mmol/L 3.5 - 5.3 mmol/L [facility] Sodium [Moles/Vol] 139 mmol/L 136 - 145 mmol/L [facility] Urea nitrogen [Mass/Vol] 18 mg/dL 6 - 23 mg/dL [facility] CBCon 10-08-2022 Erythrocyte distribution width (RBC) [Ratio] 12.8 % Normal 11.5 - 14.5 [facility] Comment on above: Performed By: #### C BC ####[facility] [place], [place] [id number] Hematocrit (Bld) [Volume fraction] 44.4 % Normal 41.0 - 52.0 [facility] Comment on above: Performed By: #### C BC ####[facility] [place], [place] [id number] Hemoglobin (Bld) [Mass/Vol] 15.2 g/dL Normal 13.5 - 17.5 [facility] Comment on above: Performed By: #### C BC ####[facility] [place], [place] [phone] MCHC (RBC) [Mass/Vol] 34.2 g/dL Normal 32.0 - 36.0 [facility] Comment on above: Performed By: #### C BC ####[facility] [place], [place] [id number] MCV (RBC) [Entitic vol] 91 fL Normal 80 - [address] [facility] Comment on above: Performed By: #### C BC ####[facility] [place], [place] [id number] Platelets (Bld) [#/Vol] 233 10*3/uL Normal 150 - 450 [facility] Comment on above: Performed By: #### C BC ####[place] [address] [place], [place] [id number] RBC 4.86 x10E12/L Normal 4.50 - 5.90 [facility] Comment on above: Performed By: #### C BC ####[place] [address] [place], [place] [phone] WBC (Bld) [#/Vol] 12.1 10*3/uL High 4.4 - 11.3 [facility] Comment on above: Performed By: #### C BC ####[place] [address] [place], [place] [phone] CBC panel Auto (Bld)on 10-08 Erythrocyte distribution width (RBC) [Ratio] 12.8 % 11.5 - 14.5 % [facility] Hematocrit (Bld) [Volume fraction] 44.4 % 41.0 - 52.0 % [facility] Hemoglobin (Bld) [Mass/Vol] 15.2 g/dL 13.5 - 17.5 g/dL [facility] Interpretation and review of laboratory results Abnormal [facility] MCHC (RBC) [Mass/Vol] 34.2 g/dL 32.0 - 36.0 g/dL [facility] MCV (RBC) [Entitic vol] 91 fL 80 - 100 fL [facility] Platelets (Bld) [#/Vol] 233 10*3/uL [facility] RBC (Bld) [#/Vol] 4.86 10*6/uL [facility] WBC (Bld) [#/Vol] 12.1 10*3/uL High Unive [facility] CT Chest WO contraston 10-08 Radiology Study observation (narrative) [facility] Work Phone: CT Chest without Contraston 10-08-2022 CT Chest WO contrast Normal [facility] Work Phone: Consult-Cardiac Surgeryon Consult-Cardiac Surgery Normal [facility] Electrocardiogram 12 Leadon 10-08-2022 Electrocardiogram 12 Lead Ventricular Rate 66 Atrial Rate 66 P-R Interval 176 QRS Duration 88 Q-T Interval 416 QTC Calculation(Bazett) 436 P Levasy 15 R Levasy -11 T Levasy 9 QRS Count 11 Q Onset 211 P Onset 123 P Offset 175 T Offset 419 QTC Fredericia 429 Diagnosis Class Normal Diagnosis Normal sinus rhythm Normal ECG No previous ECGs available Confirmed by Maria Pastor ([id number]) on 10/08/2022 2:08:20 PM Normal [facility] Electrocardiogram 12 LeadOrd ered By: Maria Pastor on 10-08-2022 Atrial Rate 66 BPM [facility] Work Phone: P Levasy 15 degrees [facility] Work Phone: P Offset 175 ms [facility] Work Phone: P Onset 123 ms [facility] Work Phone: MS Interval 176 ms [facility] Work Phone: [id number] Q Onset 211 ms [facility] Work Phone: [id number] QRS Count 11 beats [facility] Work Phone: [id number] QRS Duration 88 ms [facility] Work Phone: [id number] QT Interval 416 ms [facility] Work Phone: [id number] QTC Calculation(Bazett) 436 ms [facility] Work Phone: [id number] [phone] QTC Fredericia 429 ms [facility] Work Phone: [phone] R Levasy -11 degrees [facility] Work Phone: [phone] T Levasy 9 degrees [facility] Work Phone: T Offset 419 ms [facility] Work Phone: [phone] Ventricular Rate 66 [facility] Work Phone: [facility] Work Phone: Electrocardiogram 12 Leadon 10-08-2022 Normal sinus rhythm Normal ECG No previous ECGs available Confirmed by Maria Pastor ([id number]) on 10/08/2022 2:08:20 PM Maria Wilhelm M D - 10/08/2022 Normal sinus rhythm Normal ECG No previous ECGs available Confirmed by Maria Pastor ([id number]) on 10/08/2022 2:08:20 PM [facility] Work Phone: Laboratory - Chemistry and C hemistry - challengeon 10-08-2022 Anion gap [Moles/Vol] 12 mmol/L 10 - 20 MG- Surgery-E [facility] 125 Work Phone: Calcium [Mass/Vol] 9.6 mg/dL 8.6 - 10.3 MG-Marciano xavier-E [facility] 125 Work Phone: Chloride [Moles/Vol] 103 mmol/L 98 - 107 MG-S urgery-E [place] 125 Work Phone: CO2 [Moles/Vol] 28 mmol/L 21 - 32 MG-Surger y-E [place] 125 Work Phone: Creatinine [Mass/Vol] 0.91 mg/dL See Below MG- Surgery-E [facility] 125 Work Phone: Comment on above: Reference Range: 0.5 0 - 1.30 Glucose [Mass/Vol] 105 mg/dL above high threshold 74 - 99 JQ-Zzfnpzp-V lyria 125 Work Phone: Potassium [Moles/Vol] 4.2 mmol/L 3.5 - 5.3 MG- Surgery-E [facility] 125 Work Phone: Sodium [Moles/Vol] 139 mmol/L 136 - 145 MG-Marciano xavier-E [facility] 125 Work Phone: Urea nitrogen [Mass/Vol] 18 mg/dL 6 - 23 KE-Ecpfzrw-F lyria 125 Work Phone: Laboratory - Hematology and Cell countson 10-08-2022 Erythrocyte distribution width (RBC) [Ratio] 12.8 % See Below SD-Sxoerzy-C lyria 125 Work Phone: Comment on above: Reference Range: 11. 5 - 14.5 Hematocrit (Bld) [Volume fraction] 44.4 % See Below XE-Xvjaukj-O lyria 125 Work Phone: Comment on above: Reference Range: 41. 0 - 52.0 Hemoglobin (Bld) [Mass/Vol] 15.2 g/dL See Below LI-Wezuxxa-C lyria 125 Work Phone: Comment on above: Reference Range: 13. 5 - 17.5 MCHC (RBC) [Mass/Vol] 34.2 g/dL See Below MG- Surgery-E [facility] 125 Work Phone: Comment on above: Reference Range: 32. 0 - 36.0 MCV (RBC) [Entitic vol] 91 fL 80 - 100 M G-Surgery-E [place] 125 Work Phone: Platelets (Bld) [#/Vol] 233 10*3/uL 150 - 450 XC-Uvdszyj-N lyria 125 Work Phone: RBC (Bld) [#/Vol] 4.86 {x10E12/L} See Below MG -Surgery-E [facility] 125 Work Phone: Comment on above: Reference Range: 4.5 0 - 5.90 WBC (Bld) [#/Vol] 12.1 10*3/uL above high threshold 4.4 - 11.3 LM-Bdmasgs-E [facility] 125 Work Phone: Left Heart Catheterizationon 10-08-2022 Left Heart Catheterization Normal [facility] Narrative Note - Outpatiento n 10-08-2022 Narrative Note - Outpatient Normal [facility] No Panel Informationon 10-08 MP-[facility] 250 DO Work Phone: >90 >90 JI-Vuhdyiz-V [facility] 125 Work Phone: Comment on above: CALCULATIONS OF PARADISE MATED GFR ARE PERFORMED USING THE 2020 CKD-EPI STUDY REFIT EQUATION WITHOUT THE RACE VARIABLE FOR THE IDMS-TRACEABLE CREATININE METHODS.https://jasn.asnjournals.org/content// ASN.0826622111 https://MUSEXPRDWE [email or web address] 1:8080/musescripts/mus [email or web address]?RetrieveTestB yDateTime?PatientID=[id number]&Date= 3&Time=08%3a26%3a28%3a 00&TestType=ECG&Site=1 1&OutputType=PDF&Ext=P DF PU-Gdplijy-W lyria 125 Work Phone: Normal sinus rhythm MG-Shepherd rgery-E [place] 125 Work Phone: Normal BH-Lzozgxy-Z lyria 125 Work Phone: [phone] IK-Jabuulw-R lyria 125 Work Phone: [phone] OZ-Blbeyva-Q lyria 125 Work Phone: 175 1 XK-Vpoaboa-G lyria 125 Work Phone: 123 1 SS-Ulrabby-Z ly[place] 125 Work Phone: 211 1 IW-Zkagcvk-F lyria 125 Work Phone: 11 1 YY-Qtnusqf-K lyria 125 Work Phone: 9 1 ET-Qyksicg-M lyria 125 Work Phone: -11 1 QY-Rekpfaq-I lyria 125 Work Phone: 15 1 CL-Zkdiaqu-Y lyria 125 Work Phone: 436 1 QG-Bmdylml-L lyria 125 Work Phone: [phone] RL-Dedefdu-Z ly[place] 125 Work Phone: 88 1 XD-Qqvkmdc-Z ly[place] 125 Work Phone: [phone] DH-Bqvjcve-C lyria 125 Work Phone: 66 1 ZT-Cbgtetb-M lyria 125 Work Phone: Radiology Study observation (narrative) [facility] Work Phone: Order Reconciliationon 10-08 Order Reconciliation Normal [facility] Patient Profile - Preop v3on 10-08-2022 Patient Profile - Preop v3 Normal [facility] Radiologyon 10-08-2022 US Carotid arteries - bilateral Normal QO-Mnyhwfg-V [place] 125 Work Phone: US Upper extremity artery - bilateral Normal SS-Hsxwpkx-W lyria 125 Work Phone: US.doppler Upper extremity vein - bilateral Normal KR-Ibqgnsa-L ly[place] 125 Work Phone: Office Visit (Cardiology)on 09-28-2022 Follow-up visit Diagnoses/Problems Assessed Class 1 obesity with body mass index (BMI) of 30.0 to 30.9 in adult (278.00,V85.30) (E66.9,Z68.30) Never a smoker Angina pectoris (413.9) (I20.9) Medication course changed (V58.69) (Z79.899) Adverse effect of rosuvastatin (E942.2) (T46.6X5A) Agatston coronary artery calcium score greater than 400 (793.2) (R93.1) Hypertension (401.9) (I10) History of Statin intolerance (995.27) (Z78.9) Encounter to discuss test results (V65.49) (Z71.2) Hypertensive heart disease with diastolic congestive heart failure, NYHA class 2 (402.91,428.30) (I11.0,I50.30) Orders Angina pectoris Cardiac Catherization; Status:Active - Retrospective Authorization; Requested for:28Sep2022; Percutaneous Transluminal Angioplasty PTCA; Status:Active; Requested for:28Sep2022; Angina pectoris, Class 1 obesity with body mass index (BMI) of 30.0 to 30.9 in adult, Health Maintenance, Hypertension, Medication course changed, Mixed hyperlipidemia, Sleep apnea Basic Metabolic Panel; Status:Active - Retrospective Authorization; Requested for:28Sep2022; Complete Blood Count; Status:Active - Retrospective Authorization; Requested for:28Sep2022; PT/INR; Status:Active - Retrospective Authorization; Requested for:28Sep2022; Class 1 obesity with body mass index (BMI) of 30.0 to 30.9 in adult Healthy Weight Tips; Status:Complete - Retrospective Authorization; Done: 28Sep2022 Some eating tips that can help you lose weight.; Status:Complete - Retrospective Authorization; Done: 28Sep2022 Health Maintenance Please bring all medicines, vitamins, and herbal supplements with you when you come to the office.; Status:Complete - Retrospective Authorization; Done: 28Sep2022 Follow-Up After Testing Treatment Follow-up Status: Complete - Retrospective Authorization Done: 28Sep2022 Hypertension Start: amLODIPine Besylate 5 MG Oral Tablet; TAKE 1 TABLET DAILY SocHx: Never a smoker Tobacco Use Screening; Status:Complete; Done: 28Sep2022 Unlinked Stop: amLODIPine Besylate 2.5 MG Oral Tablet Patient Instructions By signing my name below, Maximiliano Trujillo MA, Scribe, attest that this documentation has been prepared under the direction and in the presence of Dr. Kristen Alegria MD, [facility]. Chief Complaint Pt Request ABN CA score and chest pressure History of Present Illness Patient was initially seen on 09/13/2022, and presents for follow-up after medication change as well as additional testing. Originally presented with uncontrolled hypertension to outside hospital, palpitations, started on amlodipine benazepril, metoprolol, evidence of whitecoat hypertension, I saw him for blood pressure management. Patient was also complaining of fatigue. We tapered off his metoprolol, and added Maxide. Blood pressure has improved significantly. Patient reports feeling well. His coronary calcium score however is significantly abnormal left main 394 LAD 757 left circumflex 23 RCA 1178 with a total score of 2344 incidental finding of dilatation of the thoracic aorta 4.4 cm Laboratory data reviewed hemoglobin A1c 6.1 total cholesterol 159 triglycerides 103 LDL 104 triglycerides 103 HDL 34 Patient has not been noticing anterior chest discomfort in the last few weeks, which she describes as a pressure sensation, does not radiate to the neck arm or jaw, frequently with activity does not wake him up from sleep at night. EKG today shows normal sinus rhythm normal intervals and no acute or diagnostic ST-T abnormality. Patient is accompanied by his . Findings were discussed with both patient and . Despite a negative stress test in February 2022, patient needs further work-up for CAD particularly in view of his chest discomfort that is suggestive of angina pectoris, and his markedly abnormal coronary calcium score and other risk factors. He also is recommended to start aspirin and pravastatin 40 mg daily. Assessment: 1. Hypertension- 2. Whitecoat hypertension 3. Nosebleeds, resolved 4. Intolerance to rosuvastatin-muscle cramping 5. Probable obstructive sleep apnea-not interested in testing because he does not think he will tolerate the CPAP mask. 6. Lexiscan Myoview February 2022-no ischemia, preserved LV systolic function 7. Echocardiogram February 2022-LV wall thickness is reported to be normal, LV end-systolic dimension 3.9 cm left atrial dimension 5.12 cm aortic root 3.71 cm no aortic stenosis, LVEF 55 to 60% mild left ventricular hypertrophy normal diastolic function no pericardial effusion, normal RV size and systolic function 8. Left atrial dilatation noted on echo of February 2022, without gross valvular abnormality.? Elevated left atrial pressure from hypertension 9. Coronary calcium score August 2022-left main 394 LAD 757 left circumflex 23 RCA thousand 170, total score 2344, 97th percentile for age gender and race 10. Dilatation of the ascending thoracic aorta-4.4 cm, incidental finding on coronary calcium score from 09/22/2022. Recommendatio (more content not included)... Normal [facility] Tobacco Screening.on Adult depression screening assessment No [facility] 300 DO Work Phone: Fall risk assessment a) No falls within the last year [facility] 300 DO Work Phone: [phone] Tobacco use status [facility] b) No M [facility] 300 DO Work Phone: CT CARDIAC SCORINGon 023 CT CARDIAC SCORING Normal [facility] CT Cardiac Scoringon 023 CT Cardiac Scoring Normal [facility] 250 DO Work Phone: Office Visit (Cardiology)on 09-13-2022 Follow-up visit Diagnoses/Problems Assessed Patient new to provider Never a smoker Hypertension (401.9) (I10) Class 1 obesity with body mass index (BMI) of 30.0 to 30.9 in adult (278.00,V85.30) (E66.9,Z68.30) Sleep apnea (780.57) (G47.30) Statin intolerance (995.27) (Z78.9) Mixed hyperlipidemia (272.2) (E78.2) Medication course changed (V58.69) (Z79.899) Elevated blood pressure reading in office with white coat syndrome, with diagnosis of hypertension (401.9) (I10) Orders Class 1 obesity with body mass index (BMI) of 30.0 to 30.9 in adult Healthy Weight Tips; Status:Complete; Done: 13Sep2022 Some eating tips that can help you lose weight.; Status:Complete; Done: 13Sep2022 Hypertension, Mixed hyperlipidemia Start: Triamterene-HCTZ 37.5-25 MG Oral Tablet (Maxzide-25); TAKE 1/2 TABLET DAILY Basic Metabolic Panel; Status:Active; Requested for:20Sep2022; CT Cardiac Scoring; Status:Hold For - Scheduling; Requested for:13Sep2022; Patient taking Metformin or Derivatives? : No Radiologist to Determine Optimal Study : Y What are the patient's signs and symptoms? : hyperlipidmia, htn Patient new to provider, Sleep apnea IO EKG Electrocardiogram- 12 Lead; Status:Complete; Done: 13Sep2022 SocHx: Never a smoker Tobacco Use Screening; Status:Complete; Done: 13Sep2022 Patient Instructions Please bring all medicines, vitamins, and herbal supplements with you when you come to the office. Prescriptions will not be filled unless you are compliant with your follow up appointments or have a follow up appointment scheduled as per instruction of your physician. Refills should be requested at the time of your visit. Follow up in 3 months Chief Complaint JOSE CANALES is being seen for a consultation for hypertension. History of Present Illness Patient is accompanied by to the office. Being seen in cardiology consultation at the request of Dr. Sweeney regarding hypertension. Patient started hypertensive medications at [facility], just did not feel right, and his blood pressure was very high. Recalls that he just did not feel right, hence went in. Also noticed that his heart would skip beats. He was in the ICU for at least 2 days. Amlodipine and benazepril were continued, metoprolol was added, with significant improvement in blood pressure. Patient has kept meticulous blood pressure log for several days, and I have reviewed them. He clearly has whitecoat hypertension. His heart rates however in the 60s and 70s. 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 Patient believes that of late the blood pressure is creeping up. Most of the blood pressure readings are actually at target occasionally there is a 140 or 150 systolic. Diastolics however are in the 80s. No documented coronary artery disease. Previous stress test and echocardiogram results from 2021 were reviewed. Lipid profile from October 2021 showed total cholesterol of 175 triglycerides 122 HDL 37 LDL 114. Sodium 140 potassium 4.7 BUN 12 creatinine 0.97 glucose 109 hemoglobin 16.6 hematocrit 49.3 platelets 286. describes several symptoms that patient has that are concerning for sleep apnea. The symptoms include excessive snoring, particularly if he lays on his back, if he lays on his side snoring is less, patient wakes up startled, which she believes is because he stops breathing, then he gets up and has to pace around because he gets anxious, then goes back to bed. On examination, it is notable to say that patient does not have any epigastric or renal arterial bruit.Does not have orthostatic lightheadedness. Palpitations have resolved. Reports muscle cramping and headache with rosuvastatin which was started in March 2022. Decreased the dose in April with some improvement in symptoms, however they did not completely rosey. He stopped the medication in June 2022, and his symptoms have abated. Still noticing fatigue of late. Orthostatics were checked and patient is not orthostatic. Assessment: 1. Hypertension-requiring 3 different medications, only one of them is at maximum dose. 2. Whitecoat hypertension 3. Nosebleeds 4. Intolerance to rosuvastatin-muscle cramping 5. Probable obstructive sleep apnea-not interested in testing because he does not think he will tolerate the CPAP mask. 6. Lexiscan Myoview February 2022-no ischemia, preserved LV systolic function 7. Echocardiogram February 2022-LV wall thickness is reported to be normal, LV end-systolic dimension 3.9 cm left atrial dimension 5.12 cm aortic root 3.71 cm no aortic stenosis, LVEF 55 to 60% mild left ventricular hypertrophy normal diastolic function no pericardial effusion, normal RV size and systolic function 8. Left atrial dilatation noted on echo of February 2022, without gross valvular abnormality.? Elevated left atrial pressure from hypertension (more content not included)... Normal [place] Tobacco Screening.on 023 Adult depression screening assessment No -[facility] PhoneFusion 250 DO Work Phone: Fall risk assessment a) No falls within the last year [facility] PhoneFusion 250 DO Work Phone: Tobacco use status [facility] b) No M -[facility] PhoneFusion 250 DO Work Phone: 37on 07-27-2022 37 -Increase Amlodipine to 5 mg daily -Decrease Metoprolol 25 mg daily- prescription sent -Monitor blood pressure and bring log and blood pressure monitor to follow-up Normal [facility] Office Visiton 07-27-2022 Follow-up visit [id number] Jose Canales P 1955 M Date Provider Department Center 07/27/2022 [id number]-KCLWDDQSABETTY BAIN JO Forde Family History Problem Relation Age of Onset Diabetes Father Hypertension Father Hyperlipidemia Father Family Status - Relation Status Age at Father Level of Service:27466 MS OFFICE/OUTPATIENT ESTABLISHED MOD MDM 30-39 MIN Reason for Visit and Comments: Follow-up [773977] [facility] 36on 04-27-2022 36 Patient called to ma ke you aware that he's not able to tolerate Crestor. It was giving him headaches and brain fog. He stopped it for a week to see if symptoms improved and they did. I told him I would let you know to see if you wanted him to try a different statin. (He thinks he's tried Lipitor in the past?) I also advised that he cut the Crestor in half to see if he could tolerate that. Any changes you'd like to make? Please advise. Thanks. [facility] Office Visiton 04-09-2022 Follow-up visit [id number] Jose Canales P 1955 M Date Provider Department Center 04/09/2022 [id number]-MBJHOHDUANE CARDENAS JO [facility] Family History Problem Relation Age of Onset Diabetes Father Hypertension Father Hyperlipidemia Father Family Status - Relation Status Age at Father Level of Service:01192 MS OFFICE/OUTPATIENT NEW LOW MDM 30-44 MINUTES Reason for Visit and Comments: Chest Pain [639059] Hypertension [403714] Hyperlipidemia [182] Normal [facility] CARDIAC MURPHY 3-6on 2 CK [Catalytic activity/Vol] 168 U/L Normal 39-308 [facility] Comment on above: Performed By: #### C MREP #### [facility] [address] [address] [address] Paola Bahena CK.MB [Mass/Vol] 3.89 ng/mL Critically high <=3.60 [facility] Comment on above: Performed By: #### C MREP #### [facility] [address] [address] [address] Paola Bahena HSTROP 22.8 pg/mL Normal 4.0-76.1 [facility] Comment on above: Result Comment: CUT- OFF POINTS HAVE BEEN ESTABLISHED BASED ON THE FOURTH UNIVERSAL DEFINITIONS OF MYOCARDIAL INFARCTION. THE UPPER REFERENCE LIMIT (URL) OF TROPONIN, DEFINED THE 99TH PERCENTILE OF cTnI DISTRIBUTION IN A REFERENCE POPULATION, HAS BEEN CONFIRMED THE DECISION THRESHOLD FOR UT DIAGNOSIS. Performed By: #### C MREP #### [facility] [address] [place] [address] Dr. Paola Bahena CK [Catalytic activity/Vol] 182 U/L Normal 39-308 [facility] Comment on above: Performed By: #### C MREP #### [facility] [address] [place] [address] Dr. Paola KOHLER.MB [Mass/Vol] 4.22 ng/mL Critically high <=3.60 [facility] Comment on above: Performed By: #### C MREP #### [facility] [address] [place] [address] Dr. Paola Bahena HSTROP 24.8 pg/mL Normal 4.0-76.1 [facility] Comment on above: Result Comment: CUT- OFF POINTS HAVE BEEN ESTABLISHED BASED ON THE FOURTH UNIVERSAL DEFINITIONS OF MYOCARDIAL INFARCTION. THE UPPER REFERENCE LIMIT (URL) OF TROPONIN, DEFINED THE 99TH PERCENTILE OF cTnI DISTRIBUTION IN A REFERENCE POPULATION, HAS BEEN CONFIRMED THE DECISION THRESHOLD FOR UT DIAGNOSIS. Performed By: #### C MREP #### [facility] [address] [place] [address] Dr. Paola Bahena CARDIAC MURPHY ADMITon 022 CK [Catalytic activity/Vol] 201 U/L Normal 39-308 [facility] Comment on above: Performed By: #### B SANTOS CMADM #### [facility] [address] [place] [address] Dr. Paola Bahena CK.MB [Mass/Vol] 4.82 ng/mL Critically high <=3.60 [facility] Comment on above: Performed By: #### B SANTOS CMADM #### [facility] [address] [place] [address] Dr. Paola Bahena HSTROP 27.4 pg/mL Normal 4.0-76.1 [facility] Comment on above: Result Comment: CUT- OFF POINTS HAVE BEEN ESTABLISHED BASED ON THE FOURTH UNIVERSAL DEFINITIONS OF MYOCARDIAL INFARCTION. THE UPPER REFERENCE LIMIT (URL) OF TROPONIN, DEFINED THE 99TH PERCENTILE OF cTnI DISTRIBUTION IN A REFERENCE POPULATION, HAS BEEN CONFIRMED THE DECISION THRESHOLD FOR UT DIAGNOSIS. Performed By: #### B EAN GRAHAM #### [facility] [address] [address] [address] Paola Bahena LEON 99 ng/mL Critically high 16-96 [facility] Comment on above: Performed By: #### B EAN GRAHAM #### [facility] [address] [address] [address] Paola Bahena CBC AUTO DIFFon 03-23-2022 BASO # 0.1 103/ul Normal 0.0-0.1 [facility] Comment on above: Performed By: #### C BC ####[facility] [address] [address]DrReed Bahena Basophils/100 WBC (Bld) 0.6 % Normal 0.2-2.0 [facility] Comment on above: Performed By: #### C BC ####[facility] [address] [address]Dr. Paola Bahena EO # 0.3 103/ul Normal 0.0-0.7 [facility] Comment on above: Performed By: #### C BC ####[facility] [address] [address]Dr. Paola Bahena Eosinophils/100 WBC (Bld) 3.8 % Normal 0.9-7.0 [facility] Comment on above: Performed By: #### C BC ####[facility] [address] [address]DrReed Bahena Erythrocyte distribution width (RBC) [Ratio] 12.7 % Normal 11.0-15.0 [facility] Comment on above: Performed By: #### C BC ####[facility] [address] [address]DrReed Bahena Hematocrit (Bld) [Volume fraction] 45.3 % Normal 42.0-54.0 [facility] Comment on above: Performed By: #### C BC ####[facility] [address] [address]DrReed Paola Bahena Hemoglobin (Bld) [Mass/Vol] 15.5 g/dL Normal 14.0-18.0 [facility] Comment on above: Performed By: #### C BC ####[facility] [address] [place], [place] [address]DrReed Paola Bahena IG # 0.02 10e3/ul Normal 0.00-0.03 [facility] Comment on above: Performed By: #### C BC ####[facility] [address] [place], [place] [address]DrReed Paola Bahena IG % 0.2 % Normal 0.0-0.5 [facility] Comment on above: Performed By: #### C BC ####[facility] [address] [place], [place] [address]DrReed Paola Bahena LYMPH # 1.7 103/ul Normal 1.2-3.8 [facility] Comment on above: Performed By: #### C BC ####[facility] [address] [place], [place] [address]DrReed Paola Bahena Lymphocytes/100 WBC (Bld) 19.9 % Critically low 20.5-60.0 [facility] Comment on above: Performed By: #### C BC ####[facility] [address] [place], [place] [address]DrReed Paola Josef MANUAL DIFF REQ NO Normal [facility] Comment on above: Performed By: #### C BC ####[facility] [address] [place], [place] [address]DrReed Paola Josef MCH (RBC) [Entitic mass] 30.7 pg Normal 25.9-34.0 [facility] Comment on above: Performed By: #### C BC ####[facility] [address] [place], [place] [address]DrReed Giselleshannon Bahena MCHC (RBC) [Mass/Vol] 34.2 g/dL Normal 29.9-35.2 [facility] Comment on above: Performed By: #### C BC ####[facility] [address] [address]DrReed Bahena MCV (RBC) [Entitic vol] 89.7 fL Normal 80.0-94.0 [facility] Comment on above: Performed By: #### C BC ####[facility] [address] [address]DrReed Bahena MONO # 0.9 103/ul Critically high 0.3-0.8 [facility] Comment on above: Performed By: #### C BC ####[facility] [address] [address]DrReed Bahena Monocytes/100 WBC (Bld) 10.6 % Normal 1.7-12.0 [facility] Comment on above: Performed By: #### C BC ####[facility] [address] [place], [place] [address]DrReed Bahena NEUT # 5.6 103/ul Normal 1.4-6.5 [facility] Comment on above: Performed By: #### C BC ####[facility] [address] [place], [place] [address]DrReed Bahena Neutrophils/100 WBC (Bld) 64.9 % Normal 43.0-75.0 [facility] Comment on above: Performed By: #### C BC ####[facility] [address] [place] [address]DrReed Bahena Platelet mean volume (Bld) [Entitic vol] 9.6 fL Normal 9.5-13.5 [facility] Comment on above: Performed By: #### C BC ####[facility] [address] [place], [place] [address]DrReed Bahena PLT 253 103/ul Normal 150-450 [facility] Comment on above: Performed By: #### C BC ####[facility] [address] [place], [place] [address]DrReed Bahena RBC 5.05 106/ul Normal 4.70-6.10 [facility] Comment on above: Performed By: #### C BC ####[facility] [address] [place], [place] [address]WkReed Desaishannon Bahena WBC 8.6 103/ul Normal 4.0-11.0 [facility] Comment on above: Performed By: #### C BC ####[facility] [address] [place], [place] [address]IiReed Bahena Covid-19 PCR (CVDTBH)on 02-24 SARS-CoV-2 (COVID-19) RNA ANISHA+probe Ql (Unsp spec) Not detected Normal NOT DETECTED [facility] Comment on above: Result Comment: When diagnostic testing is negative, the possibility of a false negative should be considered in the context of a patient's recent exposures and the presence of clinical signs and symptoms consistent with SARS-CoV-2. This test is not yet approved or cleared by the [place] FDA. When there are no FDA-approved or cleared tests available, and other criteria are met, FDA can make tests available under an emergency access mechanism called an Emergency Use Authorization (EUA). The EUA for this test is supported by the [place] of Health and Human Service's declaration that circumstances exist to justify the emergency use of in vitro diagnostics for the detection and/or diagnosis of the virus that causes COVID-19. This EUA will remain in effect for the duration of the COVID-19 declaration justifying emergency of IVDs, unless it is terminated or revoked by the FDA (after which the test may no longer be used). Performed By: #### C VDTBH #### [facility] [address] [place], [place] [address] Dr. Paola Bahena D-DIMERon 03-23-2022 D-DIMER 0.36 mg/L FEU Normal <=0.59 [facility] Comment on above: Performed By: #### D DIM #### [facility] [address] [place], [place] [address] Dr. Paola Bahena D-DIMER COMMENTS SEE BELOW Normal [facility] Comment on above: Result Comment: Incr eases in D-Dimer concentration observed with thromboembolic events can be variable due to localization, size, and age of the thrombus. Therefore, a thromboembolic event cannot be diagnosed with certainty on the basis of the reference range. D-Dimers may also be elevated for a variety of disorders including: advanced age, , coronary disease, cancer, liver disease, infection, inflammation, hematoma, DIC, trauma, post-surgery, diabetes, thrombolytic or anticoagulant therapy, stress, and generalized hospitalization. Performed By: #### D DIM #### [facility] [address] [place] [address] Dr. Paola Bahena ECHOCARDIO M/2D COMPLETEon 1 05-23-2021 ECHOCARDIO M/2D COMPLETE Patient: JOSE CANALES Exam Date: 03/23/2022 : 1955 Gender:M Ordering : SHAIKH Lena MARSH . Admission #: [id number] Family : DR JOSELINE ALCAZAR M.D. Order #: [id number] CLICK HERE TO VIEW EXAM ECHOCARDIOGRAM REPORT PROCEDURE: CARDIO PULMONARY ECHOCARDIO M/2D COMP INDICATIONS: Chest pain, hypertension COMPARISON: None. DESCRIPTION: COMPLETE ECHOCARDIOGRAM Real-time transthoracic echocardiography with 2D, M-mode, spectral and color flow Doppler performed. QUALITY: Technical quality was good. 74 234# BP 155/101 LEFT VENTRICLE: Normal chamber size. Mild concentric left ventricular hypertrophy. LV EF: Normal left ventricular ejection fraction, (>55%). DIASTOLIC: Normal diastolic function. ATRIAL SEPTUM: Visually appears intact. LEFT ATRIUM: Normal chamber size. RIGHT ATRIUM: Normal chamber size. RIGHT VENTRICLE: Normal chamber size. Normal right ventricular systolic function. TRICUSPID VALVE: Normal mobility and thickness. No stenosis with trivial regurgitation. MITRAL VALVE: Normal mobility and thickness. No evidence of mitral valve stenosis. There is no mitral annular calcification. No mitral regurgitation. AORTIC VALVE: Normal trileaflet appearance. No visible sclerosis. Normal leaflet mobility. No evidence of aortic valve stenosis. No aortic regurgitation. AORTIC ROOT: Normal diameter and appearance. PULMONIC VALVE: Normal thickness and mobility. No stenosis. Mild regurgitation. PERICARDIUM: Anterior free space; trivial effusion versus fat pad. IVC: Not well visualized. CONCLUSION: Global left ventricular systolic function is preserved; visually estimated ejection fraction is 55 to 60%. No obvious wall motion abnormalities. Mild left ventricular hypertrophy. Normal diastolic function. The right ventricle is normal in size and systolic function. Mild pulmonic regurgitation. Anterior free space; trivial effusion versus fat pad. Adult Echocardiography Procedure Report Left Ventricle LVEDD (3.7 - 5.6 cm): 4.96 cm LVESD (2.2 - 4.0 cm): 3.91 cm LVIVS thickness (0.6 - 1.2 cm): 1.31 cm LVPW thickness (0.5 - 1.0 cm): 1.06 cm e': 0.11 m/s E - e': 3.72 LVOT Max Gradient: 2.06 mm[Hg] Peak Velocity (LVOT): 0.72 m/s LVOT Diameter 2.37 cm Left Ventricular Ejection Fraction: 42.81 %, 42.81 % Left Atrium Left Atrium Systolic Dimension: 5.12 cm Mitral Valve MV E to A Ratio: 0.66 Mitral Valve A-Wave Peak Velocity: 0.60 m/s Mitral Valve E-Wave Peak Velocity: 0.40 m/s Right Ventricle Aorta AO Root Diam: 3.71 cm Aortic Valve AoV Area (Peak Karen): 2.56 cm2, 2.56 cm2 Peak Velocity(Antegrade Flow): 1.24 m/s Peak Gradient(Antegrade Flow): 6.12 mm[Hg] Tricuspid Valve Peak Velocity: 0.64 m/s Pulmonic Valve Mean Gradient: 2.96 mm[Hg], 2.62 mm[Hg] Mean Velocity: 0.78 m/s, 0.72 m/s Peak Velocity: 1.28 m/s, 1.20 m/s, 1.38 m/s Peak Gradient: 6.56 mm[Hg], 5.78 mm[Hg], 7.61 mm[Hg] Right Atrium Right Atrium Systolic Pressure: 50.74 ml, 50.74 ml Dictated by: Silvino Luis M.D. on 03/24/2022 at 13:55 Approved by: Silvino Luis M.D. on 03/24/2022 at 13:58 Normal [facility] GLYCOHEMOGLOBIN A1Con 2021 ADA RECOMMENDATION SEE BELOW Normal [facility] Comment on above: Result Comment: ADA RECOMMENDED LIMIT 4.0 - 6.0 ADA THERAPEUTIC TARGET < 7.0 ACTION SUGGESTED > 7.0 Performed By: #### A 1C #### [facility] [address] [place] [address] [address] Paola Bahena Glucose [Mass/Vol] 128 mg/dL Normal [facility] Comment on above: Performed By: #### A 1C #### [facility] [address] [place] [address] [address] Paola Bahena HbA1c (Bld) [Mass fraction] 6.1 % Normal 4.5-6.2 [facility] Comment on above: Performed By: #### A 1C #### [facility] [address] [place] [address] [address] Paola Bahena LIPID PROFILEon 03-23-2022 CHOL-HDL RATIO NORM SEE BELOW Normal [facility] Comment on above: Result Comment: 3.3 - 4.4 LOW RISK 4.4 - 7.1 AVERAGE RISK 7.1 - 11.0 MODERATE RISK >11.0 HIGH RISK Performed By: #### L IPID #### [facility] [address] [place] [address] [address] Paola Bahena Cholesterol [Mass/Vol] 159 mg/dL Normal <=200 [facility] Comment on above: Performed By: #### L IPID #### [facility] [address] [place] [address] Dr. Paola Bahena Cholesterol in HDL [Mass/Vol] 34 mg/dL Critically low 40-60 [facility] Comment on above: Performed By: #### L IPID #### [facility] [address] [place] [address] [address] Paola Bahena Cholesterol in LDL [Mass/Vol] 104.4 mg/dL Normal [facility] Comment on above: Performed By: #### L IPID #### [facility] [address] [place] [address] [address] Paola Bahena Cholesterol.total/Candace sterol in HDL [Mass ratio] 4.7 {ratio} Normal [facility] Comment on above: Performed By: #### L IPID #### [facility] [address] [place] [address] [address] Paola Bahena HDL NORMAL > or = 60 mg/dl - LO W CARDIOVASCULAR RISK <40 mg/dl - HIGH CARDIOVASCULAR RISK Normal [facility] Comment on above: Performed By: #### L IPID #### [facility] [address] [place] [address] Dr. Paola Bahena LDL CALC NORMAL SEE BELOW Normal [facility] Comment on above: Result Comment: <100 mg/dl OPTIMAL 100 - 129 mg/dl NEAR OR ABOVE OPTIMAL 130 - 159 mg/dl BORDERLINE HIGH 160 - 189 mg/dl HIGH >190 mg/dl VERY HIGH Performed By: #### L IPID #### [facility] [address] [place] [address] [address] Paola Bahena Triglyceride [Mass/Vol] 103 mg/dL Normal <=150 [facility] Comment on above: Performed By: #### L IPID #### [facility] [address] [place] [address] Dr. Paola Bahena VLDL CALC 20.6 mg/dL Normal [facility] Comment on above: Performed By: #### L IPID #### [facility] [address] [place] [address] Dr. Paola Bahena NM STRESS/REST MULTIon 03-23 NM STRESS/REST MULTI Patient: JOSE CANALES Exam Date: 03/23/2022 : 1955 Gender:M Ordering : MONSE SKINNER Admission #: [id number] Family : SHAIKH Lena MARSH . Order #: [id number] CLICK HERE TO VIEW EXAM RADIOLOGY REPORT PROCEDURE: RADIONUCLIDE IMAGING STRESS/REST MULTI COMPARISON: None. INDICATIONS: Chest pain TECHNIQUE: Exam Description: Stress/Rest one day protocol gated SPECT Rest Imagin.0 mCi Tc-99m Cardiolite IV on 03/23/2022 Stress Imaging 30.2 mCi Tc-99m Cardiolite IV on 03/23/2022 Exercise Protocol: 0.4 mg Lexiscan given IV Heart Rate (bpm): Rest: 67 Max: 100 PMHR: 64 Blood Pressure: Rest: 184/104 Max: 188/102 Symptoms: Rest and peak stress ECG findings were abnormal and the exercise portion of the study was Non-diagnostic per attending physician Dr. Ng due to EKG changes, multiple T-wave inversions with lexiscan. For more details please see separate cardiac stress test report. FINDINGS: QUALITY OF STUDY: Excellent. PERFUSION DEFECT: None. LOCATION: N/A SIZE: N/A. SEVERITY: N/A. TYPE: N/A. WALL MOTION: Normal. LV SIZE: Normal. 92 mL. TID / TCD: None; 0.7 LVEF: Normal. Calculated EF 65%. SUMMARY: Myocardial perfusion imaging study is NORMAL. CONCLUSION: 1. Normal nuclear medicine myocardial perfusion scan. 2. Nondiagnostic exercise portion of study; please see Dr. Ng's report. Dictated by: Bryan Cooper M.D. on 03/23/2022 at 15:18 Approved by: Bryan Cooper M.D. on 03/23/2022 at 15:21 Normal [facility] PROF CHEM 8 (BAS METB)on Anion gap [Moles/Vol] 11.3 mmol/L Normal [facility] Comment on above: Performed By: #### B EAN GRAHAM #### [facility] [address] [place] [address] Dr. Paola Bahena Calcium [Mass/Vol] 9.2 mg/dL Normal 8.5-10.1 [facility] Comment on above: Performed By: #### B EAN GRAHAM #### [facility] [address] [place] [address] [address] Paola Bahena Chloride [Moles/Vol] 102 mmol/L Normal 98-107 [facility] Comment on above: Performed By: #### B EAN GRAHAM #### [facility] [address] [place] [address] [address] Paola Bahena CO2 [Moles/Vol] 28.6 mmol/L Normal 21.0-32.0 [facility] Comment on above: Performed By: #### B EAN GRAHAM #### [facility] [address] [place] [address] [address] Paola Bahena Creatinine [Mass/Vol] 0.93 mg/dL Normal 0.70-1.30 [facility] Comment on above: Performed By: #### B EAN GRAHAM #### [facility] [address] [place] [address] [address] Paola Bahena EGFR-AF GRENADIAN >60 Normal >=60 [facility] Comment on above: Performed By: #### B SANTOS, EAN #### [facility] [address] [place] [address] [address] Paola Bahena EGFR-NON AF GRENADIAN >60 Normal >=60 [facility] Comment on above: Performed By: #### B SANTOS, MISSYDM #### [facility] [address] [place] [address] [address] Paola Bahena Glucose [Mass/Vol] 144 mg/dL Critically high 74-106 [facility] Comment on above: Performed By: #### B EAN GRAHAM #### [facility] [address] [place] [address] [address] Paola Bahena Potassium [Moles/Vol] 3.9 mmol/L Normal 3.5-5.1 [facility] Comment on above: Performed By: #### B EAN GRAHAM #### [facility] [address] [place] [address] Dr. Paola Bahena Sodium [Moles/Vol] 138 mmol/L Normal 136-145 [facility] Comment on above: Performed By: #### B EAN GRAHAM #### [facility] [address] [place] [address] [address] Paola Bahena Urea nitrogen [Mass/Vol] 15.0 mg/dL Normal 7.0-18.0 [facility] Comment on above: Performed By: #### B EAN GRAHAM #### [facility] [address] [place] [address] Dr. Paola Bahena Urea nitrogen/Creatinine [Mass ratio] 16.1 mg/mg Normal [facility] Comment on above: Performed By: #### B EAN GRAHAM #### [facility] [address] [place] [address] [address] Paola Bahena XR CHEST 1 Von 03-23-2022 XR CHEST 1 V EXAM: XR CHEST 1 V HISTORY: CHEST PAIN, UNSPECIFIED COMPARISON: 02/28/2014 TECHNIQUE: Chest single view. FINDINGS: Lines/tubes/devices: EKG leads overlie the chest. No indwelling lines are seen. Cardiomediastinum: Cardiac silhouette appears normal in size. Stable mediastinal silhouette. Mildly tortuous aorta. Vasculature: No increased pulmonary vasculature. Lungs/pleura: No consolidation, sizeable effusion, or visible pneumothorax. Bones/soft tissues: Bony thorax appears grossly intact as seen. IMPRESSION: No acute findings, or significant interval change. Electronically authenticated by: DEVAUGHN JASSO Date: 2022-03-22 23:03 Normal [facility] CBC AUTO DIFFon 07-21-2021 BASO # 0.0 103/ul Normal 0.0-0.1 [facility] Comment on above: Performed By: #### C BC ####[facility] [address] [place] [address]DrReed Bahena Basophils/100 WBC (Bld) 0.3 % Normal 0.2-2.0 [facility] Comment on above: Performed By: #### C BC ####[facility] [address] [place], [place] [address]DrReed Bahena EO # 0.1 103/ul Normal 0.0-0.7 [facility] Comment on above: Performed By: #### C BC ####[facility] [address] [place], [place] [address]DrReed Bahena Eosinophils/100 WBC (Bld) 0.7 % Critically low 0.9-7.0 [facility] Comment on above: Performed By: #### C BC ####[facility] [address] [place], [place] [address]DrReed Bahena Erythrocyte distribution width (RBC) [Ratio] 12.8 % Normal 11.0-15.0 [facility] Comment on above: Performed By: #### C BC ####[facility] [address] [place], [place] [address]DrReed Bahena Hematocrit (Bld) [Volume fraction] 43.2 % Normal 42.0-54.0 [facility] Comment on above: Performed By: #### C BC ####[facility] [address] [place], [place] [address]DrReed Bahena Hemoglobin (Bld) [Mass/Vol] 14.7 g/dL Normal 14.0-18.0 [facility] Comment on above: Performed By: #### C BC ####[facility] [address] [place] [address]DrReed Bahena IG # 0.07 10e3/ul Critically high 0.00-0.03 [facility] Comment on above: Performed By: #### C BC ####[facility] [address] [place], [place] [address]DrReed Bahena IG % 0.6 % Critically high 0.0-0.5 [facility] Comment on above: Performed By: #### C BC ####[facility] [address] [place], [place] [address]DrReed Bahena LYMPH # 1.1 103/ul Critically low 1.2-3.8 [facility] Comment on above: Performed By: #### C BC ####[facility] [address] [place], [place] [address]DrReed Bahena Lymphocytes/100 WBC (Bld) 8.7 % Critically low 20.5-60.0 [facility] Comment on above: Performed By: #### C BC ####[facility] [address] [place], [place] [address]DrReed Bahena MANUAL DIFF REQ NO Normal [facility] Comment on above: Performed By: #### C BC ####[facility] [address] [place], [place] [address]DrReed Bahena MCH (RBC) [Entitic mass] 30.8 pg Normal 25.9-34.0 [facility] Comment on above: Performed By: #### C BC ####[facility] [address] [place], [place] [address]DrReed Bahena MCHC (RBC) [Mass/Vol] 34.0 g/dL Normal 29.9-35.2 [facility] Comment on above: Performed By: #### C BC ####[facility] [address] [place], [place] [address]DrReed Bahena MCV (RBC) [Entitic vol] 90.4 fL Normal 80.0-94.0 [facility] Comment on above: Performed By: #### C BC ####[facility] [address] [place] [address]DrReed Bahena MONO # 0.7 103/ul Normal 0.3-0.8 [facility] Comment on above: Performed By: #### C BC ####[facility] [address] [place], [place] [address]Dr. Paola Bahena Monocytes/100 WBC (Bld) 5.8 % Normal 1.7-12.0 [facility] Comment on above: Performed By: #### C BC ####[facility] [address] [place], [place] [address]Dr. Paola Bahena NEUT # 10.5 103/ul Critically high 1.4-6.5 [facility] Comment on above: Performed By: #### C BC ####[facility] [address] [place], [place] [address]Dr. Paola Bahena Neutrophils/100 WBC (Bld) 83.9 % Critically high 43.0-75.0 [facility] Comment on above: Performed By: #### C BC ####[facility] [address] [place], [place] [address]Dr. Paola Bahena Platelet mean volume (Bld) [Entitic vol] 9.7 fL Normal 9.5-13.5 [facility] Comment on above: Performed By: #### C BC ####[facility] [address] [place], [place] [address]Dr. Paola Josef PLT 249 103/ul Normal 150-450 [facility] Comment on above: Performed By: #### C BC ####[facility] [address] [place], [place] [address]DrReed Paola Josef RBC 4.78 106/ul Normal 4.70-6.10 [facility] Comment on above: Performed By: #### C BC ####[facility] [address] [place], [place] [address]Dr. Paola Bahena WBC 12.5 103/ul Critically high 4.0-11.0 [facility] Comment on above: Performed By: #### C BC ####[facility] [address] [place] [address]Dr. Paola Bahena PROF 14(COMP METB)on 022 Albumin [Mass/Vol] 3.7 g/dL Normal 3.4-5.0 [facility] Comment on above: Performed By: #### C SANTOS, HSTROPN ####[facility] [address] [place] [address]Dr. Paola Bahena Albumin/Globulin [Mass ratio] 1.0 {ratio} Normal [facility] Comment on above: Performed By: #### C SANTOS, HSTROPN ####[facility] [address] [place] [address]Dr. Paola Bahena ALP [Catalytic activity/Vol] 70 U/L Normal 46-116 [facility] Comment on above: Performed By: #### C SANTOS, HSTROPN ####[facility] [address] [place] [address]Dr. Paola Bahena ALT [Catalytic activity/Vol] 35 U/L Normal 16-63 [facility] Comment on above: Performed By: #### C SANTOS, HSTROPN ####[facility] [address] [place] [id number]. Paola Bahena Anion gap [Moles/Vol] 17.3 mmol/L Normal [facility] Comment on above: Performed By: #### C SANTOS, HSTROPN ####[facility] [address] [place] [address]Dr. Paola Bahena AST [Catalytic activity/Vol] 25 U/L Normal 15-37 [facility] Comment on above: Performed By: #### C SANTOS, HSTROPN ####[facility] [address] [place] [address]Dr. Paola Bahena Bilirubin [Mass/Vol] 0.6 mg/dL Normal 0.2-1.3 [facility] Comment on above: Performed By: #### C SANTOS HSTROPN ####[facility] [address] [place] [id number]. Paola Bahena Calcium [Mass/Vol] 8.4 mg/dL Critically low 8.5-10.1 [facility] Comment on above: Performed By: #### C MP, HSTROPN ####[facility] [address] [place] [address]Dr. Paola Bahena Chloride [Moles/Vol] 101 mmol/L Normal 98-107 [facility] Comment on above: Performed By: #### C MP, HSTROPN ####[facility] [address] [place] [address]Dr. Paola Bahena CO2 [Moles/Vol] 22.3 mmol/L Normal 22.0-30.0 [facility] Comment on above: Performed By: #### C MP, HSTROPN ####[facility] [address] [place], [place] [address]Dr. Paola Bahena Creatinine [Mass/Vol] 1.11 mg/dL Normal 0.66-1.25 [facility] Comment on above: Performed By: #### C SANTOS, HSTROPN ####[facility] [address] [place], [place] [address]Dr. Paola Bahena EGFR-AF GRENADIAN >60 Normal >=60 [facility] Comment on above: Performed By: #### C MP, HSTROPN ####[facility] [address] [place], [place] [address]Dr. Paola Bahena EGFR-NON AF GRENADIAN >60 Normal >=60 [facility] Comment on above: Performed By: #### C MP, HSTROPN ####[facility] [address] [place] [address]Dr. Paola Bahena Globulin (S) [Mass/Vol] 3.7 g/dL Normal [facility] Comment on above: Performed By: #### C MP, HSTROPN ####[facility] [address] [place] [address]Dr. Paola Bahena Glucose [Mass/Vol] 171 mg/dL Critically high 74-106 [facility] Comment on above: Performed By: #### C MP, HSTROPN ####[facility] [address] [place] [address]Dr. Paola Bahena Potassium [Moles/Vol] 3.6 mmol/L Normal 3.4-5.0 [facility] Comment on above: Performed By: #### C MP, HSTROPN ####[facility] [address] [place] [address]Dr. Paola Bahena Protein [Mass/Vol] 7.4 g/dL Normal 6.1-8.2 [facility] Comment on above: Performed By: #### C SANTOS, HSTROPN ####[facility] [address] [place], [place] [address]Dr. Paola Bahena Sodium [Moles/Vol] 137 mmol/L Normal 137-145 [facility] Comment on above: Performed By: #### C MP, HSTROPN ####[facility] [address] [place], [place] [address]Dr. Paola Bahena Urea nitrogen [Mass/Vol] 17.0 mg/dL Normal 7.0-18.0 [facility] Comment on above: Performed By: #### C MP, HSTROPN ####[facility] [address] [place], [place] [address]Dr. Paola Bahena Urea nitrogen/Creatinine [Mass ratio] 15.3 mg/mg Normal [facility] Comment on above: Performed By: #### C MP, HSTROPN ####[facility] [address] [place], [place] [address]Dr. Paola Bahena TROPONIN, HIGH SENSITIVITYon 07-21-2021 HSTROP 8.9 pg/mL Normal 4.0-42.2 [facility] Comment on above: Result Comment: CUT- OFF POINTS HAVE BEEN ESTABLISHED BASED ON THE FOURTH UNIVERSAL DEFINITIONS OF MYOCARDIAL INFARCTION. THE UPPER REFERENCE LIMIT (URL) OF TROPONIN, DEFINED THE 99TH PERCENTILE OF cTnI DISTRIBUTION IN A REFERENCE POPULATION, HAS BEEN CONFIRMED THE DECISION THRESHOLD FOR [place] DIAGNOSIS. Performed By: #### C MP, HSTROPN ####[facility] [address] [place], [place] [address]Bg. Paola Bahena Vital Signs Date Time Vital Sign Value Performing Clinician Facility 05-30-2023 12:54-0500 Body height 188 cm Kristen Alegria MD Work Phone: [facility] 05-30-2023 12:54-0500 Body mass index (BMI) [Ratio] 30.04 kg/m2 Kristen Alegria MD Work Phone: [phone] [place] [address] 05-30-2023 12:54-0500 Body weight 106.14 kg Kristen Alegria MD Work Phone: 4(991)[phone] [place] [address] 05-30-2023 12:54-0500 Diastolic blood pressure 76 mm[Hg] Kristen Alegria MD Work Phone: [facility] 05-30-2023 12:54-0500 Heart rate 64 /min Kristen Alegria MD Work Phone: [facility] 05-30-2023 12:54-0500 Systolic blood pressure 120 mm[Hg] Kristen Alegria MD Work Phone: 4([phone] [place] [address] 03-14-2023 08:56-0500 Body height 188 cm Kristen Alegria MD Work Phone: [facility] 03-14-2023 08:56-0500 Body mass index (BMI) [Ratio] 29.66 kg/m2 Kristen Alegria MD Work Phone: [facility] 03-14-2023 08:56-0500 Body weight 104.78 kg Kristen Alegria MD Work Phone: 0([phone] [place] [address] 03-14-2023 08:56-0500 Diastolic blood pressure 88 mm[Hg] Kristen Alegria MD Work Phone: [facility] 03-14-2023 08:56-0500 Heart rate 64 /min Kristen Alegria MD Work Phone: 5([phone] [place] [address] 03-14-2023 08:56-0500 Systolic blood pressure 132 mm[Hg] Kristen Alegria MD Work Phone: [facility] 03-01-2023 08:30-0500 Body height 187.96 cm Joseline Alcazar Other [employer] Other 03-01-2023 08:30-0500 Body mass index (BMI) [Ratio] 29.66 kg/m2 Joseline Alcazar Other [employer] Other 03-01-2023 08:30-0500 Body weight 104.78 kg Joseline Alcazar Other [employer] [facility] [employer] Other 03-01-2023 08:30-0500 Diastolic blood pressure 68 mm[Hg] Joseline Alcazar Other [employer] Other 03-01-2023 08:30-0500 Systolic blood pressure 110 mm[Hg] Joseline Alcazar Other [facility] [employer] Other 02-07-2023 17:00-0400 Diastolic blood pressure 92 mm[Hg] MD Joseline Alcazar Work Phone: [facility] 02-07-2023 17:00-0400 Heart rate 67 /min MD Joseline Alcazar Work Phone: [facility] 02-07-2023 17:00-0400 Respiratory rate 20 /min MD Joseline Alcazar Work Phone: [facility] 02-07-2023 17:00-0400 SaO2% (BldA) [Mass fraction] 96 % MD Joseline Alcazar Work Phone: [facility] 02-07-2023 17:00-0400 Systolic blood pressure 180 mm[Hg] MD Joseline Alcazar Work Phone: [facility] 02-07-2023 14:59-0400 Body height 187.96 cm MD Joseline Alcazar Work Phone: [facility] 02-07-2023 14:59-0400 Body temperature 97.9 [degF] MD Joseline Alcazar Work Phone: [facility] 02-07-2023 14:59-0400 Body weight 114 kg MD Joseline Alcazar Work Phone: [facility] 01-04-2023 14:15-0400 Body height 187.96 cm Joseline Alcazar Other [facility] [employer] Other 01-04-2023 14:15-0400 Body mass index (BMI) [Ratio] 29.81 kg/m2 Joseline Alcazar Other [facility] [employer] Other 01-04-2023 14:15-0400 Body weight 105.33 kg Joseline Alcazar Other [facility] [employer] Other 01-04-2023 14:15-0400 Diastolic blood pressure 82 mm[Hg] Joseline Alcazar Other [facility] [employer] Other 01-04-2023 14:15-0400 Respiratory rate 12 /min Joseline Alcazar Other [facility] [employer] Other 01-04-2023 14:15-0400 Systolic blood pressure 140 mm[Hg] Joseline Alcazar Other [facility] [employer] Other 12-16-2022 09:14-0400 Body height 187.96 cm Joseline Alcazar [facility] DO Work Phone: 12-16-2022 09:14-0400 Body mass index (BMI) [Ratio] 29.66 kg/m2 Joseline Alcazar Work Phone: [facility] [employer] 250 DO Work Phone: 12-16-2022 09:14-0400 Body surface area Derived from formula 2.31 m2 Joseline Alcazar Work Phone: [facility] 250 DO Work Phone: 12-16-2022 09:14-0400 Body weight 104.78 kg Joseline Alcazar Work Phone: [facility] 250 DO Work Phone: 12-16-2022 09:14-0400 Diastolic blood pressure 80 mm[Hg] Joseline Alcazar Work Phone: [facility] 250 DO Work Phone: 12-16-2022 09:14-0400 Heart rate 78 /min Joseline Alcazar Work Phone: [facility] 250 DO Work Phone: 12-16-2022 09:14-0400 Systolic blood pressure 132 mm[Hg] Joseline Alcazar Work Phone: [facility] 250 DO Work Phone: 12-02-2022 14:41-0400 Respiratory rate 16 /min Joseline Alcazar Other Phone: [facility] 12-02-2022 09:54-0400 Body height 187.9 cm Joseline Alcazar Other Phone: [facility] 12-02-2022 09:54-0400 Body temperature 97.16 [degF] Joseline Alcazar Other Phone: [facility] 12-02-2022 09:54-0400 Body weight 100 kg Joseline Alcazar Other Phone: [facility] 12-02-2022 09:54-0400 Diastolic blood pressure 101 mm[Hg] Joseline Alcazar Other Phone: [facility] 12-02-2022 09:54-0400 Heart rate 88 /min Joseline Alcazar Other Phone: [facility] 12-02-2022 09:54-0400 SaO2% (BldA) [Mass fraction] 99 % Joseline Alcazar Other Phone: [facility] 12-02-2022 09:54-0400 Systolic blood pressure 169 mm[Hg] Joseline Alcazar Other Phone: [facility] 2022 15:33-0400 Body height 187.96 cm Joseline Alcazar Work Phone: [facility] 250 DO Work Phone: 2022 15:33-0400 Body mass index (BMI) [Ratio] 29.27 kg/m2 Joseline Alcazar Work Phone: [facility] 250 DO Work Phone: 2022 15:33-0400 Body surface area Derived from formula 2.3 m2 Joseline Alcazar Work Phone: [facility] 250 DO Work Phone: 2022 15:33-0400 Body weight 103.42 kg Joseline Alcazar Work Phone: [facility] 250 DO Work Phone: 2022 15:33-0400 Diastolic blood pressure 88 mm[Hg] Joseline Alcazar Work Phone: [facility] 250 DO Work Phone: 2022 15:33-0400 Heart rate 84 /min Joseline Alcazar Work Phone: [facility] 250 DO Work Phone: 2022 15:33-0400 Systolic blood pressure 136 mm[Hg] Joseline Alcazar Work Phone: [facility] 250 DO Work Phone: 11-19-2022 10:16-0400 Diastolic blood pressure 90 mm[Hg] Joseline Alcazar Work Phone: ZN-Vlmoetsjtd-Rfrxov 101 Work Phone: 11-19-2022 10:16-0400 Systolic blood pressure 150 mm[Hg] Joseline Alcazar Work Phone: YC-Siezvlrcmh-Qgpdod 101 Work Phone: 11-19-2022 10:13-0400 Body height 187.96 cm Joseline Alcazar Work Phone: SS-Zanlaqbqwc-Rkszcr 101 Work Phone: 11-19-2022 10:13-0400 Body mass index (BMI) [Ratio] 29.15 kg/m2 Joseline Alcazar Work Phone: QW-Rqozsjyvqf-Uzjsyh 101 Work Phone: 11-19-2022 10:13-0400 Body surface area Derived from formula 2.29 m2 Joseline Alcazar Work Phone: NV-Mypdkxbhyz-Swazvl 101 Work Phone: 11-19-2022 10:13-0400 Body temperature 96.8 [degF] Joseline Alcazar Work Phone: MZ-Xxyobvzzit-Hgvyzh 101 Work Phone: 11-19-2022 10:13-0400 Body weight 102.97 kg Joseline Alcazar Work Phone: OP-Ixasnjtuih-Rxiipy 101 Work Phone: 11-19-2022 10:13-0400 Diastolic blood pressure 74 mm[Hg] Joseline Alcazar Work Phone: KE-Qjqknkshjc-Bnfzuw 101 Work Phone: 11-19-2022 10:13-0400 Heart rate 86 /min Joseline Alcazar Work Phone: YP-Kcopfwzboz-Bgnnel 101 Work Phone: 11-19-2022 10:13-0400 Respiratory rate 16 /min Joseline Alcazar Work Phone: DS-Hiqcoyqalk-Labhus 101 Work Phone: 11-19-2022 10:13-0400 SaO2% (BldA) [Mass fraction] 95 % Joseline Alcazar Work Phone: LZ-Xfopzttsfz-Vhavzw 101 Work Phone: 11-19-2022 10:13-0400 Systolic blood pressure 161 mm[Hg] Joseline Alcazar Work Phone: BQ-Naeyptyage-Byztwc 101 Work Phone: 11-07-2022 09:04-0400 Body temperature 98.24 [degF] Joseline Alcazar Other Phone: [facility] 11-07-2022 09:04-0400 Body weight 105.7 kg Joseline Alcazar Other Phone: [facility] 11-07-2022 09:04-0400 Diastolic blood pressure 77 mm[Hg] Joseline Alcazar Other Phone: [facility] 11-07-2022 09:04-0400 Heart rate 73 /min Joseline Alcazar Other Phone: [facility] 11-07-2022 09:04-0400 Respiratory rate 18 /min Joseline Alcazar Other Phone: [facility] 11-07-2022 09:04-0400 SaO2% (BldA) [Mass fraction] 94 % Joseline Alcazar Other Phone: [facility] 11-07-2022 09:04-0400 Systolic blood pressure 127 mm[Hg] Joseline Alcazar Other Phone: [facility] 11-03-2022 04:17-0400 SaO2% (BldA) [Mass fraction] 98 % Joseline Alcazar Work Phone: GI-Spnojwoecw-Ycwxty 101 Work Phone: 11-02-2022 16:35-0400 SaO2% (BldA) [Mass fraction] 97 % Joseline Alcazar Work Phone: WI-Xkalmstohr-Didxsq 101 Work Phone: 11-02-2022 12:50-0400 SaO2% (BldA) [Mass fraction] 99 % Joseline Alcazar Work Phone: JC-Zexecpcdco-Cguqsf 101 Work Phone: 11-02-2022 11:04-0400 SaO2% (BldA) [Mass fraction] 100 % Joseline Alcazar Work Phone: KW-Gptzcfzzqn-Jdnpbu 101 Work Phone: 11-02-2022 10:27-0400 SaO2% (BldA) [Mass fraction] 100 % Joseline Alcazar Work Phone: MM-Zswqxgqlxt-Duyjah 101 Work Phone: 11-02-2022 09:56-0400 SaO2% (BldA) [Mass fraction] 100 % Joseline Alcazar Work Phone: KI-Banxhfrcjj-Wobbee 101 Work Phone: 11-02-2022 09:25-0400 SaO2% (BldA) [Mass fraction] 100 % Joseline Alcazar Work Phone: ET-Nloeguusix-Dhnymh 101 Work Phone: 11-02-2022 09:04-0400 SaO2% (BldA) [Mass fraction] 100 % Joseline Alcazar Work Phone: SR-Jcqqjzjzob-Ccudtb 101 Work Phone: 10-14-2022 14:43-0400 Diastolic blood pressure 52 mm[Hg] Joseline Alcazar Work Phone: QY-Mftnujy-Fqchmt 125 Work Phone: 10-14-2022 14:43-0400 Systolic blood pressure 121 mm[Hg] Joseline Alcazar Work Phone: HE-Jdirjbn-Gozlhg 125 Work Phone: 10-14-2022 14:42-0400 Body height 187.96 cm Joseline Alcazar Work Phone: UO-Ppdemvm-Kstpwr 125 Work Phone: 10-14-2022 14:42-0400 Body mass index (BMI) [Ratio] 30.56 kg/m2 Joseline Alcazar Work Phone: ZV-Kerglup-Osopsi 125 Work Phone: 10-14-2022 14:42-0400 Body surface area Derived from formula 2.34 m2 Joseline Alcazar Work Phone: IE-Mbhryxf-Tsbini 125 Work Phone: 10-14-2022 14:42-0400 Body temperature 97.5 [degF] Joseline Alcazar Work Phone: KX-Gscdgbt-Guhvkm 125 Work Phone: 10-14-2022 14:42-0400 Body weight 107.96 kg Joseline Alcazar Work Phone: JG-Scbuzsi-Jlcsvw 125 Work Phone: 10-14-2022 14:42-0400 Diastolic blood pressure 67 mm[Hg] Joseline Alcazar Work Phone: GG-Qzibvun-Mfjpxq 125 Work Phone: 10-14-2022 14:42-0400 Heart rate 65 /min Joseline Alcazar Work Phone: QX-Tjgbdfm-Ifgdmz 125 Work Phone: 10-14-2022 14:42-0400 Respiratory rate 16 /min Joseline Alcazar Work Phone: GL-Zhneezx-Vhqqhq 125 Work Phone: 10-14-2022 14:42-0400 SaO2% (BldA) [Mass fraction] 94 % Joseline Alcazar Work Phone: UB-Mihhfvn-Biaqcy 125 Work Phone: 10-14-2022 14:42-0400 Systolic blood pressure 97 mm[Hg] Joseline Alcazar Work Phone: NT-Pgzalvx-Ptssrk 125 Work Phone: 10-08-2022 08:03-0400 Body height 187.9 cm Kristen Alegria MD Work Phone: [facility] 10-08-2022 08:03-0400 Body mass index (BMI) [Ratio] 30.67 kg/m2 Kristen Alegria MD Work Phone: [facility] 10-08-2022 08:03-0400 Body weight 108.3 kg Kristen Alegria MD Work Phone: [facility] 09-28-2022 13:43-0400 Body height 187.96 cm Joseline Alcazar Work Phone: [facility] 300 DO Work Phone: 09-28-2022 13:43-0400 Body mass index (BMI) [Ratio] 30.81 kg/m2 Joseline Alcazar Work Phone: [facility] 300 DO Work Phone: 09-28-2022 13:43-0400 Body surface area Derived from formula 2.35 m2 Joseline Alcazar Work Phone: [facility] 300 DO Work Phone: 09-28-2022 13:43-0400 Body weight 108.86 kg Joseline Alcazar Work Phone: [facility] 300 DO Work Phone: 09-28-2022 13:43-0400 Diastolic blood pressure 80 mm[Hg] Joseline Alcazar Work Phone: [facility] 300 DO Work Phone: 09-28-2022 13:43-0400 Heart rate 60 /min Joseline Alcazar Work Phone: [facility] 300 DO Work Phone: 09-28-2022 13:43-0400 Systolic blood pressure 132 mm[Hg] Joseline Alcazar Work Phone: [facility] 300 DO Work Phone: 09-13-2022 15:39-0400 Diastolic blood pressure 88 mm[Hg] Joseline Alcazar Work Phone: [facility] 250 DO Work Phone: 09-13-2022 15:39-0400 Diastolic blood pressure 90 mm[Hg] Joseline Alcazar Work Phone: [facility] 250 DO Work Phone: 09-13-2022 15:39-0400 Systolic blood pressure 138 mm[Hg] Joseline Alcazar Work Phone: [facility] 250 DO Work Phone: 09-13-2022 15:39-0400 Systolic blood pressure 132 mm[Hg] Joseline Alcazar Work Phone: [facility] 250 DO Work Phone: 09-13-2022 14:55-0400 Diastolic blood pressure 94 mm[Hg] Joseline Alcazar Work Phone: [facility] 250 DO Work Phone: 09-13-2022 14:55-0400 Systolic blood pressure 148 mm[Hg] Joseline Alcazar Work Phone: [facility] 250 DO Work Phone: 09-13-2022 14:54-0400 Body height 187.96 cm Joseline Alcazar Work Phone: [facility] 250 DO Work Phone: 09-13-2022 14:54-0400 Body mass index (BMI) [Ratio] 30.81 kg/m2 Joseline Alcazar Work Phone: [facility] [employer] 250 DO Work Phone: 09-13-2022 14:54-0400 Body surface area Derived from formula 2.35 m2 Joseline Alcazar Work Phone: [facility] [employer] 250 DO Work Phone: 09-13-2022 14:54-0400 Body weight 108.86 kg Joseline Alcazar Work Phone: [facility] [employer] 250 DO Work Phone: 09-13-2022 14:54-0400 Diastolic blood pressure 86 mm[Hg] Joseline Alcazar Work Phone: [facility] [employer] 250 DO Work Phone: 09-13-2022 14:54-0400 Heart rate 69 /min Joseline Alcazar Work Phone: [facility] [employer] 250 DO Work Phone: 09-13-2022 14:54-0400 Systolic blood pressure 152 mm[Hg] Joseline Alcazar Work Phone: [facility] [employer] 250 DO Work Phone: 07-30-2022 09:45-0400 Body weight 108.41 kg Joseline Alcazar Other [employer] Other 07-30-2022 09:45-0400 Diastolic blood pressure 82 mm[Hg] Joseline Alcazar Other [employer] Other 07-30-2022 09:45-0400 SaO2% (BldA) [Mass fraction] 96 % Joseline Alcazar Other [employer] Other 07-30-2022 09:45-0400 Systolic blood pressure 122 mm[Hg] Joseline Alcazar Other [employer] Other Encounters Encounter Date Encounter Type Care Provider Facility Start: 11-03-2023 End: 11-03-2023 [facility] Start: 05-30-2023 End: 05-30-2023 ambulatory [facility] Start: 05-30-2023 End: 05-30-2023 Office outpatient visit 25 minutes Kristen Alegria MD Work Phone: [facility] Comment on above: Coronary artery dise ase involving coronary bypass graft of [place] heart, unspecified whether angina present; Hypertensive heart disease with diastolic congestive heart failure, NYHA class 2 (CMS/HCC); S/P CABG x 3; Mixed hyperlipidemia; Statin intolerance; Obesity (BMI 30.0-34.9); Obstructive sleep apnea syndrome; Status post coronary artery bypass graft; Resistant hypertension Start: 05-11-2023 End: 05-11-2023 ambulatory Joseline Alcazar Other [employer] Other Start: 05-11-2023 Telephone encounter Joseline Alcazar [facility] Start: 03-14-2023 End: 03-14-2023 ambulatory [facility] Start: 03-14-2023 End: 03-14-2023 Office outpatient visit 15 minutes Kristen Alegria MD Work Phone: [facility] Comment on above: S/P CABG x 3 (Primar y Dx); Hypertensive heart disease with diastolic congestive heart failure, NYHA class 2 (CMS/HCC); Status post coronary artery bypass graft; Resistant hypertension; High risk medication use; Agatston coronary artery calcium score greater than 400; Arrhythmia, atrial Start: 03-01-2023 End: 03-01-2023 ambulatory Joseline Alcazar Other [employer] Other Start: 03-01-2023 Office outpatient vi sit 15 minutes Joseline Alcazar [facility] Start: 02-08-2023 End: 02-08-2023 ambulatory Joseline Alcazar Other [employer] Other Start: 02-08-2023 Telephone encounter Joseline Alcazar [facility] Start: 02-07-2023 End: 02-07-2023 Emergency department patient visit Brett Amanda Facility:[facility] Start: 02-07-2023 End: 02-07-2023 Emergency department patient visit MD Joseline Alcazar Work Phone: [facility] Work Phone: Start: 01-04-2023 End: 01-04-2023 ambulatory Joseline Alcazar Other [employer] Other Start: 01-04-2023 Office outpatient vi sit 15 minutes Joseline Alcazar [facility] Start: 12-16-2022 Office outpatient vi sit 25 minutes Joseline Alcazar Work Phone: [facility] 250 DO Work Phone: Start: 12-16-[address] Joseline Alcazar Facility: Start: 12-02-2022 Patient encounter procedure Jenna Jessica [facility] Start: 12-02-2022 End: 12-02-2022 Emergency department patient visit Catracho Jungy[facility] [address] Start: 2022 Office outpatient vi sit 25 minutes Joseline Alcazar Work Phone: [facility] 250 DO Work Phone: Start: [address] Kristen Victor ty: Start: 11-19-2022 Patient encounter procedure Joseline Alcazar Work Phone: TI-Pbcuyzxndq-Rbllha 101 Work Phone: Start: 11-19-[address] Joseline Alcazar Facility:[id number] Start: 11-02-2022 End: 11-07-2022 Evaluation and management of inpatient Jenna Snyderia 8 Cardio ICU 801 01 Start: 10-29-[address] Joseline Alcazar Facility:[id number] Start: 10-29-2022 Encounter for blood typing Dr. Joseline Alcazar [facility] Start: 10-29-2022 Encounter for preprocedural laboratory examination Dr. Joseline Alcazar [facility] Start: 10-20-2022 Chart Update Joseline Alcazar Work Phone: [facility] 250 DO Work Phone: Start: 10-14-2022 Office outpatient ne w 60 minutes Joseline Alcazar Work Phone: [facility] Work Phone: Start: 10-14-2022 Patient encounter procedure Joseline Alcazar Work Phone: PM-Swnfrls-Cgqamd 125 Work Phone: Start: 10-14-[address] Jenna Jessica Facility:[id number] Start: 10-08-2022 End: 10-08-[address] 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 (CMS/HCC); Abnormal result of other cardiovascular function study; Hypertensive heart disease with heart failure (CMS/HCC); Unspecified diastolic (congestive) heart failure (CMS/HCC); Hyperlipidemia, unspecified; Obesity, unspecified; Body mass index (BMI)30.0-30.9, adult; FDC (current) use of aspirin; Chest pain, unspecified; Angina pectoris with documented spasm (CMS/HCC); Occlusion and stenosis of bilateral carotid arteries Start: 09-28-2022 Office outpatient vi sit 25 minutes Joseline Alcazar Work Phone: [facility] 300 DO Work Phone: Start: 09-28-[address] Kristen Alegria [facility] ty:[id number] Start: 09-22-2022 Chart Update Joseline Alcazar Work Phone: [facility] 250 DO Work Phone: Start: 09-22-[address] Kristen Victor ty:[id number] Start: 09-13-[address] Kristen Victor ty:[id number] Start: 08-04-[address] Joseline Alcazar Facility:[facility] Start: 07-30-2022 End: 07-30-2022 ambulatory Joseline Alcazar [facility] [employer] Other Start: 07-30-2022 Office outpatient vi sit 15 minutes Joseline Alcazar [facility] Start: 07-27-2022 End: 07-27-2022 ambulatory [facility] Start: 04-09-2022 End: 04-09-2022 [facility] Start: 03-23-2022 End: 03-23-2022 ambulatory SHAIKH Geri MARSH Facility:H1 Start: 03-06-2022 End: 03-06-[address] JOSELINE ALCAZAR Facility:H1 Start: 10-17-2021 End: 10-17-[address] JOSELINE ALCAZAR Facility:[facility]1 Start: 07-21-2021 End: 07-21-[address] GUY PATRICIO Facility:[facility]1 Patient encounter status Joseline Alcazar Work Phone: [facility] Work Phone: End: 2022 Patient encounter status Joseline Alcazar Work Phone: [facility] 250 DO Work Phone: Procedures Date Procedure Procedure Detail Performing Clinician Start: 05-30-2023 Comprehensive metabo lic 2000 panel - Serum or Plasma KRISTEN ALEGRIA Start: 05-30-2023 Lipid panel KRISTEN BALDERAS Start: 05-30-2023 FOLLOW UP IN CARDIOLOGY KRISTEN ALEGRIA Start: 03-14-2023 FOLLOW UP IN CARDIOLOGY KRISTEN ALEGRIA Start: 02-09-2023 History of coronary artery bypass grafting S/P CABG x 3 Kristen Alegria MD Work Phone: Start: 02-07-2023 Plain chest X-ray MD Theo Alcazar Work Phone: Start: 01-31-2023 End: 05-30-2023 History of coronary artery bypass grafting Status post coronary artery bypass graft Kristen Alegria MD Work Phone: Start: 11-03-2022 End: 11-03-2022 Arterial Full Panel -Next Draw Stacie Gonzalez Start: 11-02-2022 End: 11-02-2022 Arterial Full Panel -Stat Abilio Bowers Start: 11-02-2022 End: 11-02-2022 Gas panel - Arterial blood Calvin Escamilla Start: 10-29-[address] Bradford Jessica Comment on above: Performed By: #### T +S ####[address] [id number] Start: 10-29-2022 Lipid 1996 panel - S inocente or Plasma Kristen Alegria MD Work Phone: Start: 10-08-[address] Mihir Jessica Start: 10-08-2022 CONV VASCULAR HISTOR ICAL PROCEDURES Azalia Escamilla MEMORANDUM STATEMENT CLERK-EXECUTIVE STEWARD Work Phone: Start: 10-08-2022 Dup-scan xtr veins c omplete bilateral study Azalia Escamilla MEMORANDUM STATEMENT CLERK-EXECUTIVE STEWARD Work Phone: Start: 10-08-2022 Duplex scan extracra nial art compl bi study Azalia Escamilla MEMORANDUM STATEMENT CLERK-EXECUTIVE STEWARD Work Phone: Start: 10-08-2022 Ct thorax w/o contra st material Azalia Escamilla MEMORANDUM STATEMENT CLERK-EXECUTIVE STEWARD Work Phone: Start: 10-08-2022 Echocardiography Romana Mc MEMORANDUM STATEMENT CLERK-EXECUTIVE STEWARD Work Phone: Start: 10-08-2022 ADULT CATH Kristen balderas MD Work Phone: Start: 10-08-2022 Basic metabolic pane l calcium total Kristen Alegria MD Work Phone: Start: 10-08-2022 Complete blood count jerrica Alegria MD Work Phone: Start: 10-08-2022 ELECTROCARDIOGRAM 12 LEAD Kristen Alegria MD Work Phone: Coronary artery bypass graft Joseline Alcazar Work Phone: History of coronary artery bypass grafting S/P CABG (coronary artery bypass graft) Joseline Alcazar Other Phone: History of coronary artery bypass grafting S/P CABG x 3 Joseline Alcazar Work Phone: History of coronary artery bypass grafting Status post coronary artery bypass graft Kristen Alegria MD Work Phone: History of coronary artery bypass grafting S/P CABG x 3 Kristen Alegria MD Work Phone: Repair of retina for retinal detachment Joseline Alcazar Work Phone: Scrotum and testicle operation Joseline Alcazar Work Phone: Plan of Treatment Date Care Activity Detail Author Start: 10-30-2027 Lipid panel Lipid Panel [facility] Start: 05-31-2024 End: 05-31-2024 Patient encounter procedure 05/31/2024 10:45 AM EST Office Visit [facility] [address] [facility] [address] [place] [address] Kristen Alegria MD [address] [facility] [address] [place] [address] [facility] Start: 11-08-2023 Creatinine measurement Creatinine Le karen [facility] Start: 11-08-2023 Potassium measurement Potassium Leve l [facility] Start: 11-06-2023 Diabetes mellitus screening Diabetes Screening [facility] Start: 10-30-2023 Hemoglobin A1c measurement Rekha betes: Hemoglobin A1C [facility] Start: 10-09-2023 Echocardiography Echocardiogram [facility] Start: 05-30-2023 FUV, Provider: Kristen Alegria, Status: Pen, Time: 12:45 PM FUV, Provider: Kristen Alegria, Status: [place], Time: 12:45 PM [place] [address] DO Work Phone: Start: 05-30-2023 Patient encounter procedure [facility] [place] Start: 05-30-2023 End: 05-30-2024 Comprehensive metabolic 2000 panel - Serum or Plasma Comprehensive Metabolic Panel Lab Routine Hypertensive heart disease with diastolic congestive heart failure, NYHA class 2 ([facility]) Coronary artery disease involving coronary bypass graft of [place] heart, unspecified whether angina present Expected: 05/30/2023 (Approximate), Expires: 05/30/2024 [facility] Service Area Work Phone: Comment on above: Expected: 05/30/2023 (Approximate), Expires: 05/30/2024 Start: 05-30-2023 End: 05-30-2024 Lipid 1996 panel - Serum or Plasma Lipid Panel Lab Routine Mixed hyperlipidemia Expected: 05/30/2023 (Approximate), Expires: 05/30/2024 [facility] Work Phone: Comment on above: Expected: 05/30/2023 (Approximate), Expires: 05/30/2024 Start: 05-30-2023 End: 05-30-2023 Patient encounter procedure 05/30/2023 12:45 PM EST Office Visit [facility] [address] [facility] [address] [place] [address] Kristen Alegria MD [address] [place] [address] [address] [place] [address] [facility] Start: 02-10-2023 FUV, Provider: Kristen Alegria, Status: Pen, Time: 9:15 AM FUV, Provider: Kristen Alegria, Status: [place], Time: 9:15 AM [facility] 250 DO Work Phone: Start: 12-24-2022 COVID-19 Vaccine (6 - 2023-24 season) COVID-19 Vaccine (2022-24 season) [facility] Start: 12-24-2022 Influenza vaccination Influenza Vacc ine (#1) [facility] Start: 12-02-2022 Patient encounter procedure [facility] [address] [address] Start: 02-Dec-2022 13:45 Endya Jessica, Jenna Intent [facility] Start: 2022 FUV, Provider: Kristen Alegria, Status: Pen, Time: 3:15 PM FUV, Provider: Kristen Alegria, Status: Pen, Time: 3:15 PM -[facility] 250 DO Work Phone: Start: 2022 Patient encounter procedure [facility] [place] Start: 11-19-2022 Patient encounter procedure [facility] Start: 11-12-2022 Patient encounter procedure [facility] Start: 11-06-2022 CAD (coronary artery disease) CAD (coronary artery disease) Date: 06-Nov-2022 [facility] Start: 11-06-2022 End: 11-07-2023 [facility] Comment on above: IF suppository ineff ective Start: 11-05-2022 Procedure needed Evaluation by medical service required Date: 05-Nov-2022 [facility] Start: 11-04-2022 End: 11-05-2023 [facility] Start: 11-04-2022 Postoperative state Postoperat eunice state Date: 04-Nov-2022 [facility] Start: 11-03-2022 Procedure needed Evaluation by medical service required Date: 03-Nov-2022 [facility] Start: 11-02-2022 End: 11-03-2023 [facility] Comment on above: IF patient HAS a sec ure IV access & is Unconscious, Conscious, NPO or Unable to Eat or Drink. Repeat until BG reaches 100 mg/dL or greater. Push 2-3 mL/minute. Discontinue once BG reaches 100 mg/dL or greater. IF patient DOES NOT have secure IV access & is Unconscious, Conscious, NPO or Unable to Eat or Drink. Repeat until BG reaches 100 mg/dL or greater. Discontinue once BG reaches 100 mg/dL or greater. Start: 11-02-2022 Postop check Postop check D ate: 02-Nov-2022 [facility] Start: 11-02-2022 JASIEL, Provider: [facility] 2,[id number], Status: Pen, Time: 8:00 AM JASIEL, Provider: [facility] M[employer] 2,[id number], Status: Pen, Time: 8:00 AM [facility] Work Phone: Start: 11-02-2022 [facility], Provider: Jenna Dailey, Status: Pen, Time: 7:00 AM [facility], Provider: Jenna Saavedra, Status: Pen, Time: 7:00 AM [facility] Work Phone: Start: 10-08-2022 [facility], Provider: Kristen Alegria, Status: Pen, Time: 10:00 AM [facility], Provider: Kristen Alegria, Status: Pen, Time: 10:00 AM [facility] 300 DO Work Phone: Start: 05-07-2022 COVID-19 Vaccine (5 - Moderna series) COVID-19 Vaccine (5 - Moderna series) [facility] Start: 11-28-1977 DTaP/Tdap/Td Vaccine s (1 - Tdap) DTaP/Tdap/Td Vaccines (1 - Tdap) [facility] Start: 11-28-1973 Hepatitis C screening Hepatitis C [facility] Start: 11-28-1961 Pneumococcal Vaccine : 65+ Years (1 - PCV) Pneumococcal Vaccine: 65+ Years (1 - PCV) [facility] Start: 1955 Medicare Annual Well ness Visit Medicare Annual Wellness Visit (AWV) [facility] Start: 1955 Screening for malign ant neoplasm of colon [facility] Patient Education High Blood Pressure ED [facility] Work Phone: Patient referral [facility] Work Phone: Immunizations Immunization Date Immunization Notes Care Provider Fa diya 03-12-2022 COVID-19 Vaccine Moderna - Documentation Purposes Only Joseline Inge Other [facility] Other 03-12-2022 Fluzone High-Dose Quadrivalent 0.7 ML Intramuscular Suspension Prefilled Syringe Joseline Martínez Inge Work Phone: MY-Raqxsrr-Znqxqm 125 Work Phone: 03-12-2022 influenza virus vaccine, split virus (incl. purified surface antigen) Joseline Alcazar Other [facility] Other 03-12-2022 Moderna COVID-19 Bivalent 50 MCG/0.5ML Intramuscular Suspension Joseline Martínez Inge Work Phone: BW-Opotfvo-Lflwni 125 Work Phone: 03-12-2022 influenza virus vaccine, unspecified formulation Kristen Alegria MD Work Phone: [facility] Work Phone: 08-21-2021 Moderna COVID-19 Vaccine 100 MCG/0.5ML Intramuscular Suspension Joseline E Alcazar Work Phone: [id number]-Rvjqtdm-Kijqmv 125 Work Phone: 03-18-2021 Moderna COVID-19 Vaccine 100 MCG/0.5ML Intramuscular Suspension Joseline E Alcazar Work Phone: MA-Xkyqxus-Phrxjz 125 Work Phone: 03-06-2021 Fluad Quadrivalent 0 .5 ML Intramuscular Prefilled Syringe Joseline Martínez Inge Work Phone: UC-Xiqyvnq-Mbepiv 125 Work Phone: 03-06-2021 influenza virus vaccine, split virus (incl. purified surface antigen) Joseline Alcazar Other [facility] Other 08-20-2020 Moderna COVID-19 Vaccine 100 MCG/0.5ML Intramuscular Suspension Joseline E Inge Work Phone: PF-Kqvtgjj-Mcydov 125 Work Phone: 07-23-2020 Moderna COVID-19 Vaccine 100 MCG/0.5ML Intramuscular Suspension Joseline Martínez Alcazar Work Phone: BE-Tzbanei-Rqfoar 125 Work Phone: 03-29-2020 zoster vaccine recombinant Joseline Alcazar Work Phone: NS-Nufrpku-Avnblo 125 Work Phone: 03-29-2020 zoster vaccine, live Joseline Alcazar Other [facility] Other 01-25-2020 influenza virus vaccine, split virus (incl. purified surface antigen) Joseline Inge Other [facility] Other 01-25-2020 influenza, injectabl e, quadrivalent, preservative free Joseline Martínez Inge Work Phone: UW-Tdqgiek-Fehzdz 125 Work Phone: 01-25-2020 zoster vaccine recombinant Joseline Alcazar Work Phone: IF-Zzjlvfm-Dgjzmp 125 Work Phone: 01-25-2020 zoster vaccine, live Joseline Alcazar Other [facility] Other Payers Date Payer Category Payer Self-pay 2020 Medicare [id number] 2016 Unknown [id number] 1959 Medicare [id number] 1959 Unknown [id number] 1955 Unknown [id number] 2.16.84 0.1.309108.3.579.2.593 1955 Unknown [id number] 2.16.84 0.1.821768.3.579.2.593 1955 Unknown [id number] 2.16.84 0.1.710443.3.579.2.593 1955 Unknown [id number] 2.16.84 0.1.427659.3.579.2.593 1955 Unknown [id number] 2.16.8 40.1.747414.3.579.2.1068 1955 Unknown [id number] 2.16.8 40.1.790978.3.579.2.1067 1955 Unknown [id number] 2.16.8 40.1.612587.3.579.2.8 1955 Unknown [id number] 2.16.8 40.1.453708.3.579.2.1067 1955 Unknown [id number] 2.16.8 40.1.159590.3.579.2.8 1955 Unknown [id number] 2.16.8 40.1.207968.3.579.2.1067 1955 Unknown [id number] 2.16.8 40.1.366753.3.579.2.1068 1955 Unknown [id number] 2.. 840.1.600757.3.579.2.356 1955 Unknown [id number] 2.16. 840.1.777710.3.579.2.356 1955 Unknown [id number] 2.. 840.1.639576.3.579.2.356 1955 Unknown [id number] 2.16. 840.1.954549.3.579.2.356 1955 Unknown [id number] 2.16.8 40.1.095361.3.579.2.1244 1955 Unknown [id number] 2.16.8 40.1.284176.3.579.2.1244 1955 Unknown [id number] 2.16.8 40.1.445635.3.579.2.1286 Unknown Unknown [id number] Unknown [id number] 2.16.8 40.1.492275.3.579.2.531 Social History Date Type Detail Facility Start: 02-10-2023 End: 03-14-2023 Sex Assigned At [facility] [employer] Other Start: 02-10-2023 End: 03-14-2023 No caffeine use No caffeine use -[facility] 250 DO Work Phone: Tobacco smoking consumption unknown [facility] Start: 02-07-2023 End: 02-10-2023 Tobacco smoking status NHIS Never smoked tobacco (finding) [facility] Start: 1955 Sex Assigned At Male F [facility] Start: 02-10-2023 Tobacco use and exposure Smokeless tobacco non-user [facility] Work Phone: Start: 03-14-2023 End: 05-30-2023 Alcohol intake Lifetime non-drinker (finding) [facility] Work Phone: Start: 1955 [facility] Work Phone: Start: 03-04-2023 End: 05-30-2023 Exposure to SARS-CoV-2 (event) Not sure [facility] Functional Status Date Assessment Result Facility Functional observable [facility] Mental Status Date Assessment Result Facility 11-03-2022 Cognitive functions 42874:30 [facility] Clinical Notes 04-09-2022 to 05-30-2023 Kristen Alegria MD - 05/30/2023 12:45 PM ESTPatient Instructions Note Date & Type Note Facility 05-30-2023 History of Present illness Narrative This is a 3-month follow-up. Subjective : Accompanied by to the office. Interval review of systems is negative for chest discomfort pressure tightness heaviness palpitations lightheadedness orthopnea paroxysmal nocturnal dyspnea dependent edema or claudication TIA or CVA type symptoms or bleeding diathesis Will be seeing rheumatology in 2 weeks, because of recurrent gout. Other than that he reports he is feeling great. Objective Failed to redirect to the Timeline version of the [employer] Smart[employer]. Wt Readings from Last 3 Encounters: 05/30/23 106 kg (234 lb) 03/14/23 105 kg (231 lb) 02/10/23 106 kg (233 lb) Visit Vitals BP 120/76 (BP Location: Left arm, Patient Position: Sitting) Pulse 64 Ht 1.88 m (6' 2 ) Wt 106 kg (234 lb) BMI 30.04 kg/m Smoking Status Never BSA 2.35 m Physical Exam: GENERAL APPEARANCE: in no acute distress. CHEST: Symmetric and non-tender. Well-healed anterior sternal scar of prior coronary artery bypass grafting, sternum is stable. INTEGUMENT: Skin warm and dry HEENT: No gross abnormalities identified.No pallor or scleral icterus. NECK: Supple, no JVD, no bruit. NEURO/PSHCY: Alert and oriented x3; appropriate behavior and responses and responses LUNGS: Clear to auscultation bilaterally; normal respiratory effort. HEART: Rate and rhythm regular with no evident murmur; no gallop appreciated. ABDOMEN: Soft, non tender. MUSCULOSKELETAL: No gross deformities. EXTREMITIES: Warm There is no edema noted. Meds: Current Outpatient Medications Medication Instructions allopurinol (ZYLOPRIM) 300 mg, oral, Daily amLODIPine (NORVASC) 2.5 mg, oral, Daily aspirin 81 mg, oral, Daily benazepril (LOTENSIN) 40 mg, oral, Daily co-enzyme Q-10 100 mg, oral, Daily doxylamine (UNISOM) 25 mg, oral, Nightly PRN ezetimibe (ZETIA) 10 mg, oral, Daily glucosamine/chondr shepherd A sod (OSTEO BI-FLEX ORAL) 1 tablet, oral, Daily magnesium oxide (Mag-Ox) 400 mg (241.3 mg magnesium) tablet 1 tablet, oral, 2 times daily metoprolol succinate XL (TOPROL-XL) 100 mg, oral, Daily, Do not crush or chew. multivit-min/ferrous fumarate (MULTI VITAMIN ORAL) 1 tablet, oral, Daily nitroglycerin (Nitrostat) 0.4 mg SL tablet DISSOLVE 1 TABLET UNDER THE TONGUE NEEDED FOR CHEST PAIN- MAY REPEAT EVERY 5 MINUTES IF NEEDED ( MAX 3 DOSES.- IF NO RELIEF CALL 911) pravastatin (PRAVACHOL) 40 mg, oral, Nightly probenecid-colchicine 500-0.5 mg tablet 1 tablet, oral, 2 times daily Allergies Allergen Reactions Tramadol Hallucinations Rosuvastatin Headache and Myalgia Doxazosin Swelling Doxazosin reportedly precipitated patient's gout. Laboratory data- 05/02/23 :BUN 14 creatinine 0.94 GFR 89 sodium 140 potassium 4.6 liver enzymes normal total cholesterol 138 triglycerides 104 HDL 38, LDL 79, total cholesterol to HDL ratio 3.6. Glucose 105. LABS: Lab Results Component Value Date WBC 7.6 11/07/2022 HGB 11.2 (L) 11/07/2022 HCT 33.4 (L) 11/07/2022 PLT 213 11/07/2022 CHOL 137 10/29/2022 TRIG 122 10/29/2022 HDL 35.7 (A) 10/29/2022 ALT CANCELED 11/03/2022 AST CANCELED 11/03/2022 NA 137 11/07/2022 K 4.0 11/07/2022 CL 98 11/07/2022 CREATININE 0.78 11/07/2022 BUN 18 11/07/2022 CO2 33 (H) 11/07/2022 TSH 1.56 10/29/2022 INR 1.3 (H) 11/03/2022 HGBA1C 6.2 (A) 10/29/2022 Patient Active Problem List Diagnosis Date Noted Obesity (BMI 30.0-34.9) 05/30/2023 Statin intolerance 05/30/2023 Acute idiopathic gout of right foot 02/12/2023 Hypertension 02/09/2023 S/P CABG x 3 02/09/2023 Adverse effect of rosuvastatin 01/31/2023 Agatston coronary artery calcium score greater than 400 01/31/2023 Arrhythmia, atrial 01/31/2023 CAD (coronary artery disease) 01/31/2023 Elevated blood pressure reading in office with white coat syndrome, with diagnosis of hypertension 01/31/2023 GERD (gastroesophageal reflux disease) 01/31/2023 Hypertensive heart disease with diastolic congestive heart failure, NYHA class 2 ([facility]) 01/31/2023 Mixed hyperlipidemia 01/31/2023 Obstructive sleep apnea syndrome 01/31/2023 Assessment: 1.Hypertensive heart disease with diastolic congestive heart failure, NYHA class 2 ([facility]) Patient with bouts of accelerated hypertension into ER visits since last appointment in office December 16, 2022 Occasional tension headache type symptoms when blood pressure escalates Compliant with medications Has whitecoat hypertension. I suspect a component of diastolic dysfunction given the left atrial dilatation on patient's echocardiogram. Echocardiogram February 2022-LV wall thickness is reported to be normal, LV end-systolic dimension 3.9 cm left atrial dimension 5.12 cm aortic root 3.71 cm no aortic stenosis, LVEF 55 to 60% mild left ventricular hypertrophy normal diastolic function no pericardial effusion, normal RV size and systolic function Left atrial dilatation noted on echo of February 2022, without gross valvular abnormality.? Elevated left atrial pressure from hypertension Dilatation of the ascending thoracic aorta-4.4 cm, incidental finding on coronary calcium score from 09/22/2022. Dedicated CT of the chest September 2022-ascending thoracic aorta 4.6 cm ascending aortic aneurysm repair with 30 mm Hemashield graft 10/2022 2. Atherosclerotic [place] vessel coronary artery disease: Lexiscan Myoview February 2022-no ischemia, preserved LV systolic function Coronary calcium score August 2022-left main 394 LAD 757 left circumflex 23 RCA thousand 170, total score 2344, 97th percentile for age gender and race Cardiac catheterization September 2022-right dominant, extensively calcified right coronary artery with 90% ostial stenosis, diffuse ectasia, 40% proximal stenosis, 75% mid stenosis, large PDA less than 20% stenosis, smaller posterolateral ventricular branch, left main trifurcates into the LAD ramus and circumflex, there is complex plaque involving the trifurcation point of the distal left main, involving the origin of the left anterior descending artery, relatively small left circumflex continues as a major obtuse marginal branch, probable ostial disease in the left circumflex distribution, large ramus branch, bifurcates into 2 secondary branches, ostial and proximal disease noted, probably 70% angiographically, eccentric, there is also overlap of vessels. LAD with heavy calcification. Ostial LAD with angiographically significant disease LVEF 55 to 60% LVEDP 10 to 15 mmHg. Status post coronary artery bypass graft In October 2022 patient underwent coronary artery bypass graft x3, FUENTES to LAD SVG to obtuse marginal branch and PDA sequential, ascending aortic aneurysm repair with 30 mm Hemashield graft, prior median sternotomy. No angina pectoris Continue ongoing medical therapy and risk factor modification and long-term antiplatelet therapy 3. Sleep apnea Reports compliance with CPAP therapy. 4. Probable diabetes-hemoglobin A1c 6.1, defer to primary. May benefit from metformin or Farxiga or Jardiance? Follow up : 1 year Comprehensive profile and lipid profile prior to next visit Scribe Attestation By signing my name below, Bia TrujilloReed INMAN , Scribe attest that this documentation has been prepared under the direction and in the presence of Kristen Alegria MD. Provider Attestation - Scribe documentation All medical record entries made by the Scribe were at my direction and personally dictated by me. I have reviewed the chart and agree that the record accurately reflects my personal performance of the history, physical exam, discussion and plan. documented in this encounter [facility] Work Phone: 05-30-2023 Instructions Boy Trent MA - 05/30/2023 12:45 PM EST Please bring all medicines, vitamins, and herbal supplements with you when you come to the office. Prescriptions will not be filled unless you are compliant with your follow up appointments or have a follow up appointment scheduled as per instruction of your physician. Refills should be requested at the time of your visit. documented in this encounter [facility] Work Phone: 05-11-2023 Evaluation note Encounter Date Diagnosis Assessment Notes Apr, Chronic gout of foot, unspecified cause, unspecified laterality (ICD-10 - M1A.0790) [facility] Other [id number] History of Present illness Narrative* Kristen Alegria MD - 03/14/2023 9:00 AM EST Most recently seen February 12, 2023. Subjective : Accompanied by to the office. Interval review of systems is negative for chest discomfort pressure tightness heaviness palpitations lightheadedness orthopnea paroxysmal nocturnal dyspnea dependent edema or claudication TIA or CVAtype symptoms or bleeding diathesis Has maintained meticulous home blood pressure readings which I have reviewed most of them are at target. Patient reports that the doxazosin is probably the cause of his frequent bouts of gout. Gout has been occurring on a regular basis, and is now fleeting. He is currently off indomethacin and allopurinol and probenecid. No diarrhea. Blood pressures are at target for the most part, he has not been taking the doxazosin for the past 3 days. Objective Wt Readings from Last 3 Encounters: 03/14/23 105 kg (231 lb) 02/10/23 106 kg (233 lb) 11/19/22 103 kg (227 lb) Physical Exam: GENERAL APPEARANCE: in no acute distress. CHEST: Symmetric and non-tender. INTEGUMENT: Skin warm and dry HEENT: No gross abnormalities identified.No pallor or scleral icterus. NECK: Supple, no JVD, no bruit. NEURO/PSHCY: Alert and oriented x3; appropriate behavior and responses and responses LUNGS: Clear to auscultation bilaterally; normal respiratory effort. HEART: Rate and rhythm regular with no evident murmur; no gallop appreciated. ABDOMEN: Soft, non tender. MUSCULOSKELETAL: No gross deformities. EXTREMITIES: Warm There is no edema noted. Meds: Current Outpatient Medications Medication Instructions allopurinol (ZYLOPRIM) 100 mg, oral, Daily aspirin 81 mg, oral, Daily benazepril (LOTENSIN) 40 mg, oral, Daily co-enzyme Q-10 100 mg, oral, Daily doxazosin (CARDURA) 2 mg, oral, Nightly, May take 1 extra tablet daily if BP running above 150 systolic ezetimibe (ZETIA) 10 mg, oral, Daily glucosamine/chondr shepherd A sod (OSTEO BI-FLEX ORAL) 1 tablet, oral, Daily Lactobacillus acidophilus (PROBIOTIC ACIDOPHILUS ORAL) oral, Take as directed magnesium oxide (Mag-Ox) 400 mg (241.3 mg magnesium) tablet 1 tablet, oral, 2 times daily metoprolol succinate XL (TOPROL-XL) 100 mg, oral, Daily, Do not crush or chew. multivit-min/ferrous fumarate (MULTI VITAMIN ORAL) 1 tablet, oral, Daily nitroglycerin (Nitrostat) 0.4 mg SL tablet DISSOLVE 1 TABLET UNDER THE TONGUE NEEDED FOR CHEST PAIN- MAY REPEAT EVERY 5 MINUTES IF NEEDED ( MAX 3 DOSES.- IF NO RELIEF CALL 911) pantoprazole (PROTONIX) 20 mg, oral, Daily pravastatin (PRAVACHOL) 40 mg, oral, Nightly probenecid-colchicine 500-0.5 mg tablet 1 tablet, oral, 2 times daily Allergies Allergen Reactions Tramadol Hallucinations Rosuvastatin Headache and Myalgia Doxazosin Swelling LABS: Lab Results Component Value Date WBC 7.6 11/07/2022 HGB 11.2 (L) 11/07/2022 HCT 33.4 (L) 11/07/2022 PLT 213 11/07/2022 CHOL 137 10/29/2022 TRIG 122 10/29/2022 HDL 35.7 (A) 10/29/2022 ALT CANCELED 11/03/2022 AST CANCELED 11/03/2022 NA 137 11/07/2022 K 4.0 11/07/2022 CL 98 11/07/2022 CREATININE 0.78 11/07/2022 BUN 18 11/07/2022 CO2 33 (H) 11/07/2022 TSH 1.56 10/29/2022 INR 1.3 (H) 11/03/2022 HGBA1C 6.2 (A) 10/29/2022 Problem List: Patient Active Problem List Diagnosis Date Noted Acute idiopathic gout of right foot 02/12/2023 Hypertension 02/09/2023 Overweight with body mass index (BMI) of 29 to 29.9 in adult 02/09/2023 S/P CABG x 3 02/09/2023 Adverse effect of rosuvastatin 01/31/2023 Agatston coronary artery calcium score greater than 400 01/31/2023 Arrhythmia, atrial 01/31/2023 CAD (coronary artery disease) 01/31/2023 Elevated blood pressure reading in office with white coat syndrome, with diagnosis of hypertension 01/31/2023 GERD (gastroesophageal reflux disease) 01/31/2023 High risk medication use 01/31/2023 Hypertensive heart disease with diastolic congestive heart failure, NYHA class 2 ([facility]) 01/31/2023 Mixed hyperlipidemia 01/31/2023 Status post coronary artery bypass graft 01/31/2023 Sleep apnea 01/31/2023 Assessment: Hypertensive heart disease with diastolic congestive heart failure, NYHA class 2 ([facility]) Patient with bouts of accelerated hypertension into ER visits since last appointment in office December 16, 2022 Occasional tension headache type symptoms when blood pressure escalates The spike in blood pressure is occurring midmorning. Several readings in cardiac rehabilitation have reached 200 mmHg systolic. Compliant with medications No recent change in dietary sodium intake. I suspect that indomethacin could be the reason why blood pressure is escalating Creatinine clearance 108. Echocardiogram February 2022-LV wall thickness is reported to be normal, LV end- systolic dimension 3.9 cm left atrial dimension 5.12 cm aortic root 3.71 cm no aortic stenosis, LVEF 55 to 60% mild left ventricular hypertrophy normal diastolic function no pericardial effusion, normal RV size and systolic function Left atrial dilatation noted on echo of February 2022, without gross valvular abnormality.? Elevated left atrial pressure from hypertension Dilatation of the ascending thoracic aorta-4.4 cm, incidental finding on coronary calcium score from 09/22/2022. Dedicated CT of the chest September 2022- ascending thoracic aorta 4.6 cm ascending aortic aneurysm repair with 30 mm Hemashield graft 10/2022 Also has whitecoat hypertension. Recent gout and initiation of indomethacin could be a contributory factor. Renal function is normal Interestingly diastolic function was reported to be normal on echo in February 2022 I suspect a component of diastolic dysfunction however given the left atrial enlargement noted on echo On maximum dose of benazepril On 100 mg daily of metoprolol succinate Will add doxazosin 2 mg p.o. prefer that he takes it in the morning with breakfast. Can take an extra 2 mg tablet if systolic blood pressure runs in excess of 150 mg meters mercury. Follow-up in 4 weeks sooner if interval problems arise Status post coronary artery bypass graft In October 2022 patient underwent coronary artery bypass graft x3, FUENTES to LAD SVG to obtuse marginal branch and PDA sequential, ascending aortic aneurysm repair with 30 mm Hemashield graft, prior median sternotomy. No angina pectoris Continue ongoing medical therapy and risk factor modification and long-term antiplatelet therapy High risk medication use Patient is currently off indomethacin. On allopurinol and probenecid. CAD (coronary artery disease) Multigigiscan Myoview February 2022-no ischemia, preserved LV systolic function Coronary calcium score August 2022-left main 394 LAD 757 left circumflex 23 RCA thousand 170, total score 2344, 97th percentile for age gender and race Cardiac catheterization September 2022-right dominant, extensively calcified right coronary artery with 90% ostial stenosis, diffuse ectasia, 40% proximal stenosis, 75% mid stenosis, large PDA less than 20% stenosis, smaller posterolateral ventricular branch, left main trifurcates into the LAD ramus and circumflex, there is complex plaque involving the trifurcation point of the distal left main, involving the origin of the left anterior descending artery, relatively small left circumflex continues as a major obtuse marginal branch, probable ostial disease in the left circumflex distribution, largeramus branch, bifurcates into 2 secondary branches, ostial and proximal disease noted, probably 70%angiographically, eccentric, there is also overlap of vessels. LAD with heavy calcification. OstialLAD with angiographically significant disease LVEF 55 to 60% LVEDP 10 to 15 mmHg. In October 2022 patient underwent coronary artery bypass graft x3, FUENTES to LAD SVG to obtuse marginal branch and PDA sequential, ascending aortic aneurysm repair with 30 mm Hemashield graft, prior median sternotomy. No angina/anginal equivalent. Sleep apnea Reports compliance with CPAP therapy. Recommendations: 1. Patient will stay off indomethacin 2. Patient will continue to keep track of home blood pressure readings 3. Amlodipine 2.5 mg p.o. daily 4. Completed cardiac rehabilitation 5. Keep outpatient follow-up May 2023 as previously scheduled. Follow up : 3 months Romana De La Rosa LPN [facility] Phone: 1(380) 680-717211-20-2023 Instructions* Patient Instructions* Chris Rebolledo MA - 03/14/2023 9:00 AM EST Please bring all medicines, vitamins, and herbal supplements with you when you come to the office. Prescriptions will not be filled unless you are compliant with your follow up appointments or have a follow up appointment scheduled as per instruction of your physician. Refills should be requested at the time of your visit. [facility] Work Phone: 1(852) 861-836011-07-2023 Evaluation note* Encounter Date Diagnosis Assessment Notes Treatment Notes Treatment Clinical Notes Feb, Acute gout of right foot, unspecified cause (ICD-10 - M10.9) Patient requests refill of colchicine provided by ER to use as needed. He denies any adverse side effects with the allopurinol. Notes improvement in blood pressure since discontinuation of indomethacin. Feb, Pain, joint, knee, right (ICD-10 - M25.561) Jose is interested in 1 of those copper braces for his right knee. He notes pain when walking on treadmill and he hopes to return to hiking when he is finished with cardiac rehab. Endorse copper braces and also offered knee injection if needed. 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 Patient is hopeful that he can discontinue at least one of the medications. He states he does feel slightly presyncopal when he first gets up in the morning. [facility] Other 09-12-2023 Evaluation note* Encounter Date Diagnosis Assessment Notes Treatment Notes Treatment Clinical Notes Dec, Acute gout of right foot, unspecified cause (ICD-10 - M10.9) Discussed likely cause of pt sx with them in office today. Discussed cause of gout. Discussed low purine diet to stick to for gout and also foods to avoid. Material on diet provided to pt at this visit.Pt tolerated well. Discussed with pt that if sx become chronic they may need to f/u with pcp for chronic management and possible new medication chronically to prevent these flare ups. F/u with pcp, sooner in ER for worsening sx. Pt understood and agreed to tx plan. [facility] Other 08-07-2023 History of Present illness Narrative* Accompanied by to the office. I most recently saw patient on 2022. Seen in the emergency department December 02, 2022 and I reviewed notes. The ER visit was for gout exacerbation. He is finishing up indomethacin now. * His gout involves the first metatarsophalangeal joint of the right foot. Venous duplex did not reveal DVT * Participates in cardiac rehabilitation regularly * Does admit to occasional palpitations, flip-flopping sensation. No lightheadedness presyncope or syncope. * Reviewed detailed notes from cardiac rehabilitation. There have been isolated ventricular prematurebeats, and a short burst of what looks more like atrial flutter with 221 conduction, cannot completely exclude the possibility of an atrial arrhythmia. * History so far : * 1. Hypertension * 2. Whitecoat hypertension * 3. Nosebleeds, resolved * 4. Intolerance to rosuvastatin-muscle cramping * 5. Probable obstructive sleep apnea-not interested in testing because he does not think he will tolerate the CPAP mask. * 6. inCyte Innovationsan Myoview February 2022-no ischemia, preserved LV systolic function * 7. Echocardiogram February 2022-LV wall thickness is reported to be normal, LV end-systolic dimension 3.9 cm left atrial dimension 5.12 cm aortic root 3.71 cm no aortic stenosis, LVEF 55 to 60% mild left ventricular hypertrophy normal diastolic function no pericardial effusion, normal RV size and systolic function * 8. Left atrial dilatation noted on echo of February 2022, without gross valvular abnormality.? Elevated left atrial pressure from hypertension * 9. Coronary calcium score August 2022-left main 394 LAD 757 left circumflex 23 RCA thousand 170, totalscore 2344, 97th percentile for age gender and race * 10. Dilatation of the ascending thoracic aorta-4.4 cm, incidental finding on coronary calcium scorefrom 09/22/2022. Dedicated CT of the chest September 2022- ascending thoracic aorta 4.6 cm * 11. Cardiac catheterization September 2022-right dominant, extensively calcified right coronary artery with 90% ostial stenosis, diffuse ectasia, 40% proximal stenosis, 75% mid stenosis, large PDA less than 20% stenosis, smaller posterolateral ventricular branch, left main trifurcates into the LAD ramusand circumflex, there is complex plaque involving the trifurcation point of the distal left main, involving the origin of the left anterior descending artery, relatively small left circumflex continues as a major obtuse marginal branch, probable ostial disease in the left circumflex distribution, large ramus branch, bifurcates into 2 secondary branches, ostial and proximal disease noted, % angiographically, eccentric, there is also overlap of vessels. LAD with heavy calcification. Ostial LAD with angiographically significant disease LVEF 55 to 60% LVEDP 10 to 15 mmHg. * 12. Echocardiogram September 2022-LVEF 60 to 65% impaired relaxation pattern of LV diastolic filling normal RV size and function mild tricuspid regurgitation RVSP 20 mmHg mild aortic regurgitation ascending aorta 4.4 cm, left atrial diameter 4.9 cm, LV end-systolic diameter 3.2 cm, left atrial volume index 22 mL per metered square, RV systolic pressure 20 mmHg * 13. In October 2022 patient underwent coronary artery bypass graft x3, FUENTES to LAD SVG to obtuse marginal branch and PDA sequential, ascending aortic aneurysm repair with 30 mm Hemashield graft, prior median sternotomy. * 14. Gout affecting the first metatarsophalangeal joint of the right foot, finishing up indomethacinas of 12/16/2022, ER visit 12/02/2022. * 15. Narrow complex arrhythmia noted on cardiac rehabilitation, cannot exclude atrial flutter with 2:1 AV conduction, atrial tachycardia is also possible, but given recent coronary artery bypass grafting, I would err on the side of caution and consider this to be atrial flutter. * There is no pericardial friction rub. * Recommendations: * 1. We will err on the side of caution and assume that the atrial arrhythmia noted during cardiac rehabilitation is atrial flutter with 221 conduction. * 2. Eliquis 5 mg p.o. twice daily * 3. Patient just had a flare of gout and is on indomethacin, therefore GI prophylaxis with Protonix 20 mg daily or equivalent agent, 90-day prescription additional refills as needed will have to be deferred to primary * 4. Magnesium oxide 400 mg p.o. twice daily * 5. Continue cardiac rehabilitation, this is a great opportunity to follow any dysrhythmia * 6. Stop aspirin when Eliquis is initiated * 7. 2-month follow-up, sooner if interval problems arise * 8. Talked about the risk of bleeding with anticoagulation and antiplatelet agents, patient understands that he needs to seek prompt medical attention if bleeding occurs * 9. As far as the ventricular ectopy goes, we are continuing to follow this for now. -[facility] Santy DO Work Phone: [phone]) 752-821508-07-2023 History of Present illness Narrative* Accompanied by to the office. I most recently saw patient on 2022. Seen in the emergency department December 02, 2022 and I reviewed notes. The ER visit was for gout exacerbation. He is finishing up indomethacin now. * His gout involves the first metatarsophalangeal joint of the right foot. Venous duplex did not reveal DVT * Participates in cardiac rehabilitation regularly * Does admit to occasional palpitations, flip-flopping sensation. No lightheadedness presyncope or syncope. * Reviewed detailed notes from cardiac rehabilitation. There have been isolated ventricular prematurebeats, and a short burst of what looks more like atrial flutter with 221 conduction, cannot completely exclude the possibility of an atrial arrhythmia. * History so far : * 1. Hypertension * 2. Whitecoat hypertension * 3. Nosebleeds, resolved * 4. Intolerance to rosuvastatin-muscle cramping * 5. Probable obstructive sleep apnea-not interested in testing because he does not think he will tolerate the CPAP mask. * 6. Lexiscan Myoview February 2022-no ischemia, preserved LV systolic function * 7. Echocardiogram February 2022-LV wall thickness is reported to be normal, LV end-systolic dimension 3.9 cm left atrial dimension 5.12 cm aortic root 3.71 cm no aortic stenosis, LVEF 55 to 60% mild left ventricular hypertrophy normal diastolic function no pericardial effusion, normal RV size and systolic function * 8. Left atrial dilatation noted on echo of February 2022, without gross valvular abnormality.? Elevated left atrial pressure from hypertension * 9. Coronary calcium score August 2022-left main 394 LAD 757 left circumflex 23 RCA thousand 170, totalscore 2344, 97th percentile for age gender and race * 10. Dilatation of the ascending thoracic aorta-4.4 cm, incidental finding on coronary calcium scorefrom 09/22/2022. Dedicated CT of the chest September 2022- ascending thoracic aorta 4.6 cm * 11. Cardiac catheterization September 2022-right dominant, extensively calcified right coronary artery with 90% ostial stenosis, diffuse ectasia, 40% proximal stenosis, 75% mid stenosis, large PDA less than 20% stenosis, smaller posterolateral ventricular branch, left main trifurcates into the LAD ramusand circumflex, there is complex plaque involving the trifurcation point of the distal left main, involving the origin of the left anterior descending artery, relatively small left circumflex continues as a major obtuse marginal branch, probable ostial disease in the left circumflex distribution, large ramus branch, bifurcates into 2 secondary branches, ostial and proximal disease noted, [id number]% angiographically, eccentric, there is also overlap of vessels. LAD with heavy calcification. Ostial LAD with angiographically significant disease LVEF 55 to 60% LVEDP 10 to 15 mmHg. * 12. Echocardiogram September 2022-LVEF 60 to 65% impaired relaxation pattern of LV diastolic filling normal RV size and function mild tricuspid regurgitation RVSP 20 mmHg mild aortic regurgitation ascending aorta 4.4 cm, left atrial diameter 4.9 cm, LV end-systolic diameter 3.2 cm, left atrial volume index 22 mL per metered square, RV systolic pressure 20 mmHg * 13. In October 2022 patient underwent coronary artery bypass graft x3, FUENTES to LAD SVG to obtuse marginal branch and PDA sequential, ascending aortic aneurysm repair with 30 mm Hemashield graft, prior median sternotomy. * 14. Gout affecting the first metatarsophalangeal joint of the right foot, finishing up indomethacinas of 12/16/2022, ER visit 12/02/2022. * 15. Narrow complex arrhythmia noted on cardiac rehabilitation, cannot exclude atrial flutter with 2:1 AV conduction, atrial tachycardia is also possible, but given recent coronary artery bypass grafting, I would err on the side of caution and consider this to be atrial flutter. * There is no pericardial friction rub. * Recommendations: * 1. We will err on the side of caution and assume that the atrial arrhythmia noted during cardiac rehabilitation is atrial flutter with 221 conduction. * 2. Eliquis 5 mg p.o. twice daily * 3. Patient just had a flare of gout and is on indomethacin, therefore GI prophylaxis with Protonix 20 mg daily or equivalent agent, 90-day prescription additional refills as needed will have to be deferred to primary * 4. Magnesium oxide 400 mg p.o. twice daily * 5. Continue cardiac rehabilitation, this is a great opportunity to follow any dysrhythmia * 6. Stop aspirin when Eliquis is initiated * 7. 2-month follow-up, sooner if interval problems arise * 8. Talked about the risk of bleeding with anticoagulation and antiplatelet agents, patient understands that he needs to seek prompt medical attention if bleeding occurs * 9. As far as the ventricular ectopy goes, we are continuing to follow this for now. -[facility] [address] DO Work Phone: [phone]) 356-256707-16-2023 [place] [address]-16-2023 Hospital Discharge instructions* Activity:Other activity instructions: Best exercise is walking 3-4 times per day. Taking short frequent walks instead of long walks helps to build stamina and reduces the incidence of DVTs. Gradually increase activity level every day.No pushing/pulling/lifting greater than 10 lbs. (no heavier than a gallon of milk) for 3 months after surgery. No arm exercises such as swimming, tennis, golf, bowling, rowing, arm bike, or elliptical for 3 months after surgery. No polyethylene bag machine operator such as vacuuming, shoveling, snow, mowing the lawn, or unscrewing tight jars for 3 months.No driving for 6 weeks. May wear a seatbelt, but must ride in back seat. * Tests 1:Test Name(s): Chest XRScheduled Date/Time: December 02, 2022 @ 12:30 PMLocation: [facility] Radiology DepartmentComments: check in at main registration desk * Wound Care 1:Other Instructions: Look at your incisions every day and call the cardiac surgery office if you experience warmth, redness, swelling, increased incisional pain, drainage, or new feeling of sternal popping or clicking with movement. Do not apply any lotions, creams, or oils to the incision including vitamin E. Do not peel off the DermaBond (glue) on the sternal incision prior to 2 weeks after surgery. Shower daily with mild soap and water and pat incisions to dry. No tub bathing or submerging in water for 2 weeks. * Additional Orders:Additional Instructions: No NSAIDs (common [id number] NSAIDs are ibuprofen/Motrin/Advil, naproxen/Naprosyn/Aleve), for 3 months after cardiac surgery, if NSAIDs needed after 3months clear use with sanding machine tender before starting.Pt instructed to inform Radiology of retained wir es if ever needs MRI and to make appointment with cardiac surgeon if wires ever poke out or pt develops chronic drainage from the site of the previous wires; pt expressed understanding.Patients Dailyresponsibilities Check your temperature with a thermometer if a fever is suspected, and should callthe surgeons office if temperature is > 100.5 F. Weigh yourself every morning and keep a log of your weight. Bring the logs to your appointments. Diabetics should check your sugars and take a log to your PCP/endocrine appointments. You should attend ALL the appointments scheduled prior to discharge, and call to make any additional appointments as instructed. Continue taking medication regimen as prescribed.Who to Call: Call sanding machine tender/PCP: 1. Difficulty breathing when lying flat2. New swelling in ankles/legs 3. New shortness of breath with activity or rest 4. Unrelenting headache 5. Unexplained bruising 6. 3 pound weight gain over 3 days 7. For medication refills/questions Call cardiacsurgery office: 1. If you experience warmth, redness, swelling, increased incisional pain, drainage, or feeling sternal popping or clicking with movement 2. If your temperature is >100.5 Call 911 for chest pain or pressure not related to chest incision, shortness of breath not relieved by rest, sudden change in heart rate (too fast or too slow), excessing bleeding from incisions, fainting or nearly fainting, stroke symptoms (new weakness on one side of body, drooping face, slurred speech, difficulty understanding speech, loss of balance), or for not feeling ``right /sense of impending doom. * Activity:- Continue to increase activity and use incentive spirometer, cough and deep breathing. - Pace activities as tolerated. Avoid heavy physical exertion and lifting. Balance rest periods with activity. - All medication refills will be obtained from the Primary Care Provider or Deputy Administrator. -For severe chest pain, extreme shortness of breath, coughing up frothy sputum, or fainting, GO DIRECTLY TO THE EMERGENCY ROOM OR CALL 911 IF YOU HAVE ANY OF THESE SYMPTOMS. - No pushing, pulling, or lifting objects greater than 10 pounds for 3 months (sternal precautions). - MAY shower. - MAY NOT drive for 4 to 6 weeks, until follow up visit with the surgeon. Discuss driving at your follow-up appointment. - Maintain a daily weight log. Use same scale, before breakfast, after voiding. Take the log to your follow-up appointments. * Wound Instructions:- Cleanse incisions with soap and water daily. No dressing, leave open to air. No lotions, creams or tub soaks/swimming until healed. * Call Provider If:- Redness, drainage or other problems with incisions, notify the Cardiac Surgeon'soffice. - Signs and symptoms of Heart Failure: call your Deputy Administrator if you have weight gain of 3 pounds or more in less than 3 days; shortness of breath at rest, with activity, or when lying flat; dizziness or fainting. - Notify the Cardiac Surgeon s office of any readmission to a hospital beforeyour follow-up appointment with the Cardiac Surgeon. * Home Care Face to Face Certification:Home Care Services Needed: yesHome Care Agency: Home Team Skilled Disciplines Ordered: RN/CHILDREN'S AIDE, PT, OTFace to Face Encounter Completed: yesDate ofEncounter: [id number] Necessity for Homecare (based on clinical findings): Short-term residential is needed to monitor for signs and symptoms of decomposition/adverse events s/p cardiac surgery. Patient at high risk for re-hospitalization. Physical therapy services needed to restore ability to walk without support and establish home exercise program as patient is at high risk for falls and has limited mobility.Occupational therapy services needed to recover and improve, as well as maintain the skills needed for basic ADLs.Homebound Status: homeboundHomebound Due to: Medically restricted from driving following recent cardiac surgery for 6 weeksFace to Face Completed and Home CareOrders Reviewed: I certify that this patient is under my care. I have reviewed the information included in the face to face and certify that the home care services ordered are medically necessary forthis patient. * Home Care Skilled Service:Home Care Skilled Service: CABG carepathCABG: First Home Care Visit: day after discharge * Follow Up Appointment 1:Physician/Dept/Service: Cardiac Surgery Trina for Referral: wound checkScheduled Date/Time: 19-Nov-2022 10:00[facility] [address]Phone Number: [phone] * Follow Up Appointment 2:Physician/Dept/Service: Dr. Judith Cobian for Referral: post op visitScheduled Date/Time: 02-Dec-2022 13:30Location: [facility] [address]Phone Number: [phone] * Follow Up Appointment 3:Physician/Dept/Service: Dr. Mitchell for Referral: Cardiology follow-upScheduled Date/Time: 29-Nov-2022 15:15Location: [facility] [place] officePhone Number: [phone] * Central Line: Right:, internal jugular vein [facility]07-11-2023 History of Present illness Narrative* Accompanied by to the office. * Underwent coronary artery bypass graft x3 * Cardiac catheterization identified critical disease-please refer to the cardiac catheterization report. * Coronary artery bypass graft was done November 02, 2022 * Blood pressure is slowly creeping up. * Patient has benazepril left, from a previous prescription, dose was 40 mg daily then * Has lost weight. * We talked about cardiac rehabilitation * We reviewed recent blood work to include basic metabolic profile, also reviewed lipid profile from October 2022, LDL is at target, HDL has a tendency to remain low. * Patient and are agreeing to cardiac rehabilitation. * Driving restrictions will be directed by CT surgery, patient has upcoming appointment soon. * The anterior sternal scar is well-healed, sternum appears stable. There is a tiny incision right lower inner thigh which is also healing. * History so far : * 1. Hypertension-, patient reports that his blood pressure has been trending up slowly. * 2. Whitecoat hypertension * 3. Nosebleeds, resolved * 4. Intolerance to rosuvastatin-muscle cramping * 5. Probable obstructive sleep apnea-not interested in testing because he does not think he will tolerate the CPAP mask. * 6. Lexiscan Myoview February 2022-no ischemia, preserved LV systolic function * 7. Echocardiogram February 2022-LV wall thickness is reported to be normal, LV end-systolic dimension 3.9 cm left atrial dimension 5.12 cm aortic root 3.71 cm no aortic stenosis, LVEF 55 to 60% mild left ventricular hypertrophy normal diastolic function no pericardial effusion, normal RV size and systolic function * 8. Left atrial dilatation noted on echo of February 2022, without gross valvular abnormality.? Elevated left atrial pressure from hypertension * 9. Coronary calcium score August 2022-left main 394 LAD 757 left circumflex 23 RCA thousand 170, totalscore 2344, 97th percentile for age gender and race * 10. Dilatation of the ascending thoracic aorta-4.4 cm, incidental finding on coronary calcium scorefrom 09/22/2022. Dedicated CT of the chest September 2022- ascending thoracic aorta 4.6 cm * 11. Cardiac catheterization September 2022-right dominant, extensively calcified right coronary artery with 90% ostial stenosis, diffuse ectasia, 40% proximal stenosis, 75% mid stenosis, large PDA less than 20% stenosis, smaller posterolateral ventricular branch, left main trifurcates into the LAD ramusand circumflex, there is complex plaque involving the trifurcation point of the distal left main, involving the origin of the left anterior descending artery, relatively small left circumflex continues as a major obtuse marginal branch, probable ostial disease in the left circumflex distribution, large ramus branch, bifurcates into 2 secondary branches, ostial and proximal disease noted, [id number]% angiographically, eccentric, there is also overlap of vessels. LAD with heavy calcification. Ostial LAD with angiographically significant disease LVEF 55 to 60% LVEDP 10 to 15 mmHg. * 12. Echocardiogram September 2022-LVEF 60 to 65% impaired relaxation pattern of LV diastolic filling normal RV size and function mild tricuspid regurgitation RVSP 20 mmHg mild aortic regurgitation ascending aorta 4.4 cm, left atrial diameter 4.9 cm, LV end-systolic diameter 3.2 cm, left atrial volume index 22 mL per metered square, RV systolic pressure 20 mmHg * 13. In October 2022 patient underwent coronary artery bypass graft x3, FUENTES to LAD SVG to obtuse marginal branch and PDA sequential, ascending aortic aneurysm repair with 30 mm Hemashield graft, prior median sternotomy. * A/P: * Patient is doing well post coronary artery bypass grafting, no angina pectoris, remains on antiplatelet therapy with aspirin. * In lieu of gradually rising blood pressure which patient has noticed outside of the office environment, will reinitiate benazepril 20 mg daily * Cardiac rehabilitation was discussed and a referral was provided, patient would like to do it closer to home. * Follow-up as scheduled, with comprehensive profile and lipid profile prior to next visit. * Driving restrictions to be addressed by CT surgery at upcoming appointment. * Hyperlipidemia-at target [facility] [address] DO Work Phone: 1(261) 680-408007-11-2023 [facility]07-11-[address] [facility]06-16-2023 [facility]06-16-2023 [facility]06-16-2023 History and physical note* Kristen Alegria MD - 10/08/2022 1:45 PM EDT History & Physical Reviewed: I have reviewed the History and Physical dated: 28-Sep-2022 History and Physical reviewed and relevant findings noted. Patient examined to review pertinent physical findings.: No significant changes Home Medications Reviewed: no changes noted Allergies Reviewed: no changes noted Airway/Sedation Assessment: Oropharyngeal Classification Class II ERAS (Enhanced Recovery After Surgery): ERAS Patient: no Consent: COVID-19 Consent: COVID-19 Risk Consent Surgeon has reviewed yusuf risks related to the risk of morgan COVID-19 and if they contract COVID-19 what the risks are. Electronic Signatures: Kristen Alegria) (Signed 08-Oct-2022 13:45) Authored: History & Physical Reviewed, Airway/Sedation, ERAS, Consent, Note Completion Last Updated: 08-Oct-2022 13:45 by Kristen Alegria) [facility] Work Phone: 1([phone]) 102-145806-16-2023 History and physical note* Kristen Alegria MD - 10/08/2022 1:45 PM EDT History & Physical Reviewed: I have reviewed the History and Physical dated: 28-Sep-2022 History and Physical reviewed and relevant findings noted. Patient examined to review pertinent physical findings.: No significant changes Home Medications Reviewed: no changes noted Allergies Reviewed: no changes noted Airway/Sedation Assessment: Oropharyngeal Classification Class II ERAS (Enhanced Recovery After Surgery): ERAS Patient: no Consent: COVID-19 Consent: COVID-19 Risk Consent Surgeon has reviewed yusuf risks related to the risk of morgan COVID-19 and if they contract COVID-19 what the risks are. Electronic Signatures: Kristen Alegria) (Signed 08-Oct-2022 13:45) Authored: History & Physical Reviewed, Airway/Sedation, ERAS, Consent, Note Completion Last Updated: 08-Oct-2022 13:45 by Kristen Alegria) documented in this [facility] Work Phone: 1(582) 667-708305-22-2023 History of Present illness Narrative* Patient was initially seen on 09/13/2022, and presents for follow-up after medication change as wellas additional testing. Originally presented with uncontrolled hypertension to outside hospital, palpitations, started on amlodipine benazepril, metoprolol, evidence of whitecoat hypertension, I saw him for blood pressure management. Patient was also complaining of fatigue. We tapered off his metoprolol, and added Maxide. Blood pressure has improved significantly. Patient reports feeling well. Hiscoronary calcium score however is significantly abnormal left main 394 LAD 757 left circumflex 23 RCA 1178 with a total score of 2344 incidental finding of dilatation of the thoracic aorta 4.4 cm * Laboratory data reviewed hemoglobin A1c 6.1 total cholesterol 159 triglycerides 103 LDL 104 triglycerides 103 HDL 34 * Patient has not been noticing anterior chest discomfort in the last few weeks, which she describes as a pressure sensation, does not radiate to the neck arm or jaw, frequently with activity does not wake him up from sleep at night. * EKG today shows normal sinus rhythm normal intervals and no acute or diagnostic ST-T abnormality. * Patient is accompanied by his . Findings were discussed with both patient and . Despite a negative stress test in February 2022, patient needs further work-up for CAD particularly in view of his chest discomfort that is suggestive of angina pectoris, and his markedly abnormal coronary calcium score and other risk factors. He also is recommended to start aspirin and pravastatin 40 mg daily. * Assessment: * 1. Hypertension- * 2. Whitecoat hypertension * 3. Nosebleeds, resolved * 4. Intolerance to rosuvastatin-muscle cramping * 5. Probable obstructive sleep apnea-not interested in testing because he does not think he will tolerate the CPAP mask. * 6. Lexiscan Myoview February 2022-no ischemia, preserved LV systolic function * 7. Echocardiogram February 2022-LV wall thickness is reported to be normal, LV end-systolic dimension 3.9 cm left atrial dimension 5.12 cm aortic root 3.71 cm no aortic stenosis, LVEF 55 to 60% mild left ventricular hypertrophy normal diastolic function no pericardial effusion, normal RV size and systolic function * 8. Left atrial dilatation noted on echo of February 2022, without gross valvular abnormality.? Elevated left atrial pressure from hypertension * 9. Coronary calcium score August 2022-left main 394 LAD 757 left circumflex 23 RCA thousand 170, totalscore 2344, 97th percentile for age gender and race * 10. Dilatation of the ascending thoracic aorta-4.4 cm, incidental finding on coronary calcium scorefrom 09/22/2022. * Recommendations: * 1. Enteric-coated aspirin 81 mg p.o. daily * 2. Pravastatin 40 mg p.o. daily * 3. Increase amlodipine from 2.5 mg daily to 5 mg daily * 4. Proceed with cardiac catheterization possible intervention-rationale for cardiac catheterizationand possible intervention was discussed. Procedure, risks, benefits, and alternatives were discussed. Procedure was explained to patient in layman's terms ie the catheters would be introduced under local anesthetic via the right groin or the right radial approach, and under x-ray guidance catheterswould be positioned in the coronary arteries and pictures would be taken. This will be followed by opening up of blockages using balloon tipped catheters, followed by placement of stents within the arteries. Each stent is described as a metal scaffolding that keeps the artery open . Risks discussedincluded, but were not limited to [place], stroke, , peripheral vascular compromise, allergic reaction to dye, bleeding complications, and kidney injury. The very rare occurrence of needing emergencycoronary artery bypass grafting was also discussed. When the procedure is done at in a facility that does not do coronary artery bypass grafting on site, the patient would be transferred to a facility that has bypass capability. * Patient expressed understanding and agrees to the procedure.. * Patient should avoid any food for 6 hours prior to the procedure. Patient should take medications as prescribed with sips of water. If procedure is scheduled after , a light breakfast such as tea andtoast or crackers is allowed before 7 am.. Patient should not stop aspirin * Consents were signed. Procedure to be done at [facility], patient agreeable to come to [facility] from [place]. * CBC PT/INR and basic metabolic profile during the week of procedure * Follow-up after testing sooner if interval problems arise * Primary medical care per Dr. Alexandr [facility] [address] DO Work Phone: [phone]) [phone] Evaluation note* Encounter Date Diagnosis Assessment Notes Treatment Notes Treatment Clinical Notes Jul, Essential hypertension (ICD-10 - I10) Presently appears stable on present meds. Pt would like to continue care with different cardiology office. Jul, Hyperlipemia, mixed (ICD-10 - E78.2) If unable to tolerate crestor, likely unable to tolerate any statin. States has a family history of problems with statins. Will continue zetia. [facility] Other 04-04-2023 NotePt states he stopped taking the Rosuvastatin due to having headaches and bodyaches pt states he stopped rx a month ago after stopping rx pt states symptoms went away but bp started going back up Review of Systems All other systems reviewed and are negative.[facility] 07-27-2022 NoteCardiology Clinic Note Subjective Jose Canales is a 66 y.o. year old male patient with hypertension, hyperlipidemia, and benign positional vertigo, seen in follow-up. He was last seen by Duane Simmons PA-C in 03/2022 was found to have an ASCVD risk of 18.9%, and started on rosuvastatin in addition to his home dose of ezetimibe. Today he states he stopped taking Rosuvastatin as it caused him headaches and myalgias in his legs. His BP here is elevated, has been running in the 130s/80s at home. He has also been feeling fatigued since starting starting the Metoprolol. 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 All other systems reviewed and are negative. Objective Visit Vitals BP (!) 156/99 (BP Location: Left arm, Patient Position: Sitting) Pulse 71 Wt 108 kg (237 lb) SpO2 95% BMI 30.43 kg/m??? Smoking Status Never BSA 2.37 m??? Physical Exam General: Awake, alert, in NAD Neck: No elevated JVP. No carotid bruit Pulm: Breath sounds clear to ascultation bilaterally with no wheeze, crackles or rhonchi Cards: Regular rate and rhythm, S1, S2. No S3 or S4 gallop. Murmur: none Abd: Soft, Nontender, physiologic bowel sounds are present Extr: Lower extremity edema: None. Skin: warm, dry, well perfused Neuro: A&Ox3, No gross deficits Allergies Allergies Allergen Reactions Rosuvastatin Other and Headache On 20mg c/o brain fog and headache that resolved when stopped. Medications Current Outpatient Medications: amLODIPine (Norvasc) 2.5 mg tablet, Take 2.5 mg by mouth in the morning., Disp: , Rfl: aspirin 81 mg EC tablet, Take 81 mg by mouth in the morning., Disp: , Rfl: benazepril (Lotensin) 40 mg tablet, Take 40 mg by mouth in the morning., Disp: , Rfl: ezetimibe (Zetia) 10 mg tablet, Take 10 mg by mouth in the morning., Disp: , Rfl: metoprolol succinate XL (Toprol-XL) 25 mg 24 hr tablet, Take 1 tablet (25 mg) by mouth in the morning. Do not crush or chew., Disp: 30 tablet, Rfl: 0 rosuvastatin (Crestor) 20 mg tablet, Take 1 tablet (20 mg) by mouth in the morning. (Patient not taking: Reported on 07/27/2022), Disp: 30 tablet, Rfl: 11 Recent Labs 03/23/2022 labs from [facility]: Unremarkable CBC, normal renal function and electrolytes. TC 159, TG 103, HDL 34, LDL 104. A16 6.1%. At high-sensitivity troponin negative x3 03/23/2022: Sodium 138, potassium 3.9, chloride 102, CO2 28.6, creatinine 0.93, GFR greater than 60% Imaging and other tests CV Testin03/22/2022 EKG ([facility]): Sinus rhythm, normal R wave progression, nonspecific ST-T wave abnormality. 03/23/2022 echo: ([facility]): EF 55-60%, no obvious wall motion abnormalities. Mild left ventricular hypertrophy. Normal diastolic function. Right ventricle is normal in size and systolic function. Mild pulmonic regurgitation. Anterior free space trivial effusion versus fat pad. 03/23/2022 nuclear MPS ( [facility]) Normal nuclear medicine myocardial perfusion scan. Nondiagnostic exercise portion of study. Assessment Diagnoses and all orders for this visit: Benign hypertension - metoprolol succinate XL (Toprol-XL) 25 mg 24 hr tablet; Take 1 tablet (25 mg) by mouth in the morning. Do not crush or chew. Mixed hyperlipidemia Plan Hypertension -Uncontrolled. In setting of his fatigue, will decrease Metoprolol succ to 25 mg and increase Amlodipine to 5 mg. He thinks he may have had issues with this dose before, but is agreeable to trying it again and monitoring symptoms. He will monitor his BP at home and bring a log as well as his monitor for correlation. 2. Hyperlipidemia -Reports he is unable to tolerate Rosuvastatin. Will trial Pravastatin, however will focus on BP control for now and add statin after this is achieved to avoid confounding medication side effects. Follow up in about 4 weeks (around 08/24/2022). Betty Muhammad APRN-[facility]22 NoteUTP CARDIOLOGY PROGRESS NOTE [facility] HPI: Jose Canales is a 66 y.o. male here to establish care and discuss recent ER eval for chest pain HPI Patient with history of hypertension, hyperlipidemia, benign positional vertigo. He was evaluated at [facility] on 03/22/2022 for upper midsternal chest pressure without radiation, not after meals or at rest. This is also accompanied by palpitations (he says PVCs were seen on hospital telemetry). Palpitations and chest discomfort ceased at the same time, and has not returned. Of note, his blood pressure was quite elevated despite taking benazepril and amlodipine chronically. ACS was ruled out by EKG and labs. Echocardiogram found preserved EF without wall motion abnormalities but did find mild LVH with normal diastolic function. Nuclear MPS was normal. Metoprolol tartrate was added to his medications and discharged with PCP follow-up. Today patient says that a week prior to his hospitalization he was evaluated for shoulder pain and had elevated blood pressures. He has noticed irregular pulse and occasional palpitations which he relates to PVCs seen on hospital telemetry. Mostly, other than palpating his pulse he is not aware of this. He is losing weight (5 pounds) intentionally with dietary changes. Home blood pressures in the morning when he takes his meds average 128/78. In the evening the average 138/88, heart rate 60-70s. He can walk a block, stopping because he reaches his destination, without any dyspnea or chest discomfort or palpitations. REVIEW OF SYSTEMS: Neuro: No dizziness or lightheadedness with position change or standing. No focal neuro deficits. No recent falls, syncope or pre-syncope. Cardio: Rare palpitations, but notices irregular pulse at times. No chest pressure or pain with any activities. Pulm: No significant ANTONIO. No PND or orthopnea. Abd: No increased abdominal girth. No significant epigastric distress or dyspepsia. No significant weight gain or loss. No hematochezia nor melena. Extr: No claudication symptoms. No lower extremity edema. 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 Rare alcohol, no tobacco, no illicit or recreational drugs. Visit Vitals BP (!) 144/97 (BP Location: Left arm, Patient Position: Sitting) Pulse 68 Ht 1.88 m (6' 2 ) Wt 107 kg (235 lb) SpO2 95% BMI 30.17 kg/m??? Smoking Status Never BSA 2.36 m??? No Known Allergies Medications: Current Outpatient Medications on File Prior to Visit Medication Sig Dispense Refill amLODIPine (Norvasc) 2.5 mg tablet Take 2.5 mg by mouth in the morning. aspirin 81 mg EC tablet Take 81 mg by mouth in the morning. benazepril (Lotensin) 40 mg tablet Take 40 mg by mouth in the morning. ezetimibe (Zetia) 10 mg tablet Take 10 mg by mouth in the morning. [DISCONTINUED] metoprolol tartrate (Lopressor) 25 mg tablet Take 25 mg by mouth in the morning and at bedtime. No current facility-administered medications on file prior to visit. No results found for: PTWEIGHT Physical Exam: BP (!) 144/97 (BP Location: Left arm, Patient Position: Sitting) Pulse 68 Ht 1.88 m (6' 2 ) Wt 107 kg (235 lb) SpO2 95% BMI 30.17 kg/m??? Physical exam: General: Awake, alert, good spirits. NAD Eyes: anicteric sclera. Non-injected conjunctiva. No xanthelasmas Neck: No elevated JVP. No carotid bruit Pulm: Breath sounds clear to ascultation bilaterally with no wheeze, crackles or rhonchi Cards: HRRR , NL S1, S2. No S3 or S4 gallop. Murmur: none Abd: Soft, Nontender, physiologic bowel sounds are present Extr: Lower extremity edema: None. DP pulses present bilaterally Skin: warm, dry, well perfused Neuro: A&Ox3, No gross deficits Labs: Chemistry No results found for: NA, K, CL, CO2, BUN, CREATININE, GLU No results found for: CALCIUM, ALKPHOS, AST, ALT, BILITOT 03/22/2022 labs from [facility]: Unremarkable CBC, normal renal function and electrolytes. TC 159, TG 103, HDL 34, LDL 104. A16 6.1%. At high-sensitivity troponin negative x3 Last lab values have been reviewed CV Testin03/22/2022 EKG ([facility]): Sinus rhythm, normal R wave progression, nonspecific ST-T wave abnormality. 03/23/2022 echo: ([facility]): EF 55-60%, no obvious wall motion abnormalities. Mild left ventricular hypertrophy. Normal diastolic function. Right ventricle is normal in size and systolic function. Mild pulmonic regurgitation. Anterior free space trivial effusion versus fat pad. 03/23/2022 nuclear MPS ( [facility]) Normal nuclear medicine myocardial perfusion scan. Nondiagnostic exercise portion of study. Assessment/Plan: Jose Canales is a 66 y.o. male with history of hypertension, hyperlipidemia, benign positional vertigo. He was evaluated at [facility] for chest pain and palpitations accompanied by significantly elevated blood pressure, with ACS ruled out. Nuclear MPS was normal and echocardiogram foun (more content not included)...[facility]12-16-2022 NoteNew patient here to establish care. Ref from Dr. Alcazar for hypertension and chest pain. He presented to [facility] ED on 03/22 and had stress test the following day. He was started on metoprolol in the ED. Denies SOB. Says he thinks the amlodipine and benazepril aren't working for him anymore. Review of Systems Cardiovascular: Positive for chest pain and palpitations. Musculoskeletal: Positive for arthritis and joint pain. All other systems reviewed and are negative.[facility] Evaluation note* Breast: DeferredLymphatic: DeferredPsychological: Appropriate mood and behaviorConstitutional: Welldeveloped, awake/alert/oriented x3, no distress, alert and cooperativeSkin: Warm and dry, no rashesMidline chest incision well approximated, no drainageEyes: Pupils equal size, clear scleraCardiovascular: Regular, rate and rhythm, no murmurs, normal S 1and S 2Head/Neck: Neck supple, no apparent injury, No JVD, trachea midline, no bruitsRespiratory/Thorax: Respirations even and unlabored, breath sounds clear to auscultation posteriorlyGastrointestinal: Nondistended, soft, non-tender, +bowel soundsGenitourinary: DeferredMusculoskeletal: ROM intactExtremities: No lower extremity edema2+ radial and PT pulses bilaterallyENMT: Mucous membranes moistNeurological: Alert and oriented x3, speech clear, moves all extremities equally [facility] noteNo assessment information [facility] Work Phone: Evaluation noteNo InformationNort IMASTE Other Evaluation note* Diagnosis S/P CABG x 3- Primary Postsurgical aortocoronary bypass status Hypertensive heart disease with diastolic congestive heart failure, NYHA class 2 (CMS/HCC) Status post coronary artery bypass graft Postsurgical aortocoronary bypass status Resistant hypertension High risk medication use Ag[place] coronary artery calcium score greater than 400 Arrhythmia, atrial Unspecified cardiac dysrhythmia documented in this encounter [facility] Work Phone: Evaluation note* Diagnosis Angina pectoris, unspecified (CMS/HCC) 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 (CMS/HCC) Abnormal result of other cardiovascular function study Hypertensive heart disease with heart failure (CMS/HCC) Unspecified hypertensive heart disease with heart failure Unspecified diastolic (congestive) heart failure (CMS/HCC) Hyperlipidemia, unspecified Obesity, unspecified Body mass index (BMI)30.0-30.9, adult FDC (current) use of aspirin Chest pain, unspecified Angina pectoris with documented spasm (CMS/HCC) Occlusion and stenosis of bilateral carotid arteries documented in this encounter [facility] Work Phone: Evaluation note* Diagnosis Coronary artery disease involving coronary bypass graft of [place] heart, unspecified whether angina present Hypertensive heart disease with diastolic congestive heart failure, NYHA class 2 (CMS/HCC) S/P CABG x 3 Postsurgical aortocoronary bypass status Mixed hyperlipidemia Statin intolerance Obesity (BMI 30.0-34.9) Obstructive sleep apnea syndrome Obstructive sleep apnea (adult) (pediatric) Status post coronary artery bypass graft Postsurgical aortocoronary bypass status Resistant hypertension documented in this encounter [facility] Work Phone: History general Narrative - Reported* Type Description Date Medical History Current nicotine use Medical History Anxiety, generalized Medical History Benign paroxysmal vertigo, bilat eral Medical History Knee pain, right Medical History Pain in right shoulder Medical History Abnormal ECG during exercise str ess test Medical History Essential hypertension Medical History Hyperlipemia, mixed Surgical History TESTICULAR SURGERY 2004 Surgical History VITRECTOMY Hospitalization History SEE SURGICAL HX [facility] Other History of Present illness NarrativeMrReed Canales is a 66-year-old man with several risk factor for coronary artery disease. He wassent to our outpatient clinic by Dr. Alegria after being diagnosed with triple- vessel disease and an ascending aortic aneurysm of 4.5 cm. The patient complained of unspecific symptoms like tiredness may be some shortness of breath. He was seen in our side hospital with very difficult to control hypert ension, service factor from coronary disease, and calcium score was performed that was positive andthen followed by a left heart cath. I personally review all his studies.[facility] Work Phone: Hospital Discharge instructions Additional Instructions If your symptoms return/worsen or you develop any further concerns or symptoms please see your doctor or return to the emergency department immediately.[facility] Work Phone: Reason for referral (narrative)* Reason for Referral: s/p CABG [facility] (narrative)* Consultation (Routine) - Authorized Specialty Diagnoses / Procedures Referred By Contac t Referred To Contact Cardiology Diagnoses Hypertensive heart disease with diastolic congestive heart failure, NYHA class 2 (CMS/HCC) Status post coronary artery bypass graft S/P CABG x 3 Procedures Follow Up In Cardiology Kristen Alegria MD [address] [place] [address] Kristen Alegria MD [address] [place] [address] Referral ID Status Reason Start Date Expiration Date V isits Requested Visits Authorized [id number] Authorized 03/14/2023 03/13/2024 1 1 [facility] Work Phone: Reason for referral (narrative)* Consultation (Routine) - Authorized Specialty Diagnoses / Procedures Referred By Contac t Referred To Contact Cardiology Diagnoses Hypertensive heart disease with diastolic congestive heart failure, NYHA class 2 (CMS/HCC) S/P CABG x 3 Coronary artery disease involving coronary bypass graft of [place] heart, unspecified whether angina present Procedures Follow Up In Cardiology Kristen Alegria MD [address] [place] [address] Kristen Alegria MD [address] [place] [address] Referral ID Status Reason Start Date Expiration Date V isits Requested Visits Authorized [id number] Authorized 05/30/2023 05/29/2024 1 1 [facility] Work Phone: Summary Purpose Family History No Family History Records FoundUnknown Family Member Name Dates Details Heart problem: Mother Status:Active Unknown Family Member Name Dates Details Heart problem: Mother Status:Active Unknown Family Member Name Dates Details Heart problem: Mother Status:Active Unknown Family Member Name Dates Details Heart problem: Mother Status:Active Unknown Family Member Name Dates Details Heart problem: Mother Status:Active Unknown Family Member Name Dates Details Heart problem: Mother Status:Active Unknown Family Member Name Dates Details Heart problem: Mother Status:Active Family history of arterioscl erotic cardiovascular disease: Brother(V17.49, Z82.49) Status:Active Unknown Family Member Name Dates Details Heart problem: Mother Status:Active Family history of arterioscl erotic cardiovascular disease: Brother(V17.49, Z82.49) Status:Active Unknown Family Member Name Dates Details Heart problem: Mother Status:Active Family history of arterioscl erotic cardiovascular disease: Brother(V17.49, Z82.49) Status:Active Advance Directives No Advanced Directives Records Found Advance Directive Response Recorded Date/ Time Advance Directives No February 07, 2023 5:47pm Documents on File Type Date Recorded Patient [employer] Expl anation Healthcare Power of Atty 10/29/2022 10:05 AM Living Will 10/29/2022 10:05 AM Healthcare Power of Atty 10/29/2022 Living Will 10/29/2022 Documents on File Type Date Recorded Patient [employer] Expl anation Healthcare Power of Atty 10/29/2022 10:05 AM Living Will 10/29/2022 10:05 AM Healthcare Power of Atty 10/29/2022 Living Will 10/29/2022 Reason for Referral Reason Will print and scan hospitalization notes from 2021 into . Diagnosis 1 Essential hypertensi on (I10) Referral Organization [facility] yolanda Referring Provider First Name Joseline Referring Provider Last Name Inge Referring Provider Specialty [facility] IMASTE Referred Organization [facility] enter Referred Address [address],[address] Referred Provider Specialty Cardiology Referral Priority Routine Reason Recurrent gout for 6 -8 months Diagnosis 1 Chronic gout of foot , unspecified cause, unspecified laterality (M1A.0790) Referral Organization [facility] yolanda Referring Provider First Name Joseline Referring Provider Last Name Inge Referring Provider Specialty [facility] [employer] Referred Organization Unknown Facility Referred Provider Carson Wall Referred Provider Specialty Rheumatology Referral Priority Routine Chief Complaint Pt Request ABN CA score and chest pressurePt is here for a new pt office visitPt is here for a new pt office visitThis 66 year old status post CABG X3, Aortic aneurysm repair with graft on 11/02/[address] Judith Bell [facility]. Patient discharged from hospital on 11/07/22. Patient seen in office as nurse post operativevisit. Midline sternal incision is well approximated with no redness or drainage noted. Suture removed from previous chest tube site which remains well approximated.Right leg incision is well approximated with no redness or drainage noted. Lungs are clear bilaterally. He has no complaints of pain at this time. He has no edema of lower extremities and pedal pulses palpable bilaterally. He has beentaking short walks without shortness of breath. Heart sounds are normal. Bowel sounds are active with patient reporting normal bowel movements. His appetite has been good with diet reviewed in detailwith all questions reviewed. 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 He has a follow up with Dr Judith Jessica and a chest x-ray before on December 02. Patient instructed to call with any questions or concerns.JOSE CANALES is being seen for a 3 month follow-up of s/p x3 CABG with Dr. Judith Jessica.JOSE CANALES is being seen for Sooner OV per Dr. Kristen Alegria MD.JOSE CANALES is being seen for Sooner OV per Dr. Kristen Alegria MD. Chief Complaint and Reason for Visit Chief Complaint elevated blood press ure Additional Source Comments (unrecognized sect ion and content) No Status Records FoundNo Status Records FoundNo Status Records FoundNo Status Records FoundNo Status Records FoundNo Status Records FoundNo Status Records FoundNo Status Records Found INFORMATION SOURCE (unrecogn ized section and content) DATE CREATED AUTHOR [facility]/27/2022 [facility] DATE CREATED AUTHOR AUTHOR'S ORGANIZ ATION 07/29/2022 [facility] DATE CREATED AUTHOR AUTHOR'S ORGANIZ ATION 12/04/2022 [facility] DATE CREATED AUTHOR AUTHOR'S ORGANIZ ATION 12/17/2022 [facility] DATE CREATED AUTHOR AUTHOR'S ORGANIZ ATION 12/17/2022 [facility] DATE CREATED AUTHOR AUTHOR'S ORGANIZ ATION 06/02/2023 [facility] DATE CREATED AUTHOR AUTHOR'S ORGANIZ ATION 06/11/2023 [facility] DATE CREATED AUTHOR AUTHOR'S ORGANIZ ATION 11/09/2023 [facility] REASON FOR VISIT (unrecogniz ed section and content) Reason Comments Follow-up 1 month Specialty Diagnoses / Procedures Referred By Liya azar Referred To Contact Cardiology Diagnoses Hypertensive heart disease with diastolic congestive heart failure, NYHA class 2 (CMS/HCC) Elevated blood pressure reading in office with white coat syndrome, with diagnosis of hypertension Status post coronary artery bypass graft Resistant hypertension Procedures Follow Up In Cardiology Kristen Alegria MD [address] [facility] [address] [place] [address] Kristen Alegria MD [address] [facility] [address] [place] [address] Referral ID Status Reason Start Date Expiration Date V isits Requested Visits Authorized [id number] Authorized 02/10/2023 02/10/2024 1 1 Reason Comments Other [facility] CATH POSS PCI Reason Comments Follow-up 6M Specialty Diagnoses / Procedures Referred By Contac t Referred To Contact Cardiology Diagnoses Hypertensive heart disease with diastolic congestive heart failure, NYHA class 2 (CMS/HCC) Status post coronary artery bypass graft S/P CABG x 3 Procedures Follow Up In Cardiology Kristen Alegria MD [address] [place] [address] [address] [place] [address] Kristen Alegria MD [address] [place] [address] [address] [place] [address] Referral ID Status Reason Start Date Expiration Date V isits Requested Visits Authorized [id number] Authorized 03/14/2023 03/13/2024 1 1 <item><item> Privacy Markings (unrecogniz ed section and content) Section Author: Chrystal Santos PROHIBITION ON REDISCLOSURE OF CONFIDENTIAL INFORMATION This notice accompanies a disclosure of information concerning a client made to you with the consent of such client. Section Author: Chrystal Santos PROHIBITION ON REDISCLOSURE OF CONFIDENTIAL INFORMATION This notice accompanies a disclosure of information concerning a client made to you with the consent of such client. Care Teams (unrecognized sec tion and content) Team Status: Active Member Role Status Dates Joseline Alcazar MD Primary Care Provider Active Team Status: Inactive Member Role Status Dates Joseline Alcazar MD Primary Care Provider Active Brett Amanda DO Emergency Provider Active [employer] Relationship Specialty Start Date End Date Joseline Alcazar MD [address] [place] [id number] PCP - General 08/04/22 [employer] Relationship Specialty Start Date End Date Joseline Alcazar MD PCP - General 08/04/22 [employer] Relationship Specialty Start Date End Date Joseline Alcazar MD [address] [place] [id number] PCP - General 08/04/22 Kristen Alegria MD [address] [facility] 2, [address] [address] Consulting Physician Cardiology 05/16/23 Goals (unrecognized section and content) Goals may be documented in a n alternate section FOR RECORDS PERTAINING TO PATIENTS WHO ARE OR HAVE BEEN ENROLLED IN A CHEMICAL DEPENDENCY/SUBSTANCEABUSE PROGRAM, SOME INFORMATION MAY BE OMITTED. This clinical summary was aggregated from multiple sources. Caution should be exercised in using it in the provision of clinical care. This summary normalizes information from multiple sources, and as a consequence, information in this document may materially change the coding, format and clinical context of patient data. In addition, data may be omitted in some cases. CLINICAL DECISIONS SHOULD BE BASED ON THE PRIMARY CLINICAL RECORDS. [facility]. provides no warranty or guarantee of the accuracy or completeness of information in this document.
== END 2023-11-23 09:22 | disposition home or self-care (01) ==
PROVIDERS: PCP Family Medicine; Visit Provider Student in an Organized Health Care Education/Training Program
DX: I87.8 Other specified disorders of veins (principal); M79.604 Pain in right leg; M79.605 Pain in left leg
CPT/HCPCS: 93970

== ENCOUNTER 2024-07-10 07:39 | Outpatient (OUT) | payer MEDICARE, OTHER, SELFPAY ==
[2024-07-10 08:15] LABS: Basophils Percent Auto 0.5 % (0.2-2.0); Eosinophils Absolute Auto 0.2 10^3/uL (0.0-0.7); Hematocrit 47.5 % (42.0-54.0); Immature Granulocytes Abs Auto 0.02 10^3/uL (0.00-0.03); Immature Granulocytes Pct Auto 0.3 % (0.0-0.5); Lymphocytes Absolute Auto 1.3 10^3/uL (1.2-3.8); Lymphocytes Percent Auto 17.3 % (20.5-60.0); Mean Corpuscular HGB Conc 33.7 g/dL (29.9-35.2); Mean Corpuscular Hemoglobin 31.1 pg (25.9-34.0); Mean Corpuscular Volume 92.2 fL (80.0-94.0); Mean Platelet Volume 9.4 fL (9.5-13.5); Monocytes Absolute Auto 0.9 10^3/uL (0.3-0.8); Neutrophils Absolute Auto 5.1 10^3/uL (1.4-6.5); Neutrophils Percent Auto 66.9 % (43.0-75.0); Platelet Count 231 10^3/uL (150-450); Red Blood Count 5.15 10^6/uL (4.70-6.10); Red Cell Distribution Width 12.9 % (11.0-15.0); White Blood Count 7.7 10^3/uL (4.0-11.0)
[2024-07-10 09:15] LABS: Alanine Aminotransferase 48 U/L (16-63); Albumin Level 3.8 g/dL (3.4-5.0); Alkaline Phosphatase 68 U/L (46-116); Anion Gap 8.5; Aspartate Amino Transferase 39 U/L (15-37); BUN Creatinine Ratio 16.3; Bilirubin Total 0.7 mg/dL (0.2-1.0); Calcium 9.4 mg/dL (8.5-10.1); Carbon Dioxide 31.3 mmol/L (21.0-32.0); Chloride 105 mmol/L (98-107); Estimated GFR (African America >60 (>=60 mL/min/1.73m^2); Estimated GFR (Non-African Ame >60 (>=60 mL/min/1.73m^2); Globulin 3.9 g/dL; Glucose 121 mg/dL (74-106); Potassium 4.8 mmol/L (3.5-5.1); Sodium 140 mmol/L (136-145); Total Protein 7.7 g/dL (6.4-8.2); Uric Acid 4.3 mg/dL (3.5-7.2)
== END 2024-07-10 07:40 | disposition home or self-care (01) ==
LOC: LAB 07:41
PROVIDERS: PCP Family Medicine; Visit Provider Registered Nurse
DX: M15.0 Primary generalized (osteo)arthritis (principal); M10.00 Idiopathic gout, unspecified site; Z79.899 Other long term (current) drug therapy
CPT/HCPCS: 36415; 80053; 84550; 85025